=== PATIENT | male | born 1940 | race Caucasian/White ===

== ENCOUNTER → 2018-12-11 | Outpatient (CLI) | payer MEDICARE ==
[~2018-12-11] VITALS: Ht 165.1 cm; Wt 86.2 kg
[~2018-12-11] MED LIST: FURO40TA5 PO; LISI10TA7 PO; OMEG1CAP67 PO; REGADENOSON 0.4 MG/5 ML PF SYG IVP SCH; WARF-57 PO; WARF7.5T49 PO
[2018-12-18 14:16] VITALS: BP 148/57
== END | disposition home or self-care (01) ==
LOC: SHCH 07:40
PROVIDERS: ATTEND Internal Medicine Cardiovascular Disease
DX: I34.0 Nonrheumatic mitral (valve) insufficiency (principal); I48.2 Chronic atrial fibrillation
CPT/HCPCS: 78452; 93017; 96374; A9500 ×2; J2785

== ENCOUNTER 2018-12-19 07:55 | Day surgery (SDC) | payer MEDICARE ==
[2018-12-15 11:14] LABS: BASOPHILS % (AUTO) 0.9 % (0.0-5.0); EOSINOPHILS % (AUTO) 1.6 % (0.0-8.0); HEMATOCRIT 33.5 % (42-54); LYMPHOCYTES % (AUTO) 19.9 % (21.0-51.0); MEAN CORPUSCULAR HEMOGLOBIN 34.8 pg (27.0-33.0); MEAN CORPUSCULAR HGB CONC 33.7 g/dL (32.0-36.0); MEAN CORPUSCULAR VOLUME 103.1 fL (79-99); MONOCYTES % (AUTO) 12.6 % (3.0-13.0); PLATELET COUNT (AUTO) 122 K/uL (130-400); RED BLOOD CELL COUNT(AUTO) 3.25 MIL/uL (4.50-6.20); WHITE BLOOD COUNT (AUTO) 3.5 K/uL (4.8-10.8)
[2018-12-15 11:26] LABS: CREATININE 0.8 mg/dL (0.5-1.5); POTASSIUM 4.6 mmol/L (3.5-5.1)
[2018-12-15 11:49] LABS: INR 2.14 (0.85-1.15); PARTIAL THROMBOPLASTIN TIME 38.6 SEC (26.3-35.5); PROTHROMBIN TIME 22.1 SEC (9.6-11.6)
--- NOTE | 2018-12-18 11:38 | NUR ---
NURSING COMMUNICATION: INFORMED ON-CALL PHYSICIAN REGARDING PT ELEVATED PT/INR LAB RESULTS, NO NEW ORDERS RECEIVED, OK TO PROCEED WITH PLANNED PROCEDURE.
[2018-12-19] VITALS (18 sets, daily range): BP systolic 131–182; BP diastolic 56–111
[~2018-12-19 07:55] MED LIST changes: -REGADENOSON 0.4 MG/5 ML PF SYG IVP SCH
[2018-12-19] MEDS ORDERED: SODIUM CHLORIDE 0.9% 1000ML 1,000 ML IV ONE (08:57)
[2018-12-19] MEDS ORDERED: LIDOCAINE HCL 2% VISCOUS 15 ML UDCUP PO SCH (09:41)
[2018-12-19] MEDS ORDERED: MIDAZOLAM HCL 1 MG/ML 2ML VIAL ONE (12:14)
[2018-12-19] MEDS ORDERED: FENTANYL CITRATE PF 50 MCG/1 ML 2ML VIAL ONE (12:15)
[2019-01-22] MEDS ORDERED: WARF-57 PO (14:29)
== END 2018-12-19 14:30 | disposition home or self-care (01) ==
LOC: DAH 07:55
PROVIDERS: ATTEND Internal Medicine Cardiovascular Disease
DX: I08.0 Rheumatic disorders of both mitral and aortic valves (principal); Z79.01 Long term (current) use of anticoagulants; Z98.890 Other specified postprocedural states; I48.2 Chronic atrial fibrillation; Z82.49 Family history of ischemic heart disease and other diseases of the circulatory system; Z68.30 Body mass index [BMI] 30.0-30.9, adult; Z79.899 Other long term (current) drug therapy; Z79.84 Long term (current) use of oral hypoglycemic drugs
CPT/HCPCS: 36415; 80048; 85025; 85610; 85730; 93313; A4606; J2250; J3010; J7030; 99152; 99153

== ENCOUNTER 2019-01-23 09:48 | Day surgery (SDC) | payer MEDICARE ==
[2019-01-22 14:20] VITALS: BP 166/66
[2019-01-22 14:28] LABS: BASOPHILS % (AUTO) 0.9 % (0.0-5.0); EOSINOPHILS % (AUTO) 3.6 % (0.0-8.0); HEMATOCRIT 35.7 % (42-54); LYMPHOCYTES % (AUTO) 23.1 % (21.0-51.0); MEAN CORPUSCULAR HEMOGLOBIN 35.8 pg (27.0-33.0); MEAN CORPUSCULAR HGB CONC 35.1 g/dL (32.0-36.0); MEAN CORPUSCULAR VOLUME 102.2 fL (79-99); MONOCYTES % (AUTO) 10.6 % (3.0-13.0); NEUTROPHILS % (AUTO) 61.8 % (40.0-77.0); PLATELET COUNT (AUTO) 141 K/uL (130-400); RED CELL DISTRIBUTION WIDTH 15.2 % (11.0-15.5); WHITE BLOOD COUNT (AUTO) 4.1 K/uL (4.8-10.8)
[2019-01-22 14:36] LABS: APPEARANCE,URINE Clear (CLEAR); BILIRUBIN,URINE Negative (NEGATIVE); COLOR,URINE Yellow (YELLOW); GLUCOSE, URINE (UA) Negative (NEGATIVE); KETONES,URINE Negative (NEGATIVE); LEUKOCYTE ESTERASE ,URINE Negative (NEGATIVE); NITRATE,URINE Negative (NEGATIVE); OCCULT BLOOD,URINE Negative (NEGATIVE); PROTEIN,URINE Negative (NEGATIVE); UROBILINOGEN,URINE 0.2 mg/dL (0.2-1.0)
[2019-01-22 14:38] LABS: CREATININE 0.7 mg/dL (0.5-1.5); POTASSIUM 3.9 mmol/L (3.5-5.1)
[2019-01-22 14:40] LABS: INR 1.39 (0.85-1.15); PROTHROMBIN TIME 14.5 SEC (9.6-11.6)
--- NOTE | 2019-01-22 15:28 | NUR ---
ANDREW SZYMANSKI AWARE OF PT-14.5 AND INR-1.39--ORDERS FOR REDRAW PT,PTT IN AM
[2019-01-23] VITALS (9 sets, daily range): BP systolic 147–180; BP diastolic 60–81
[~2019-01-23] VITALS: Ht 165.1 cm; Wt 86.8 kg
[~2019-01-23 09:48] MED LIST changes: +SODIUM CHLORIDE 0.9% 500ML 500 ML IV SCH; -WARF7.5T49 PO
[2019-01-23] MEDS ORDERED: SODIUM CHLORIDE 0.9% 1000ML 1,000 ML IV ONE (10:17)
[2019-01-23 10:44] LABS: INR 1.58 (0.85-1.15); PARTIAL THROMBOPLASTIN TIME 34.8 SEC (26.3-35.5); PROTHROMBIN TIME 16.4 SEC (9.6-11.6)
[2019-01-23] MEDS ORDERED: COLC0.6C3 PO (11:04)
[2019-01-23] MEDS ORDERED: CARV3.12 PO (11:04)
[2019-01-23] MEDS ORDERED: LIDOCAINE HCL 2% 20ML ONE (13:53)
[2019-01-23] MEDS ORDERED: NITROGLYCERIN 5 MG/ML 10 ML VIAL IV ONE (13:53)
[2019-01-23] MEDS ORDERED: IOHEXOL-350 50ML VIAL IV ONE (13:53)
[2019-01-23] MEDS ORDERED: HEPARIN SODIUM 1000UNIT/ML 10ML VIAL ONE (13:53)
[2019-01-23] MEDS ORDERED: IOHEXOL 350 MG/ML 100ML INFUS..BTL IV ONE (13:53)
[2019-01-23] MEDS ORDERED: SODIUM BICARB 50MEQ 50ML VIAL ONE (13:53)
--- NOTE | 2019-01-23 14:35 | NUR ---
PROCEDURE PT TAKEN TO DISASTER OR DAMAGE CONTROL SPECIALIST FOR PROCEDURE VIA BED, NO DISTRESS NOTED.
[2019-01-23] MEDS ORDERED: MEPERIDINE-PF 25 MG/ML SYG ONE (14:56)
[2019-01-23] MEDS ORDERED: MIDAZOLAM HCL 1 MG/ML 2ML VIAL ONE (14:56)
--- NOTE | 2019-01-23 15:55 | NUR ---
POST OP RECEIVED PT FROM MANAGER OF REVENUE . S/P LHC, RIGHT GROIN PERCLOSE DRESSING DRY AND INTACT, SEE POST CATH ASSESSMENT. PT AWAKE AND ALERT IN BED,NO DISTRESS NOTED. VS STABLE. PT INSTRUCTED TO KEEP BEDREST 4 HOURS . PLAN OF CARE DISCUSS WITH PATIENT.
--- NOTE | 2019-01-23 19:15 | NUR ---
DC DC INSTRUCTIONS GIVEN TO PT / PTS FRIEND MAGDI. INSTRUCTED TO F/U WITH DR. Jarod ALEMAN TO CONTINUE HOME MEDS. BOTH VERBALIZED UNDERSTANDING , RIGHT GROIN DRESSING DRY AND INTACT. SEE POST CATH ASSESSMENT. NO BLEEDING OR HEMATOMA NOTED TO RIGHT GROIN AREA. BEDREST WILL BE UP AT 1926 AND PATIENT WILL BE DISCHARGE HOME IF STABLE.
--- NOTE | 2019-01-23 19:30 | NUR ---
DC PT DC HOME VIA WC, NO DISTRESS NOTED. DENIES ANY PAIN OR DISCOMFORTS. ACCOMPANIED BY FAMILY FRIEND, RIGHT GROIN SITE WITH NO BLEEDING OR HEMATOMA
== END 2019-01-23 19:30 | disposition home or self-care (01) ==
LOC: DAH 09:48
PROVIDERS: ATTEND Internal Medicine Cardiovascular Disease
DX: I42.0 Dilated cardiomyopathy (principal); I34.0 Nonrheumatic mitral (valve) insufficiency; I48.2 Chronic atrial fibrillation; Z79.01 Long term (current) use of anticoagulants; I11.0 Hypertensive heart disease with heart failure; I50.42 Chronic combined systolic (congestive) and diastolic (congestive) heart failure; Z79.899 Other long term (current) drug therapy; R00.1 Bradycardia, unspecified; Z98.890 Other specified postprocedural states; Z68.31 Body mass index [BMI] 31.0-31.9, adult; I44.7 Left bundle-branch block, unspecified
CPT/HCPCS: 36415 ×2; 71045; 80048; 81003; 85025; 85610 ×2; 85730 ×2; 93005; 93458; A4606; C1760; C1894; J1644; J2175; J2250; J3490 ×3; J7030; Q9965; Q9967 ×2; 99156; 99157

== ENCOUNTER 2019-03-28 08:19 | Observation (INO) | payer MEDICARE ==
[2019-03-26 12:51] VITALS: BP 140/61
[2019-03-26 12:56] LABS: BASOPHILS % (AUTO) 0.6 % (0.0-5.0); EOSINOPHILS % (AUTO) 2.3 % (0.0-8.0); HEMATOCRIT 36.7 % (42-54); LYMPHOCYTES % (AUTO) 20.1 % (21.0-51.0); MEAN CORPUSCULAR HEMOGLOBIN 33.9 pg (27.0-33.0); MEAN CORPUSCULAR HGB CONC 33.9 g/dL (32.0-36.0); MEAN CORPUSCULAR VOLUME 99.9 fL (79-99); MONOCYTES % (AUTO) 10.8 % (3.0-13.0); NEUTROPHILS % (AUTO) 66.2 % (40.0-77.0); PLATELET COUNT (AUTO) 183 K/uL (130-400); RED BLOOD CELL COUNT(AUTO) 3.67 MIL/uL (4.50-6.20); RED CELL DISTRIBUTION WIDTH 14.1 % (11.0-15.5); WHITE BLOOD COUNT (AUTO) 5.8 K/uL (4.8-10.8)
[2019-03-26 12:59] LABS: CREATININE 1.1 mg/dL (0.5-1.5)
[2019-03-26 13:06] LABS: INR 1.27 (0.85-1.15); PARTIAL THROMBOPLASTIN TIME 32.2 SEC (26.3-35.5); PROTHROMBIN TIME 13.3 SEC (9.6-11.6)
--- NOTE | 2019-03-27 11:14 | NUR ---
REPORTED ABNORMAL LABS TO ANDREW SZYMANSKI OF DR. ALEMAN. OK TO PROCEED NO NEW ORDERS
[2019-03-28] VITALS (10 sets, daily range): BP systolic 114–141; BP diastolic 58–71
[~2019-03-28] VITALS: Ht 166.4 cm; Wt 80.5 kg
[~2019-03-28 08:19] MED LIST changes: -LISI10TA7 PO; +LOSA50TA64 PO; +OMEG1CAP43 PO; -OMEG1CAP67 PO; +POTA-9 PO; -SODIUM CHLORIDE 0.9% 500ML 500 ML IV SCH; -WARF-57 PO; +WARF5TAB76 PO; +WARF7.5T23 PO
[2019-03-28] MEDS ORDERED: SODIUM CHLORIDE 0.9% 1000ML 1,000 ML IV ONE (08:33)
[2019-03-28] MEDS ORDERED: BUPIVACAINE/PF 0.25% 30ML VIAL IJ ONE (14:05)
[2019-03-28] MEDS ORDERED: CEFAZOLIN SODIUM 1 GM VIAL ONE ×2 (14:05→14:19)
[2019-03-28] MEDS ORDERED: LIDOCAINE HCL 1% MDV 50ML VIAL ONE (14:05)
--- NOTE | 2019-03-28 14:10 | NUR ---
procedure pt taken to cathodic protection technician via bed for scheduled procedure. pt awake and alert. denied any pain or discomforts
[2019-03-28] MEDS ORDERED: IODIXANOL 320 MG/ML 100 ML VIAL ONE (14:23)
[2019-03-28] MEDS ORDERED: MEPERIDINE-PF 25 MG/ML SYG ONE ×3 (14:23→15:01)
[2019-03-28] MEDS ORDERED: MIDAZOLAM HCL 1 MG/ML 2ML VIAL ONE ×3 (14:23→15:00)
[2019-03-28] MEDS ORDERED: OCTYL 2-CYANOACRYLATE 1 EACH TP ONE (15:58)
[2019-03-28] MEDS ORDERED: METOPROLOL TARTRATE 1 MG/ML 5ML VIAL IV ONE ×2 (15:59→16:06)
[2019-03-28] MEDS ORDERED: METOPROLOL TARTRATE 25 MG TAB PO SCH (16:30)
--- NOTE | 2019-03-28 17:05 | NUR ---
Post procedure Received patient from label sewer in Forman's position alert and oriented 3 left shoulder dressing dry and intact and secured with arm sling, pulses and retirement manager strength strong bilaterally, patient denies pain dizziness lightheadedness, patient on bed rest side rails up 3, bed alarm activated, call light within reach, family at bedside.
[2019-03-28] MEDS: SPIRONOLACTONE 25 MG TAB PO SCH (20:44)
[2019-03-28] MEDS: FUROSEMIDE 40 MG TABLET PO SCH (20:45)
[2019-03-28] MEDS: METOPROLOL TARTRATE 50 MG TAB PO SCH (20:45)
[2019-03-28] MEDS: ACETAMINOPHEN-CODEINE 300/30MG TAB PO PRN (21:35)
[2019-03-28] MEDS: CEFAZOLIN SODIUM 1 GM VIAL IVP SCH (21:35)
[2019-03-29] MEDS: ACETAMINOPHEN-CODEINE 300/30MG TAB PO PRN (02:39)
[2019-03-29 03:38] VITALS: BP 121/64
[2019-03-29] MEDS: CEFAZOLIN SODIUM 1 GM VIAL IVP SCH (05:33)
--- NOTE | 2019-03-29 07:45 | NUR ---
ASSESSMENT ENCOUNTERED PT A&OX3, CALM COOPERATIVE AND DOES NOT APPEAR TO BE IN ANY DISTRESS NOR ANY NEURO DEFICITS PRESENT. PT DENIES PAIN, SOB, NAUSEA. LEFT SHOULDER DRESSING DRY AND INTACT AND SECURED WITH ARM SLING. PT IS AMBULATORY, GAIT STEADY AND STRONG WITH STAND BY ASSIST. CALL LIGHT WITHIN REACH, FAMILY AT BEDSIDE.
[2019-03-29 08:00] VITALS: BP 120/62
[2019-03-29] MEDS: FUROSEMIDE 40 MG TABLET PO SCH (09:00)
[2019-03-29] MEDS: SPIRONOLACTONE 25 MG TAB PO SCH ×2 (09:00→10:16)
[2019-03-29] MEDS ORDERED: FISH OIL 1000 MG/CAP PO SCH (09:00)
[2019-03-29] MEDS ORDERED: LOSARTAN 50 MG TABLET PO SCH (09:00)
[2019-03-29] MEDS: METOPROLOL TARTRATE 50 MG TAB PO SCH (10:16)
[2019-03-29] MEDS ORDERED: SPIR25TA PO (10:39)
[2019-03-29] MEDS ORDERED: DOXY100C2 PO (10:39)
[2019-03-29] MEDS ORDERED: METO50TA9 PO (10:39)
--- NOTE | 2019-03-29 13:00 | NUR ---
DISCHARGE INSTRUCTIONS GIVEN, PIV REMOVED AND INTACT, DISCHARGED HOME TO FAMILY VEHICLE VIA WHEELCHAIR.
== END 2019-03-29 12:53 | disposition home or self-care (01) ==
LOC: DAH 08:19 → DAHIP 08:20 → DAH 08:20 → 2DH 17:15
PROVIDERS: ADMIT Internal Medicine; ATTEND Internal Medicine
DX: I11.0 Hypertensive heart disease with heart failure (principal); I50.9 Heart failure, unspecified; I48.2 Chronic atrial fibrillation; I42.0 Dilated cardiomyopathy; D68.59 Other primary thrombophilia; I07.1 Rheumatic tricuspid insufficiency; I34.0 Nonrheumatic mitral (valve) insufficiency; R00.1 Bradycardia, unspecified
CPT/HCPCS: 33225; 33249; 36415; 71046; 80048; 85025; 85610; 85730; 93005; 96374; 96376; A4606; C1769 ×2; C1882; C1894; C1895 ×2; C1900; G0378 ×21; J0690 ×4; J2175 ×3; J2250 ×3; J3490 ×4; J7030; Q9967; 99156; 99157

== ENCOUNTER → 2019-10-17 | Outpatient (CLI) | payer MEDICARE ==
[~2019-10-17] MED LIST changes: +DOXY100C2 PO; +METO50TA9 PO; -POTA-9 PO; +SPIR25TA PO
== END | disposition home or self-care (01) ==
LOC: SHCH 10:17
PROVIDERS: ATTEND Internal Medicine Cardiovascular Disease
DX: R01.1 Cardiac murmur, unspecified (principal)
CPT/HCPCS: 93306

== ENCOUNTER → 2019-12-26 | Outpatient (CLI) | payer MEDICARE | END | disposition home or self-care (01) | LOC: SHCH 07:58 | PROVIDERS: ATTEND Internal Medicine Cardiovascular Disease | DX: R01.1 Cardiac murmur, unspecified (principal) | CPT/HCPCS: 93306 ==

== ENCOUNTER → 2021-01-19 | Outpatient (CLI) | payer MEDICARE ==
[~2021-01-19] MED LIST changes: +WARF5TAB PO; -WARF5TAB76 PO
== END | disposition home or self-care (01) ==
LOC: SHCH 10:33
PROVIDERS: ATTEND Internal Medicine Cardiovascular Disease
DX: I87.2 Venous insufficiency (chronic) (peripheral) (principal); K21.9 Gastro-esophageal reflux disease without esophagitis
CPT/HCPCS: 93970

== ENCOUNTER → 2021-03-02 | Outpatient (CLI) | payer MEDICARE | END | disposition home or self-care (01) | LOC: SHCH 13:00 | PROVIDERS: ATTEND Internal Medicine Cardiovascular Disease | DX: I87.2 Venous insufficiency (chronic) (peripheral) (principal) | CPT/HCPCS: 93971 ==

== ENCOUNTER → 2021-03-11 | Outpatient (CLI) | payer MEDICARE | END | disposition home or self-care (01) | LOC: SHCH 15:25 | PROVIDERS: ATTEND Internal Medicine Cardiovascular Disease | DX: I87.2 Venous insufficiency (chronic) (peripheral) (principal) | CPT/HCPCS: 93971 ==

== ENCOUNTER → 2022-01-07 | Outpatient (CLI) | payer MEDICARE ==
[~2022-01-07] MED LIST changes: -DOXY100C2 PO; +DOXY100C5 PO
== END | disposition home or self-care (01) ==
LOC: RAH 08:19
PROVIDERS: ATTEND Internal Medicine Gastroenterology
DX: R94.5 Abnormal results of liver function studies (principal); N28.1 Cyst of kidney, acquired
CPT/HCPCS: 76700

== ENCOUNTER → 2022-10-25 | Outpatient (CLI) | payer MEDICARE ==
[~2022-10-25] MED LIST changes: +FISH1CAP17 PO; +IOHEXOL 350 MG/ML 100ML INFUS..BTL IV ONE; -OMEG1CAP43 PO
== END | disposition home or self-care (01) ==
LOC: RAH 08:04
PROVIDERS: ATTEND Internal Medicine Gastroenterology
DX: R18.8 Other ascites (principal); R93.5 Abnormal findings on diagnostic imaging of other abdominal regions, including retroperitoneum; R10.9 Unspecified abdominal pain; I51.7 Cardiomegaly; J90 Pleural effusion, not elsewhere classified; J98.11 Atelectasis
CPT/HCPCS: 74170; Q9967

== ENCOUNTER → 2022-11-09 | Outpatient (CLI) | payer MEDICARE ==
[~2022-11-09] MED LIST changes: -IOHEXOL 350 MG/ML 100ML INFUS..BTL IV ONE; +REGADENOSON 0.4 MG/5 ML PF SYG IVP SCH
== END | disposition home or self-care (01) ==
LOC: SHCH 07:34
PROVIDERS: ATTEND Internal Medicine Cardiovascular Disease
DX: I48.20 Chronic atrial fibrillation, unspecified (principal); Z95.0 Presence of cardiac pacemaker
CPT/HCPCS: 78452; 96374; 93017; J2785; A9500 ×2

== ENCOUNTER → 2022-11-30 | Outpatient (CLI) | payer MEDICARE ==
[~2022-11-30] MED LIST changes: -REGADENOSON 0.4 MG/5 ML PF SYG IVP SCH
[2022-11-30 16:23] LABS: CREATININE 1.1 mg/dL (0.5-1.5); MAGNESIUM 1.7 mg/dL (1.80-2.40); POTASSIUM 3.3 mmol/L (3.5-5.1)
== END | disposition home or self-care (01) ==
LOC: LAB 13:12
PROVIDERS: ATTEND Internal Medicine Cardiovascular Disease
DX: I34.0 Nonrheumatic mitral (valve) insufficiency (principal)
CPT/HCPCS: 36415; 80048; 83735; 83880

== ENCOUNTER → 2022-12-16 | Outpatient (CLI) | payer MEDICARE ==
[~2022-12-16] MED LIST changes: +ALLO300T2 PO; +FURO80TA3 PO; +TAMS-1 PO
== END | disposition home or self-care (01) ==
LOC: SHCH 13:53
PROVIDERS: ATTEND Internal Medicine Cardiovascular Disease
DX: I87.2 Venous insufficiency (chronic) (peripheral) (principal)
CPT/HCPCS: 93970

== ENCOUNTER 2022-12-20 06:19 | Day surgery (SDC) | payer MEDICARE ==
[2022-12-16 13:15] VITALS: BP 141/64
[2022-12-16 13:17] LABS: BASOPHILS % (AUTO) 1.1 % (0.0-5.0); HEMATOCRIT 34.9 % (42-54); LYMPHOCYTES % (AUTO) 11.7 % (21.0-51.0); MEAN CORPUSCULAR HEMOGLOBIN 35.9 pg (27.0-33.0); MEAN CORPUSCULAR HGB CONC 33.2 g/dL (32.0-36.0); MONOCYTES % (AUTO) 9.8 % (3.0-13.0); NEUTROPHILS % (AUTO) 74.2 % (40.0-77.0); PLATELET COUNT (AUTO) 121 K/uL (130-400); RED BLOOD CELL COUNT(AUTO) 3.23 MIL/uL (4.50-6.20); RED CELL DISTRIBUTION WIDTH 15.1 % (11.0-15.5); WHITE BLOOD COUNT (AUTO) 6.3 K/uL (4.8-10.8)
[2022-12-16 13:19] LABS: APPEARANCE,URINE CLEAR (CLEAR); BILIRUBIN,URINE NEGATIVE (NEGATIVE); COLOR,URINE LIGHT-YELLOW (YELLOW); GLUCOSE, URINE (UA) NEGATIVE (NEGATIVE); KETONES,URINE NEGATIVE (NEGATIVE); LEUKOCYTE ESTERASE ,URINE NEGATIVE Leu/uL (NEGATIVE); NITRATE,URINE NEGATIVE (NEGATIVE); OCCULT BLOOD,URINE SMALL (NEGATIVE); PH,URINE 5.5 (5.0-8.0); PROTEIN,URINE 20 mg/dL (NEGATIVE); UROBILINOGEN,URINE 0.2 mg/dL (0.2-1.0)
[2022-12-16 13:26] LABS: POTASSIUM 3.7 mmol/L (3.5-5.1)
[2022-12-16 13:28] LABS: INR 1.34 (0.85-1.15); PROTHROMBIN TIME 14.4 SEC (9.6-11.6)
[2022-12-16 13:30] LABS: PARTIAL THROMBOPLASTIN TIME 33.6 SEC (26.3-35.5)
[2022-12-16 13:42] LABS: WBC,URINE 0-1 /HPF (0-1)
[2022-12-16 13:46] LABS: B-TYPE NATRIURETIC PEPTIDE 1050 pg/mL (0-100)
[2022-12-20] VITALS (10 sets, daily range): BP systolic 115–132; BP diastolic 59–69
[~2022-12-20] VITALS: Ht 165.1 cm; Wt 77.5 kg
[~2022-12-20 06:19] MED LIST changes: -DOXY100C5 PO; -FISH1CAP17 PO; -FURO40TA5 PO; -LOSA50TA64 PO; -METO50TA9 PO; -SPIR25TA PO
[2022-12-20] MEDS ORDERED: 0.9%NACL 1000ML 1,000 ML IV ONE (07:27)
[2022-12-20] MEDS ORDERED: IOHEXOL 350 MG/ML 100ML INFUS..BTL IV ONE (08:42)
[2022-12-20] MEDS ORDERED: ISOVUE-370 50ML VIAL IV ONE (08:42)
[2022-12-20] MEDS ORDERED: SODIUM BICARB 50MEQ 50ML VIAL 50 ML ONE (08:42)
[2022-12-20] MEDS ORDERED: NITROGLYCERIN 50MG VIAL ONE (08:42)
[2022-12-20] MEDS ORDERED: HEPARIN 10,000 UNIT/10ML (1,000 UNIT/ML) VIAL ONE (08:42)
[2022-12-20] MEDS ORDERED: NICARDIPINE 25MG INJ IV ONE (08:42)
[2022-12-20] MEDS ORDERED: LIDOCAINE HCL 400MG/20ML VIAL ONE (08:43)
[2022-12-20] MEDS ORDERED: MEPERIDINE-PF 25 MG/ML SYG ONE ×2 (08:43→09:24)
[2022-12-20] MEDS ORDERED: MIDAZOLAM HCL 1 MG/ML 2ML VIAL ONE ×2 (08:43→09:24)
[2022-12-20] MEDS ORDERED: 0.9%NACL 10ML VIAL IVP SCH (10:00)
== END 2022-12-20 13:45 | disposition home or self-care (01) ==
LOC: DAH 06:19
PROVIDERS: ATTEND Internal Medicine Cardiovascular Disease
DX: I25.119 Atherosclerotic heart disease of native coronary artery with unspecified angina pectoris (principal); I34.0 Nonrheumatic mitral (valve) insufficiency; I42.8 Other cardiomyopathies; I87.2 Venous insufficiency (chronic) (peripheral); I11.0 Hypertensive heart disease with heart failure; I50.42 Chronic combined systolic (congestive) and diastolic (congestive) heart failure; I48.20 Chronic atrial fibrillation, unspecified; M10.9 Gout, unspecified; Z90.49 Acquired absence of other specified parts of digestive tract; Z79.01 Long term (current) use of anticoagulants; Z79.899 Other long term (current) drug therapy; Z98.890 Other specified postprocedural states
CPT/HCPCS: 80048; 83880; 85025; 85610; 85730; 81001; 36415; 71045; 93005; 93970; 93458; C1769; C1894 ×2; C1760; Q9967 ×2; J3490 ×4; J7030; J1644 ×2; J2250 ×2; J2175 ×2; A4215; A4222; A4221; A4663; A4216; A4606; Q9965; A4223 ×3; 99156; 99157

== ENCOUNTER → 2024-04-21 | Outpatient (CLI) | payer MEDICARE | END | disposition home or self-care (01) | LOC: SHCH 08:34 | PROVIDERS: ATTEND Internal Medicine Cardiovascular Disease | DX: I08.3 Combined rheumatic disorders of mitral, aortic and tricuspid valves (principal); I42.0 Dilated cardiomyopathy; E78.5 Hyperlipidemia, unspecified; I11.9 Hypertensive heart disease without heart failure | CPT/HCPCS: 93306 ==

== ENCOUNTER → 2024-11-01 | Outpatient (CLI) | payer MEDICARE ==
[~2024-11-01] MED LIST changes: +CARV3.12 PO; +FERR159T2 PO; +FISH1CAP20 PO; +LOSA25TA41 PO; +MECO10005 PO; +METO2.5T2 PO; +MIRA50TA PO; +OMEP20CA12 PO; +POTA-202 PO; -WARF5TAB PO
[2024-11-01 13:35] LABS: ALBUMIN 3.9 g/dL (3.5-5.0); BILIRUBIN,TOTAL 0.7 mg/dL (0.2-1.0); MAGNESIUM 1.9 mg/dL (1.80-2.40); POTASSIUM 5.5 mmol/L (3.5-5.1); TOTAL PROTEIN, SERUM 7.4 g/dL (6.0-8.3)
== END | disposition home or self-care (01) ==
LOC: LAB 09:13
PROVIDERS: ATTEND Internal Medicine Cardiovascular Disease
DX: I87.2 Venous insufficiency (chronic) (peripheral) (principal); I42.0 Dilated cardiomyopathy; I48.91 Unspecified atrial fibrillation; I27.20 Pulmonary hypertension, unspecified
CPT/HCPCS: 36415; 80053; 83735; 83880

== ENCOUNTER 2024-11-19 06:33 | Day surgery (SDC) | payer MEDICARE ==
[2024-11-15 11:08] LABS: BASOPHILS # (AUTO) 0.08 K/uL (0.00-0.20); BASOPHILS % (AUTO) 1.8 % (0.0-5.0); EOSINOPHILS # (AUTO) 0.16 K/uL (0.00-0.70); EOSINOPHILS % (AUTO) 3.5 % (0.0-8.0); HEMATOCRIT 36.8 % (42-54); IMMATURE GRANULOCYTE ABSOLUTE 0.02 K/uL (0-1); LYMPHOCYTES % (AUTO) 22.1 % (21.0-51.0); MEAN CORPUSCULAR HEMOGLOBIN 36.6 pg (27.0-33.0); MEAN CORPUSCULAR HGB CONC 33.2 g/dL (32.0-36.0); MEAN CORPUSCULAR VOLUME 110.5 fL (79-99); MONOCYTES # (AUTO) 0.7 K/uL (0.1-1.0); MONOCYTES % (AUTO) 14.3 % (3.0-13.0); NEUTROPHILS # (AUTO) 2.6 K/uL (1.8-7.7); NEUTROPHILS % (AUTO) 57.9 % (40.0-77.0); PLATELET COUNT (AUTO) 145 K/uL (130-400); RED BLOOD CELL COUNT(AUTO) 3.33 MIL/uL (4.50-6.20); WHITE BLOOD COUNT (AUTO) 4.6 K/uL (4.8-10.8)
[2024-11-15 11:09] VITALS: BP 123/58; PULSE 78; RESP 18; TEMP 97.3
[2024-11-15 11:10] LABS: CREATININE 1.2 mg/dL (0.5-1.3); POTASSIUM 4.9 mmol/L (3.5-5.1)
[2024-11-15 11:25] LABS: INR 1.43 (0.85-1.15); PROTHROMBIN TIME 15.5 SEC (9.6-11.6)
--- NOTE | 2024-11-16 15:14 | NUR ---
RE: LABS REPORTED PT 16.5/INR 1.43 TO GLORIA URENA NP. RECEIVED ORDERS TO HAVE PATIENT HOLD WARFARIN AND START LOVENOX ([facility]). GLORIA WILL CALL IN PRESCRIPTION TO PATIENT'S PHARMACY. AND REPEAT COAGS,BMP/BNP ON Tuesday. CALLED PATIENT AND INSTRUCTED HIM TO DATA SECURITY COORDINATOR LOVENOX FROM PHARMACY, HOLD WARFARIN AND TO HOLD LOVENOX ON Tuesday. PATIENT VERBALIZED UNDERSTANDING.
[~2024-11-19] VITALS: Ht 152.4 cm; Wt 76.7 kg
[2024-11-19] VITALS (14 sets, daily range): BP systolic 124–150; BP diastolic 53–82; PULSE 80–86; RESP 13–20; TEMP 97.2–97.4
[~2024-11-19 06:33] MED LIST changes: -LOSA25TA41 PO; -OMEP20CA12 PO; +SPIR25TA6 PO
[2024-11-19] MEDS ORDERED: fluMAZenil 0.1MG/1ML 5ML VIAL IV ONE (07:00)
[2024-11-19] MEDS ORDERED: NALoxone HCL 0.4 MG/1 ML ML IVP ONE (07:00)
[2024-11-19 07:16] LABS: CREATININE 1.3 mg/dL (0.5-1.3); POTASSIUM 4.7 mmol/L (3.5-5.1)
[2024-11-19 07:19] LABS: INR 1.23 (0.85-1.15); PROTHROMBIN TIME 13.5 SEC (9.6-11.6)
[2024-11-19 07:21] LABS: PARTIAL THROMBOPLASTIN TIME 38.9 SEC (26.3-35.5)
[2024-11-19] MEDS: 0.9%NACL 1000ML 1,000 ML IV SCH (07:36)
--- NOTE | 2024-11-19 09:35 | NUR ---
RICARDO: AT 09:35 LIDOCAINE VISCOUS 15 ML GIVEN FOR PATIENT TO GARGLE AND SWALLOW WITH NO DIFFICULTY. AT 9:38 AM TIME OUT WAS DONE WITH PATIENT, NURSE AND PHYSICIAN. VERSED 2MG IV AND FENTANYL 25 MG IV GIVEN PER ORDERS. AT 09:46 AM VERSED 1 MG IV AND 12.5 FENTANYL IV GIVEN ORDERED. TUBE INSERTED AT 09:48 WITHOUT DIFFICULTY. COMPLETED AT 09:55, PT TOLERATED WELL.
--- NOTE | 2024-11-19 09:55 | NUR ---
assessment: no oral drainage present.
[2024-11-19] MEDS: MIDAZOLAM HCL 1 MG/ML 2ML VIAL IVP ONE (10:09)
[2024-11-19] MEDS: FENTanyl CITRate PF 50 MCG/1 ML 2ML VIAL IVP ONE (10:12)
[2024-11-19] MEDS: LIDOCAINE HCL 2% VISCOUS 15 ML UDCUP PO ONE (10:13)
[2024-11-19] MEDS ORDERED: ENOXAPARIN SODIUM 80 MG/0.8 ML SQ ONE (10:30)
[2024-11-19] MEDS: WARFARIN SODIUM 10 MG TABLET PO ONE (10:41)
--- NOTE | 2024-11-20 07:59 | HMCSR ---
APPROVED REPORT EXAM: Transesophageal echocardiogram with color flow Doppler. INDICATION ICD: I42.0 Dilated cardiomyopathy, Dyspnea PROCEDURE After obtaining informed consent, patient underwent transesophageal echo in the Day Patient Room 16. 15 mL 2% Viscous Lidocaine was given as a topical anesthetic prior to the administration of the consc ious sedation. Type of Sedation: please refer to medication administration record. Sedation was administered by please refer to medication administration record.. Sedation was achieved with please refer to medication administration record. intravenously. Transesophageal probe was inserted and advanced into esophagus without difficulty by Jarod Colbert MD. RICARDO was performed and images were obtained, probe was removed without complications. Throughout the procedure, the blood pressure, pulse oximetry, cardiac rhythm, and rate were monitored . The patient tolerated the procedure without adverse effects. Recovery from conscious sedation was une ventful and vital signs were stable. Left Ventricle Left ventricular cavity size is normal. There is mild left ventricular wall thinning. LVEF is 20-25%. No left ventricle thrombus noted on this study. Right Ventricle The right ventricle is moderately dilated. Systolic function is mildly reduced. Device lead is presen t in the right ventricle. Atria The left atrium is severely dilated. No left atrial appendage thrombus noted. There is no mass or thr ombus suspected in the left atrium. No evidence of PFO/ASD by color doppler. The right atrium is uri rely dilated. There is no mass or thrombus suspected in the right atrium. Aortic Valve The aortic valve is mildly thickened. No aortic regurgitation is present. There is no aortic valvular stenosis. Mitral Valve The mitral valve is normal in structure. Mitral regurgitation is moderate. There is no mitral valve s tenosis. Tricuspid Valve There is moderate tricuspid valve regurgitation noted. Pulmonic Valve The pulmonary valve is normal in structure and function. There is no pulmonic valvular regurgitation. Great Vessels The aortic root is normal in size. Ascending aorta appears normal in caliber. Descending aorta appear s normal in caliber. Pericardium The pericardium appears normal. Conclusion Left ventricular cavity size is normal. There is mild left ventricular wall thinning. LVEF is 20-25%. No left ventricle thrombus noted on this study. The right ventricle is moderately dilated. Systolic function is mildly reduced. The left atrium is severely dilated. No left atrial appendage thrombus noted. There is no mass or thrombus suspected in the left atrium. The right atrium is severely dilated. There is no mass or thrombus suspected in the right atrium. The aortic valve is mildly thickened. No aortic regurgitation is present. There is no aortic valvular stenosis. The mitral valve is normal in structure. Mitral regurgitation is moderate. There is no mitral valve stenosis. There is moderate tricuspid valve regurgitation noted. The pulmonary valve is normal in structure and function. The aortic root is normal in size. The pericardium appears normal.
== END 2024-11-19 11:00 | disposition home or self-care (01) ==
LOC: DAH 06:33
PROVIDERS: ATTEND Internal Medicine Cardiovascular Disease
DX: I42.0 Dilated cardiomyopathy (principal); R06.00 Dyspnea, unspecified; I08.1 Rheumatic disorders of both mitral and tricuspid valves; M10.9 Gout, unspecified; I48.91 Unspecified atrial fibrillation; I11.0 Hypertensive heart disease with heart failure; I50.9 Heart failure, unspecified; D68.69 Other thrombophilia; Z79.01 Long term (current) use of anticoagulants; Z90.49 Acquired absence of other specified parts of digestive tract; Z79.899 Other long term (current) drug therapy
CPT/HCPCS: 80048 ×2; 85025; 85610 ×2; 85730 ×2; 36415 ×2; 83880; 93325; 93312; J3010; J7030; J2250; J1650; A4615; A4215; A4223 ×3; A4657; A7002; A4222; A4221; A4663; A4216; A4606; 99152; J2310; J3490; G0500

== ENCOUNTER 2025-08-20 10:40 | Inpatient (IN) | payer MEDICARE ==
[2025-08-20] VITALS (19 sets, daily range): BP systolic 117–173; BP diastolic 51–110; PULSE 78–85; RESP 12–33; TEMP 98.3–99.8; O2SAT 97–99
[~2025-08-20] VITALS: Ht 165.1 cm; Wt 80.7 kg
[~2025-08-20 10:40] MED LIST changes: -TAMS-1 PO; +TAMS-55 PO
--- NOTE | 2025-08-20 10:48 | ERN ---
ED Note History of Present Illness Stated Complaint: PT HAD A WITNESSED SYNCOPAL EPISODE Chief Complaint: Syncope Time Seen by MD: 10:45 Dictation: PATIENT IS AN 84-YEAR-OLD MALE COMING IN VIA EMS WITH COMPLAINTS OF A WITNESSED SYNCOPAL EPISODE WHILE STANDING ON A 3 FT STOOL. HE FELL BACKWARDS AND STRUCK HIS HEAD. THERE WAS POSITIVE LOC. ON AWAKENING HE WAS NOTED BY BYSTANDERS TO BE CONFUSED AND ASKING QUESTIONS LIKE HOW TO DO GET DRESSED THIS MORNING ETC.. HE IS CURRENTLY ANSWERING QUESTIONS, STATES HE IS HAVING RIGHT ARM PAIN, HAS A CERVICAL NECK PAIN MIDLINE AND OCCIPITAL HEADACHE. HE DENIES ANY CHEST PAIN BACK PAIN. THERE WAS NO HIP PAIN NO SHORTENING OR ROTATION OF LOWER EXTREMITIES. Allergies: Coded Allergies: No Known Drug Allergies (Unverified Allergy, Unknown, 12/08/18) Home Meds Reported Medications Spironolactone (Spironolactone) 25 Mg Tablet, 25 MG PO BID, TAB 11/15/24 Mirabegron (Myrbetriq) 50 Mg Tab.er.24h, 50 MG PO DAILY, TAB 10/12/24 Mecobalamin (B12 Active) 1,000 Mcg Tab.chew, 500 MCG PO PM, TAB.CHEW 10/12/24 [place]-3 Fatty Acids/Fish Oil (Fish Oil 1000 mg/Cap) 300 Mg-1,000 Mg Capsule, 1 CAP PO DAILY for 30 Days, #90 CAP 0 Refills WITH MEALS 10/12/24 Ferrous Sulfate, Dried (Iron) 159 Mg (45 Mg Iron) Tablet.er, 65 MG PO PM, TAB 10/12/24 Potassium Chloride (Potassium Chloride) 20 Meq Tab.er.prt, 20 MEQ PO BID 10/12/24 Metolazone (Metolazone) 2.5 Mg Tablet, 2.5 MG PO DAILY, TAB 10/12/24 Carvedilol (Carvedilol) 3.125 Mg Tablet, 3.125 MG PO BID, TAB 10/12/24 Tamsulosin HCl (Flomax) 0.4 Mg Cap.er.24h, 0.4 MG PO DAILY, CAPSULE.DR 12/16/22 Allopurinol (Allopurinol) 300 Mg Tablet, 300 MG PO DAILY, TAB 12/16/22 Furosemide (Furosemide) 80 Mg Tablet, 80 MG PO DAILY, TAB 12/16/22 Warfarin Sodium (Coumadin) 7.5 Mg Tablet, 7.5 MG PO DAILY, TAB 03/26/19 Past Medical History Past Medical History: A-Fib, Arthritis, CHF, Heart Disease, Prostatitis Surgical History: Appendectomy, Pacer/AICD RN Note Reviewed/Agreed w/PFSH: Yes Review of System Dictation CONSTITUTIONAL: NEGATIVE EXCEPT FOR HPI HEAD/FACE: NEGATIVE EXCEPT FOR HPI EENT: NEGATIVE EXCEPT FOR HPI RESPIRATORY: NEGATIVE EXCEPT FOR HPI GASTROINTESTINAL/ABDOMINAL: NEGATIVE EXCEPT FOR HPI GENITOURINARY: NEGATIVE EXCEPT FOR HPI MUSCULOSKELETAL: NEGATIVE EXCEPT FOR HP CERVICAL SPINE PAIN AND RIGHT UPPER ARM PAIN INTEGUMENTARY: NEGATIVE EXCEPT FOR HPI NEUROLOGICAL/PSYCH: NEGATIVE EXCEPT FOR HPI HEADACHE/ HEMATOLOGIC/LYMPHATIC: NEGATIVE EXCEPT FOR HPI ALL SYSTEMS NEGATIVE, EXCEPT NOTED ABOVE. 13 POINT REVIEW OF SYSTEMS ASSESSED AND ALL NEGATIVE EXCEPT FOR ABOVE. Initial Vital Sign VS Vital Signs Date Time Temp Pulse Resp B/P (MAP) Pulse Ox O2 Delivery O2 Flow Rate FiO2 08/20/25 10:49 99.7 80 21 141/62 100 Room Air 0 08/20/25 11:31 21 Physical Exam Dictation VITAL SIGNS REVIEWED GENERAL APPEARANCE: ALERT, ORIENTED X 3, ANSWERING QUESTIONS APPROPRIATELY APPEARS VERY DEBILITATED. HEAD AND FACE: OCCIPITAL TENDERNESS WITHOUT HEMATOMA. NO MCKINNEY OR RACCOON SIGN EYES: PERRL, PINK CONJUNCTIVAS, EYELID NO TRAUMA, ANTERIOR CHAMBER WITH ARCUS SENILIS. EARS: PINNAS INTACT AND NO SIGNS OF TRAUMA OR ERYTHEMA EAR CANALS CLEAR AND NO DISCHARGE TM NO ERYTHEMA NO HEMOTYMPANUM NOSE: NO DISCHARGE, NO BLEEDING. OROPHARYNX: MOUTH NORMAL, TONGUE PINK, PHARYNX CLEAR,NO ERYTHEMA, TONSILS NO EXUDATES, NO ABSCESSES NOTED, MUCOUS MEMBRANE MOIST NECK: MIDLINE SPINE PAIN TENDERNESS CERVICAL, NO STEP-OFF. PATIENT NEUROLOGICALLY INTACT TO ALL EXTREMITIES. BREAST:DEFERRED CHEST:NO TENDERNESS, NO CREPITUS, NO PARADOXICAL MOVEMENT, NO RETRACTIONS LUNGS:CLEAR, WELL-VENTILATED, SYMMETRIC, NO RALES, NO WHEEZING, NO RHONCHI, NO STRIDOR, GOOD BREATH SOUNDS BILATERALLY HEART: REGULAR RATE, REGULAR RHYTHM, NO MURMUR, NO GALLOPS VASCULAR: NO PERIPHERAL EDEMA, ABDOMEN: SOFT, POSITIVE BOWEL SOUNDS, NONDISTENDED, NO GUARDING, NONTENDER, NO REBOUND, NO MASSES NO HEPATOMEGALY, NO SPLENOMEGALY, NO GUAN'S SIGN, NO HERNIAS. RECTAL: DEFERRED GENITAL: DEFERRED NEUROLOGICAL: NORMAL SPEECH, MOTOR FUNCTION INTACT, SENSORY FUNCTION INTACT MUSCULOSKELETAL: NECK NONTENDER, FULL RANGE OF MOTION, BACK NONTENDER, FULL RANGE OF MOTION, EXTREMITIES: RIGHT FOREARM AND RIGHT UPPER EXTREMITY PAIN TENDERNESS. SKIN: COLOR PINK, DRY, NO TURGOR, NO RASH, NO LACERATIONS, NO ABRASIONS, NO CONT USIONS. LYMPHATIC: DEFERRED Results (Laboratory/Radiology) Laboratory/Radiology Laboratory Tests Test 08/20/25 10:50 White Blood Count 7.4 K/uL (4.8-10.8) Red Blood Count 2.69 MIL/uL (4.50-6.20) L Hemoglobin 10.0 g/dL (14.0-18.0) L Hematocrit 29.5 % (42-54) L Mean Corpuscular Volume 109.7 fL (79-99) H Mean Corpuscular Hemoglobin 37.2 pg (27.0-33.0) H Mean Corpuscular Hemoglobin Concent 33.9 g/dL (32.0-36.0) Red Cell Distribution Width 15.0 % (11.0-15.5) Platelet Count 131 K/uL (130-400) Mean Platelet Volume 10.1 fL (7.5-10.5) Immature Granulocyte % (Auto) 0.5 % (0-1) Neutrophils (%) (Auto) 70.5 % (40.0-77.0) Lymphocytes (%) (Auto) 19.2 % (21.0-51.0) L Monocytes (%) (Auto) 6.7 % (3.0-13.0) Eosinophils (%) (Auto) 2.3 % (0.0-8.0) Basophils (%) (Auto) 0.8 % (0.0-5.0) Neutrophils # (Auto) 5.2 K/uL (1.8-7.7) Lymphocytes # (Auto) 1.4 K/uL (1.0-4.8) Monocytes # (Auto) 0.5 K/uL (0.1-1.0) Eosinophils # (Auto) 0.17 K/uL (0.00-0.70) Basophils # (Auto) 0.06 K/uL (0.00-0.20) Absolute Immature Granulocyte (auto 0.04 K/uL (0-1) Nucleated Red Blood Cells 0.0 % (0.0-0.19) Red Blood Cell Morphology See comments Sodium Level 138 mmol/L (136-145) Potassium Level 3.4 mmol/L (3.5-5.1) L Chloride Level 99 mmol/L (101-111) L Carbon Dioxide Level 28 mmol/L (21-32) Blood Urea Nitrogen 46 mg/dL (7-18) H Creatinine 1.5 mg/dL (0.5-1.3) H Glomerular Filtration Rate Calc 45 mL/min (>90) Random Glucose 208 mg/dL (70-105) H Total Calcium 8.9 mg/dL (8.5-10.1) Magnesium Level 1.90 mg/dL (1.80-2.40) Troponin I High Sensitivity 49 ng/L (4-75) B-Type Natriuretic Peptide 203 pg/mL (0-100) H EXAM: CR right Forearm, 2 View. CLINICAL HISTORY: FOR A PAIN STATUS POST SYNCOPAL EPISODE AND FALL COMPARISON: None provided. FINDINGS: BONES: No acute fracture or aggressive appearing osseous lesion. JOINTS: No dislocation. The joint spaces are normal. SOFT TISSUES: The soft tissues are unremarkable. IMPRESSION: No acute osseous abnormality. /[facility], 1 View. CLINICAL HISTORY: FOR A PAIN STATUS POST SYNCOPAL EPISODE AND FALL COMPARISON: None provided. FINDINGS: LUNGS: The lungs show no infiltrate or other acute finding. PLEURAL SPACES: No evidence of pleural effusion or pneumothorax. MEDIASTINUM: Moderate cardiomegaly. Pacemaker leads are in appropriate positions. Pulmonary vessels and interstitial markings are within normal limits. BONES: No aggressive appearing osseous lesion seen. IMPRESSION: No acute cardiopulmonary pathology is evident. /[facility] PHYSICIAN: [employer]OR BOURNE [employer] PROCEDURE: HUM 2V RT - HUMERUS 2+VWS RT EXAM: CR right Humerus, 2 View. CLINICAL HISTORY: SYNCOPAL EPISODE FELL WITH RIGHT UPPER ARM PAIN COMPARISON: None provided. FINDINGS: BONES: No acute fracture or aggressive appearing osseous lesion. JOINTS: No dislocation. The joint spaces are normal. SOFT TISSUES: The soft tissues are unremarkable. IMPRESSION: No acute osseous abnormality. /[place] 1315/NO PELVIC FRACTURE Labs Reviewed?: Yes EKG Comment: 1055/EKG AV PACED RHYTHM/VENTRICULAR RATE 80 ED Course ED Course Orders Procedure Category Date Status Time Cervical Collar On CPOE 08/20/25 Transmitted Before Amb 10:42 Ct Head/Brain W/O CT 08/20/25 Resulted Contrast 10:42 Ct Cervical Spine W/O CT 08/20/25 Resulted Contrast 10:42 Humerus 2+Vws Rt RAD 08/20/25 Resulted 10:42 Forearm 2vws Rt RAD 08/20/25 Resulted 10:42 Cbc With Differential LAB 08/20/25 Complete 10:42 Chest 1vw RAD 08/20/25 Resulted 10:42 12 Lead Ekg Tracing- EKG 08/20/25 Logged Technical 10:42 Magnesium LAB 08/20/25 Complete 10:42 Troponin I High LAB 08/20/25 Complete Sensitivity 10:42 Basic Metabolic Panel LAB 08/20/25 Complete 10:42 Acetaminophen 500mg PHA 08/20/25 Complete Tab (Tylenol 500mg T 11:00 B-Type Natriuretic LAB 08/20/25 Complete Peptide 10:58 Acetaminophen 500mg PHA 08/20/25 Complete Tab (Tylenol 500mg T 11:00 Morphine 2mg Syg PHA 08/20/25 Complete (Morphine 2mg Syg) 12:30 Ondansetron 4mg Inj PHA 08/20/25 Complete (Zofran 4mg Inj) 12:30 *Nursing CPOE 08/20/25 Transmitted Communication: 12:07 Neurosurgery Consult CONPHYSVC 08/20/25 Transmitted 12:17 Pelvis 1-2vws RAD 08/20/25 Taken 12:17 Morphine 2mg Syg PHA 08/20/25 Complete (Morphine 2mg Syg) 13:30 Current Medications Medications (Trade) Dose Ordered Sig/Dann Route PRN Reason Start Time Stop Time Status Last Admin Dose Admin Acetaminophen (TYLenol 500MG TAB) 1,000 mg ONCE ONCE PO 08/20/25 11:00 08/20/25 11:01 DC 08/20/25 11:29 Acetaminophen (TYLenol 500MG TAB) 1,000 mg ONCE ONCE PO 08/20/25 11:00 08/20/25 11:01 DC Morphine Sulfate (morPHINE 2MG SYG) 2 mg ONCE ONCE IVP 08/20/25 12:30 08/20/25 12:31 DC 08/20/25 12:20 Morphine Sulfate (morPHINE 2MG SYG) 2 mg ONCE ONCE IVP 08/20/25 13:30 08/20/25 13:31 DC 08/20/25 13:23 Ondansetron HCl (zoFRAN 4MG INJ) 4 mg ONCE ONCE IVP 08/20/25 12:30 08/20/25 12:31 DC 08/20/25 12:20 Vital Signs Date Time Temp Pulse Resp B/P (MAP) Pulse Ox O2 Delivery O2 Flow Rate FiO2 08/20/25 11:31 97.7 81 17 161/57 100 Room Air* 0 21 08/20/25 10:49 99.7 80 21 141/62 100 Room Air 0 1052/C-COLLAR APPLIED AFTER PATIENT WAS INITIALLY REFUSING. HE CONTINUES TO HAVE MIDLINE CERVICAL SPINE PAIN. NEUROVASCULAR CMS INTACT TO ALL EXTREMITIES 1150/SPOKE WITH TAYLOR FROM CAT SCAN. HE STATES UNOFFICIALLY APPEARS TO HAVE A C6-7 DISPLACED CERVICAL FRACTURE. I IMMEDIATELY WENT TO THE BEDSIDE AND RE-EXAMINED PATIENT HE IS NEUROVASCULAR CMS INTACT TO ALL EXTREMITIES. MOVES ALL EXTREMITIES 5/5 BILATERALLY. PATIENT IS AWARE OF AN OFFICIAL FINDINGS AND WE WILL WAITING FOR THE OFFICIAL REPORT AND WE WILL FOLLOW UP WITH NEUROSURGERY. 1225/ 1225/SPOKE WITH PATIENT'S DAUGHTER BARBARA SWEENEY AT PHONE [phone]. SHE STATES PATIENT HAD A SIMILAR SYNCOPAL EPISODE SEVERAL MONTHS AGO AND WAS TREATED IN [place]. HE HAD LOW POTASSIUM AND LOW MAGNESIUM AT THAT TIME. THEY COULD NOT FIND THE REASON WHY HE HAD A SYNCOPAL EPISODE. SHE SAID HE HAS HAD PACEMAKER DEFIBRILLATOR CARDIAC CATHETERIZATIONS AND HAD A WATCHMAN PLACED IN THE PAST. SHE WOULD LIKE TO SPEAK TO THE NEUROSURGEON ONCE IN HIS DETERMINE WHAT SURGERIES WE WILL BE PERFORMED. 1235/T CALL PLACED TO /TRAUMA SURGEON FOR ADMISSION. 1238/SPOKE WITH DR. HENNING NURSE PRACTITIONER AND THEY WERE SCRUBBED IN HIS SURGERY. SHE WAS READ THE REPORT OF THE CERVICAL CT AND WOULD RELAY THE MESSAGE TO THE SURGEON. 1315/PATIENT ASSESSED AT BEDSIDE. NEUROVASCULAR CMS INTACT TO ALL EXTREMITIES. FALLS AGAIN, HE IS AWARE OF THE CERVICAL FRACTURE AND C-COLLAR IS IN PLACE. PATIENT AGAIN HAVING MILD PAIN AND WE WILL BE MEDICATED.1330/ 1330/SPOKE WITH REVIEWED X-RAYS AND IMAGE FROM CT. HE SAID BECAUSE OF THE SYNCOPAL EPISODE TO POLICE ADMIT TO BENCHMARK IN ICU FOR SYNCOPE AND CONSULT HIM. SPOKE WITH DAGOBERTO FERRERA, REVIEWED LABS EKG AND CERVICAL SPINE FILMS. SHE IS AWARE THAT C-COLLAR IS IN PLACE. ALSO SHE IS AWARE OF DR. ANAMARIA GOLDMAN REQUEST FOR PATIENT TO BE PUT INTO ICU AND WORKED UP FOR SYNCOPE. HEART Score Response (Comments) Value EKG: Repolarization changes 1 Age: > 65yrs (+2) 2 Risk Factors: 3+ risk factors (+2) 2 Initial Troponin: Normal limit (0) 0 Total 5 Medical Decision Making MDM MDM: DIFFERENTIAL DIAGNOSIS: CVA/SYNCOPE/CERVICAL FRACTURE/PELVIC FRACTURE/ARM FRACTURE/ACS/AMI/ELECTROLYTE IMBALANCE/DEHYDRATION RATIONALE: TESTS CONSIDERED AND ORDERED SECONDARY TO SHARED DECISION MAKING INCLUDE: LABS, ECG AND RADIOLOGY PREVIOUS OUTSIDE RECORDS REVIEWED: OLD ER VISITS. RISK OF COMPLICATION AND/OR MORBIDITY OR MORTALITY OF PATIENT MANAGEMENT: MODERATE TO SEVERE MEDICATIONS-PER MEDICATION RECONCILIATION NEED FOR HOSPITALIZATION: PATIENT DOES MEET CRITERIA FOR HOSPITALIZATION. PATIENT WILL NEED TO BE ADMITTED FOR NEUROSURGICAL CONSULTATION PROBABLE SURGERY AND MANAGEMENT BY TRAUMA SURGEON. NEED FOR EMERGENCY MAJOR/MINOR SURGERY: PROBABLE CERVICAL FRACTURE STABILIZATION THERE ARE NO SOCIAL CONCERNS WITH THIS PATIENT. PRESCRIPTION DRUG MANAGEMENT PRESCRIPTIONS WILL INCLUDE SYMPTOMATIC CARE PATIENT'S PRIOR EXTERNAL MEDICAL RECORDS FROM OTHER ER VISITS WERE REVIEWED BY ME INDICATED. PRIOR TESTING AND RESULTS FROM PREVIOUS VISITS WERE REVIEWED. PRIOR TESTS WERE TAKEN INTO ACCOUNT WITH MEDICAL DECISION MAKING AND RESOURCE UTILIZATION, INDEPENDENT HISTORIAN/HISTORIANS WERE USED TO OBTAIN COMPLETE MEDICAL HISTORY. I INDEPENDENTLY INTERPRETED THE TEST THAT WERE PERFORMED, RESULTS WERE REVIEWED BY ME AND CONSIDERED FINDINGS ON RADIOLOGY IF ORDERED. MEDICAL MANAGEMENT AND EXAMINATION INTERPRETATION DISCUSSIONS WERE HAD BY ME WITH OTHER QUALIFIED HEALTHCARE PROFESSIONALS INDICATED FOR THE PATIENT'S CARE. DX & DISP Disposition: Inpatient Decision to Admit Time: 12:39 Departure Impression: Primary Impression: C7 cervical fracture Additional Impressions: C6 cervical fracture, C5 cervical fracture, Contusion of scalp, initial encounter, Contusion of right upper arm, initial encounter, Acute kidney injury, Anemia of chronic renal failure, stage 3b, Uncontrolled diabetes mellitus, Syncope Condition: Stable Referrals: TRENT LEE (PCP) I have reviewed the case, and I agree with, Diagnosis and Plan IGOR BOURNE 11, 2025 10:48
[2025-08-20 10:55] LABS: IMMATURE GRANULOCYTE ABSOLUTE 0.04 K/uL (0-1); NUCLEATED RED BLOOD CELLS 0.0 % (0.0-0.19); PLATELET COUNT (AUTO) 131 K/uL (130-400); RED BLOOD CELL COUNT(AUTO) 2.69 MIL/uL (4.50-6.20); RED CELL DISTRIBUTION WIDTH 15.0 % (11.0-15.5); WHITE BLOOD COUNT (AUTO) 7.4 K/uL (4.8-10.8)
--- NOTE | 2025-08-20 10:56 | NUR ---
PERSONAL INFORMATION: PER PT, IT IS OK FOR US TO RELEASE INFORMATION TO HIS DAUGHTER MAYRA MOREIRA [phone]
--- NOTE | 2025-08-20 11:00 | NUR ---
IGOR FERRERA CONVINCED THE PT TO HAVE A CERVICAL SPINE COLLAR ON. PT DID C/O NECK DISCOMFORT UPON HIS ASSESSMENT.
[2025-08-20 11:15] LABS: CREATININE 1.5 mg/dL (0.5-1.3); GLOMERULAR FILTR. RATE CALC 45.0 mL/min (>90); GLUCOSE,RANDOM 208.0 mg/dL (70-105); SODIUM SERUM 138.0 mmol/L (136-145); UREA NITROGEN, BLOOD 46.0 mg/dL (7-18)
--- NOTE | 2025-08-20 11:54 | HMCIMG ---
EXAM: CT Head Without IV contrast. CLINICAL HISTORY: SYNCOPAL EPISODE FELL BACK AND HIT OCCIPUT. CONFUSED TECHNIQUE: Axial computed tomography images of the head/brain without intravenous contrast. COMPARISON: None provided. FINDINGS: BRAIN: No evidence of acute hemorrhage. No mass lesion. No CT evidence for acute territorial infarct. No midline shift or extra-axial collections. VENTRICLES: No hydrocephalus. ORBITS: The orbits are unremarkable. SINUSES AND MASTOIDS: The paranasal sinuses and mastoid air cells are clear. BONES: No fracture. SOFT TISSUES: Soft tissue edema overlying the left parietal skull. IMPRESSION: No acute intracranial abnormality. /[place]
--- NOTE | 2025-08-20 12:02 | HMCIMG ---
EXAM: CT Cervical Spine Without IV contrast. CLINICAL HISTORY: SYNCOPAL EPISODE, FELL BACK HIT HEAD. MIDLINE SPINE PAIN TECHNIQUE: Axial computed tomography images of the cervical spine without intravenous contrast. Sagittal and coronal reformatted images were generated. COMPARISON: None provided. FINDINGS: The cervical alignment is within normal limits. There is straightening of the cervical spine that may reflect paraspinal muscle spasm. There is cervical spondylosis evident by anterior osteophytes, uncovertebral joint hypertrophy, and facet joint osteoarthritis. Bones are markedly osteopenic, limiting evaluation for nondisplaced fractures. There is a mildly displaced fracture of the right transverse process of C7. Suspected nondisplaced fractures at the inferior endplate of C6 and superior endplate of C7. There is a fracture of the right superior articular facet of C7. The bilateral inferior articular facets of C6 are perched upon the bilateral superior articular facets of C7 resulting in 0.4 cm anterior listhesis of C6 with respect to C7. There is edema within the surrounding paraspinal musculature. Lung apices are clear. IMPRESSION: 1. Mildly displaced fracture of the right C7 transverse process. 2. Suspected nondisplaced fractures at C6 inferior endplate and C7 superior endplate. 3. Fracture of the right C7 superior articular facet. 4. Bilateral C6-C7 facet perching with 4 mm anterolisthesis of C6 on C7. 5. Paraspinal muscle edema. /[place]
--- NOTE | 2025-08-20 12:33 | HMCIMG ---
EXAM: CR Chest, 1 View. CLINICAL HISTORY: FOR A PAIN STATUS POST SYNCOPAL EPISODE AND FALL COMPARISON: None provided. FINDINGS: LUNGS: The lungs show no infiltrate or other acute finding. PLEURAL SPACES: No evidence of pleural effusion or pneumothorax. MEDIASTINUM: Moderate cardiomegaly. Pacemaker leads are in appropriate positions. Pulmonary vessels and interstitial markings are within normal limits. BONES: No aggressive appearing osseous lesion seen. IMPRESSION: No acute cardiopulmonary pathology is evident. /[place]
--- NOTE | 2025-08-20 12:33 | HMCIMG ---
EXAM: CR right Humerus, 2 View. CLINICAL HISTORY: SYNCOPAL EPISODE FELL WITH RIGHT UPPER ARM PAIN COMPARISON: None provided. FINDINGS: BONES: No acute fracture or aggressive appearing osseous lesion. JOINTS: No dislocation. The joint spaces are normal. SOFT TISSUES: The soft tissues are unremarkable. IMPRESSION: No acute osseous abnormality. /[place]
--- NOTE | 2025-08-20 12:33 | HMCIMG ---
EXAM: CR right Forearm, 2 View. CLINICAL HISTORY: FOR A PAIN STATUS POST SYNCOPAL EPISODE AND FALL COMPARISON: None provided. FINDINGS: BONES: No acute fracture or aggressive appearing osseous lesion. JOINTS: No dislocation. The joint spaces are normal. SOFT TISSUES: The soft tissues are unremarkable. IMPRESSION: No acute osseous abnormality. /[place]
--- NOTE | 2025-08-20 13:34 | HMCIMG ---
EXAM: CR Pelvis, 2 View. CLINICAL HISTORY: PELVIC PAIN STATUS POST FALL. COMPARISON: None provided. FINDINGS: Mild bilateral hip joint osteoarthritis. Spondylosis of the visualized lower lumbar spine. Prostatic radiation seeds noted. No displaced fracture appreciated. IMPRESSION: 1. No acute osseous injury. /[place]
--- NOTE | 2025-08-20 14:35 | EKG ---
[facility] Test Date: 2025-08-20 Test Time: 10:49:25 Pat Name: TAYLOR DUNCAN Department: [facility] Room: 215 Gender: M Header Dock: [id number] : 1940 Requested By: IGOR BOURNE Order Number: [id number] Reading MD: Christelle Aldrich Measurements Intervals [place] Rate: 80 P: 0 WA: 233 QRS: 254 QRSD: 151 T: 78 QT: 479 QTc: 554 Interpretive Statements Ventricular-paced rhythm Biventricular paced rhythm Compared to ECG 10/12/2024 09:23:13 No significant changes Electronically Signed On 08-20-2025 19:41:31 RANGE MANAGER by Christelle Aldrich Please click the below link to view image of tracing.
--- NOTE | 2025-08-20 15:29 | NUR ---
spoke to chichi oneal , stated to call back in 15 min patient resting in bed, call light in reach
[2025-08-20 15:30] LABS: ABG BASE EXCESS 3.3 mmol/L (-2.0-3.0); ABG HCO3 24.0 mmol/L (21.0-28.0); ABG OXYGEN SATURATION 98.5 % (94.0-98.0); ABG PCO2 27 mmHg (35-48); ABG PH 7.571 (7.350-7.450); DEVICE COMMENT RR; PO2, ARTERIAL BG 104.8 mmHg (83.0-108.0); TEMPERATURE, CELSIUS BG 37.0 CELSIUS (35.5-37.0); VENT MODE, BG RA (ROOM AIR)
--- NOTE | 2025-08-20 15:44 | HP ---
[facility] HISTORY & PHYSICAL Date Patient Seen: Aug 20, 2025 Time of Visit: 15:44 Supervising Physician: Bo Almanza MD Primary Care Physician: Sonya Gray Outpatient Specialists: [ ] Inpatient Consults: DR Bob, DR Crews, Dr Cami FELICIANO PROBLEM LIST: Syncope and fall POA Mildly displaced fracture of the right C7 transverse process. nondisplaced fractures at C6 inferior endplate and C7 superior endplate. Fracture of the right C7 superior articular facet. Bilateral C6-C7 facet perching with 4 mm anterolisthesis of C6 on C7. Paraspinal muscle edema. 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 Patient reports he was and a 3 ft stool and passed out. He reports a similar episode 3-4 months ago at [place]. Patient reports he fell backwards and struck his head. He denies any blood thinners at this time patient reports he has stopped anticoagulation medications once Watchman was placed for his AFib, week ago. He presented to the ED with complaints of right arm pain, cervical pain and headache. Patient denied chest pain or back pain. No other deformities noted. Further ED evaluation on CT cervical spine without contrast there was findings of mildly displaced fracture of the right C7 transverse process, suspected nondisplaced fracture at C6, inferior endplate NC seven to PRN plate. Fracture of the right C7, superior articular facet bilateral C6-C7 pauses per team with 4 mm anterolisthesis of C6 on C7. Paraspinal muscle edema. Chest x-ray showed no acute pulmonary edema pathology is evident. Right forearm x-ray shows no acute osseous abnormality. Head CT shows no acute intracranial abnormality. Right humerus x-ray shows no acute osseous abnormality. Pelvis x-ray shows no acute osseous injury. Laboratory findings show hemoglobin of 10 hematocrit of 29.5 MCV of 109.7, MCH of 37.2. Chemistries shows potassium of 3.4 chloride 99 BUN of 46 creatinine 1.5 GFR of 45 glucose of 208 mg/dL and BNP of 203. Per ED MD Neurosurgeon was consulted DR Bob which accepted the pt in this facility. Dr Crews was also consulted for trauma. PAST MEDICAL HX: see above PAST SURGICAL HX: noncontributory SOCIAL HISTORY: No tobacco, ETOH, or illicit drug use Coded Allergies: No Known Drug Allergies (Unverified Allergy, Unknown, 12/08/18) REVIEW OF SYSTEMS: Const: no fever, fatigue, or weight changes Eyes: no recent vision problems ENT: No congestion, ear pain, or sore throat C/V: no chest pain, palpitations or edema Resp: No cough, congestion, wheezing , or Shortness of breath GI: No abdominal pain, nausea, vomiting, constipation, or diarrhea : No incontinence of or dyuria M/S: + severe neck pain and arm pain Skin: Multiple small screen bruising and purple bruising to abdomen. Neuro: + syncope Psych: no depression or anxiety Heme: no abnormal bruising or bleeding Lymph: no swollen glands PHYSICAL EXAM: GENERAL: alert, weak, awake oriented x 3 HEENT: EOMI, Sclera non icteric, moist mucosa NECK: Supple, no JVD, trachea midline, rigid cervical collar complaints LUNGS: Diminished breath sounds bilaterally. No wheezes HEART: Regular rate and rhythm. Normal S1 and S2, without murmurs ABD: Abdomen soft, nontender. Bowel sounds present EXT: No clubbing cyanosis or edema NEURO: Alert and oriented to person, follows commands Vital Signs (last 8hr) Date Time Temp Pulse Resp B/P (MAP) Pulse Ox O2 Delivery O2 Flow Rate FiO2 08/20/25 11:31 97.7 81 17 161/57 100 Room Air* 0 21 08/20/25 10:49 99.7 80 21 141/62 100 Room Air 0 LABS: Hematology Labs: Test 08/20/25 10:50 Range/Units White Blood Count 7.4 4.8-10.8 K/uL Red Blood Count 2.69 L 4.50-6.20 MIL/uL Hemoglobin 10.0 L 14.0-18.0 g/dL Hematocrit 29.5 L 42-54 % Mean Corpuscular Volume 109.7 H 79-99 fL Mean Corpuscular Hemoglobin 37.2 H 27.0-33.0 pg Mean Corpuscular Hemoglobin Concent 33.9 32.0-36.0 g/dL Red Cell Distribution Width 15.0 11.0-15.5 % Platelet Count 131 130-400 K/uL Mean Platelet Volume 10.1 7.5-10.5 fL Immature Granulocyte % (Auto) 0.5 0-1 % Neutrophils (%) (Auto) 70.5 40.0-77.0 % Lymphocytes (%) (Auto) 19.2 L 21.0-51.0 % Monocytes (%) (Auto) 6.7 3.0-13.0 % Eosinophils (%) (Auto) 2.3 0.0-8.0 % Basophils (%) (Auto) 0.8 0.0-5.0 % Neutrophils # (Auto) 5.2 1.8-7.7 K/uL Lymphocytes # (Auto) 1.4 1.0-4.8 K/uL Monocytes # (Auto) 0.5 0.1-1.0 K/uL Eosinophils # (Auto) 0.17 0.00-0.70 K/uL Basophils # (Auto) 0.06 0.00-0.20 K/uL Absolute Immature Granulocyte (auto 0.04 0-1 K/uL Nucleated Red Blood Cells 0.0 0.0-0.19 % Red Blood Cell Morphology See comments Chemistry Labs: Test 08/20/25 10:50 Range/Units Sodium Level 138 136-145 mmol/L Potassium Level 3.4 L 3.5-5.1 mmol/L Chloride Level 99 L 101-111 mmol/L Carbon Dioxide Level 28 21-32 mmol/L Blood Urea Nitrogen 46 H 7-18 mg/dL Creatinine 1.5 H 0.5-1.3 mg/dL Glomerular Filtration Rate Calc 45 >90 mL/min Random Glucose 208 H 70-105 mg/dL Total Calcium 8.9 8.5-10.1 mg/dL Magnesium Level 1.90 1.80-2.40 mg/dL Troponin I High Sensitivity 49 4-75 ng/L B-Type Natriuretic Peptide 203 H 0-100 pg/mL DIAGNOSTICS / RADIOLOGY RESULTS: [ ] [place] [address] [place] [id number] IMAGING REPORT Addendum PATIENT: TAYLOR DUNCAN MR#: [id number] : 1940 SEX: M AGE: 84 LOCATION: [facility] ORDER 44 STATUS: [facility] REPORT#: [id number] SERVICE 1042 REASON: SYNCOPAL EPISODE, FELL BACK HIT HEAD. MIDLINE SPINE PAIN ORDERING PHYSICIAN: IGOR BOURNE CERT OCCUPATIONAL THERAPY ASST PROCEDURE: C SPIN WO - CT CERVICAL SPINE W/O CONTRAST ADDENDUM REPORT ADDENDUM: Results were shared by telephone at 01:24 pm EST on 08-20-25 and acknowledged by IGOR Smith. /[place] EXAM: CT Cervical Spine Without IV contrast. CLINICAL HISTORY: SYNCOPAL EPISODE, FELL BACK HIT HEAD. MIDLINE SPINE PAIN TECHNIQUE: Axial computed tomography images of the cervical spine without intravenous contrast. Sagittal and coronal reformatted images were generated. COMPARISON: None provided. FINDINGS: The cervical alignment is within normal limits. There is straightening of the cervical spine that may reflect paraspinal muscle spasm. There is cervical spondylosis evident by anterior osteophytes, uncovertebral joint hypertrophy, and facet joint osteoarthritis. Bones are markedly osteopenic, limiting evaluation for nondisplaced fractures. There is a mildly displaced fracture of the right transverse process of C7. Suspected nondisplaced fractures at the inferior endplate of C6 and superior endplate of C7. There is a fracture of the right superior articular facet of C7. The bilateral inferior articular facets of C6 are perched upon the bilateral superior articular facets of C7 resulting in 0.4 cm anterior listhesis of C6 with respect to C7. There is edema within the surrounding paraspinal musculature. Lung apices are clear. IMPRESSION: 1. Mildly displaced fracture of the right C7 transverse process. 2. Suspected nondisplaced fractures at C6 inferior endplate and C7 superior endplate. 3. Fracture of the right C7 superior articular facet. 4. Bilateral C6-C7 facet perching with 4 mm anterolisthesis of C6 on C7. 5. Paraspinal muscle edema. /[place] DICTATED BY: SYLVESTER STRANGE Jr., MD DATE: 08/20/25 1350 ELECTRONICALLY SIGNED BY: DATE: EXAM: CT Cervical Spine Without IV contrast. CLINICAL HISTORY: SYNCOPAL EPISODE, FELL BACK HIT HEAD. MIDLINE SPINE PAIN TECHNIQUE: Axial computed tomography images of the cervical spine without intravenous contrast. Sagittal and coronal reformatted images were generated. COMPARISON: None provided. FINDINGS: The cervical alignment is within normal limits. There is straightening of the cervical spine that may reflect paraspinal muscle spasm. There is cervical spondylosis evident by anterior osteophytes, uncovertebral joint hypertrophy, and facet joint osteoarthritis. Bones are markedly osteopenic, limiting evaluation for nondisplaced fractures. There is a mildly displaced fracture of the right transverse process of C7. Suspected nondisplaced fractures at the inferior endplate of C6 and superior endplate of C7. There is a fracture of the right superior articular facet of C7. The bilateral inferior articular facets of C6 are perched upon the bilateral superior articular facets of C7 resulting in 0.4 cm anterior listhesis of C6 with respect to C7. There is edema within the surrounding paraspinal musculature. Lung apices are clear. IMPRESSION: 1. Mildly displaced fracture of the right C7 transverse process. 2. Suspected nondisplaced fractures at C6 inferior endplate and C7 superior endplate. 3. Fracture of the right C7 superior articular facet. 4. Bilateral C6-C7 facet perching with 4 mm anterolisthesis of C6 on C7. 5. Paraspinal muscle edema. /[place] DICTATED BY: SYLVESTER STRANGE Jr., MD DATE: 08/20/25 1301 ELECTRONICALLY SIGNED BY: SYLVESTER SRTANGE Jr., MD DATE: 08/20/[address] [address] IMAGING REPORT Signed PATIENT: TAYLOR DUNCAN MR#: [id number] : 1940 SEX: M AGE: 84 LOCATION: [facility] ORDER 44 STATUS: [facility] REPORT#: [id number] SERVICE 41 REASON: FOR A PAIN STATUS POST SYNCOPAL EPISODE AND FALL ORDERING PHYSICIAN: IGOR BOURNE CERT OCCUPATIONAL THERAPY ASST PROCEDURE: CXR1VW - CHEST 1VW EXAM: CR Chest, 1 View. CLINICAL HISTORY: FOR A PAIN STATUS POST SYNCOPAL EPISODE AND FALL COMPARISON: None provided. FINDINGS: LUNGS: The lungs show no infiltrate or other acute finding. PLEURAL SPACES: No evidence of pleural effusion or pneumothorax. MEDIASTINUM: Moderate cardiomegaly. Pacemaker leads are in appropriate positions. Pulmonary vessels and interstitial markings are within normal limits. BONES: No aggressive appearing osseous lesion seen. IMPRESSION: No acute cardiopulmonary pathology is evident. /[place] DICTATED BY: SYLVESTER STRANGE Jr., MD DATE: 08/20/251331 ELECTRONICALLY SIGNED BY: SYLVESTER STRANGE Jr., MD DATE: 08/20/251331 [place] [address] IMAGING REPORT Signed PATIENT: TAYLOR DUNCAN MR#: [id number] : 1940 SEX: M AGE: 84 LOCATION: [facility] ORDER 44 STATUS: [facility] REPORT#: [id number] SERVICE 41 REASON: FOR A PAIN STATUS POST SYNCOPAL EPISODE AND FALL ORDERING PHYSICIAN: IGOR BOURNE CERT OCCUPATIONAL THERAPY ASST PROCEDURE: FORARMR - FOREARM 2VWS RT EXAM: CR right Forearm, 2 View. CLINICAL HISTORY: FOR A PAIN STATUS POST SYNCOPAL EPISODE AND FALL COMPARISON: None provided. FINDINGS: BONES: No acute fracture or aggressive appearing osseous lesion. JOINTS: No dislocation. The joint spaces are normal. SOFT TISSUES: The soft tissues are unremarkable. IMPRESSION: No acute osseous abnormality. /[place] DICTATED BY: SYLVESTER STRANGE Jr., MD DATE: 08/20/251330 ELECTRONICALLY SIGNED BY: SYLVESETR STRANGE Jr., MD DATE: 08/20/253 [place] [address] [address] IMAGING REPORT Signed PATIENT: TAYLOR DUNCAN MR#: [id number] : 1940 SEX: M AGE: 84 LOCATION: [facility] ORDER 44 STATUS: REG [facility] REPORT#: [id number] SERVICE 41 REASON: SYNCOPAL EPISODE FELL BACK AND HIT OCCIPUT. CONFUSED ORDERING PHYSICIAN: IGOR BOURNE CERT OCCUPATIONAL THERAPY ASST PROCEDURE: HEAD WO - CT HEAD/BRAIN W/O CONTRAST EXAM: CT Head Without IV contrast. CLINICAL HISTORY: SYNCOPAL EPISODE FELL BACK AND HIT OCCIPUT. CONFUSED TECHNIQUE: Axial computed tomography images of the head/brain without intravenous contrast. COMPARISON: None provided. FINDINGS: BRAIN: No evidence of acute hemorrhage. No mass lesion. No CT evidence for acute territorial infarct. No midline shift or extra-axial collections. VENTRICLES: No hydrocephalus. ORBITS: The orbits are unremarkable. SINUSES AND MASTOIDS: The paranasal sinuses and mastoid air cells are clear. BONES: No fracture. SOFT TISSUES: Soft tissue edema overlying the left parietal skull. IMPRESSION: No acute intracranial abnormality. /[place] DICTATED BY: SYLVESTER STRANGE Jr., MD DATE: 08/20/251251 ELECTRONICALLY SIGNED BY: SYLVESTER STRANGE Jr., MD DATE: 08/20/25 1251 [place] [address] [id number] IMAGING REPORT Signed PATIENT: TAYLOR DUNCAN MR#: [id number] : 1940 SEX: M AGE: 84 LOCATION: [facility] ORDER 44 STATUS: [facility] REPORT#: [id number] SERVICE 41 REASON: SYNCOPAL EPISODE FELL WITH RIGHT UPPER ARM PAIN ORDERING PHYSICIAN: IGOR BOURNE CERT OCCUPATIONAL THERAPY ASST PROCEDURE: HUM 2V RT - HUMERUS 2+VWS RT EXAM: CR right Humerus, 2 View. CLINICAL HISTORY: SYNCOPAL EPISODE FELL WITH RIGHT UPPER ARM PAIN COMPARISON: None provided. FINDINGS: BONES: No acute fracture or aggressive appearing osseous lesion. JOINTS: No dislocation. The joint spaces are normal. SOFT TISSUES: The soft tissues are unremarkable. IMPRESSION: No acute osseous abnormality. /[place] DICTATED BY: SYLVESTER STRANGE Jr., MD DATE: 08/20/251331 ELECTRONICALLY SIGNED BY: SYLVESTER STRANGE Jr., MD DATE: 08/20/2513[address] [id number] IMAGING REPORT Signed PATIENT: TAYLOR DUNCAN MR#: [id number] : 1940 SEX: M AGE: 84 LOCATION: [facility] ORDER 44 STATUS: [facility] REPORT#: [id number] SERVICE 104 REASON: SYNCOPAL EPISODE FELL WITH RIGHT UPPER ARM PAIN ORDERING PHYSICIAN: IGOR BOURNE CERT OCCUPATIONAL THERAPY ASST PROCEDURE: HUM 2V RT - HUMERUS 2+VWS RT EXAM: CR right Humerus, 2 View. CLINICAL HISTORY: SYNCOPAL EPISODE FELL WITH RIGHT UPPER ARM PAIN COMPARISON: None provided. FINDINGS: BONES: No acute fracture or aggressive appearing osseous lesion. JOINTS: No dislocation. The joint spaces are normal. SOFT TISSUES: The soft tissues are unremarkable. IMPRESSION: No acute osseous abnormality. /[place] DICTATED BY: SYLVESTER STRANGE Jr., MD DATE: 08/20/251331 ELECTRONICALLY SIGNED BY: SYLVESTER STRANGE Jr., MD DATE: 08/20/251331 [place] [id number] IMAGING REPORT Signed PATIENT: TAYLOR DUNCAN MR#: [id number] : 1940 SEX: M AGE: 84 LOCATION: [facility] ORDER 17 STATUS: REG ER REPORT#: [id number] SERVICE 121 REASON: PELVIC PAIN STATUS POST FALL. ORDERING PHYSICIAN: IGOR BOURNE CERT OCCUPATIONAL THERAPY ASST PROCEDURE: PELVIS - PELVIS 1-2VWS EXAM: CR Pelvis, 2 View. CLINICAL HISTORY: PELVIC PAIN STATUS POST FALL. COMPARISON: None provided. FINDINGS: Mild bilateral hip joint osteoarthritis. Spondylosis of the visualized lower lumbar spine. Prostatic radiation seeds noted. No displaced fracture appreciated. IMPRESSION: 1. No acute osseous injury. /[place] DICTATED BY: SYLVESTER STRANGE Jr., MD DATE: 08/20/251433 ELECTRONICALLY SIGNED BY: SYLVESTER STRANGE Jr., MD DATE: 08/20/251433 PLAN Admit to ICU Cardiology consult Neurosurgery consult Thrombus surgeon consult LR at 50 mL/hour Keep NPO MRI/MRA head and neck 2D echo Bilateral lower extremity ultrasound D-dimer NEURO: Minimize central acting medications as possible. Fall Precautions. Well lighted room through the day and minimize interruptions through the night to prevent acute delirium. Consult neurosurgery Follow Neurosurgery recommendations C-collar in place PULMONARY: Supplemental 02 as needed Titrate Fio2 to keep Spo2 > or = 90% DuoNebs and CPT as needed IS hourly while awake for pulmonary hygiene Out of bed to chair as tolerated ABG monitor for resp failure Monitor for diaphragm paralysis CARDIOVASCULAR: Follow hemodynamics. Titrate vasopressor to keep MAP >65 or systolic blood pressure >95mmHg Drips: Levophed PRN to maintain map above 65 [ ] LINES: PIV Two large-bore IVs GI & NUTRITION: Continue nutritional support Aspirations precautions Prokinetic agents and laxatives as needed NPO for now KIDNEYS & ELECTROLYTES: Strict monitoring of intake and output Daily weights Avoid nephrotoxic agents Monitor electrolytes and replace as needed Goal urine output of 30mL/hr or 0.5mL/kg/hr Urine output: [ ] Fluid Balance: [ ] Bladder scan ENDOCRINE: Maintain blood glucose between 100-180 at all times. Insulin sliding scale for blood glucose management INFECTIOUS DISEASE: Trend temperature. Raza-culture if febrile. Micro: [ ] Antibiotics: HEMATOLOGY & COAGULATION: Monitor H&H. Keep Hgb > 7 Transfuse 1 unit of PRBC for Hgb < 7 Transfuse 1 pack of platelets of platelets < 20, 000 Watch for any signs and symptoms of bleeding SKIN: Pressure ulcer prevention per facility protocol Rehab: PT/OT Prophylaxis: GI: famotidine DVT: lovenox Code Status: Full Resuscitation Disposition:ICU Other: Critical care time This patient required multiple bedside visits to manage the patient, review bloo d gases, coordinate with respiratory, nurses, review radiology exams, talk to the family members and discuss advanced directives. I personally spent [45] minutes of critical care time in treatment of this patient. This includes patient management, time at bedside, time reviewing tests, labs, appropriate images and studies, documentation, and patient care coordination. This time excludes separately billable procedures. ATTESTATION BY PHYSICIAN I reviewed the documentation, medical decision making, and treatment plan as noted by the mid-level provider above. I agree with the findings and plan of care. DAGOBERTO Bhandari MD [facility] Aug 20, 2025 15:44
--- NOTE | 2025-08-20 15:55 | NUR ---
report given to chichi oneal
[2025-08-20] MEDS ORDERED: MAGNESIUM 2GM PREMIX 50ML 50 ML IV PRN (16:30)
--- NOTE | 2025-08-20 17:00 | NUR ---
SPOKE TO GIANA HAIRSTON ON THE PHONE, HE SAID TO CHANGE PATIENT TO SOFT COLLAR WHILE ON BED AND AN ASP[EN COLLAR BRACE WHILE OUT OF BED.
[2025-08-20 17:35] LABS: INR 1.02 (0.85-1.15)
[2025-08-20 17:59] LABS: CREATINE KINASE, TOTAL 686.0 U/L (21-232)
[2025-08-20] MEDS ORDERED: ASPI-1005 PO (18:42)
[2025-08-20] MEDS ORDERED: LOSA25TA41 PO (18:42)
--- NOTE | 2025-08-20 19:16 | CONS ---
GENERAL SURGERY CONSULTATION NOTE DATE OF CONSULTATION: Aug 20, 2025 TIME OF CONSULTATION: 19:16 CONSULTING SERVICE: Mars Gilbert MD REQUESTING PHYSICAIN: [ ] REASON FOR CONSULTATION: [ ] C-spine fracture HISTORY OF PRESENT ILLNESS: [ ] 84-year-old male who reported a syncopal attack and fall from a stool He complained of severe pain in his neck Apparently patient had been fallen in the past from syncopal attacks He has extensive cardiac history This time around workup revealed multiple C-spine fracture The neurosurgeon will be seing him I was consulted for trauma related issues Past MEDICAL HISTORY: [AFib status post Watchman 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% on 11/19/24 status post ICD not on exacerbation at this time 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 in 2018 and 2022 again Ppm/ICD in situ Essential hypertension PAST SURGICAL HISTORY: [ ] Defibrillator FAMILY HISTORY: [ ] No family history of hypertension or diabetes SOCIAL HISTORY: [ ] No smoking No alcohol Current Medications Medications (Trade) Dose Ordered Sig/Dann Route Start Time Stop Time Status Last Admin Dose Admin Enoxaparin Sodium (Lovenox) 40 mg DAILY SQ 08/21/25 09:00 09/20/25 08:59 Famotidine (Pepcid 20mg Vial) 20 mg Q48H IV 08/20/25 21:00 09/19/25 20:59 Folic Acid (FolVITE 5 MG/ML VIAL) 1 mg DAILY IV 08/21/25 09:00 09/20/25 08:59 Lactated Ringer's 1,000 ml @ 50 mls/hr Q20H IV 08/20/25 16:30 09/19/25 16:29 Thiamine HCl (Vitamin B-1) 300 mg Q24H IVP 08/20/25 16:30 08/23/25 16:29 Allergies: Coded Allergies: No Known Drug Allergies (Unverified Allergy, Unknown, 12/08/18) REVIEW OF SYSTEMS: AD OPERATIONS INTERN: [Denies headaches or blurring of vision.] Severe neck pain RESP: [No cough, chest pain or SOB.] CVS: [No palpitaions.] GI: [abdominal pain with nausea and vomiting, no diarrhea or constipation.] RAMAKRISHNA: [No dysuria or hematuria.] Musculoskeletal: [No swelling or joint pain.] BACK: [No pain or swelling.] All other systems are reviewed and essentially negative pertinent positives in HPI. PHYSICAL EXAMINATION: GENERAL: [Patient is lying comfortably in bed, not in any obvious distress.] HEAD: [Normal with no signs of head trauma.] EYES: [Not pale not jaundiced afebrile to touch.] Neck in soft collar ENT: [ Normal.] NECK: [Supple,no tenderness,no lymphadenopathy,no masses,no thyromegaly ,no bruits, no JVD.] LUNGS: [Clear breath sounds bilaterally. No wheezes, rales, or rhonchi.] HEART: [Regular rate and rhythm. Normal S1 and S2, without murmurs, rub or gallop.] ABD: [Benign : [Normal, no suprapubic tenderness.] LYMPH: [No lymphadenopathy noted.] EXT: [ Warm soft, non tender.] SKIN: [ No rashes or lesions.] NEURO: [ Awake Alert and oriented x3.] Vital Signs (last 8hr) Date Time Temp Pulse Resp B/P (MAP) Pulse Ox O2 Delivery O2 Flow Rate FiO2 08/20/25 17:39 98.2 08/20/25 17:15 81 22 99 08/20/25 17:07 82 33 173/91 (118) 99 08/20/25 17:00 80 27 100 08/20/25 16:52 85 19 169/78 (108) 100 08/20/25 11:31 97.7 81 17 161/57 100 Room Air* 0 21 LABORATORY: [ ] Hematology Labs: Test 08/20/25 10:50 Range/Units White Blood Count 7.4 4.8-10.8 K/uL Red Blood Count 2.69 L 4.50-6.20 MIL/uL Hemoglobin 10.0 L 14.0-18.0 g/dL Hematocrit 29.5 L 42-54 % Mean Corpuscular Volume 109.7 H 79-99 fL Mean Corpuscular Hemoglobin 37.2 H 27.0-33.0 pg Mean Corpuscular Hemoglobin Concent 33.9 32.0-36.0 g/dL Red Cell Distribution Width 15.0 11.0-15.5 % Platelet Count 131 130-400 K/uL Mean Platelet Volume 10.1 7.5-10.5 fL Immature Granulocyte % (Auto) 0.5 0-1 % Neutrophils (%) (Auto) 70.5 40.0-77.0 % Lymphocytes (%) (Auto) 19.2 L 21.0-51.0 % Monocytes (%) (Auto) 6.7 3.0-13.0 % Eosinophils (%) (Auto) 2.3 0.0-8.0 % Basophils (%) (Auto) 0.8 0.0-5.0 % Neutrophils # (Auto) 5.2 1.8-7.7 K/uL Lymphocytes # (Auto) 1.4 1.0-4.8 K/uL Monocytes # (Auto) 0.5 0.1-1.0 K/uL Eosinophils # (Auto) 0.17 0.00-0.70 K/uL Basophils # (Auto) 0.06 0.00-0.20 K/uL Absolute Immature Granulocyte (auto 0.04 0-1 K/uL Nucleated Red Blood Cells 0.0 0.0-0.19 % Red Blood Cell Morphology See comments Chemistry Labs: Test 08/20/25 17:12 08/20/25 10:50 Range/Units Lactic Acid Level 3.1 H 0.8-2.5 mmol/L Total Creatine Kinase 686 #*H 21-232 U/L Troponin I High Sensitivity 195 *H 4-75 ng/L Procalcitonin < 0.05 L 0.05-0.5 ng/mL Thyroid Stimulating Hormone (TSH) 3.16 0.36-3.74 uIU/mL Sodium Level 138 136-145 mmol/L Potassium Level 3.4 L 3.5-5.1 mmol/L Chloride Level 99 L 101-111 mmol/L Carbon Dioxide Level 28 21-32 mmol/L Blood Urea Nitrogen 46 H 7-18 mg/dL Creatinine 1.5 H 0.5-1.3 mg/dL Glomerular Filtration Rate Calc 45 >90 mL/min Random Glucose 208 H 70-105 mg/dL Hemoglobin A1c 5.3 4.0-6.0 % Estimated Average Glucose (eAG) 105 70-126 mg/dL Total Calcium 8.9 8.5-10.1 mg/dL Magnesium Level 1.90 1.80-2.40 mg/dL B-Type Natriuretic Peptide 203 H 0-100 pg/mL Coagulation Labs: Test 08/20/25 17:12 Range/Units Prothrombin Time 10.8 9.6-11.6 SEC Prothromb Time International Ratio 1.02 0.85-1.15 Activated Partial Thromboplast Time 23.0 L 26.3-35.5 SEC D-Dimer Quantitative (PE/DVT) 9344 *H 0-500 ng/mL DIAGNOSTICS / RADIOLOGY: [Copy/Paste Echos/Imaging Report here] ASSESSMENT: [] Syncope Fall PROBLEM LIST: Syncope and fall POA Mildly displaced fracture of the right C7 transverse process. nondisplaced fractures at C6 inferior endplate and C7 superior endplate. Fracture of the right C7 superior articular facet. Bilateral C6-C7 facet perching with 4 mm anterolisthesis of C6 on C7. Paraspinal muscle edema. Hypokalemia AMEENA on CKD stage 3 POA PLAN: [] Pain control Neurosurgery on board Nothing from trauma standpoint MARS GILBERT MD Aug 20, 2025 19:16
[2025-08-20] MEDS: THIAMINE HCL 100 MG/ML 2ML VIAL IVP SCH (20:40)
[2025-08-20] MEDS: LACTATED RINGERS 1000ML 1,000 ML IV SCH (20:40)
[2025-08-20] MEDS: FAMOTIDINE 20MG VIAL IV SCH (20:40)
[2025-08-20] MEDS: PoTASSium chl 10% ELIXIR 20MEQ 20 MEQ/15 ML UDCUP PO PRN (20:41)
[2025-08-20 21:48] LABS: GLUCOSE, URINE (UA) NEGATIVE (NEGATIVE); LEUKOCYTE ESTERASE ,URINE 25 Leu/uL (NEGATIVE); NITRATE,URINE NEGATIVE (NEGATIVE); OCCULT BLOOD,URINE LARGE (NEGATIVE)
[2025-08-20 21:55] LABS: AMPHET/METH SCREEN,URINE NEGATIVE (NEGATIVE); APPEARANCE,URINE SLIGHTLY CLOUDY (CLEAR); BARBITURATE SCREEN, URINE NEGATIVE (NEGATIVE); CANNABINOID SCREEN,URINE NEGATIVE (NEGATIVE); COCAINE SCREEN,URINE NEGATIVE (NEGATIVE); SQUAMOUS EPITHELIAL CELL,UR RARE /HPF (0-2)
[2025-08-21] VITALS (29 sets, daily range): BP systolic 108–152; BP diastolic 49–85; PULSE 80–85; RESP 11–29; TEMP 98.3–98.8; O2SAT 95–99
[2025-08-21 00:02] LABS: CREATINE KINASE, TOTAL 693.0 U/L (21-232)
--- NOTE | 2025-08-21 00:58 | HMCIMG ---
EXAM: BILATERAL LOWER EXTREMITY VENOUS DOPPLER ULTRASOUND CLINICAL INFORMATION: Rule out deep venous thrombosis. TECHNIQUE: Grayscale, color Doppler, and spectral Doppler evaluation of the bilateral common femoral, femoral, profunda femoris, popliteal, posterior tibial, and peroneal veins with compression maneuvers and augmentation where feasible; great and small saphenous veins assessed as appropriate. COMPARISON: None provided. FINDINGS: DEEP VEINS (BILATERAL): Common femoral, femoral, profunda femoris, popliteal, posterior tibial, and peroneal veins are patent with complete compressibility where assessable and demonstrate normal color fill and phasic/spectral flow; no intraluminal thrombus is identified. SUPERFICIAL VEINS (BILATERAL): Great and small saphenous veins are patent and compressible without thrombus. SOFT TISSUES: No focal fluid collection is identified. IMPRESSION: 1. No deep or superficial venous thrombosis in bilateral lower extremities. /[place]
[2025-08-21 04:13] LABS: IMMATURE GRANULOCYTE ABSOLUTE 0.04 K/uL (0-1); NUCLEATED RED BLOOD CELLS 0.0 % (0.0-0.19); PLATELET COUNT (AUTO) 116 K/uL (130-400); RED BLOOD CELL COUNT(AUTO) 2.46 MIL/uL (4.50-6.20); RED CELL DISTRIBUTION WIDTH 14.8 % (11.0-15.5); WHITE BLOOD COUNT (AUTO) 8.5 K/uL (4.8-10.8)
[2025-08-21 04:28] LABS: ASPARTATE AMINOTRANSFERASE 40.0 U/L (10-37); CREATININE 1.3 mg/dL (0.5-1.3); GLOMERULAR FILTR. RATE CALC 54.0 mL/min (>90); GLUCOSE,RANDOM 141.0 mg/dL (70-105); SODIUM SERUM 141.0 mmol/L (136-145); TOTAL PROTEIN, SERUM 7.1 g/dL (6.0-8.3); UREA NITROGEN, BLOOD 41.0 mg/dL (7-18)
[2025-08-21] MEDS ORDERED: COMPOUND IV REFRIGERATED 1 EACH IVSOLN MISC PRN (08:00)
--- NOTE | 2025-08-21 08:27 | NUR ---
[employer] rep contacted regarding interrogation of device as well as safety regarding MRI. voicemail left.
[2025-08-21] MEDS: ENOXAPARIN SODIUM 40 MG/0.4 ML SYRINGE SQ SCH (09:00)
[2025-08-21 09:02] LABS: CREATINE KINASE, TOTAL 630.0 U/L (21-232)
--- NOTE | 2025-08-21 10:23 | PN ---
[facility] PROGRESS NOTE Date Patient Seen: Aug 21, 2025 Time of Visit: 10:23 Supervising Physician: Vj Fletcher MD Primary Care Physician: Sonya Gray Outpatient Specialists: [ ] Inpatient Consults: DR Bob, DR Crews, Dr Cami FELICIANO PROBLEM LIST: Syncope and fall POA Chronic systolic and diastolic stage II heart failure w/ ICM EF of 35-40% on 2 D echo 08/21/25 Moderate pulmonary HTN Mildly displaced fracture of the right C7 transverse process. nondisplaced fractures at C6 inferior endplate and C7 superior endplate. Fracture of the right C7 superior articular facet. Bilateral C6-C7 facet perching with 4 mm anterolisthesis of C6 on C7. Paraspinal muscle edema. 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 Patient assessed at bedside. He is awake alert and oriented x3. With soft collar in place in reverse Trendelenburg position. Patient reports improved pain control to neck. No major overnight events per RN. He is awaiting device interrogation.Denies chest pain, palpitation, or shortness for breath. Hemodynamically stable. Not requiring any pressor support at this time. H&H is stable 9.1/26.8 platelet count of 116 K. Neutrophils 79.9. Troponin trending down to 96.9, CK is 630 trending down. Kidneys improved creatinine 1.3 GFR of 54 BUN of 41 lactic acid of 1.8. Procalcitonin less than 0.05. 2D echo was done pertinent for left ventricular cavity size is upper limits normal-size. Left ventricular systolic function is moderately reduced with a LVEF of 35-40% apical inferior segment appears to be dyskinetic, mild to distal septal wall is hypokinetic. Grade 2 diastolic dysfunction. Right ventricle is moderately dilated and mild reduction systolic function. Device lead is present in the ri ght ventricle. Severe biatrial enlargement. Mild mitral regurgitation. [id number] tricuspid valve regurgitation RVSP is 48 mm Hg. REVIEW OF SYSTEMS: Const: no fever, fatigue, or weight changes Eyes: no recent vision problems ENT: No congestion, ear pain, or sore throat C/V: no chest pain, palpitations or edema Resp: No cough, congestion, wheezing , or Shortness of breath GI: No abdominal pain, nausea, vomiting, constipation, or diarrhea : No incontinence of or dyuria M/S: + severe neck pain and arm pain Skin: Multiple small screen bruising and purple bruising to abdomen. Neuro: + syncope Psych: no depression or anxiety Heme: no abnormal bruising or bleeding Lymph: no swollen glands PHYSICAL EXAM: GENERAL: alert, weak, awake oriented x 3 HEENT: EOMI, Sclera non icteric, moist mucosa NECK: Supple, no JVD, trachea midline, soft cervical collar complaints LUNGS: Diminished breath sounds bilaterally. No wheezes HEART: Regular rate and rhythm. Normal S1 and S2, without murmurs ABD: Abdomen soft, nontender. Bowel sounds present EXT: No clubbing cyanosis or edema NEURO: Alert and oriented to person, follows commands Vital Signs (last 8hr) Date Time Temp Pulse Resp B/P (MAP) Pulse Ox O2 Delivery O2 Flow Rate FiO2 08/21/25 06:37 81 11 135/60 100 08/21/25 05:37 83 16 124/62 98 08/21/25 04:37 83 18 124/58 97 08/21/25 04:00 98.8 08/21/25 04:00 95 Room Air* 0 21 08/21/25 03:37 82 13 126/51 95 08/21/25 02:37 80 19 108/63 92 LABS: Hematology Labs: Test 08/21/25 03:55 08/20/25 10:50 Range/Units White Blood Count 8.5 4.8-10.8 K/uL Red Blood Count 2.46 L 4.50-6.20 MIL/uL Hemoglobin 9.1 L 14.0-18.0 g/dL Hematocrit 26.8 L 42-54 % Mean Corpuscular Volume 108.9 H 79-99 fL Mean Corpuscular Hemoglobin 37.0 H 27.0-33.0 pg Mean Corpuscular Hemoglobin Concent 34.0 32.0-36.0 g/dL Red Cell Distribution Width 14.8 11.0-15.5 % Platelet Count 116 L 130-400 K/uL Mean Platelet Volume 9.9 7.5-10.5 fL Immature Granulocyte % (Auto) 0.5 0-1 % Neutrophils (%) (Auto) 79.9 H 40.0-77.0 % Lymphocytes (%) (Auto) 10.7 L 21.0-51.0 % Monocytes (%) (Auto) 8.1 3.0-13.0 % Eosinophils (%) (Auto) 0.4 0.0-8.0 % Basophils (%) (Auto) 0.4 0.0-5.0 % Neutrophils # (Auto) 6.8 1.8-7.7 K/uL Lymphocytes # (Auto) 0.9 L 1.0-4.8 K/uL Monocytes # (Auto) 0.7 0.1-1.0 K/uL Eosinophils # (Auto) 0.03 0.00-0.70 K/uL Basophils # (Auto) 0.03 0.00-0.20 K/uL Absolute Immature Granulocyte (auto 0.04 0-1 K/uL Nucleated Red Blood Cells 0.0 0.0-0.19 % Red Blood Cell Morphology See comments Chemistry Labs: Test 08/21/25 08:19 08/21/25 03:55 08/20/25 21:35 08/20/25 17:12 Range/Units Total Creatine Kinase 630 *H 21-232 U/L Troponin I High Sensitivity 96.9 *H 4-75 ng/L Sodium Level 141 136-145 mmol/L Potassium Level 3.7 3.5-5.1 mmol/L Chloride Level 104 101-111 mmol/L Carbon Dioxide Level 31 21-32 mmol/L Blood Urea Nitrogen 41 H 7-18 mg/dL Creatinine 1.3 0.5-1.3 mg/dL Glomerular Filtration Rate Calc 54 >90 mL/min Random Glucose 141 H 70-105 mg/dL Total Calcium 8.9 8.5-10.1 mg/dL Magnesium Level 2.00 1.80-2.40 mg/dL Total Bilirubin 0.6 0.2-1.0 mg/dL Aspartate Amino Transf (AST/SGOT) 40 H 10-37 U/L Alanine Aminotransferase (ALT/SGPT) 30 12-78 U/L Alkaline Phosphatase 108 50-136 U/L Total Protein 7.1 6.0-8.3 g/dL Albumin 3.7 3.5-5.0 g/dL Lactic Acid Level 1.8 0.8-2.5 mmol/L Procalcitonin < 0.05 L 0.05-0.5 ng/mL Thyroid Stimulating Hormone (TSH) 3.16 0.36-3.74 uIU/mL Test 08/20/25 10:50 Range/Units Hemoglobin A1c 5.3 4.0-6.0 % Estimated Average Glucose (eAG) 105 70-126 mg/dL B-Type Natriuretic Peptide 203 H 0-100 pg/mL Coagulation Labs: Test 08/20/25 17:12 Range/Units Prothrombin Time 10.8 9.6-11.6 SEC Prothromb Time International Ratio 1.02 0.85-1.15 Activated Partial Thromboplast Time 23.0 L 26.3-35.5 SEC D-Dimer Quantitative (PE/DVT) 9344 *H 0-500 ng/mL DIAGNOSTICS / RADIOLOGY RESULTS: [ ] [address] [address] IMAGING REPORT Signed PATIENT: TAYLOR DUNCAN MR#: [id number] : 1940 SEX: M AGE: 84 LOCATION: [facility] ORDER [id number] STATUS: ADM IN REPORT#: [id number] SERVICE 0000 REASON: SYNCOPE ORDERING PHYSICIAN: DAGOBERTO BRIGGS AGACNP PROCEDURE: ECHO CMP - ECHO 2-D COMPLETE APPROVED REPORT EXAM: Two-dimensional and M-mode echocardiogram with Doppler and color Doppler. INDICATION ICD: Syncope 2D Dimensions RVDd 4.8 cm LVEF(%) 49.4 (>50%) LVED Vol(simp.) 151.7 mL IVSd 0.8 (0.7-1.1cm) FS(%) 25 % LVES Vol(simp.) 100.4 mL LVDd 5.5 (3.8-5.6cm) LA (2D) 4.5 (1.6-4.0cm) LVEF(%, simp.) 34 % PWd 1.0 (0.7-1.1cm) Ao Root(2D) 3.1 (2.0-3.7cm) LA ESV INDEX (BP) 68.47 mL/m2 LVDs 4.1 (2.5-4.0cm) LVOT diam 2.2 (1.8-2.4cm) IVC diam 2.5 cm Deformation Strain Apical 4 -8.2 % Apical 2 -8.4 % Apical 3 -9.5 % Global Strain -8.7 % M-Mode Dimensions EPSS 1.7 cm LA (MM) 4.8 (1.6-4.0cm) Ao Root(MM) 2.6 (2.0-3.7cm) Aortic Valve AoV Vmax 2.3 m/s Ao Peak GR 21.2 mmHg LVOT Vmax 0.8 m/s AoV VTI 0.5 m Ao Mean GR 11.9 mmHg LVOT VTI 0.16 m MICHAEL (VMAX) 1.28 cm2 MICHAEL (VTI) 1.2 cm2 Mitral Valve MV E Vmax 96.5 cm/s DECEL Time 157 ms MV A Vmax 38.8 cm/s P 1/2 T 67 ms E/A ratio 2.5 MVA (PHT) 3.3 cm2 TDI E/E' Medial 9.5 E/E' Lateral 9.2 Medial E' Peak V 10.19 cm/s Lateral E' Peak V 10.47 cm/s Pulmonary Valve PV Vmax 1.1 m/s PV VTI 0.21 m PV Mean GR 2.7 mmHg PV Peak GR 5.2 mmHg Tricuspid Valve TR Vmax 3.0 m/s RAP (EST) 8 mmHg RVSP 47.6 mmHg TR Peak GR 39.6 mmHg Left Ventricle Left ventricular cavity size is upper limits normal in size. Apical inferior segment appears dyskinetic. Mid to distal septal wall is hypokinetic. There is normal left ventricular wall thickness. Left ventricular systolic function is moderately reduced. LVEF is 35-40%. Grade II diastolic dysfunction. Right Ventricle The right ventricle is moderately dilated. Right ventricular systolic function is mildly reduced. Device lead is present in the right ventricle. Atria The left atrium is severely dilated. The right atrium is severely dilated. Aortic Valve The aortic valve is trileaflet, calcified. No aortic regurgitation is present. There is mild valvular aortic stenosis. MG 11.9 mmHg. DVI 0.32. Mitral Valve The mitral valve is normal in structure and function. Mitral regurgitation is mild. There is no mitral valve stenosis. Tricuspid Valve The tricuspid valve is normal in structure. There is moderate to severe tricuspid valve regurgitation noted, RVSP 48mmHg. RVSP may be underestimated by doppler of TR jet. Pulmonic Valve The pulmonary valve is normal in structure and function. There is trace pulmonic valvular regurgitation. Great Vessels The aortic root is normal in size. IVC is dilated and collapses >50% with inspiration. Pericardium Trace pericardial effusion. No echo indications of pericardial tamponade. Other Information Quality : Good Rhythm : Pacemaker Conclusion Left ventricular cavity size is upper limits normal in size. Left ventricular systolic function is moderately reduced. LVEF is 35-40%. Apical inferior segment appears dyskinetic. Mid to distal septal wall is hypokinetic. Grade II diastolic dysfunction. The right ventricle is moderately dilated and mild reduction systolic function. Device lead is present in the right ventricle. Severe biatrial enlargement. Mild mitral regurgitation. Moderate to severe tricuspid valve regurgitation, with RVSP 48mmHg. DICTATED BY: LIVIA DURBIN DO DATE: 08/21/2523 ELECTRONICALLY SIGNED BY: LIVIA DURBIN DO DATE: 08/21/252006 PLAN continue ICU care Cardiology consult follow Neurosurgery consult trauma surgeon consult LR at 50 mL/hour Keep NPO MRI/MRA head and neck PPM/ICD interrogation 2D echo Bilateral lower extremity ultrasound -neg for DVT NEURO: Minimize central acting medications as possible. Fall Precautions. Well lighted room through the day and minimize interruptions through the night to prevent acute delirium. Consult neurosurgery Follow Neurosurgery recommendations C-collar in place PULMONARY: Supplemental 02 as needed Titrate Fio2 to keep Spo2 > or = 90% DuoNebs and CPT as needed IS hourly while awake for pulmonary hygiene Out of bed to chair as tolerated ABG monitor for resp failure Monitor for diaphragm paralysis CARDIOVASCULAR: Follow hemodynamics. Titrate vasopressor to keep MAP >65 or systolic blood pressure >95mmHg Drips: Levophed PRN to maintain map above 65 [ ] LINES: PIV Two large-bore IVs GI & NUTRITION: Continue nutritional support Aspirations precautions Prokinetic agents and laxatives as needed NPO for now KIDNEYS & ELECTROLYTES: Strict monitoring of intake and output Daily weights Avoid nephrotoxic agents Monitor electrolytes and replace as needed Goal urine output of 30mL/hr or 0.5mL/kg/hr Urine output: [ ] Fluid Balance: [ ] Bladder scan ENDOCRINE: Maintain blood glucose between 100-180 at all times. Insulin sliding scale for blood glucose management INFECTIOUS DISEASE: Trend temperature. Raza-culture if febrile. Micro: [ ] Antibiotics: HEMATOLOGY & COAGULATION: Monitor H&H. Keep Hgb > 7 Transfuse 1 unit of PRBC for Hgb < 7 Transfuse 1 pack of platelets of platelets < 20, 000 Watch for any signs and symptoms of bleeding SKIN: Pressure ulcer prevention per facility protocol Rehab: PT/OT Prophylaxis: GI: famotidine DVT: lovenox Code Status: Full Resuscitation Disposition:ICU Other: Critical care time This patient required multiple bedside visits to manage the patient, review blood gases, coordinate with respiratory, nurses, review radiology exams, talk to the family members and discuss advanced directives. I personally spent [45] minutes of critical care time in treatment of this patient. This includes patient management, time at bedside, time reviewing tests, labs, appropriate images and studies, documentation, and patient care coordination. This time excludes separately billable procedures. ATTESTATION BY PHYSICIAN I reviewed the documentation, medical decision making, and treatment plan as noted by the mid-level provider above. I agree with the findings and plan of care. Vj Fletcher MD, [facility] Aug 21, 2025 10:23
--- NOTE | 2025-08-21 10:33 | CONS ---
NEPHROLOGY CONSULTATION NOTE Date/Time Patient Seen: Aug 21, 2025 0950 Reason for Consultation: Renal failure, rhabdomyolysis HISTORY OF PRESENT ILLNESS: This is an 84-year-old male with a past medical history of atrial fibrillation status post Watchman, arthritis, CHF, CAD, prostatitis, and ppm/ICD He presented to the ED for evaluation of fall from 3 ft stool. He presented to the ED with complaints of right arm pain, cervical pain and headache. He continues to be followed by He was noted to have elevated rhabdomyolysis. Renal function is stable CK total was noted. He continues on gentle IV hydration General surgery was consulted for cervical fracture , pending recommendations. He was seen in the ICU, in no acute distress No family at the bedside Prognosis remains guarded REVIEW OF SYSTEMS: GENERAL: Negative for any nausea, vomiting, fevers, chills, or weight loss. NEUROLOGIC: Negative for any blurry vision, blind spots, double vision, facial asymmetry, dysphagia, dysarthria, hemiparesis, hemisensory deficits, vertigo, ataxia. HEENT: Negative for any head trauma, neck trauma, neck stiffness, photophobia, phonophobia, sinusitis, rhinitis. CARDIAC: Negative for any chest pain, dyspnea on exertion, paroxysmal nocturnal dyspnea, peripheral edema. PULMONARY: Negative for any shortness of breath, wheezing, COPD, or TB exposure. GASTROINTESTINAL: Negative for any abdominal pain, nausea, vomiting, bright red blood per rectum, melena. GENITOURINARY: Negative for any dysuria, hematuria, incontinence. INTEGUMENTARY: Negative for any rashes, cuts, insect bites. RHEUMATOLOGIC: Negative for any joint pains, photosensitive rashes, history of vasculitis or kidney problems. HEMATOLOGIC: Negative for any abnormal bruising, frequent infections or bleeding. PAST MEDICAL HISTORY: atrial fibrillation status post Watchman, arthritis, CHF, CAD, prostatitis, and ppm/ICD PAST SURGICAL HISTORY: Appendectomy, Pacer/AICD PAST SOCIAL HISTORY: Denies use of alcohol, tobacco or illicit drugs FAMILY HISTORY: Noncontributory PHYSICAL EXAM: GENERAL: Alert and oriented x 3. No acute distress. Well-nourished. EYES: EOMI. Anicteric. HENT: Moist mucous membranes. No scleral icterus. No cervical lymphadenopathy. LUNGS: Clear to auscultation bilaterally. No accessory muscle use. CARDIOVASCULAR: Regular rate and rhythm. No murmur. No JVD. ABDOMEN: Soft, non-tender and non-distended. No palpable masses. EXTREMITIES: No edema. Non-tender. SKIN: No rashes or lesions. Warm. NEUROLOGIC: No focal neurological deficits. CN II-XII grossly intact, but not individually tested. PSYCHIATRIC: Cooperative. Appropriate mood and affect. MEDICATIONS: [ ] Current Medications Medications (Trade) Dose Ordered Sig/Dann Route PRN Reason Start Time Stop Time Status Last Admin Dose Admin Enoxaparin Sodium (Lovenox) 40 mg DAILY SQ 08/21/25 09:00 09/20/25 08:59 08/21/25 09:00 40 MG Famotidine (Pepcid 20mg Vial) 20 mg Q48H IV 08/20/25 21:00 09/19/25 20:59 08/20/25 20:40 20 MG Folic Acid (FolVITE 5 MG/ML VIAL) 1 mg DAILY IV 08/21/25 09:00 09/20/25 08:59 08/21/25 09:00 1 MG Hydromorphone HCl (DiLAUDid 0.5MG INJ) 0.5 mg Q4H PRN IVP SEVERE PAIN (7-10) 08/20/25 15:00 08/25/25 14:59 08/21/25 07:41 0.5 MG Lactated Ringer's 1,000 ml @ 50 mls/hr Q20H IV 08/20/25 16:30 09/19/25 16:29 08/20/25 20:40 50 MLS/HR Magnesium Sulfate 50 ml @ 0 mls/hr PROTOCOL PRN IV low magnesium 08/20/25 16:30 09/19/25 16:29 Norepinephrine 250 ml @ 0 mls/hr PROTOCOL PRN IV OTHER [SEE ORDER COMMENTS] 08/20/25 15:00 09/19/25 14:59 Potassium Chloride 100 ml @ 50 mls/hr AD PRN IV POTASSIUM PROTOCOL 08/20/25 16:30 09/19/25 16:29 Potassium Chloride 100 ml @ 100 mls/hr AD PRN IV POTASSIUM PROTOCOL 08/20/25 16:30 09/19/25 16:29 Potassium Chloride (K-Dur/Klor-Con 20meq) 20 meq AD PRN PO POTASSIUM PROTOCOL 08/20/25 16:30 09/19/25 16:29 Potassium Chloride (KCl 10% Elixir 20meq/15ml) 20 meq AD PRN PO POTASSIUM PROTOCOL 08/20/25 16:30 09/19/25 16:29 08/21/25 03:09 20 MEQ Thiamine HCl (Vitamin B-1) 100 mg DAILY IVP 08/22/25 09:00 09/21/25 08:59 Thiamine HCl (Vitamin B-1) 300 mg Q24H IVP 08/20/25 16:30 08/21/25 09:55 DC 08/20/25 20:40 300 MG Vitamin B Complex/ Vit C/Folic Acid (Nephrovite Tablet) 1 cap DAILY PO 08/22/25 09:00 09/21/25 08:59 Vital Signs (last 8hr) Date Time Temp Pulse Resp B/P (MAP) Pulse Ox O2 Delivery O2 Flow Rate FiO2 08/21/25 06:37 81 11 135/60 100 08/21/25 05:37 83 16 124/62 98 08/21/25 04:37 83 18 124/58 97 08/21/25 04:00 98.8 08/21/25 04:00 95 Room Air* 0 21 08/21/25 03:37 82 13 126/51 95 08/21/25 02:37 80 19 108/63 92 DIAGNOSTICS / RADIOLOGY: [place] [address] IMAGING REPORT Signed PATIENT: TAYLOR DUNCAN MR#: [id number] : 1940 SEX: M AGE: 84 LOCATION: 2CH ORDER 1553 [facility] REPORT#: [id number] SERVICE 154 REASON: RULE OUT dvt ORDERING PHYSICIAN: DAGOBERTO BRIGGS PROCEDURE: VENOUS SHAMA - US VENOUS DOPPLER BILATERAL EXAM: BILATERAL LOWER EXTREMITY VENOUS DOPPLER ULTRASOUND CLINICAL INFORMATION: Rule out deep venous thrombosis. TECHNIQUE: Grayscale, color Doppler, and spectral Doppler evaluation of the bilateral common femoral, femoral, profunda femoris, popliteal, posterior tibial, and peroneal veins with compression maneuvers and augmentation where feasible; great and small saphenous veins assessed as appropriate. COMPARISON: None provided. FINDINGS: DEEP VEINS (BILATERAL): Common femoral, femoral, profunda femoris, popliteal, posterior tibial, and peroneal veins are patent with complete compressibility where assessable and demonstrate normal color fill and phasic/spectral flow; no intraluminal thrombus is identified. SUPERFICIAL VEINS (BILATERAL): Great and small saphenous veins are patent and compressible without thrombus. SOFT TISSUES: No focal fluid collection is identified. IMPRESSION: 1. No deep or superficial venous thrombosis in bilateral lower extremities. /[facility] DICTATED BY: PAM RIGGINS MD DATE: 08/21/25157 ELECTRONICALLY SIGNED BY: PAM RIGGINS MD DATE: 08/21/25157 PATIENT: TAYLOR DUNCAN MR#: [id number] : 1940 SEX: M AGE: 84 LOCATION: [facility] ORDER STATUS: REG ER REPORT#: [id number] SERVICE 16 REASON: PELVIC PAIN STATUS POST FALL. ORDERING PHYSICIAN: IGOR BOURNE AWNING FINISHER PROCEDURE: PELVIS - PELVIS 1-2VWS EXAM: CR Pelvis, 2 View. CLINICAL HISTORY: PELVIC PAIN STATUS POST FALL. COMPARISON: None provided. FINDINGS: Mild bilateral hip joint osteoarthritis. Spondylosis of the visualized lower lumbar spine. Prostatic radiation seeds noted. No displaced fracture appreciated. IMPRESSION: 1. No acute osseous injury. /[facility] DICTATED BY: SYLVESTER STRANGE Jr., MD DATE: 08/20/251433 ELECTRONICALLY SIGNED BY: SYLVESTER STRANGE Jr., MD DATE: 08/20/251433 PATIENT: TAYLOR DUNCAN MR#: [id number] : 1940 SEX: M AGE: 84 LOCATION: [facility] ORDER 1045 STATUS: [facility] REPORT#: [id number] SERVICE 104 REASON: SYNCOPAL EPISODE FELL WITH RIGHT UPPER ARM PAIN ORDERING PHYSICIAN: IGOR BOURNE PROCEDURE: HUM 2V RT - HUMERUS 2+VWS RT EXAM: CR right Humerus, 2 View. CLINICAL HISTORY: SYNCOPAL EPISODE FELL WITH RIGHT UPPER ARM PAIN COMPARISON: None provided. FINDINGS: BONES: No acute fracture or aggressive appearing osseous lesion. JOINTS: No dislocation. The joint spaces are normal. SOFT TISSUES: The soft tissues are unremarkable. IMPRESSION: No acute osseous abnormality. /[facility] DICTATED BY: SYLVESTER STRANGE Jr., MD DATE: 08/20/251331 ELECTRONICALLY SIGNED BY: SYLVESTER STRANGE Jr., MD DATE: 08/20/251331 PATIENT: TAYLOR DUNCAN MR#: [id number] : 1940 SEX: M AGE: 84 LOCATION: [facility] ORDER 44 STATUS: [facility] REPORT#: [id number] SERVICE 104 REASON: SYNCOPAL EPISODE FELL BACK AND HIT OCCIPUT. CONFUSED ORDERING PHYSICIAN: IGOR BOURNE PROCEDURE: HEAD WO - CT HEAD/BRAIN W/O CONTRAST EXAM: CT Head Without IV contrast. CLINICAL HISTORY: SYNCOPAL EPISODE FELL BACK AND HIT OCCIPUT. CONFUSED TECHNIQUE: Axial computed tomography images of the head/brain without intravenous contrast. COMPARISON: None provided. FINDINGS: BRAIN: No evidence of acute hemorrhage. No mass lesion. No CT evidence for acute territorial infarct. No midline shift or extra-axial collections. VENTRICLES: No hydrocephalus. ORBITS: The orbits are unremarkable. SINUSES AND MASTOIDS: The paranasal sinuses and mastoid air cells are clear. BONES: No fracture. SOFT TISSUES: Soft tissue edema overlying the left parietal skull. IMPRESSION: No acute intracranial abnormality. /[facility] DICTATED BY: SYLVESTER STRANGE Jr., MD DATE: 11/11/25 1252 ELECTRONICALLY SIGNED BY: SYLVESTER STRANGE Jr., MD DATE: 08/20/251251 PATIENT: TAYLOR DUNCAN MR#: [id number] : 1940 SEX: M AGE: 84 LOCATION: [facility] ORDER 44 STATUS: [facility] REPORT#: [id number] SERVICE 41 REASON: FOR A PAIN STATUS POST SYNCOPAL EPISODE AND FALL ORDERING PHYSICIAN: IGOR BOURNE AWNING FINISHER PROCEDURE: FORARMR - FOREARM 2VWS RT EXAM: CR right Forearm, 2 View. CLINICAL HISTORY: FOR A PAIN STATUS POST SYNCOPAL EPISODE AND FALL COMPARISON: None provided. FINDINGS: BONES: No acute fracture or aggressive appearing osseous lesion. JOINTS: No dislocation. The joint spaces are normal. SOFT TISSUES: The soft tissues are unremarkable. IMPRESSION: No acute osseous abnormality. /[facility] DICTATED BY: SYLVESTER STRANGE Jr., MD DATE: 08/20/251330 ELECTRONICALLY SIGNED BY: SYLVESTER STRANGE Jr., MD DATE: 08/20/251330 PATIENT: TAYLOR DUNCAN MR#: [id number] : 1940 SEX: M AGE: 84 LOCATION: ED ORDER 44 STATUS: [facility] REPORT#: [id number] SERVICE 104 REASON: FOR A PAIN STATUS POST SYNCOPAL EPISODE AND FALL ORDERING PHYSICIAN: IGOR BOURNE AWNING FINISHER PROCEDURE: CXR1VW - CHEST 1VW EXAM: CR Chest, 1 View. CLINICAL HISTORY: FOR A PAIN STATUS POST SYNCOPAL EPISODE AND FALL COMPARISON: None provided. FINDINGS: LUNGS: The lungs show no infiltrate or other acute finding. PLEURAL SPACES: No evidence of pleural effusion or pneumothorax. MEDIASTINUM: Moderate cardiomegaly. Pacemaker leads are in appropriate positions. Pulmonary vessels and interstitial markings are within normal limits. BONES: No aggressive appearing osseous lesion seen. IMPRESSION: No acute cardiopulmonary pathology is evident. /[facility] DICTATED BY: SYLVESTER STRANGE Jr., MD DATE: 08/20/251331 ELECTRONICALLY SIGNED BY: SYLVESTER STRANGE Jr., MD DATE: 08/20/251331 PATIENT: TAYLOR DUNCAN MR#: [id number] : 1940 SEX: M AGE: 84 LOCATION: [facility] ORDER 104 STATUS: [facility] REPORT#: [id number] SERVICE 41 REASON: SYNCOPAL EPISODE, FELL BACK HIT HEAD. MIDLINE SPINE PAIN ORDERING PHYSICIAN: IGOR BOURNE AWNING FINISHER PROCEDURE: C SPIN WO - CT CERVICAL SPINE W/O CONTRAST ADDENDUM REPORT ADDENDUM: Results were shared by telephone at 01:24 pm EST on 08-20-25 and acknowledged by IGOR Smith. /[facility] EXAM: CT Cervical Spine Without IV contrast. CLINICAL HISTORY: SYNCOPAL EPISODE, FELL BACK HIT HEAD. MIDLINE SPINE PAIN TECHNIQUE: Axial computed tomography images of the cervical spine without intravenous contrast. Sagittal and coronal reformatted images were generated. COMPARISON: None provided. FINDINGS: The cervical alignment is within normal limits. There is straightening of the cervical spine that may reflect paraspinal muscle spasm. There is cervical spondylosis evident by anterior osteophytes, uncovertebral joint hypertrophy, and facet joint osteoarthritis. Bones are markedly osteopenic, limiting evaluation for nondisplaced fractures. There is a mildly displaced fracture of the right transverse process of C7. Suspected nondisplaced fractures at the inferior endplate of C6 and superior endplate of C7. There is a fracture of the right superior articular facet of C7. The bilateral inferior articular facets of C6 are perched upon the bilateral superior articular facets of C7 resulting in 0.4 cm anterior listhesis of C6 with respect to C7. There is edema within the surrounding paraspinal musculature. Lung apices are clear. IMPRESSION: 1. Mildly displaced fracture of the right C7 transverse process. 2. Suspected nondisplaced fractures at C6 inferior endplate and C7 superior endplate. 3. Fracture of the right C7 superior articular facet. 4. Bilateral C6-C7 facet perching with 4 mm anterolisthesis of C6 on C7. 5. Paraspinal muscle edema. /[facility] DICTATED BY: SYLVESTER STRANGE Jr., MD DATE: 08/20/25 1350 ELECTRONICALLY SIGNED BY: DATE: EXAM: CT Cervical Spine Without IV contrast. CLINICAL HISTORY: SYNCOPAL EPISODE, FELL BACK HIT HEAD. MIDLINE SPINE PAIN TECHNIQUE: Axial computed tomography images of the cervical spine without intravenous contrast. Sagittal and coronal reformatted images were generated. COMPARISON: None provided. FINDINGS: The cervical alignment is within normal limits. There is straightening of the cervical spine that may reflect paraspinal muscle spasm. There is cervical spondylosis evident by anterior osteophytes, uncovertebral joint hypertrophy, and facet joint osteoarthritis. Bones are markedly osteopenic, limiting evaluation for nondisplaced fractures. There is a mildly displaced fracture of the right transverse process of C7. Suspected nondisplaced fractures at the inferior endplate of C6 and superior endplate of C7. There is a fracture of the right superior articular facet of C7. The bilateral inferior articular facets of C6 are perched upon the bilateral superior articular facets of C7 resulting in 0.4 cm anterior listhesis of C6 with respect to C7. There is edema within the surrounding paraspinal musculature. Lung apices are clear. IMPRESSION: 1. Mildly displaced fracture of the right C7 transverse process. 2. Suspected nondisplaced fractures at C6 inferior endplate and C7 superior endplate. 3. Fracture of the right C7 superior articular facet. 4. Bilateral C6-C7 facet perching with 4 mm anterolisthesis of C6 on C7. 5. Paraspinal muscle edema. /[facility] DICTATED BY: SYLVESTER STRANGE Jr., MD DATE: 08/20/25 1301 ELECTRONICALLY SIGNED BY: SYLVESTER STRANGE Jr., MD DATE: 08/20/25 1301 LABORATORY: [ ] Hematology Labs: Test 08/21/25 03:55 08/20/25 10:50 Range/Units White Blood Count 8.5 4.8-10.8 K/uL Red Blood Count 2.46 L 4.50-6.20 MIL/uL Hemoglobin 9.1 L 14.0-18.0 g/dL Hematocrit 26.8 L 42-54 % Mean Corpuscular Volume 108.9 H 79-99 fL Mean Corpuscular Hemoglobin 37.0 H 27.0-33.0 pg Mean Corpuscular Hemoglobin Concent 34.0 32.0-36.0 g/dL Red Cell Distribution Width 14.8 11.0-15.5 % Platelet Count 116 L 130-400 K/uL Mean Platelet Volume 9.9 7.5-10.5 fL Immature Granulocyte % (Auto) 0.5 0-1 % Neutrophils (%) (Auto) 79.9 H 40.0-77.0 % Lymphocytes (%) (Auto) 10.7 L 21.0-51.0 % Monocytes (%) (Auto) 8.1 3.0-13.0 % Eosinophils (%) (Auto) 0.4 0.0-8.0 % Basophils (%) (Auto) 0.4 0.0-5.0 % Neutrophils # (Auto) 6.8 1.8-7.7 K/uL Lymphocytes # (Auto) 0.9 L 1.0-4.8 K/uL Monocytes # (Auto) 0.7 0.1-1.0 K/uL Eosinophils # (Auto) 0.03 0.00-0.70 K/uL Basophils # (Auto) 0.03 0.00-0.20 K/uL Absolute Immature Granulocyte (auto 0.04 0-1 K/uL Nucleated Red Blood Cells 0.0 0.0-0.19 % Red Blood Cell Morphology See comments Chemistry Labs: Test 08/21/25 08:19 08/21/25 03:55 08/20/25 21:35 08/20/25 17:12 Range/Units Total Creatine Kinase 630 *H 21-232 U/L Troponin I High Sensitivity 96.9 *H 4-75 ng/L Sodium Level 141 136-145 mmol/L Potassium Level 3.7 3.5-5.1 mmol/L Chloride Level 104 101-111 mmol/L Carbon Dioxide Level 31 21-32 mmol/L Blood Urea Nitrogen 41 H 7-18 mg/dL Creatinine 1.3 0.5-1.3 mg/dL Glomerular Filtration Rate Calc 54 >90 mL/min Random Glucose 141 H 70-105 mg/dL Total Calcium 8.9 8.5-10.1 mg/dL Magnesium Level 2.00 1.80-2.40 mg/dL Total Bilirubin 0.6 0.2-1.0 mg/dL Aspartate Amino Transf (AST/SGOT) 40 H 10-37 U/L Alanine Aminotransferase (ALT/SGPT) 30 12-78 U/L Alkaline Phosphatase 108 50-136 U/L Total Protein 7.1 6.0-8.3 g/dL Albumin 3.7 3.5-5.0 g/dL Lactic Acid Level 1.8 0.8-2.5 mmol/L Procalcitonin < 0.05 L 0.05-0.5 ng/mL Thyroid Stimulating Hormone (TSH) 3.16 0.36-3.74 uIU/mL Test 08/20/25 10:50 Range/Units Hemoglobin A1c 5.3 4.0-6.0 % Estimated Average Glucose (eAG) 105 70-126 mg/dL B-Type Natriuretic Peptide 203 H 0-100 pg/mL Coagulation Labs: Test 08/20/25 17:12 Range/Units Prothrombin Time 10.8 9.6-11.6 SEC Prothromb Time International Ratio 1.02 0.85-1.15 Activated Partial Thromboplast Time 23.0 L 26.3-35.5 SEC D-Dimer Quantitative (PE/DVT) 9344 *H 0-500 ng/mL ASSESSMENT: Acute on chronic renal failure Syncope and fall POA Mildly displaced fracture of the right C7 transverse process. nondisplaced fractures at C6 inferior endplate and C7 superior endplate. Fracture of the right C7 superior articular facet. Bilateral C6-C7 facet perching with 4 mm anterolisthesis of C6 on C7. Paraspinal muscle edema. 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 We have reviewed external records in detail Obtain UA, urine electrolytes, urine creatinine, urine osmolality and complete renal ultrasound Start Nephro-Hellen and thiamine daily Require close monitoring of renal function and electrolytes Order CBC, CMP, uric acid, CK total and electrolytes in am Continue with antibiotics Renal diabetic diet BiPAP as necessary, for respiratory distress IV pressors as needed Monitor blood pressure adjust medication doses as needed Avoid hypotensive episodes May use Dilaudid 0.5 mg IV every 6 hours as needed for severe pain Monitor blood sugars Strict intake, output, and daily weight should be monitored Please renally adjust medications Avoid nephrotoxic and nonsteroidal drugs Avoid contrast if possible Will continue to monitor renal function, anemia, electrolytes Treatment plan discussed with patient Questions were answered We have discussed with the other team physicians in detail about the care plan We will continue to monitor the patient closely Thank you for allowing us to participate in the care of this patient Total critical care time spent with patient, nursing staff, critical care team over 35 minutes ATTESTATION BY PHYSICIAN I have seen and examined the patient. I reviewed the documentation, medical decision making, and treatment plan as noted by the mid-level provider above. I agree with the findings and plan of care. ZACHARY SRINIVASAN MD, [facility] Aug 21, 2025 10:32
--- NOTE | 2025-08-21 10:37 | NUR ---
NOTE CARDIOLOGY MADE AWARE YESTERDAY BY FARIBA LUO. ORDERS RECEIVED TO INTERROGATE PACEMAKER. PENDING BIOTRONIC REP TO CALL BACK. SEE NOTED.
--- NOTE | 2025-08-21 11:06 | NUR ---
DR FARIA CONTACTED REGARDING MRI ORDER DUE TO DELAY RELATED TO AICD. MESSAGE LEFT WITH DR FARIA STAFF.
--- NOTE | 2025-08-21 11:15 | NUR ---
CARDIOLOGY MIDLEVEL PROVIDER AT BEDSIDE. STATES PENDING ECHO RESULTS AND INTERROGATION OF DEVICE RESULTS BEFORE CLEARING PATIENT.
[2025-08-21] MEDS: HYDROcodone/APAP 5/325 1 TAB TABLET PO PRN (12:42)
--- NOTE | 2025-08-21 12:59 | NUR ---
BIOTRONIC TECH AT BEDSIDE
[2025-08-21] MEDS ORDERED: PHARMACY COMMUNICATION MISC PRN (13:00)
[2025-08-21] MEDS ORDERED: PROMETHAZINE HCL 25 MG TABLET PO PRN (13:00)
--- NOTE | 2025-08-21 13:11 | NUR ---
PER BIOTRONIC REP, AICD IS SAFE TO UNDERGO MRI UNTIL 09/04/25. PHOTO INTERN STAFF AWARE.
[2025-08-21] MEDS: BACLOFEN 10 MG TABLET PO SCH (13:51)
--- NOTE | 2025-08-21 14:43 | NUR ---
MRI STILL ON HOLD DUE TO LACK OF CAR TRACER CLEARANCE FORM.
--- NOTE | 2025-08-21 15:09 | NUR ---
[facility] ICU Skin Assessment: Patient assessed by wound healing team. Patient with no wounds or skin breakdown noted. Assessment and recommendations provided to primary nurse. Education provided.
--- NOTE | 2025-08-21 16:17 | NUR ---
DCP: HOME Pt states he lives with a lady who is blind and has hx of CVAs. 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 Pt reports that prior to admission he was very active, hunting, fishing, driving, able to do his self care. Pt uses no DME and does have [facility] for med box set up and vitals. Pt signed consent to continue with HH at co. Daughter Madalyn De La Rosa [phone] flying in to [place] o be with pt today. DCP is home
--- NOTE | 2025-08-21 17:37 | NUR ---
PT asya attempted this date. Pt refused PT even to sit EOB. Education provided on POC, DC planning, purpose of PT. Patient wants to wait for MRI and for "morphine or something". Pt appears to be resting comfortably and is wearing a soft collar at this time, an [place] is present in room. Pt does not want to sit EOB or up to chair despite Dr. Bob orders. PT to follow in am.
--- NOTE | 2025-08-21 18:22 | CONS ---
Cardiology Consult Note Attending Shopfitter: Dr. Raheem Grace Primary Shopfitter: Dr. 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 The patient states that the syncopal event was precipitated by a few seconds of lightheadedness then loss of consciousness, but there were no tonic clonic movement, loss of bowel or bladder function, or post ictal state. Upon regaining consciousness, he complained of neck, back, and shoulder pain, but denied any other active complaints including chest pain, chest pressure, palpitations, shortness of breath, PND, orthopnea, abdominal pain, nausea, vomiting, weight gain, lower extremity swelling, diaphoresis, or chills. The syncopal event prompted the patient's family to call EMS and seek a higher level of care for the patient. While on the inpatient service, the patient was found to have susta ined multiple C6/C7 spinal fractures. Cardiology was consulted for treatment recommendations regarding the patient's syncope. PMH: Listed above PSH: Listed above FH: Noncontributory SH: Denies alcohol, tobacco, or illicit drug use. Allergies: Coded Allergies: No Known Drug Allergies (Unverified Allergy, Unknown, 12/08/18) Review of systems: General: Denies fever or chills HEENT: Denies changes in vision, earache or sore throat Neck: Denies pain or stiffness Cardio: Denies chest pain, chest pressure, palpitations, or edema Pulm: Denies SOB, coughing or wheezing GI: Denies abdominal pain, nausea, vomiting, diarrhea, or constipation. MSK: Positive for neck, shoulder, and back pain. Heme: Denies anemia, easy bruising, or bleeding. Neuro: As per the HPI Psyche: Denies anxiety, depression, or suicidal ideation. Physical Exam: Vital Signs Date Time Temp Pulse Resp B/P (MAP) Pulse Ox O2 Delivery O2 Flow Rate FiO2 08/21/25 17:00 82 16 145/85 (105) 96 21 08/21/25 16:00 98.4 08/21/25 16:00 Room Air* 0 General: Alert and oriented. NAD. Chronically ill appearing. HEENT: NC/AT. Oral mucosa is moist. Neck: Cervical collar in place. Lungs: NRD. SCM. Bilateral air entry. Clear to auscultation bilaterally. No obvious wheezing, rales or rhonchi. Cardio: Regular rate. Normal S1 and S2. +S4. Systolic murmur best heard at the apex. Frequent ectopic beats noted. Abdomen: Soft. NT. ND. Normal active bowel sounds x 4 quadrants. Extremities: Diminished throughout. No edema, clubbing, or cyanosis. Neuro: CN II-XII were grossly intact. No obvious focal deficits. Labs: Laboratory Tests Test 08/20/25 21:35 08/20/25 21:36 08/20/25 23:31 08/21/25 03:55 Range/Units Lactic Acid Level 1.8 0.8-2.5 mmol/L Urine Color LIGHT-ORANGE YELLOW Urine Appearance SLIGHTLY CLOUDY CLEAR Urine pH 6.0 5.0-8.0 Urine Specific [place] 1.015 1.001-1.031 Urine Protein 20 H NEGATIVE mg/dL Urine Glucose (UA) NEGATIVE NEGATIVE mg/dL Urine Ketones 5 H NEGATIVE mg/dL Urine Occult Blood LARGE H NEGATIVE Urine Nitrate NEGATIVE NEGATIVE Urine Bilirubin NEGATIVE NEGATIVE mg/dL Urine Urobilinogen 0.2 0.2-1.0 mg/dL Urine Leukocyte Esterase 25 H NEGATIVE Sarita/uL Urine RBC TNTC H 0-1 /HPF Urine WBC 11-25 H 0-1 /HPF Urine Squamous Epithelial Cells RARE 0-2 /HPF Urine Bacteria None None Seen /HPF Urine Opiates Screen NEGATIVE NEGATIVE Urine Barbiturates Screen NEGATIVE NEGATIVE Urine Phencyclidine Screen NEGATIVE NEGATIVE Urine Amphetamines Screen NEGATIVE NEGATIVE Urine Benzodiazepines Screen NEGATIVE NEGATIVE Urine Cocaine Screen NEGATIVE NEGATIVE Urine Marijuana (THC) Screen NEGATIVE NEGATIVE Total Creatine Kinase 693 *H 21-232 U/L Troponin I High Sensitivity 159.0 *H 4-75 ng/L White Blood Count 8.5 4.8-10.8 K/uL Red Blood Count 2.46 L 4.50-6.20 MIL/uL Hemoglobin 9.1 L 14.0-18.0 g/dL Hematocrit 26.8 L 42-54 % Mean Corpuscular Volume 108.9 H 79-99 fL Mean Corpuscular Hemoglobin 37.0 H 27.0-33.0 pg Mean Corpuscular Hemoglobin Concent 34.0 32.0-36.0 g/dL Red Cell Distribution Width 14.8 11.0-15.5 % Platelet Count 116 L 130-400 K/uL Mean Platelet Volume 9.9 7.5-10.5 fL Immature Granulocyte % (Auto) 0.5 0-1 % Neutrophils (%) (Auto) 79.9 H 40.0-77.0 % Lymphocytes (%) (Auto) 10.7 L 21.0-51.0 % Monocytes (%) (Auto) 8.1 3.0-13.0 % Eosinophils (%) (Auto) 0.4 0.0-8.0 % Basophils (%) (Auto) 0.4 0.0-5.0 % Neutrophils # (Auto) 6.8 1.8-7.7 K/uL Lymphocytes # (Auto) 0.9 L 1.0-4.8 K/uL Monocytes # (Auto) 0.7 0.1-1.0 K/uL Eosinophils # (Auto) 0.03 0.00-0.70 K/uL Basophils # (Auto) 0.03 0.00-0.20 K/uL Absolute Immature Granulocyte (auto 0.04 0-1 K/uL Nucleated Red Blood Cells 0.0 0.0-0.19 % Sodium Level 141 136-145 mmol/L Potassium Level 3.7 3.5-5.1 mmol/L Chloride Level 104 101-111 mmol/L Carbon Dioxide Level 31 21-32 mmol/L Blood Urea Nitrogen 41 H 7-18 mg/dL Creatinine 1.3 0.5-1.3 mg/dL Glomerular Filtration Rate Calc 54 >90 mL/min Random Glucose 141 H 70-105 mg/dL Total Calcium 8.9 8.5-10.1 mg/dL Magnesium Level 2.00 1.80-2.40 mg/dL Total Bilirubin 0.6 0.2-1.0 mg/dL Aspartate Amino Transf (AST/SGOT) 40 H 10-37 U/L Alanine Aminotransferase (ALT/SGPT) 30 12-78 U/L Alkaline Phosphatase 108 50-136 U/L Total Protein 7.1 6.0-8.3 g/dL Albumin 3.7 3.5-5.0 g/dL Test 08/21/25 08:19 Range/Units Total Creatine Kinase 630 *H 21-232 U/L Troponin I High Sensitivity 96.9 *H 4-75 ng/L Assessment: -Syncope -Multiple C6/C7 spinal fractures with paraspinal muscle edema, currently on C spine precautions -Lactic acidosis -UTI -Rhabdomyolysis -Elevated D Dimer, negative for DVT -Frequent PVCs -Paroxysmal atrial fibrillation s/p Watchman device implantation in February 2025, no longer on anticoagulation -Normal coronary arteries by LHC/coronary angiogram done on 12/20/2022 -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 Syncope -Etiology: Unknown -We are pending a device interrogation in order to assess for an underlying arrhythmia behind the patient's syncopal event. -In addition, a 2D echocardiogram has been ordered to assess for a structural cardiac abnormalities. 2. Paroxysmal atrial fibrillation s/p Watchman device implantation in February 2025, no longer on anticoagulation -Bedside telemetry: V paced rhythm with frequent multifocal PVCs -In order to address the patient's frequent PVCs, we will start the patient on metoprolol succinate 25 mg daily. -CHADS2 VASc score: 4 points. s/p Watchman device. As a result, he will continue only on aspirin 81 mg daily. -Please keep the patient on continuous telemetry monitoring and maintain electrolytes within normal parameters. 3. 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 -We will reassess the patient's hemodynamics over the next 24-48 hours in order to determine whether we can safely initiate GDMT with ACEI/ARB/ARNI therapy and aldosterone antagonist therapy. Addendum: After my evaluation, the patient's device interrogation identified that the patient suffered an episode of VT which resulted in ICD discharge/defibrillation. As a result, we will load the patient with amiodarone in order to reduce his risk of recurrent VT and reduce his frequent PVCs. This case was discussed with my Supervising Physician, Dr. Raheem Grace, and the above-mentioned plan was formulated and agreed upon. -Consult Note written by Belem Fabian, MSN, SUPERVISOR PATCHING, AGACNP-BC BELEM FABIAN Aug 21, 2025 18:22
[2025-08-21] MEDS ORDERED: AMIOdarone 150MG/100ML BAG 100 ML IV SCH (19:30)
[2025-08-21] MEDS ORDERED: AMIODARONE 360MG/200ML BAG 200 ML IV SCH (19:30)
--- NOTE | 2025-08-21 20:07 | HMCSR ---
APPROVED REPORT EXAM: Two-dimensional and M-mode echocardiogram with Doppler and color Doppler. INDICATION ICD: Syncope 2D Dimensions RVDd 4.8 cm LVEF(%) 49.4 (>50%) LVED Vol(simp.) 151.7 mL IVSd 0.8 (0.7-1.1cm) FS(%) 25 % LVES Vol(simp.) 100.4 mL LVDd 5.5 (3.8-5.6cm) LA (2D) 4.5 (1.6-4.0cm) LVEF(%, simp.) 34 % PWd 1.0 (0.7-1.1cm) Ao Root(2D) 3.1 (2.0-3.7cm) LA ESV INDEX (BP) 68.47 mL/m2 LVDs 4.1 (2.5-4.0cm) LVOT diam 2.2 (1.8-2.4cm) IVC diam 2.5 cm Deformation Strain Apical 4 -8.2 % Apical 2 -8.4 % Apical 3 -9.5 % Global Strain -8.7 % M-Mode Dimensions EPSS 1.7 cm LA (MM) 4.8 (1.6-4.0cm) Ao Root(MM) 2.6 (2.0-3.7cm) Aortic Valve AoV Vmax 2.3 m/s Ao Peak GR 21.2 mmHg LVOT Vmax 0.8 m/s AoV VTI 0.5 m Ao Mean GR 11.9 mmHg LVOT VTI 0.16 m MICHAEL (VMAX) 1.28 cm2 MICHAEL (VTI) 1.2 cm2 Mitral Valve MV E Vmax 96.5 cm/s DECEL Time 157 ms MV A Vmax 38.8 cm/s P 1/2 T 67 ms E/A ratio 2.5 MVA (PHT) 3.3 cm2 TDI E/E' Medial 9.5 E/E' Lateral 9.2 Medial E' Peak V 10.19 cm/s Lateral E' Peak V 10.47 cm/s Pulmonary Valve PV Vmax 1.1 m/s PV VTI 0.21 m PV Mean GR 2.7 mmHg PV Peak GR 5.2 mmHg Tricuspid Valve TR Vmax 3.0 m/s RAP (EST) 8 mmHg RVSP 47.6 mmHg TR Peak GR 39.6 mmHg Left Ventricle Left ventricular cavity size is upper limits normal in size. Apical inferior segment appears dyskinetic. Mid to distal septal wall is hypokinetic. There is normal left ventricular wall thickness. Left ventricular systolic function is moderately reduced. LVEF is 35-40%. Grade II diastolic dysfunction. Right Ventricle The right ventricle is moderately dilated. Right ventricular systolic function is mildly reduced. Device lead is present in the right ventricle. Atria The left atrium is severely dilated. The right atrium is severely dilated. Aortic Valve The aortic valve is trileaflet, calcified. No aortic regurgitation is present. There is mild valvular aortic stenosis. MG 11.9 mmHg. DVI 0.32. Mitral Valve The mitral valve is normal in structure and function. Mitral regurgitation is mild. There is no mitral valve stenosis. Tricuspid Valve The tricuspid valve is normal in structure. There is moderate to severe tricuspid valve regurgitation noted, RVSP 48mmHg. RVSP may be underestimated by doppler of TR jet. Pulmonic Valve The pulmonary valve is normal in structure and function. There is trace pulmonic valvular regurgitation. Great Vessels The aortic root is normal in size. IVC is dilated and collapses >50% with inspiration. Pericardium Trace pericardial effusion. No echo indications of pericardial tamponade. Other Information Quality : Good Rhythm : Pacemaker Conclusion Left ventricular cavity size is upper limits normal in size. Left ventricular systolic function is moderately reduced. LVEF is 35-40%. Apical inferior segment appears dyskinetic. Mid to distal septal wall is hypokinetic. Grade II diastolic dysfunction. The right ventricle is moderately dilated and mild reduction systolic function. Device lead is present in the right ventricle. Severe biatrial enlargement. Mild mitral regurgitation. Moderate to severe tricuspid valve regurgitation, with RVSP 48mmHg.
[2025-08-21] MEDS: AMIOdarone 150MG/100ML BAG 100 ML IV SCH (20:52)
[2025-08-21] MEDS: AMIODARONE 360MG/200ML BAG 200 ML IV SCH (20:53)
--- NOTE | 2025-08-21 22:48 | NUR ---
patient is getting actively confused, states shortness of breath, vitals are stable, states, "you are trying to kill me. why are you trying to kill me". I am currently sitting in patients room trying to comfort him. He is agitated and hostile.
--- NOTE | 2025-08-21 22:58 | NUR ---
spoke with serafin molina about patient situation, as per serafin molina to add BNP to morning labs. thank you.
[2025-08-22] VITALS (26 sets, daily range): BP systolic 106–153; BP diastolic 51–73; PULSE 80–81; RESP 13–23; TEMP 98–98.4; O2SAT 95–100
[2025-08-22 04:56] LABS: IMMATURE GRANULOCYTE ABSOLUTE 0.03 K/uL (0-1); NUCLEATED RED BLOOD CELLS 0.0 % (0.0-0.19); PLATELET COUNT (AUTO) 96 K/uL (130-400); RED BLOOD CELL COUNT(AUTO) 2.30 MIL/uL (4.50-6.20); RED CELL DISTRIBUTION WIDTH 15.4 % (11.0-15.5); WHITE BLOOD COUNT (AUTO) 5.5 K/uL (4.8-10.8)
[2025-08-22 05:23] LABS: ASPARTATE AMINOTRANSFERASE 38.0 U/L (10-37); CREATININE 1.1 mg/dL (0.5-1.3); GLOMERULAR FILTR. RATE CALC 66.0 mL/min (>90); GLUCOSE,RANDOM 146.0 mg/dL (70-105); PHOSPHORUS 3.2 mg/dL (2.5-4.9); SODIUM SERUM 144.0 mmol/L (136-145); TOTAL PROTEIN, SERUM 7.2 g/dL (6.0-8.3); UREA NITROGEN, BLOOD 29.0 mg/dL (7-18)
[2025-08-22] MEDS: PoTASSium chloRIDE 20MEQ ER 20 MEQ ERTAB PO PRN (05:47)
--- NOTE | 2025-08-22 06:04 | HMCIMG ---
EXAMINATION: ULTRASOUND OF THE RETROPERITONEUM. CLINICAL HISTORY: AMEENA and hematuria. COMPARISON: None. TECHNIQUE: Real-time grayscale ultrasound images of the kidneys. FINDINGS: The kidneys are normal in caliber, the right kidney measures 9.0 x 5.2 x 4.1 cm and the left kidney measures 9.3 x 4.8 x 3.7 cm in its craniocaudal, AP, and transverse dimensions respectively. There is normal renal cortical thickness, and cortical echogenicity. There is no renal calculus or hydronephrosis. The urinary bladder is empty with Coronel???s bulb. IMPRESSION: No significant abnormality. Coronel???s bulb is in situ. /Wendy
--- NOTE | 2025-08-22 09:24 | NUR ---
SPOKE WITH MRI REGARDING MRI ORDERS
--- NOTE | 2025-08-22 09:31 | CONS ---
HPI: This is an 84-year-old male with a history of nonischemic cardiomyopathy status post biventricular ICD insertion 03/28/2019, normal coronary arteries by left heart catheterization 01/26/2019, persistent atrial fibrillation status post Watchman implant in February 2025, hypertension, hyperlipidemia and obstructive sleep apnea on CPAP. He was admitted 08/20/2025 secondary to syncope in the setting of ventricular fibrillation. His initial EKG 08/20/2025 shows underlying rhythm of atrial fibrillation with biventricular pacing at 80 beats per minute. His QT interval is 440 milliseconds with a corrected QT of 508 milliseconds. His potassium was 3.4 on admission. He underwent echocardiogram 08/21/2025 which shows an ejection fraction of 35- 40% with apical inferior segment dyskinesis, mild to distal septal wall hypokinesis, grade 2 diastolic dysfunction, right ventricle moderately dilated with mildly reduced right ventricular systolic function, severely dilated right and left atria, mild aortic valve stenosis with mean pressure gradient of 11.9 mmHg, mild mitral valve regurgitation, moderate to severe tricuspid valve regurgitation and trace pericardial effusion. On telemetry he is in atrial fibrillation with biventricular pacing in the 80s. Interrogation of his device shows an episode of ventricular fibrillation of 21 seconds duration successfully treated with ICD discharge x1. He also had an episode of nonsustained ventricular tachycardia x4 seconds with a ventricular rate of 213 beats per minute on 05/31/2025. His atrial arrhythmia device diagnostics going back to February 2025 show atrial fibrillation. He underwent CT scan of the cervical spine 08/20/2025 which showed mildly displaced fracture of the right C7 transverse process, suspected nondisplaced fractures at C6 inferior endplate and C7 superior endplate, fracture of the right C7 superior articular facet, bilateral C6 through C7 facet perching with 4 mm anterolisthesis of C6 on C7, and paraspinal muscle edema. White blood count 5.5, hemoglobin 8.5 down from 10.0 on admission, hematocrit 25.9, platelets 96 down from 116 yesterday, creatinine 1.1, potassium 3.6, magnesium 1.8, BNP 791. Troponin trend as follows: 49, 195, 159, 96.9. He is accompanied by his daughter today who states that he suffered a syncopal episode on 05/26/2025 while in [place]. She states that he was sitting down on a chair and became unresponsive. She states that his eyes were closed in he was unable to speak. This went on proximally 5 minutes. Upon waking he was confused. He was transferred to the [facility] and apparently spent four days in the emergency department. He was seen by both Cardiology and Neurology. He underwent an EEG which was deemed normal. Orthostatics were negative. His device was not formally interrogated during that admission. The syncopal episode on this admission occurred while he was standing up pouring Holy water into a cross. It occurred without warning. He is in a significant amount of pain at this time. His daughter states that he began hallucinating yesterday apparently after receiving hydrocodone. This was corroborated by his nurse. Patient History: PAST MEDICAL HISTORY: As noted above. SOCIAL HISTORY: Denies alcohol, tobacco or drug use. SURGICAL HISTORY: As noted above. Allergies: Coded Allergies: No Known Drug Allergies (Unverified Allergy, Unknown, 12/08/18) Additional RoS: Negative with the exception of HPI. Vital Signs Vital Signs 08/22/25 08/22/25 04:00 05:38 Temp 98.4 Pulse 80 Resp 18 B/P (MAP) 149/67 (94) Pulse Ox 100 O2 Delivery Room Air* O2 Flow Rate 0 FiO2 21 Appearance: Well dev, well nourished Eyes: EOM Normal, Normal Conjuctivae/eyelid Ear/Nose/Mouth/Throat: Landmarks WNL, Hearing WNL Neck: Abnormal (C-collar in place) Cardiovascular: Regular Rate Respiratory: Lungs clear Laboratory Tests Test 08/20/25 10:50 08/20/25 15:29 08/20/25 17:12 08/20/25 21:35 Range/Units White Blood Count 7.4 4.8-10.8 K/uL Red Blood Count 2.69 4.50-6.20 MIL/uL Hemoglobin 10.0 14.0-18.0 g/dL Hematocrit 29.5 42-54 % Mean Corpuscular Volume 109.7 79-99 fL Mean Corpuscular Hemoglobin 37.2 27.0-33.0 pg Mean Corpuscular Hemoglobin Concent 33.9 32.0-36.0 g/dL Red Cell Distribution Width 15.0 11.0-15.5 % Platelet Count 131 130-400 K/uL Mean Platelet Volume 10.1 7.5-10.5 fL Immature Granulocyte % (Auto) 0.5 0-1 % Neutrophils (%) (Auto) 70.5 40.0-77.0 % Lymphocytes (%) (Auto) 19.2 21.0-51.0 % Monocytes (%) (Auto) 6.7 3.0-13.0 % Eosinophils (%) (Auto) 2.3 0.0-8.0 % Basophils (%) (Auto) 0.8 0.0-5.0 % Neutrophils # (Auto) 5.2 1.8-7.7 K/uL Lymphocytes # (Auto) 1.4 1.0-4.8 K/uL Monocytes # (Auto) 0.5 0.1-1.0 K/uL Eosinophils # (Auto) 0.17 0.00-0.70 K/uL Basophils # (Auto) 0.06 0.00-0.20 K/uL Absolute Immature Granulocyte (auto 0.04 0-1 K/uL Nucleated Red Blood Cells 0.0 0.0-0.19 % Red Blood Cell Morphology See comments Sodium Level 138 136-145 mmol/L Potassium Level 3.4 3.5-5.1 mmol/L Chloride Level 99 101-111 mmol/L Carbon Dioxide Level 28 21-32 mmol/L Blood Urea Nitrogen 46 7-18 mg/dL Creatinine 1.5 0.5-1.3 mg/dL Glomerular Filtration Rate Calc 45 >90 mL/min Random Glucose 208 70-105 mg/dL Hemoglobin A1c 5.3 4.0-6.0 % Estimated Average Glucose (eAG) 105 70-126 mg/dL Total Calcium 8.9 8.5-10.1 mg/dL Magnesium Level 1.90 1.80-2.40 mg/dL Troponin I High Sensitivity 49 195 4-75 ng/L B-Type Natriuretic Peptide 203 0-100 pg/mL Blood Gas Specimen Type Arterial Arterial Blood pH 7.571 7.350-7.450 Arterial Blood Partial Pressure CO2 27 35-48 mmHg Arterial Blood Partial Pressure O2 104.8 83.0-108.0 mmHg Arterial Blood HCO3 24.0 21.0-28.0 mmol/L Arterial Blood Oxygen Saturation 98.5 94.0-98.0 % Arterial Blood Base Excess 3.3 -2.0-3.0 mmol/L Blood Gas Temperature 37.0 35.5-37.0 CELSIUS Blood Gas Vent Mode RA ROOM AIR FiO2 21.0 % Blood Gas Specimen Comment RR Prothrombin Time 10.8 9.6-11.6 SEC Prothromb Time International Ratio 1.02 0.85-1.15 Activated Partial Thromboplast Time 23.0 26.3-35.5 SEC D-Dimer Quantitative (PE/DVT) 9344 0-500 ng/mL Lactic Acid Level 3.1 1.8 0.8-2.5 mmol/L Total Creatine Kinase 686 21-232 U/L Procalcitonin < 0.05 0.05-0.5 ng/mL Thyroid Stimulating Hormone (TSH) 3.16 0.36-3.74 uIU/mL Test 08/20/25 21:36 08/20/25 23:31 08/21/25 03:55 08/21/25 08:19 Range/Units Urine Color LIGHT-ORANGE YELLOW Urine Appearance SLIGHTLY CLOUDY CLEAR Urine pH 6.0 5.0-8.0 Urine Specific [place] 1.015 1.001-1.031 Urine Protein 20 NEGATIVE mg/dL Urine Glucose (UA) NEGATIVE NEGATIVE mg/dL Urine Ketones 5 NEGATIVE mg/dL Urine Occult Blood LARGE NEGATIVE Urine Nitrate NEGATIVE NEGATIVE Urine Bilirubin NEGATIVE NEGATIVE mg/dL Urine Urobilinogen 0.2 0.2-1.0 mg/dL Urine Leukocyte Esterase 25 NEGATIVE Sarita/uL Urine RBC TNTC 0-1 /HPF Urine WBC 11-25 0-1 /HPF Urine Squamous Epithelial Cells RARE 0-2 /HPF Urine Bacteria None None Seen /HPF Urine Opiates Screen NEGATIVE NEGATIVE Urine Barbiturates Screen NEGATIVE NEGATIVE Urine Phencyclidine Screen NEGATIVE NEGATIVE Urine Amphetamines Screen NEGATIVE NEGATIVE Urine Benzodiazepines Screen NEGATIVE NEGATIVE Urine Cocaine Screen NEGATIVE NEGATIVE Urine Marijuana (THC) Screen NEGATIVE NEGATIVE Total Creatine Kinase 693 630 21-232 U/L Troponin I High Sensitivity 159.0 96.9 4-75 ng/L White Blood Count 8.5 4.8-10.8 K/uL Red Blood Count 2.46 4.50-6.20 MIL/uL Hemoglobin 9.1 14.0-18.0 g/dL Hematocrit 26.8 42-54 % Mean Corpuscular Volume 108.9 79-99 fL Mean Corpuscular Hemoglobin 37.0 27.0-33.0 pg Mean Corpuscular Hemoglobin Concent 34.0 32.0-36.0 g/dL Red Cell Distribution Width 14.8 11.0-15.5 % Platelet Count 116 130-400 K/uL Mean Platelet Volume 9.9 7.5-10.5 fL Immature Granulocyte % (Auto) 0.5 0-1 % Neutrophils (%) (Auto) 79.9 40.0-77.0 % Lymphocytes (%) (Auto) 10.7 21.0-51.0 % Monocytes (%) (Auto) 8.1 3.0-13.0 % Eosinophils (%) (Auto) 0.4 0.0-8.0 % Basophils (%) (Auto) 0.4 0.0-5.0 % Neutrophils # (Auto) 6.8 1.8-7.7 K/uL Lymphocytes # (Auto) 0.9 1.0-4.8 K/uL Monocytes # (Auto) 0.7 0.1-1.0 K/uL Eosinophils # (Auto) 0.03 0.00-0.70 K/uL Basophils # (Auto) 0.03 0.00-0.20 K/uL Absolute Immature Granulocyte (auto 0.04 0-1 K/uL Nucleated Red Blood Cells 0.0 0.0-0.19 % Sodium Level 141 136-145 mmol/L Potassium Level 3.7 3.5-5.1 mmol/L Chloride Level 104 101-111 mmol/L Carbon Dioxide Level 31 21-32 mmol/L Blood Urea Nitrogen 41 7-18 mg/dL Creatinine 1.3 0.5-1.3 mg/dL Glomerular Filtration Rate Calc 54 >90 mL/min Random Glucose 141 70-105 mg/dL Total Calcium 8.9 8.5-10.1 mg/dL Magnesium Level 2.00 1.80-2.40 mg/dL Total Bilirubin 0.6 0.2-1.0 mg/dL Aspartate Amino Transf (AST/SGOT) 40 10-37 U/L Alanine Aminotransferase (ALT/SGPT) 30 12-78 U/L Alkaline Phosphatase 108 50-136 U/L Total Protein 7.1 6.0-8.3 g/dL Albumin 3.7 3.5-5.0 g/dL Test 08/22/25 04:26 Range/Units White Blood Count 5.5 4.8-10.8 K/uL Red Blood Count 2.30 4.50-6.20 MIL/uL Hemoglobin 8.5 14.0-18.0 g/dL Hematocrit 25.9 42-54 % Mean Corpuscular Volume 112.6 79-99 fL Mean Corpuscular Hemoglobin 37.0 27.0-33.0 pg Mean Corpuscular Hemoglobin Concent 32.8 32.0-36.0 g/dL Red Cell Distribution Width 15.4 11.0-15.5 % Platelet Count 96 130-400 K/uL Mean Platelet Volume 10.2 7.5-10.5 fL Immature Granulocyte % (Auto) 0.5 0-1 % Neutrophils (%) (Auto) 78.2 40.0-77.0 % Lymphocytes (%) (Auto) 16.5 21.0-51.0 % Monocytes (%) (Auto) 4.2 3.0-13.0 % Eosinophils (%) (Auto) 0.2 0.0-8.0 % Basophils (%) (Auto) 0.4 0.0-5.0 % Neutrophils # (Auto) 4.3 1.8-7.7 K/uL Lymphocytes # (Auto) 0.9 1.0-4.8 K/uL Monocytes # (Auto) 0.2 0.1-1.0 K/uL Eosinophils # (Auto) 0.01 0.00-0.70 K/uL Basophils # (Auto) 0.02 0.00-0.20 K/uL Absolute Immature Granulocyte (auto 0.03 0-1 K/uL Nucleated Red Blood Cells 0.0 0.0-0.19 % Sodium Level 144 136-145 mmol/L Potassium Level 3.6 3.5-5.1 mmol/L Chloride Level 105 101-111 mmol/L Carbon Dioxide Level 30 21-32 mmol/L Blood Urea Nitrogen 29 7-18 mg/dL Creatinine 1.1 0.5-1.3 mg/dL Glomerular Filtration Rate Calc 66 >90 mL/min Random Glucose 146 70-105 mg/dL Uric Acid 5.5 2.6-7.2 mg/dL Total Calcium 8.9 8.5-10.1 mg/dL Phosphorus Level 3.2 2.5-4.9 mg/dL Magnesium Level 1.80 1.80-2.40 mg/dL Total Bilirubin 0.4 0.2-1.0 mg/dL Aspartate Amino Transf (AST/SGOT) 38 10-37 U/L Alanine Aminotransferase (ALT/SGPT) 31 12-78 U/L Alkaline Phosphatase 96 50-136 U/L B-Type Natriuretic Peptide 791 0-100 pg/mL Total Protein 7.2 6.0-8.3 g/dL Albumin 3.6 3.5-5.0 g/dL ASSESSMENT: 1. Ventricular fibrillation successfully treated with ICD discharge x1. 2. QT prolongation. 3. Hypokalemia. 4. Multiple fractures involving the cervical spine. 5. Nonischemic cardiomyopathy. 6. Status post biventricular ICD insertion 03/28/2019. 7. Persistent atrial fibrillation status post Watchman implant in February 2025, no longer on oral anticoagulation. PLAN: 1. He was admitted for syncope in the setting of ventricular fibrillation w hich was successfully treated with ICD discharge x1. He sustained multiple fractures to his cervical spine. His initial EKG showed a corrected QT of 508 milliseconds. His potassium was 3.4 on admission. 2. We will continue amiodarone infusion then transition to amiodarone 400 mg daily. 3. Repeat EKG this morning to assess QT interval. 4. Maintain potassium greater than 4.0, and magnesium greater than 2.0. 5. Continue with pain control. 6. Okay to proceed with MRI of the cervical spine. Signed MRI clearance form in the chart. XAVIER THOMPSON Aug 22, 2025 09:31
[2025-08-22] MEDS: ASPIRIN 81MG CHEW TAB PO SCH (09:43)
[2025-08-22] MEDS: MULTIVITAMIN TABLET PO SCH (09:44)
[2025-08-22] MEDS: Vitamin B Complex/Vit C/Folic Acid PO SCH (09:44)
[2025-08-22] MEDS: THIAMINE HCL 100 MG/ML 2ML VIAL IVP SCH (09:44)
--- NOTE | 2025-08-22 09:59 | NUR ---
MRI MADE AWARE OF MRI STAT ORDER
--- NOTE | 2025-08-22 11:00 | NUR ---
MRI has yet to be done.
--- NOTE | 2025-08-22 11:05 | EKG ---
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
--- NOTE | 2025-08-22 13:07 | NUR ---
FOLLOWED UP WITH MRI. PT TO HAVE MRI AROUND 1330 TODAY
--- NOTE | 2025-08-22 13:28 | CONS ---
HISTORY OF PRESENT ILLNESS: An 84-year-old male patient who was brought to the emergency room after he fell with resultant neck pain. He has history of a defibrillator, not taking any blood thinners. No known allergies reported. PHYSICAL EXAMINATION: GENERAL: He is with a collar. He is awake, alert, and oriented x 3. NEUROLOGIC: Refers tenderness in the shoulder areas and lumbar area. There is no craniocephalic trauma noted. No cranial pulses noted. No ____. CHEST: Symmetrical. ABDOMEN: Soft. EXTREMITIES: He is able to move all four extremities without problem and there are no sensory disturbances. DIAGNOSTIC DATA: The CT scan was evaluated. There are possible multiple linear fractures if not multilevel spondylotic disk disease, but there is no gross overt instability noted. ASSESSMENT AND PLAN: At this time, the patient will be admitted for pain control but more so to make arrangement with tree faller for possible MRI if feasible due to the pacemaker. We will continue pain medications with some muscle relaxants. PT, OT to evaluate him with the collar in place. TID: [id number] RECEIPT: [id number]
--- NOTE | 2025-08-22 13:40 | NUR ---
TO MRI THIS TIME
--- NOTE | 2025-08-22 14:32 | NUR ---
PT TOLERATING MRI WELL. VITAL SIGNS WNL .NO SIGNS OF ACUTE DISTRESS. WILL CONTINUE TO MONITOR.
--- NOTE | 2025-08-22 14:59 | PN ---
NEPHROLOGY PROGRESS NOTE Date/Time Patient Seen: Aug 22, 2025 SUBJECTIVE: This is an 84-year-old male with a past medical history of atrial fibrillation status post Watchman, arthritis, CHF, CAD, prostatitis, and ppm/ICD He presented to the ED for evaluation of fall from 3 ft stool. He presented to the ED with complaints of right arm pain, cervical pain and headache. He continues to be followed by He was noted to have elevated rhabdomyolysis. Renal function electrolytes are stable. He continues to be followed by Neurosurgery, Pending MRI Continues to be followed by Cardiology/EP He was seen in the ICU, in no acute distress No family at the bedside Prognosis remains guarded REVIEW OF SYSTEMS: GENERAL: Negative for any nausea, vomiting, fevers, chills, or weight loss. NEUROLOGIC: Negative for any blurry vision, blind spots, double vision, facial asymmetry, dysphagia, dysarthria, hemiparesis, hemisensory deficits, vertigo, ataxia. HEENT: Negative for any head trauma, neck trauma, neck stiffness, photophobia, phonophobia, sinusitis, rhinitis. CARDIAC: Negative for any chest pain, dyspnea on exertion, paroxysmal nocturnal dyspnea, peripheral edema. PULMONARY: Negative for any shortness of breath, wheezing, COPD, or TB exposure. GASTROINTESTINAL: Negative for any abdominal pain, nausea, vomiting, bright red blood per rectum, melena. GENITOURINARY: Negative for any dysuria, hematuria, incontinence. INTEGUMENTARY: Negative for any rashes, cuts, insect bites. RHEUMATOLOGIC: Negative for any joint pains, photosensitive rashes, history of vasculitis or kidney problems. HEMATOLOGIC: Negative for any abnormal bruising, frequent infections or bleeding. PHYSICAL EXAM: GENERAL: Alert and oriented x 3. No acute distress. Well-nourished. EYES: EOMI. Anicteric. HENT: Moist mucous membranes. No scleral icterus. No cervical lymphadenopathy. LUNGS: Clear to auscultation bilaterally. No accessory muscle use. CARDIOVASCULAR: Regular rate and rhythm. No murmur. No JVD. ABDOMEN: Soft, non-tender and non-distended. No palpable masses. EXTREMITIES: No edema. Non-tender. SKIN: No rashes or lesions. Warm. NEUROLOGIC: No focal neurological deficits. CN II-XII grossly intact, but not individually tested. PSYCHIATRIC: Cooperative. Appropriate mood and affect. LABORATORY: [ ] Hematology Labs: Test 08/22/25 04:26 Range/Units White Blood Count 5.5 4.8-10.8 K/uL Red Blood Count 2.30 L 4.50-6.20 MIL/uL Hemoglobin 8.5 L 14.0-18.0 g/dL Hematocrit 25.9 L 42-54 % Mean Corpuscular Volume 112.6 H 79-99 fL Mean Corpuscular Hemoglobin 37.0 H 27.0-33.0 pg Mean Corpuscular Hemoglobin Concent 32.8 32.0-36.0 g/dL Red Cell Distribution Width 15.4 11.0-15.5 % Platelet Count 96 L 130-400 K/uL Mean Platelet Volume 10.2 7.5-10.5 fL Immature Granulocyte % (Auto) 0.5 0-1 % Neutrophils (%) (Auto) 78.2 H 40.0-77.0 % Lymphocytes (%) (Auto) 16.5 L 21.0-51.0 % Monocytes (%) (Auto) 4.2 3.0-13.0 % Eosinophils (%) (Auto) 0.2 0.0-8.0 % Basophils (%) (Auto) 0.4 0.0-5.0 % Neutrophils # (Auto) 4.3 1.8-7.7 K/uL Lymphocytes # (Auto) 0.9 L 1.0-4.8 K/uL Monocytes # (Auto) 0.2 0.1-1.0 K/uL Eosinophils # (Auto) 0.01 0.00-0.70 K/uL Basophils # (Auto) 0.02 0.00-0.20 K/uL Absolute Immature Granulocyte (auto 0.03 0-1 K/uL Nucleated Red Blood Cells 0.0 0.0-0.19 % Chemistry Labs: Test 08/22/25 04:26 08/21/25 08:19 08/20/25 21:35 08/20/25 17:12 Range/Units Sodium Level 144 136-145 mmol/L Potassium Level 3.6 3.5-5.1 mmol/L Chloride Level 105 101-111 mmol/L Carbon Dioxide Level 30 21-32 mmol/L Blood Urea Nitrogen 29 H 7-18 mg/dL Creatinine 1.1 0.5-1.3 mg/dL Glomerular Filtration Rate Calc 66 >90 mL/min Random Glucose 146 H 70-105 mg/dL Uric Acid 5.5 2.6-7.2 mg/dL Total Calcium 8.9 8.5-10.1 mg/dL Phosphorus Level 3.2 2.5-4.9 mg/dL Magnesium Level 1.80 1.80-2.40 mg/dL Total Bilirubin 0.4 0.2-1.0 mg/dL Aspartate Amino Transf (AST/SGOT) 38 H 10-37 U/L Alanine Aminotransferase (ALT/SGPT) 31 12-78 U/L Alkaline Phosphatase 96 50-136 U/L B-Type Natriuretic Peptide 791 H 0-100 pg/mL Total Protein 7.2 6.0-8.3 g/dL Albumin 3.6 3.5-5.0 g/dL Total Creatine Kinase 630 *H 21-232 U/L Troponin I High Sensitivity 96.9 *H 4-75 ng/L Lactic Acid Level 1.8 0.8-2.5 mmol/L Procalcitonin < 0.05 L 0.05-0.5 ng/mL Thyroid Stimulating Hormone (TSH) 3.16 0.36-3.74 uIU/mL Coagulation Labs: Test 08/20/25 17:12 Range/Units Prothrombin Time 10.8 9.6-11.6 SEC Prothromb Time International Ratio 1.02 0.85-1.15 Activated Partial Thromboplast Time 23.0 L 26.3-35.5 SEC D-Dimer Quantitative (PE/DVT) 9344 *H 0-500 ng/mL DIAGNOSTICS / RADIOLOGY: [place] [address] IMAGING REPORT Signed PATIENT: TAYLOR DUNCAN MR#: [id number] : 1940 SEX: M AGE: 84 LOCATION: [facility] ORDER 2 STATUS: ADM IN REPORT#: [id number] SERVICE REASON: AMEENA, HEMATURIA ORDERING PHYSICIAN: ZACHARY SRINIVASAN MD PROCEDURE: RENAL - US RENAL SONOGRAM EXAMINATION: ULTRASOUND OF THE RETROPERITONEUM. CLINICAL HISTORY: AMEENA and hematuria. COMPARISON: None. TECHNIQUE: Real-time grayscale ultrasound images of the kidneys. FINDINGS: The kidneys are normal in caliber, the right kidney measures 9.0 x 5.2 x 4.1 cm and the left kidney measures 9.3 x 4.8 x 3.7 cm in its craniocaudal, AP, and transverse dimensions respectively. There is normal renal cortical thickness, and cortical echogenicity. There is no renal calculus or hydronephrosis. The urinary bladder is empty with Coronel???s bulb. IMPRESSION: No significant abnormality. Coronel???s bulb is in situ. /[place] DICTATED BY: SYLVESTER STRANGE Jr., MD DATE: 08/22/25701 ELECTRONICALLY SIGNED BY: SYLVESTER STRANGE Jr., MD DATE: 08/22/25701 PATIENT: TAYLOR DUNCAN MR#: [id number] : 1940 SEX: M AGE: 84 LOCATION: [facility] ORDER [id number] STATUS: ADM IN REPORT#: [id number] SERVICE 0000 REASON: SYNCOPE ORDERING PHYSICIAN: DAGOBERTO BRIGGS PROCEDURE: ECHO CMP - ECHO 2-D COMPLETE APPROVED REPORT EXAM: Two-dimensional and M-mode echocardiogram with Doppler and color Doppler. INDICATION ICD: Syncope 2D Dimensions RVDd 4.8 cm LVEF(%) 49.4 (>50%) LVED Vol(simp.) 151.7 mL IVSd 0.8 (0.7-1.1cm) FS(%) 25 % LVES Vol(simp.) 100.4 mL LVDd 5.5 (3.8-5.6cm) LA (2D) 4.5 (1.6-4.0cm) LVEF(%, simp.) 34 % PWd 1.0 (0.7-1.1cm) Ao Root(2D) 3.1 (2.0-3.7cm) LA ESV INDEX (BP) 68.47 mL/m2 LVDs 4.1 (2.5-4.0cm) LVOT diam 2.2 (1.8-2.4cm) IVC diam 2.5 cm Deformation Strain Apical 4 -8.2 % Apical 2 -8.4 % Apical 3 -9.5 % Global Strain -8.7 % M-Mode Dimensions EPSS 1.7 cm LA (MM) 4.8 (1.6-4.0cm) Ao Root(MM) 2.6 (2.0-3.7cm) Aortic Valve AoV Vmax 2.3 m/s Ao Peak GR 21.2 mmHg LVOT Vmax 0.8 m/s AoV VTI 0.5 m Ao Mean GR 11.9 mmHg LVOT VTI 0.16 m MICHAEL (VMAX) 1.28 cm2 MICHAEL (VTI) 1.2 cm2 Mitral Valve MV E Vmax 96.5 cm/s DECEL Time 157 ms MV A Vmax 38.8 cm/s P 1/2 T 67 ms E/A ratio 2.5 MVA (PHT) 3.3 cm2 TDI E/E' Medial 9.5 E/E' Lateral 9.2 Medial E' Peak V 10.19 cm/s Lateral E' Peak V 10.47 cm/s Pulmonary Valve PV Vmax 1.1 m/s PV VTI 0.21 m PV Mean GR 2.7 mmHg PV Peak GR 5.2 mmHg Tricuspid Valve TR Vmax 3.0 m/s RAP (EST) 8 mmHg RVSP 47.6 mmHg TR Peak GR 39.6 mmHg Left Ventricle Left ventricular cavity size is upper limits normal in size. Apical inferior segment appears dyskinetic. Mid to distal septal wall is hypokinetic. There is normal left ventricular wall thickness. Left ventricular systolic function is moderately reduced. LVEF is 35-40%. Grade II diastolic dysfunction. Right Ventricle The right ventricle is moderately dilated. Right ventricular systolic function is mildly reduced. Device lead is present in the right ventricle. Atria The left atrium is severely dilated. The right atrium is severely dilated. Aortic Valve The aortic valve is trileaflet, calcified. No aortic regurgitation is present. There is mild valvular aortic stenosis. MG 11.9 mmHg. DVI 0.32. Mitral Valve The mitral valve is normal in structure and function. Mitral regurgitation is mild. There is no mitral valve stenosis. Tricuspid Valve The tricuspid valve is normal in structure. There is moderate to severe tricuspid valve regurgitation noted, RVSP 48mmHg. RVSP may be underestimated by doppler of TR jet. Pulmonic Valve The pulmonary valve is normal in structure and function. There is trace pulmonic valvular regurgitation. Great Vessels The aortic root is normal in size. IVC is dilated and collapses >50% with inspiration. Pericardium Trace pericardial effusion. No echo indications of pericardial tamponade. Other Information Quality : Good Rhythm : Pacemaker Conclusion Left ventricular cavity size is upper limits normal in size. Left ventricular systolic function is moderately reduced. LVEF is 35-40%. Apical inferior segment appears dyskinetic. Mid to distal septal wall is hypokinetic. Grade II diastolic dysfunction. The right ventricle is moderately dilated and mild reduction systolic function. Device lead is present in the right ventricle. Severe biatrial enlargement. Mild mitral regurgitation. Moderate to severe tricuspid valve regurgitation, with RVSP 48mmHg. DICTATED BY: LIVIA DURBIN DO DATE: 08/21/25922 ELECTRONICALLY SIGNED BY: LIVIA DURBIN DO DATE: 08/21/252006 PATIENT: TAYLOR DUNCAN MR#: [id number] : 1940 SEX: M AGE: 84 LOCATION: [facility] ORDER [id number] STATUS: ADM IN [facility] REPORT#: [id number] SERVICE 1544 REASON: RULE OUT dvt ORDERING PHYSICIAN: DAGOBERTO BRIGGS [facility] PROCEDURE: VENOUS SHAMA - US VENOUS DOPPLER BILATERAL EXAM: BILATERAL LOWER EXTREMITY VENOUS DOPPLER ULTRASOUND CLINICAL INFORMATION: Rule out deep venous thrombosis. TECHNIQUE: Grayscale, color Doppler, and spectral Doppler evaluation of the bilateral common femoral, femoral, profunda femoris, popliteal, posterior tibial, and peroneal veins with compression maneuvers and augmentation where feasible; great and small saphenous veins assessed as appropriate. COMPARISON: None provided. FINDINGS: DEEP VEINS (BILATERAL): Common femoral, femoral, profunda femoris, popliteal, posterior tibial, and peroneal veins are patent with complete compressibility where assessable and demonstrate normal color fill and phasic/spectral flow; no intraluminal thrombus is identified. SUPERFICIAL VEINS (BILATERAL): Great and small saphenous veins are patent and compressible without thrombus. SOFT TISSUES: No focal fluid collection is identified. IMPRESSION: 1. No deep or superficial venous thrombosis in bilateral lower extremities. /[place] DICTATED BY: PAM RIGGINS MD DATE: 08/21/25157 ELECTRONICALLY SIGNED BY: PAM RIGGINS MD DATE: 08/21/25157 PATIENT: TAYLOR DUNCAN MR#: [id number] : 1940 SEX: M AGE: 84 LOCATION: ED ORDER 17 STATUS: REG ER REPORT#: [id number] SERVICE 16 REASON: PELVIC PAIN STATUS POST FALL. ORDERING PHYSICIAN: IGOR BOURNE OUTPATIENT PROGRAM COORDINATOR PROCEDURE: PELVIS - PELVIS 1-2VWS EXAM: CR Pelvis, 2 View. CLINICAL HISTORY: PELVIC PAIN STATUS POST FALL. COMPARISON: None provided. FINDINGS: Mild bilateral hip joint osteoarthritis. Spondylosis of the visualized lower lumbar spine. Prostatic radiation seeds noted. No displaced fracture appreciated. IMPRESSION: 1. No acute osseous injury. /[place] DICTATED BY: SYLVESTER STRANGE Jr., MD DATE: 08/20/251433 ELECTRONICALLY SIGNED BY: SYLVESTER STRANGE Jr., MD DATE: 08/20/251433 PATIENT: TAYLOR DUNCAN MR#: [id number] : 1940 SEX: M AGE: 84 LOCATION: ED ORDER 44 STATUS: [facility] REPORT#: [id number] SERVICE 104 REASON: SYNCOPAL EPISODE FELL WITH RIGHT UPPER ARM PAIN ORDERING PHYSICIAN: IGOR BOURNE OUTPATIENT PROGRAM COORDINATOR PROCEDURE: HUM 2V RT - HUMERUS 2+VWS RT EXAM: CR right Humerus, 2 View. CLINICAL HISTORY: SYNCOPAL EPISODE FELL WITH RIGHT UPPER ARM PAIN COMPARISON: None provided. FINDINGS: BONES: No acute fracture or aggressive appearing osseous lesion. JOINTS: No dislocation. The joint spaces are normal. SOFT TISSUES: The soft tissues are unremarkable. IMPRESSION: No acute osseous abnormality. /[place] DICTATED BY: SYLVESTER STRANGE Jr., MD DATE: 08/20/251331 ELECTRONICALLY SIGNED BY: SYLVESTER STRANGE Jr., MD DATE: 08/20/251331 PATIENT: TAYLOR DUNCAN MR#: [id number] : 1940 SEX: M AGE: 84 LOCATION: [facility] ORDER 44 STATUS: [facility] REPORT#: [id number] SERVICE 41 REASON: SYNCOPAL EPISODE FELL BACK AND HIT OCCIPUT. CONFUSED ORDERING PHYSICIAN: IGOR BOURNE OUTPATIENT PROGRAM COORDINATOR PROCEDURE: HEAD WO - CT HEAD/BRAIN W/O CONTRAST EXAM: CT Head Without IV contrast. CLINICAL HISTORY: SYNCOPAL EPISODE FELL BACK AND HIT OCCIPUT. CONFUSED TECHNIQUE: Axial computed tomography images of the head/brain without intravenous contrast. COMPARISON: None provided. FINDINGS: BRAIN: No evidence of acute hemorrhage. No mass lesion. No CT evidence for acute territorial infarct. No midline shift or extra-axial collections. VENTRICLES: No hydrocephalus. ORBITS: The orbits are unremarkable. SINUSES AND MASTOIDS: The paranasal sinuses and mastoid air cells are clear. BONES: No fracture. SOFT TISSUES: Soft tissue edema overlying the left parietal skull. IMPRESSION: No acute intracranial abnormality. /[place] DICTATED BY: SYLVESTER STRANGE Jr., MD DATE: 08/20/251251 ELECTRONICALLY SIGNED BY: SYLVESTER STRANGE Jr., MD DATE: 08/20/251251 PATIENT: TAYLOR DUNCAN MR#: [id number] : 1940 SEX: M AGE: 84 LOCATION: ED ORDER 44 STATUS: REG [facility] REPORT#: [id number] SERVICE 41 REASON: FOR A PAIN STATUS POST SYNCOPAL EPISODE AND FALL ORDERING PHYSICIAN: IGOR BOURNE OUTPATIENT PROGRAM COORDINATOR PROCEDURE: FORARMR - FOREARM 2VWS RT EXAM: CR right Forearm, 2 View. CLINICAL HISTORY: FOR A PAIN STATUS POST SYNCOPAL EPISODE AND FALL COMPARISON: None provided. FINDINGS: BONES: No acute fracture or aggressive appearing osseous lesion. JOINTS: No dislocation. The joint spaces are normal. SOFT TISSUES: The soft tissues are unremarkable. IMPRESSION: No acute osseous abnormality. /[place] DICTATED BY: SYLVESTER STRANGE Jr., MD DATE: 08/20/251330 ELECTRONICALLY SIGNED BY: SYLVESTER STRANGE Jr., MD DATE: 08/20/251330 PATIENT: TAYLOR DUNCAN MR#: [id number] : 1940 SEX: M AGE: 84 LOCATION: ED ORDER 44 STATUS: [facility] REPORT#: [id number] SERVICE 104 REASON: FOR A PAIN STATUS POST SYNCOPAL EPISODE AND FALL ORDERING PHYSICIAN: IGOR BOURNE OUTPATIENT PROGRAM COORDINATOR PROCEDURE: CXR1VW - CHEST 1VW EXAM: CR Chest, 1 View. CLINICAL HISTORY: FOR A PAIN STATUS POST SYNCOPAL EPISODE AND FALL COMPARISON: None provided. FINDINGS: LUNGS: The lungs show no infiltrate or other acute finding. PLEURAL SPACES: No evidence of pleural effusion or pneumothorax. MEDIASTINUM: Moderate cardiomegaly. Pacemaker leads are in appropriate positions. Pulmonary vessels and interstitial markings are within normal limits. BONES: No aggressive appearing osseous lesion seen. IMPRESSION: No acute cardiopulmonary pathology is evident. /[place] DICTATED BY: SYLVESTER STRANGE Jr., MD DATE: 08/20/251331 ELECTRONICALLY SIGNED BY: SYLVESTER STRANGE Jr., MD DATE: 08/20/251331 PATIENT: TAYLOR DUNCAN MR#: [id number] : 1940 SEX: M AGE: 84 LOCATION: [facility] ORDER 44 STATUS: REG ER [facility] REPORT#: [id number] SERVICE 1042 REASON: SYNCOPAL EPISODE, FELL BACK HIT HEAD. MIDLINE SPINE PAIN ORDERING PHYSICIAN: IGOR BOURNE OUTPATIENT PROGRAM COORDINATOR PROCEDURE: C SPIN WO - CT CERVICAL SPINE W/O CONTRAST ADDENDUM REPORT ADDENDUM: Results were shared by telephone at 01:24 pm EST on 08-20-25 and acknowledged by IGOR Smith. /[place] EXAM: CT Cervical Spine Without IV contrast. CLINICAL HISTORY: SYNCOPAL EPISODE, FELL BACK HIT HEAD. MIDLINE SPINE PAIN TECHNIQUE: Axial computed tomography images of the cervical spine without intravenous contrast. Sagittal and coronal reformatted images were generated. COMPARISON: None provided. FINDINGS: The cervical alignment is within normal limits. There is straightening of the cervical spine that may reflect paraspinal muscle spasm. There is cervical spondylosis evident by anterior osteophytes, uncovertebral joint hypertrophy, and facet joint osteoarthritis. Bones are markedly osteopenic, limiting evaluation for nondisplaced fractures. There is a mildly displaced fracture of the right transverse process of C7. Suspected nondisplaced fractures at the inferior endplate of C6 and superior endplate of C7. There is a fracture of the right superior articular facet of C7. The bilateral inferior articular facets of C6 are perched upon the bilateral superior articular facets of C7 resulting in 0.4 cm anterior listhesis of C6 with respect to C7. There is edema within the surrounding paraspinal musculature. Lung apices are clear. IMPRESSION: 1. Mildly displaced fracture of the right C7 transverse process. 2. Suspected nondisplaced fractures at C6 inferior endplate and C7 superior endplate. 3. Fracture of the right C7 superior articular facet. 4. Bilateral C6-C7 facet perching with 4 mm anterolisthesis of C6 on C7. 5. Paraspinal muscle edema. /[place] DICTATED BY: SYLVESTER STRANGE Jr., MD DATE: 08/20/25 1350 ELECTRONICALLY SIGNED BY: DATE: EXAM: CT Cervical Spine Without IV contrast. CLINICAL HISTORY: SYNCOPAL EPISODE, FELL BACK HIT HEAD. MIDLINE SPINE PAIN TECHNIQUE: Axial computed tomography images of the cervical spine without intravenous contrast. Sagittal and coronal reformatted images were generated. COMPARISON: None provided. FINDINGS: The cervical alignment is within normal limits. There is straightening of the cervical spine that may reflect paraspinal muscle spasm. There is cervical spondylosis evident by anterior osteophytes, uncovertebral joint hypertrophy, and facet joint osteoarthritis. Bones are markedly osteopenic, limiting evaluation for nondisplaced fractures. There is a mildly displaced fracture of the right transverse process of C7. Suspected nondisplaced fractures at the inferior endplate of C6 and superior endplate of C7. There is a fracture of the right superior articular facet of C7. The bilateral inferior articular facets of C6 are perched upon the bilateral superior articular facets of C7 resulting in 0.4 cm anterior listhesis of C6 with respect to C7. There is edema within the surrounding paraspinal musculature. Lung apices are clear. IMPRESSION: 1. Mildly displaced fracture of the right C7 transverse process. 2. Suspected nondisplaced fractures at C6 inferior endplate and C7 superior endplate. 3. Fracture of the right C7 superior articular facet. 4. Bilateral C6-C7 facet perching with 4 mm anterolisthesis of C6 on C7. 5. Paraspinal muscle edema. /[place] DICTATED BY: SYLVESTER STRANGE Jr., MD DATE: 08/20/25 1301 ELECTRONICALLY SIGNED BY: SYLVESTER STRANGE Jr., MD DATE: 08/20/25 1301 ASSESSMENT: Acute on chronic renal failure Syncope and fall POA Mildly displaced fracture of the right C7 transverse process. nondisplaced fractures at C6 inferior endplate and C7 superior endplate. Fracture of the right C7 superior articular facet. Bilateral C6-C7 facet perching with 4 mm anterolisthesis of C6 on C7. Paraspinal muscle edema. 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 We have reviewed external records in detail Pending further Neurology/Cardiology recommendations Pending MRI results Require close monitoring of renal function and electrolytes Order CBC, CMP, electrolytes in am BiPAP as necessary, for respiratory distress IV pressors as needed Monitor blood pressure adjust medication doses as needed Avoid hypotensive episodes May use Dilaudid 0.5 mg IV every 6 hours as needed for severe pain Monitor blood sugars Strict intake, output, and daily weight should be monitored Please renally adjust medications Avoid nephrotoxic and nonsteroidal drugs Avoid contrast if possible Will continue to monitor renal function, anemia, electrolytes Treatment plan discussed with patient Questions were answered We have discussed with the other team physicians in detail about the care plan We will continue to monitor the patient closely Total critical care time spent with patient, nursing staff, critical care team over 35 minutes ATTESTATION BY PHYSICIAN I have seen and examined the patient. I reviewed the documentation, medical decision making, and treatment plan as noted by the mid-level provider above. I agree with the findings and plan of care. ZACHARY SRINIVASAN MD, [facility] Aug 22, 2025 14:59
--- NOTE | 2025-08-22 15:59 | HMCIMG ---
EXAM: CR Chest, 1 View. CLINICAL HISTORY: Hypoxic resp failure. COMPARISON: 08/20/25. TECHNIQUE: A frontal radiograph of the chest was obtained. FINDINGS: Patient is in slight rotation. Lungs are clear and well expanded with no pulmonary infiltrate or pleural effusion. There is no pneumothorax. Moderate cardiomegaly. Aortic knob calcification noted. A cardiac pacemaker is noted on the left side with intact leads. No acute osseous abnormality is seen. IMPRESSION: No acute cardiopulmonary disease is seen. Moderate cardiomegaly. /[place]
--- NOTE | 2025-08-22 16:47 | HMCIMG ---
Here is the updated final report with a proper comparison summary integrated into the IMPRESSION, exactly following your SuperFormat rules (comparison mentioned ONLY in the Impression, not as a separate section): EXAM: MR Brain Without IV Contrast CLINICAL HISTORY: Syncope; rule out stroke TECHNIQUE: Multisequence, multiplanar magnetic resonance images of the brain were obtained without intravenous contrast. Series acquired: SAG T1 SE; AX T2 FSE; AX T2 FLAIR; AX DWI; AX T2* GRE; AX T1 FSE; COR T2 FSE; ADC; eADC. CONTRAST: None. COMPARISON: CT ??? CT Head/Brain Without Contrast ??? 08/20/25 11:34 EST FINDINGS: Brain Age-appropriate diffuse cerebral volume loss. Borderline periventricular T2/FLAIR hyperintensity consistent with early chronic small-vessel ischemic change. Subacute lacunar infarct in the right graff radiata without significant mass effect. 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 No restricted diffusion, no acute infarction, no intracranial hemorrhage, mass effect, or extra-axial collection. Cerebellar tonsils normally positioned. Vascular flow voids preserved. Ventricles Normal size and configuration. Orbits Normal. Sinuses and mastoids Clear. Bones No focal osseous lesion. Soft tissues Scalp contusion in the left temporo-occipital region. IMPRESSION: * Subacute lacunar infarct in the right graff radiata, new compared with prior CT (08/20/25), which did not show an acute parenchymal infarct. 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 * Age-appropriate diffuse cerebral volume loss with borderline chronic small-vessel ischemic changes. * Left temporo-occipital scalp contusion. * Radiologic???clinical correlation: Interval appearance of a subacute lacunar infarct accounts for the principal interval change relative to prior CT and should be interpreted with the patient???s neurologic status. /[place]
--- NOTE | 2025-08-22 16:53 | HMCIMG ---
EXAM: MR Angiography Head without Intravenous Contrast. CLINICAL HISTORY: Syncope. To rule out stroke. TECHNIQUE: Magnetic resonance angiography images of the head without intravenous contrast. Three-dimensional MIP reformations performed. CONTRAST: Without. COMPARISON: A MRI of the brain performed at the same time of the current examination is available for comparison. FINDINGS: INTERNAL CAROTID ARTERIES: The bilateral intracranial ICA are unremarkable in caliber. No significant stenosis. No aneurysm or AVM. ANTERIOR CEREBRAL ARTERIES: The A1 segment of the right anterior cerebral artery is hypoplastic. The rest of the bilateral anterior cerebral arteries are unremarkable. No aneurysm or AVM. MIDDLE CEREBRAL ARTERIES: The bilateral middle cerebral arteries are unremarkable without large vessel occlusion. No significant stenosis. No aneurysm or AVM. POSTERIOR CEREBRAL ARTERIES: The bilateral posterior communicating arteries are visualized. The bilateral posterior cerebral arteries show unremarkable appearance with normal caliber. No significant stenosis. No aneurysm or AVM. BASILAR ARTERY: The vertebrobasilar arteries show unremarkable caliber. No significant stenosis. No aneurysm or AVM. VERTEBRAL ARTERIES: The vertebrobasilar arteries show unremarkable caliber. No significant stenosis. No aneurysm or AVM. No areas of diffusion restriction to suggest acute infarcts or hemorrhage are present in the brain parenchyma. IMPRESSION: 1. 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 2. Otherwise, unremarkable MR angiogram of the head. /[place]
--- NOTE | 2025-08-22 17:18 | PN ---
PROBLEM LIST: * Ventricular tachycardia with syncope. * Multiple fractures of the C6-C7 spine with paraspinal muscle edema, currently on C-spine precautions. * Lactic acidosis, likely due to the ventricular tachycardia and arrest. * UTI. * Rhabdomyolysis. * Elevated D-dimer. Negative evaluation for deep vein thrombosis. * Frequent PVCs. * History of paroxysmal atrial fibrillation, status post Watchman device implantation in 02/2025, currently not on anticoagulation. * Dilated, nonischemic cardiomyopathy with advanced LV dysfunction by cardiac catheterization with normal coronary arteries in 12/2022. * Status post biventricular AICD implant with a Biotronik device. * RICARDO done in 11/2024 identifying advanced LV dysfunction, EF of 20% to 25%. * History of hypertension. * Hyperlipoproteinemia. * Benign prostatic hypertrophy. * GERD. * . This patient had syncope, which is highly likely due to the event that was noted with ventricular tachycardia. This was identified on the patient's interrogation. The patient has had an evaluation by multiple disciplines that is currently being managed and being considered for possible neck surgery for his spine. Over the last 24 hours, the patient has been intermittently confused; however, he has been on narcotics. His vital signs have been stable, his heart rate is in the 80 per minute range, his respiratory rate is 18-20. He is saturating at 100% on room air and the blood pressure is anywhere from 145-150 systolic. The patient's laboratory studies this morning revealed a white count of 5.5, H and H has dropped to 8.5 and 25.9 from 10.0 and 29.5 on the . The platelet count is low at 96,000. The patient's chemistries have revealed a sodium of 144, potassium of 3.6, which was being matched per protocol. The chloride is 105, CO2 is 30, BUN is 29, down from 41 yesterday, creatinine is 1.1, down from 1.3 yesterday, and the GFR is 66, up from 54 yesterday. Random glucose is 146. Liver enzymes are essentially normal. The patient's high sensitivity troponin was at 159 and down to 96.9 yesterday, likely due to the device discharge. The patient's protein and albumin are normal. BNP is 791. The magnesium this morning was measured at 1.8 and will also be supplemented. The patient is currently maintained on a baby aspirin, thiamine, Nephro-Hellen, amiodarone per protocol, metoprolol 25 mg p.o. daily, baclofen, low-dose Lovenox, and p.r.n. medications. At this point, I have recommended that we increase the patient's metoprolol to 50 b.i.d. given his current heart rate. I will continue amiodarone and I think that it would be prudent to have Dr. Saenz evaluate the patient in consultation. TID: [id number] RECEIPT: [id number]
--- NOTE | 2025-08-22 17:23 | NUR ---
[employer]LLING COLLECTIONS SPECIALIST NOTED MRA NECK NON READABLE IMAGE. RECOMMENDS CTA IF IMAGE NEEDED. PROVIDER DAGOBERTO BRIGGS NP INFORMED. TO HOLD OFF AT THIS TIME.
--- NOTE | 2025-08-22 17:52 | HMCIMG ---
EXAM: MR Cervical Spine Without Intravenous Contrast. CLINICAL HISTORY: Cervical fracture. S/p Fall. TECHNIQUE: Magnetic resonance images of the cervical spine in multiple planes. CONTRAST: None. COMPARISON: CT dated 08/20/25. FINDINGS: The imaged posterior fossa is unremarkable. The craniocervical junction is intact. Acute compression fracture at the inferior endplate of C6. Acute fracture of the right superior articular facet of C7. The bilateral inferior articular facets of C6 are perched upon the bilateral superior articular facets of C7 resulting in 0.4 cm anterior listhesis of C6 with respect to C7. There is widening of the interspinous space at the C6-C7 level with moderate edema suggestive of interspinous and supraspinous ligament tear. Moderate edema noted in the posterior paraspinal muscles of the neck. A collection measuring approximately 1.4 x 1.5 cm posterior to the left C7 lamina. A collection measuring approximately 2.6 x 5.3 cm posterior to the right C7 and T1 lamina. Multilevel spondylosis is evident by marginal osteophytes and facet joint arthropathy. Multilevel disc desiccation and degenerative disc height reduction noted, more pronounced at the C6-C7 level. Normal vertebral body heights. Normal marrow signal of the remaining vertebrae. The cervical cord is in an anatomic location. No abnormal signal involves the cord. No extra-axial masses. Level by level disease is present as follows: C1-C2: Mild osteoarthritis. C2-C3: 1 mm disc osteophyte complex bulge and facet joint arthropathy causing mild indentation on the anterior thecal sac and severe right foraminal narrowing. No lateral recess stenosis. C3-C4: 3 mm left predominant disc osteophyte complex bulge and facet joint arthropathy causing mild indentation on the anterior thecal sac and severe bilateral foraminal narrowing. No lateral recess stenosis. C4-C5: 3 mm left predominant disc osteophyte complex bulge and facet joint arthropathy causing mild indentation on the anterior thecal sac and severe bilateral foraminal narrowing. No lateral recess stenosis. C5-C6: 3 mm disc osteophyte complex bulge and facet joint arthropathy causing mild indentation on the anterior thecal sac and severe bilateral foraminal narrowing. No lateral recess stenosis. C6-C7: 3 mm disc osteophyte compress bulge causing mild indentation on the anterior thecal sac and mild bilateral foraminal narrowing. No lateral recess stenosis. C7-T1: No disc bulge or herniation. No neural foraminal, lateral recess or spinal canal stenosis. IMPRESSION: Acute compression fracture at the inferior endplate of C6. Acute fracture of the right superior articular facet of C7. The bilateral inferior articular facets of C6 are perched upon the bilateral superior articular facets of C7 resulting in 0.4 cm anterior listhesis of C6 with respect to C7. There is widening of the interspinous space at the C6-C7 level with moderate edema suggestive of interspinous and supraspinous ligament tear. Moderate edema in the posterior paraspinal muscles of the neck. A collection measuring approximately 1.4 x 1.5 cm posterior to the left C7 lamina. A collection measuring approximately 2.6 x 5.3 cm posterior to the right C7 and T1 lamina. Moderate multilevel spondylosis and degenerative disc changes. Mild indentation on the anterior thecal sac and severe right foraminal narrowing at the C2-C3 level. Mild indentation on the anterior thecal sac and severe bilateral foraminal narrowing at the C3-C4, C4-C5, and C5-C6 levels. Mild indentation on the anterior thecal sac and mild bilateral foraminal narrowing at the C6-C7 level. /[place]
--- NOTE | 2025-08-22 21:48 | PN ---
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 nondisplaced fractures at C6 inferior endplate and C7 superior endplate. Fracture of the right C7 superior articular facet. Bilateral C6-C7 facet perching with 4 mm anterolisthesis of C6 on C7. Paraspinal muscle edema. 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 Hemodynamically stable. On amiodarone drip per protocol per Cardiology recommendations. Given recent ICD inter rogation of V-tach finding with ICD firing at same time of syncope episode prior to arrival. In no apparent respiratory distress. Currently on O2 at 2 L via nasal cannula. Complaints of pain eight and a 10 to neck. Pending MRI for today. Awaiting Neurosurgery for further recommendations. For now multimodal pain management with Dilaudid 0.5 mg IV q.4 hours PRN, gabapentin added 100 mg 3 times a day and Tylenol IV For breakthrough pain. CBC similar to yesterday. Chemistry kidneys are improving creatinine 1.1 GFR of 66 BNP is slightly elevated to 791.. Home Lasix resumed. Inform patient and daughter who is at the bedside and is current clinical findings and plan of care per day. Answered all their questions. REVIEW OF SYSTEMS: Const: no fever, fatigue, or weight changes Eyes: no recent vision problems ENT: No congestion, ear pain, or sore throat C/V: no chest pain, palpitations or edema Resp: No cough, congestion, wheezing , or Shortness of breath GI: No abdominal pain, nausea, vomiting, constipation, or diarrhea : No incontinence of or dyuria M/S: + severe neck pain and arm pain Skin: Multiple small screen bruising and purple bruising to abdomen. Neuro: + syncope Psych: no depression or anxiety Heme: no abnormal bruising or bleeding Lymph: no swollen glands PHYSICAL EXAM: GENERAL: alert, weak, awake oriented x 3 HEENT: EOMI, Sclera non icteric, moist mucosa NECK: Supple, no JVD, trachea midline, soft cervical collar complaints LUNGS: Diminished breath sounds bilaterally. No wheezes HEART: Regular rate and rhythm. Normal S1 and S2, without murmurs ABD: Abdomen soft, nontender. Bowel sounds present EXT: No clubbing cyanosis or edema NEURO: Alert and oriented to person, follows commands Vital Signs (last 8hr) Date Time Temp Pulse Resp B/P (MAP) Pulse Ox O2 Delivery O2 Flow Rate FiO2 08/22/25 20:00 98.4 80 18 139/64 99 08/22/25 20:00 100 Nasal Cannula* 2 28 08/22/25 18:00 80 20 106/53 (70) 95 08/22/25 17:00 80 17 131/64 (86) 99 08/22/25 16:00 100 Nasal Cannula* 2 28 08/22/25 16:00 80 13 120/51 99 Nasal Cannula 2.0 08/22/25 16:00 80 13 120/51 (74) 99 08/22/25 15:00 80 20 127/59 (81) 98 08/22/25 15:00 80 20 N/Cannula Low lpm 2.0 28 LABS: Hematology Labs: Test 08/22/25 04:26 Range/Units White Blood Count 5.5 4.8-10.8 K/uL Red Blood Count 2.30 L 4.50-6.20 MIL/uL Hemoglobin 8.5 L 14.0-18.0 g/dL Hematocrit 25.9 L 42-54 % Mean Corpuscular Volume 112.6 H 79-99 fL Mean Corpuscular Hemoglobin 37.0 H 27.0-33.0 pg Mean Corpuscular Hemoglobin Concent 32.8 32.0-36.0 g/dL Red Cell Distribution Width 15.4 11.0-15.5 % Platelet Count 96 L 130-400 K/uL Mean Platelet Volume 10.2 7.5-10.5 fL Immature Granulocyte % (Auto) 0.5 0-1 % Neutrophils (%) (Auto) 78.2 H 40.0-77.0 % Lymphocytes (%) (Auto) 16.5 L 21.0-51.0 % Monocytes (%) (Auto) 4.2 3.0-13.0 % Eosinophils (%) (Auto) 0.2 0.0-8.0 % Basophils (%) (Auto) 0.4 0.0-5.0 % Neutrophils # (Auto) 4.3 1.8-7.7 K/uL Lymphocytes # (Auto) 0.9 L 1.0-4.8 K/uL Monocytes # (Auto) 0.2 0.1-1.0 K/uL Eosinophils # (Auto) 0.01 0.00-0.70 K/uL Basophils # (Auto) 0.02 0.00-0.20 K/uL Absolute Immature Granulocyte (auto 0.03 0-1 K/uL Nucleated Red Blood Cells 0.0 0.0-0.19 % Chemistry Labs: Test 08/22/25 04:26 08/21/25 08:19 Range/Units Sodium Level 144 136-145 mmol/L Potassium Level 3.6 3.5-5.1 mmol/L Chloride Level 105 101-111 mmol/L Carbon Dioxide Level 30 21-32 mmol/L Blood Urea Nitrogen 29 H 7-18 mg/dL Creatinine 1.1 0.5-1.3 mg/dL Glomerular Filtration Rate Calc 66 >90 mL/min Random Glucose 146 H 70-105 mg/dL Uric Acid 5.5 2.6-7.2 mg/dL Total Calcium 8.9 8.5-10.1 mg/dL Phosphorus Level 3.2 2.5-4.9 mg/dL Magnesium Level 1.80 1.80-2.40 mg/dL Total Bilirubin 0.4 0.2-1.0 mg/dL Aspartate Amino Transf (AST/SGOT) 38 H 10-37 U/L Alanine Aminotransferase (ALT/SGPT) 31 12-78 U/L Alkaline Phosphatase 96 50-136 U/L B-Type Natriuretic Peptide 791 H 0-100 pg/mL Total Protein 7.2 6.0-8.3 g/dL Albumin 3.6 3.5-5.0 g/dL Total Creatine Kinase 630 *H 21-232 U/L Troponin I High Sensitivity 96.9 *H 4-75 ng/L DIAGNOSTICS / RADIOLOGY RESULTS: [ ] PLAN continue ICU care Cardiology consult follow Neurosurgery consult trauma surgeon consult Stop IV fluids Resumed home medications Heart healthy diet MRI/MRA head and neck and cervical spine Follow cardiology recommendations currently on amiodarone drip Bilateral lower extremity ultrasound -neg for DVT NEURO: Minimize central acting medications as possible. Fall Precautions. Well lighted room through the day and minimize interruptions through the night to prevent acute delirium. Consult neurosurgery Follow Neurosurgery recommendations C-collar in place PULMONARY: Supplemental 02 as needed Titrate Fio2 to keep Spo2 > or = 90% DuoNebs and CPT as needed IS hourly while awake for pulmonary hygiene Out of bed to chair as tolerated ABG monitor for resp failure Monitor for diaphragm paralysis CARDIOVASCULAR: Follow hemodynamics. Titrate vasopressor to keep MAP >65 or systolic blood pressure >95mmHg Drips: Levophed PRN to maintain map above 65 [ ] LINES: PIV Two large-bore IVs GI & NUTRITION: Continue nutritional support Aspirations precautions Prokinetic agents and laxatives as needed NPO for now KIDNEYS & ELECTROLYTES: Strict monitoring of intake and output Daily weights Avoid nephrotoxic agents Monitor electrolytes and replace as needed Goal urine output of 30mL/hr or 0.5mL/kg/hr Urine output: [ ] Fluid Balance: [ ] Bladder scan ENDOCRINE: Maintain blood glucose between 100-180 at all times. Insulin sliding scale for blood glucose management INFECTIOUS DISEASE: Trend temperature. Raza-culture if febrile. Micro: [ ] Antibiotics: HEMATOLOGY & COAGULATION: Monitor H&H. Keep Hgb > 7 Transfuse 1 unit of PRBC for Hgb < 7 Transfuse 1 pack of platelets of platelets < 20, 000 Watch for any signs and symptoms of bleeding SKIN: Pressure ulcer prevention per facility protocol Rehab: PT/OT Prophylaxis: GI: famotidine DVT: lovenox Code Status: Full Resuscitation Disposition:ICU Other: Critical care time This patient required multiple bedside visits to manage the patient, review blood gases, coordinate with respiratory, nurses, review radiology exams, talk to the family members and discuss advanced directives. I personally spent [45] minutes of critical care time in treatment of this patient. This includes patient management, time at bedside, time reviewing tests, labs, appropriate images and studies, documentation, and patient care coordination. This time excludes separately billable procedures. ATTESTATION BY PHYSICIAN I reviewed the documentation, medical decision making, and treatment plan as noted by the mid-level provider above. I agree with the findings and plan of care. Calvin Bess MD, [facility] Aug 22, 2025 21:48
[2025-08-23] VITALS (53 sets, daily range): BP systolic 80–170; BP diastolic 36–95; PULSE 80–92; RESP 14–27; TEMP 98.4–98.8; O2SAT 96–100
[2025-08-23 05:11] LABS: IMMATURE GRANULOCYTE ABSOLUTE 0.04 K/uL (0-1); NUCLEATED RED BLOOD CELLS 0.0 % (0.0-0.19); PLATELET COUNT (AUTO) 117 K/uL (130-400); RED BLOOD CELL COUNT(AUTO) 2.17 MIL/uL (4.50-6.20); RED CELL DISTRIBUTION WIDTH 15.4 % (11.0-15.5); WHITE BLOOD COUNT (AUTO) 9.2 K/uL (4.8-10.8)
[2025-08-23 05:40] LABS: ASPARTATE AMINOTRANSFERASE 35.0 U/L (10-37); CREATININE 1.0 mg/dL (0.5-1.3); GLOMERULAR FILTR. RATE CALC 74.0 mL/min (>90); GLUCOSE,RANDOM 109.0 mg/dL (70-105); SODIUM SERUM 142.0 mmol/L (136-145); TOTAL PROTEIN, SERUM 6.9 g/dL (6.0-8.3); UREA NITROGEN, BLOOD 28.0 mg/dL (7-18)
--- NOTE | 2025-08-23 07:02 | EKG ---
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
--- NOTE | 2025-08-23 07:45 | CCATH ---
PROBLEM LIST: * Ventricular tachycardia/fibrillation with syncope. * Multiple fractures of the cervical spine with paraspinal edema on C-spine precautions, being evaluated by Neurosurgery. * Lactic acidosis on presentation, likely due to ventricular tachycardia and arrest. * UTI. * [place]. * Elevated D-dimer with negative evaluation for deep vein thrombosis. * Frequent PVCs. * History of paroxysmal atrial fibrillation, currently in persistent atrial fibrillation, status post Watchman device and off anticoagulation, device implant 02/2025. * Dilated nonischemic cardiomyopathy with advanced LV dysfunction by cardiac catheterization with normal coronary arteries in 12/2022. * Status post dual chamber biventricular AICD implant with a Biotronic device for primary protection and advanced LV dysfunction as well as underlying left bundle branch block. * RICARDO in 11/2024 identifying advanced LV dysfunction with EF of 20%-25% with no significant valvular pathology. * History of hypertension. * Hyperlipoproteinemia. * Benign prostatic hypertrophy. * GERD. * Active octogenarian. This patient has been hospitalized predominantly because of his fall, which was felt to be due to his episode of ventricular fibrillation and tachycardia. The patient was noted to be slightly hypokalemic and the corrected QT interval was slightly prolonged. The patient has been evaluated by primary care, Cardiology, Pulmonary Critical Care, and Neurology. Yesterday, the patient was evaluated by Dr. Saenz's team for electrophysiologic management. Device interrogation had been performed and reviewed by them. The recommendations from the electrophysiology team was to continue amiodarone. It was also to keep the potassium and magnesium in adequate range. The patient was pending an MRI, which was done yesterday and pending additional assessment as per the Neurosurgery team. The initial report on the C-spine MRI is consistent with acute compression fracture at the inferior endplate of C6 and acute fracture of the superior articular facet of C7. There was complex disease with moderate level spondylosis. There was minimal indentation of the anterior thecal sac and severe bilateral foraminal narrowing at multiple levels. The patient has remained on C-spine precautions. The patient is afebrile this morning. His heart rate is 80 per minute. His blood pressure is 120-140 systolic range. He is saturating at 99% on nasal cannula and is utilizing BiPAP therapy at night. The patient is currently maintained on tamsulosin, fish oil, Zaroxolyn, losartan, furosemide, allopurinol, gabapentin, acetaminophen, amiodarone, metoprolol, baby aspirin, thiamine, NephroVite, baclofen, low-dose Lovenox and additional p.r.n. medications. The patient's laboratory studies this morning revealed a white count of 9.2 with an H and H of 8.0 and 24.5, respectively. The platelet count is currently 117,000. The chemistries have revealed sodium of 142, potassium 3.8, chloride 105, CO2 is 28, BUN 28, creatinine is 1.0 with a GFR of 74. The patient's liver enzymes are normal. His albumin is borderline low at 3.4. The patient's BNP is 791. His magnesium is 2.0. Today, I have recommended that we obtain an EKG to check with a corrected QT interval. I have also recommended that we initiate therapy with Aldactone given the patient's initial presentation with hypokalemia and his advanced LV dysfunction. I will consider switching him from losartan to low-dose Entresto. This will be started as a trial at the hospital to assess his blood pressure response. We will continue all other medications for now and await additional recommendations from the neurosurgical team. TID: [id number] RECEIPT: [id number]
--- NOTE | 2025-08-23 08:47 | PN ---
This is an 84-year-old male with a history of nonischemic cardiomyopathy status post biventricular ICD insertion 03/28/2019, normal coronary arteries by left heart catheterization 01/26/2019, persistent atrial fibrillation status post Watchman implant in February 2025, hypertension, hyperlipidemia and obstructive sleep apnea on CPAP. He was admitted 08/20/2025 secondary to syncope in the setting of ventricular fibrillation. His initial EKG 08/20/2025 shows underlying rhythm of atrial fibrillation with biventricular pacing at 80 beats per minute. His QT interval is 440 milliseconds with a corrected QT of 508 milliseconds. His potassium was 3.4 on admission. Echocardiogram 08/21/2025 demonstrates an ejection fraction of 35-40% with apical inferior segment dyskinesis, mild to distal septal wall hypokinesis, grade 2 diastolic dysfunction, right ventricle moderately dilated with mildly reduced right ventricular systolic function, severely dilated right and left atria, mild aortic valve stenosis with mean pressure gradient of 11.9 mmHg, mild mitral valve regurgitation, moderate to severe tricuspid valve regurgitation and trace pericardial effusion. On telemetry he is in atrial fibrillation with biventricular pacing in the 80s. He underwent repeat EKG yesterday which showed atrial fibrillation with biventricular pacing at 80 beats per minute. He had a QT interval 420 milliseconds with a corrected QT of 485 milliseconds. EKG this morning shows atrial fibrillation with biventricular paced can not 81 beats per minute, QT interval 420 milliseconds with a corrected QT of 488 milliseconds. He underwent MRI of the C-spine which shows acute compression fracture of the inferior endplate of C6, acute fracture of the right superior articular facet of C7 with additional findings as documented on the report. 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 White blood count 9.2, hemoglobin 8.0, hematocrit 24.5, platelets 117, creatinine 1.0, potassium 3.8, magnesium 2.0. He reports persistent pain to his neck as well as progressive weakness and shakiness to bilateral upper extremities. He states that he is unable to maintain a acid blower with both hands. He offers up no new cardiac complaints. On exam, he is in no acute distress, regular rhythm, lungs are clear to auscultation bilaterally. ASSESSMENT: 1. Ventricular fibrillation successfully treated with ICD discharge x1. 2. QT prolongation. 3. Hypokalemia. 4. Multiple fractures involving the cervical spine. 5. Nonischemic cardiomyopathy. 6. Status post biventricular ICD insertion 03/28/2019. 7. Persistent atrial fibrillation status post Watchman implant in February 2025, no longer on oral anticoagulation. 8. Recurrent syncope. PLAN: Discussed with Dr. Saenz. 1. He was admitted for syncope in the setting of ventricular fibrillation which was successfully treated with ICD discharge x1 resulting in multiple fractures to his cervical spine. His initial EKG showed a corrected QT of 508 milliseconds. His potassium was 3.4 on admission. His potassium has been repleted. Subsequent EKGs show corrected QT of 485 and 488 respectively. 2. Continue amiodarone 400 mg once daily. 3. Maintain potassium greater than 4.0, and magnesium greater than 2.0. 4. Continue medical therapy for heart failure. 5. Electrophysiology will sign off at this time. Vitals/Labs Vital Signs Date Time Temp Pulse Resp B/P (MAP) Pulse Ox O2 Delivery O2 Flow Rate FiO2 08/23/25 07:11 82 20 N/Cannula Low lpm 21 08/23/25 06:37 144/63 97 08/23/25 04:38 98.4 Laboratory Tests 08/23/25 04:39 XAVIER THOMPSON PAC Aug 23, 2025 08:47
[2025-08-23] MEDS: SACUBITRIL/VALSARTAN 1 EACH TABLET PO SCH (09:23)
[2025-08-23] MEDS: SPIRONOLACTONE 25 MG TAB PO SCH (09:23)
[2025-08-23] MEDS: FISH OIL 1000 MG/CAP PO SCH (09:23)
--- NOTE | 2025-08-23 10:54 | HMCIMG ---
EXAM: CR Chest, 1 View. CLINICAL HISTORY: hypoxic resp failure COMPARISON: None provided. FINDINGS: LUNGS: The lungs show no infiltrate or other acute finding. PLEURAL SPACES: No evidence of pleural effusion or pneumothorax. MEDIASTINUM: Cardiac size appears enlarged with cephalization of superior pulmonary vein -s/o pulmonary hypertension. pacemaker in situ with adequately placed cardiac leads. BONES: No acute osseous abnormality. IMPRESSION: Features of cardiomegaly and pulmonary hypertension /[place]
--- NOTE | 2025-08-23 11:30 | NUR ---
Spoke to patient and daughter. Both are awaiting Dr Bob to return and discuss the MRI results. Patient reports decreased strength to UE's with loss of B hand dexterity/unable to fully open hands. Patient noted more difficult to raise arms at the shoulder against gravity. Educated patient to exercise in bed as he can tolerate, including LE's.Patient requested PT eval deferred until they see Dr Bob. PT will continue to follow patient.
--- NOTE | 2025-08-23 14:18 | HMCIMG ---
EXAM: CR Chest, 1 views. CLINICAL HISTORY: Cough. COMPARISON: 08/21/2025 FINDINGS: The lungs show no infiltrate or other acute findings. No pleural effusion or pneumothorax. Stable cardiomegaly is noted. Radio-opaque pacemaker is noted. No acute osseous abnormality. IMPRESSION: 1. No acute cardiopulmonary pathology is evident. /[place]
--- NOTE | 2025-08-23 14:55 | PN ---
NEPHROLOGY PROGRESS NOTE Date/Time Patient Seen: Aug 23, 2025 SUBJECTIVE: This is an 84-year-old male with a past medical history of atrial fibrillation status post Watchman, arthritis, CHF, CAD, prostatitis, and ppm/ICD He presented to the ED for evaluation of fall from 3 ft stool. He presented to the ED with complaints of right arm pain, cervical pain and headache. He continues to be followed by He was noted to have elevated rhabdomyolysis. Renal function and electrolytes are stable. Pending further neurosurgery recommendations Continues to be followed by Cardiology/EP He was seen in the ICU, in no acute distress No family at the bedside Prognosis remains guarded REVIEW OF SYSTEMS: GENERAL: Negative for any nausea, vomiting, fevers, chills, or weight loss. NEUROLOGIC: Negative for any blurry vision, blind spots, double vision, facial asymmetry, dysphagia, dysarthria, hemiparesis, hemisensory deficits, vertigo, ataxia. HEENT: Negative for any head trauma, neck trauma, neck stiffness, photophobia, phonophobia, sinusitis, rhinitis. CARDIAC: Negative for any chest pain, dyspnea on exertion, paroxysmal nocturnal dyspnea, peripheral edema. PULMONARY: Negative for any shortness of breath, wheezing, COPD, or TB exposure. GASTROINTESTINAL: Negative for any abdominal pain, nausea, vomiting, bright red blood per rectum, melena. GENITOURINARY: Negative for any dysuria, hematuria, incontinence. INTEGUMENTARY: Negative for any rashes, cuts, insect bites. RHEUMATOLOGIC: Negative for any joint pains, photosensitive rashes, history of vasculitis or kidney problems. HEMATOLOGIC: Negative for any abnormal bruising, frequent infections or bleeding. Intake and Output 08/23/25 07:00 Intake Total 600.4 ml Output Total 1300 ml Balance -699.6 ml IV Total 600.4 ml Output Urine Total 1300 ml Vital Signs (last 8hr) Date Time Temp Pulse Resp B/P (MAP) Pulse Ox O2 Delivery O2 Flow Rate FiO2 08/23/25 12:00 96 Room Air* 0 21 08/23/25 12:00 98.6 81 17 96/47 99 Room Air 08/23/25 11:00 80 21 99/46 97 Room Air 08/23/25 10:00 80 19 128/53 99 Room Air 08/23/25 09:00 82 24 121/58 98 Room Air 08/23/25 08:00 98.4 81 26 128/49 99 Room Air 08/23/25 08:00 97 Room Air* 0 21 08/23/25 07:11 82 20 N/Cannula Low lpm 21 PHYSICAL EXAM: GENERAL: Alert and oriented x 3. No acute distress. Well-nourished. EYES: EOMI. Anicteric. HENT: Moist mucous membranes. No scleral icterus. No cervical lymphadenopathy. LUNGS: Clear to auscultation bilaterally. No accessory muscle use. CARDIOVASCULAR: Regular rate and rhythm. No murmur. No JVD. ABDOMEN: Soft, non-tender and non-distended. No palpable masses. EXTREMITIES: No edema. Non-tender. SKIN: No rashes or lesions. Warm. NEUROLOGIC: No focal neurological deficits. CN II-XII grossly intact, but not individually tested. PSYCHIATRIC: Cooperative. Appropriate mood and affect. Current Medications Medications (Trade) Dose Ordered Sig/Dann Route Start Time Stop Time Status Last Admin Dose Admin Acetaminophen (acetaMINOPHEN 1,000MG/100ML) 1,000 mg Q6H6 IVPB 08/22/25 12:00 09/21/25 11:59 08/23/25 11:57 1,000 MG Allopurinol (ZYLOprim 300MG) 300 mg DAILY PO 08/23/25 09:00 09/22/25 08:59 08/23/25 09:25 300 MG Amiodarone HCl (pacERONE 200MG) 400 mg DAILY PO 08/22/25 09:00 09/21/25 08:59 08/23/25 09:25 400 MG Amiodarone HCl 150 mg/Dextrose 103 ml @ 618 mls/hr ONCE IV 08/21/25 20:30 08/21/25 20:16 DC Amiodarone HCl 360 mg/Dextrose 207.2 ml @ 33.3 mls/hr AD IV 08/21/25 20:30 08/21/25 20:17 DC Amiodarone HCl 540 mg/Dextrose 310.8 ml @ 16.7 mls/hr [id number] IV 08/22/25 03:00 09/21/25 02:59 08/22/25 02:45 16.7 MLS/HR Amiodarone HCL/ Dextrose 100 ml @ 600 mls/hr PROTOCOL IV 08/21/25 20:50 08/21/25 20:59 DC 08/21/25 20:52 600 MLS/HR Amiodarone HCL/ Dextrose 100 ml @ 0 mls/hr PROTOCOL IV 08/21/25 19:30 08/21/25 19:31 DC Amiodarone HCL/ Dextrose 200 ml @ 33.333 mls/ hr PROTOCOL IV 08/21/25 21:00 08/22/25 02:59 DC 08/21/25 20:53 33.333 MLS/HR Amiodarone HCL/ Dextrose 200 ml @ 0 mls/hr PROTOCOL IV 08/21/25 19:30 08/21/25 19:31 DC Aspirin (Aspirin 81mg Chew Tab) 81 mg DAILY PO 08/22/25 09:00 09/21/25 08:59 08/23/25 09:23 81 MG Baclofen (Baclofen) 5 mg TID PO 08/21/25 14:00 09/20/25 13:59 08/23/25 13:57 5 MG Enoxaparin Sodium (Lovenox) 40 mg DAILY SQ 08/21/25 09:00 09/20/25 08:59 08/23/25 09:26 40 MG Famotidine (Pepcid 20mg Vial) 20 mg Q48H IV 08/20/25 21:00 09/19/25 20:59 08/22/25 20:58 20 MG Fish Oil (Fish Oil 1000 Mg/Cap) 1,000 mg DAILY PO 08/23/25 09:00 09/22/25 08:59 08/23/25 09:23 1,000 MG Folic Acid (FolVITE 5 MG/ML VIAL) 1 mg DAILY IV 08/21/25 09:00 09/20/25 08:59 08/23/25 09:31 1 MG Furosemide (LASix 80MG TAB) 80 mg DAILY PO 08/23/25 09:00 09/22/25 08:59 08/23/25 09:24 80 MG Gabapentin (NEURontin 100 mg CAP) 100 mg TID PO 08/22/25 14:00 09/21/25 13:59 08/23/25 13:57 100 MG Lactated Ringer's 1,000 ml @ 50 mls/hr Q20H IV 08/20/25 16:30 08/22/25 09:23 DC 08/21/25 20:09 50 MLS/HR Losartan Potassium (CozAAR 25MG TAB) 25 mg DAILY PO 08/23/25 09:00 08/23/25 07:15 DC Metolazone (zarOXOlyn) 2.5 mg DAILY PO 08/23/25 09:00 09/22/25 08:59 08/23/25 09:25 2.5 MG Metoprolol Succinate (TopROL XL) 25 mg DAILY PO 08/21/25 18:00 08/22/25 07:09 DC 08/21/25 18:32 25 MG Metoprolol Tartrate (loprESSOR) 50 mg DAILY PO 08/22/25 09:00 09/21/25 08:59 08/23/25 09:24 50 MG Multivitamins Therapeutic (Multivitamin Tablet) 1 tab DAILY PO 08/22/25 09:00 09/21/25 08:59 08/23/25 09:24 1 TAB Sacubitril/ Valsartan (Entresto 24 Mg-26 Mg Tablet) 1 each BID PO 08/23/25 09:00 09/22/25 08:59 08/23/25 09:23 1 EACH Spironolactone (Aldactone 25mg) 25 mg DAILY PO 08/23/25 09:00 09/22/25 08:59 08/23/25 09:23 25 MG Tamsulosin HCl (FloMAX) 0.4 mg DAILY PO 08/23/25 09:00 09/22/25 08:59 08/23/25 09:24 0.4 MG Thiamine HCl (Vitamin B-1) 100 mg DAILY IVP 08/22/25 09:00 09/21/25 08:59 08/23/25 09:23 100 MG Thiamine HCl (Vitamin B-1) 300 mg Q24H IVP 08/20/25 16:30 08/21/25 09:55 DC 08/20/25 20:40 300 MG Vitamin B Complex/ Vit C/Folic Acid (Nephrovite Tablet) 1 cap DAILY PO 08/22/25 09:00 09/21/25 08:59 08/23/25 09:25 1 CAP LABORATORY: [ ] Hematology Labs: Test 08/23/25 04:39 Range/Units White Blood Count 9.2 4.8-10.8 K/uL Red Blood Count 2.17 L 4.50-6.20 MIL/uL Hemoglobin 8.0 L 14.0-18.0 g/dL Hematocrit 24.5 L 42-54 % Mean Corpuscular Volume 112.9 H 79-99 fL Mean Corpuscular Hemoglobin 36.9 H 27.0-33.0 pg Mean Corpuscular Hemoglobin Concent 32.7 32.0-36.0 g/dL Red Cell Distribution Width 15.4 11.0-15.5 % Platelet Count 117 L 130-400 K/uL Mean Platelet Volume 10.5 7.5-10.5 fL Immature Granulocyte % (Auto) 0.4 0-1 % Neutrophils (%) (Auto) 74.4 40.0-77.0 % Lymphocytes (%) (Auto) 14.5 L 21.0-51.0 % Monocytes (%) (Auto) 8.7 3.0-13.0 % Eosinophils (%) (Auto) 1.5 0.0-8.0 % Basophils (%) (Auto) 0.5 0.0-5.0 % Neutrophils # (Auto) 6.9 1.8-7.7 K/uL Lymphocytes # (Auto) 1.3 1.0-4.8 K/uL Monocytes # (Auto) 0.8 0.1-1.0 K/uL Eosinophils # (Auto) 0.14 0.00-0.70 K/uL Basophils # (Auto) 0.05 0.00-0.20 K/uL Absolute Immature Granulocyte (auto 0.04 0-1 K/uL Nucleated Red Blood Cells 0.0 0.0-0.19 % Chemistry Labs: Test 08/23/25 04:39 08/22/25 04:26 Range/Units Sodium Level 142 136-145 mmol/L Potassium Level 3.8 3.5-5.1 mmol/L Chloride Level 105 101-111 mmol/L Carbon Dioxide Level 28 21-32 mmol/L Blood Urea Nitrogen 28 H 7-18 mg/dL Creatinine 1.0 0.5-1.3 mg/dL Glomerular Filtration Rate Calc 74 >90 mL/min Random Glucose 109 H 70-105 mg/dL Total Calcium 8.8 8.5-10.1 mg/dL Magnesium Level 2.00 1.80-2.40 mg/dL Total Bilirubin 0.7 0.2-1.0 mg/dL Aspartate Amino Transf (AST/SGOT) 35 10-37 U/L Alanine Aminotransferase (ALT/SGPT) 28 12-78 U/L Alkaline Phosphatase 98 50-136 U/L Total Protein 6.9 6.0-8.3 g/dL Albumin 3.4 L 3.5-5.0 g/dL Uric Acid 5.5 2.6-7.2 mg/dL Phosphorus Level 3.2 2.5-4.9 mg/dL B-Type Natriuretic Peptide 791 H 0-100 pg/mL DIAGNOSTICS / RADIOLOGY: [facility] [facility] [address] [place] [id number] IMAGING REPORT Signed PATIENT: TAYLOR DUNCAN MR#: [id number] : 1940 SEX: M AGE: 84 LOCATION: 2CH ORDER 2300 STATUS: ADM IN REPORT#: [id number] SERVICE 0600 REASON: hypoxic resp failure ORDERING PHYSICIAN: DAGOBERTO BRIGGS PROCEDURE: CXR1VW - CHEST 1VW EXAM: CR Chest, 1 View. CLINICAL HISTORY: hypoxic resp failure COMPARISON: None provided. FINDINGS: LUNGS: The lungs show no infiltrate or other acute finding. PLEURAL SPACES: No evidence of pleural effusion or pneumothorax. MEDIASTINUM: Cardiac size appears enlarged with cephalization of superior pulmonary vein -s/o pulmonary hypertension. pacemaker in situ with adequately placed cardiac leads. BONES: No acute osseous abnormality. IMPRESSION: Features of cardiomegaly and pulmonary hypertension /Ross DICTATED BY: SYLVESTER STRANGE Jr., MD DATE: 08/23/251153 ELECTRONICALLY SIGNED BY: SYLVESTER STRANGE Jr., MD DATE: 08/23/251153 PATIENT: TAYLOR DUNCAN MR#: [id number] : 1940 SEX: M AGE: 84 LOCATION: 2CH ORDER 1422 STATUS: ADM IN REPORT#: [id number] SERVICE 19 REASON: CERVICAL FRACTURE S/P FALL ORDERING PHYSICIAN: DREA FARIA MD PROCEDURE: C SPN WO - MR SPINAL CANAL, CERV WO CON EXAM: MR Cervical Spine Without Intravenous Contrast. CLINICAL HISTORY: Cervical fracture. S/p Fall. TECHNIQUE: Magnetic resonance images of the cervical spine in multiple planes. CONTRAST: None. COMPARISON: CT dated 08/20/25. FINDINGS: The imaged posterior fossa is unremarkable. The craniocervical junction is intact. Acute compression fracture at the inferior endplate of C6. Acute fracture of the right superior articular facet of C7. The bilateral inferior articular facets of C6 are perched upon the bilateral superior articular facets of C7 resulting in 0.4 cm anterior listhesis of C6 with respect to C7. There is widening of the interspinous space at the C6-C7 level with moderate edema suggestive of interspinous and supraspinous ligament tear. Moderate edema noted in the posterior paraspinal muscles of the neck. A collection measuring approximately 1.4 x 1.5 cm posterior to the left C7 lamina. A collection measuring approximately 2.6 x 5.3 cm posterior to the right C7 and T1 lamina. Multilevel spondylosis is evident by marginal osteophytes and facet joint arthropathy. Multilevel disc desiccation and degenerative disc height reduction noted, more pronounced at the C6-C7 level. Normal vertebral body heights. Normal marrow signal of the remaining vertebrae. The cervical cord is in an anatomic location. No abnormal signal involves the cord. No extra-axial masses. Level by level disease is present as follows: C1-C2: Mild osteoarthritis. C2-C3: 1 mm disc osteophyte complex bulge and facet joint arthropathy causing mild indentation on the anterior thecal sac and severe right foraminal narrowing. No lateral recess stenosis. C3-C4: 3 mm left predominant disc osteophyte complex bulge and facet joint arthropathy causing mild indentation on the anterior thecal sac and severe bilateral foraminal narrowing. No lateral recess stenosis. C4-C5: 3 mm left predominant disc osteophyte complex bulge and facet joint arthropathy causing mild indentation on the anterior thecal sac and severe bilateral foraminal narrowing. No lateral recess stenosis. C5-C6: 3 mm disc osteophyte complex bulge and facet joint arthropathy causing mild indentation on the anterior thecal sac and severe bilateral foraminal narrowing. No lateral recess stenosis. C6-C7: 3 mm disc osteophyte compress bulge causing mild indentation on the anterior thecal sac and mild bilateral foraminal narrowing. No lateral recess stenosis. C7-T1: No disc bulge or herniation. No neural foraminal, lateral recess or spinal canal stenosis. IMPRESSION: Acute compression fracture at the inferior endplate of C6. Acute fracture of the right superior articular facet of C7. The bilateral inferior articular facets of C6 are perched upon the bilateral superior articular facets of C7 resulting in 0.4 cm anterior listhesis of C6 with respect to C7. There is widening of the interspinous space at the C6-C7 level with moderate edema suggestive of interspinous and supraspinous ligament tear. Moderate edema in the posterior paraspinal muscles of the neck. A collection measuring approximately 1.4 x 1.5 cm posterior to the left C7 lamina. A collection measuring approximately 2.6 x 5.3 cm posterior to the right C7 and T1 lamina. Moderate multilevel spondylosis and degenerative disc changes. Mild indentation on the anterior thecal sac and severe right foraminal narrowing at the C2-C3 level. Mild indentation on the anterior thecal sac and severe bilateral foraminal narrowing at the C3-C4, C4-C5, and C5-C6 levels. Mild indentation on the anterior thecal sac and mild bilateral foraminal narrowing at the C6-C7 level. /Ross DICTATED BY: SYLVESTER STRANGE Jr., MD DATE: 08/22/251850 ELECTRONICALLY SIGNED BY: SYLVESTER STRANGE Jr., MD DATE: 08/22/251850 PATIENT: TAYLOR DUNCAN MR#: [id number] : 1940 SEX: M AGE: 84 LOCATION: 2CH ORDER 3 STATUS: ADM IN REPORT#: [id number] SERVICE 4 REASON: SYNCOPE RULE OUT STROKE ORDERING PHYSICIAN: DAGOBERTO BRIGGS PROCEDURE: MRA HEAD - MR ANGIO HEAD, WO CON EXAM: MR Angiography Head without Intravenous Contrast. CLINICAL HISTORY: Syncope. To rule out stroke. TECHNIQUE: Magnetic resonance angiography images of the head without intravenous contrast. Three-dimensional MIP reformations performed. CONTRAST: Without. COMPARISON: A MRI of the brain performed at the same time of the current examination is available for comparison. FINDINGS: INTERNAL CAROTID ARTERIES: The bilateral intracranial ICA are unremarkable in caliber. No significant stenosis. No aneurysm or AVM. ANTERIOR CEREBRAL ARTERIES: The A1 segment of the right anterior cerebral artery is hypoplastic. The rest of the bilateral anterior cerebral arteries are unremarkable. No aneurysm or AVM. MIDDLE CEREBRAL ARTERIES: The bilateral middle cerebral arteries are unremarkable without large vessel occlusion. No significant stenosis. No aneurysm or AVM. POSTERIOR CEREBRAL ARTERIES: The bilateral posterior communicating arteries are visualized. The bilateral posterior cerebral arteries show unremarkable appearance with normal caliber. No significant stenosis. No aneurysm or AVM. BASILAR ARTERY: The vertebrobasilar arteries show unremarkable caliber. No significant stenosis. No aneurysm or AVM. VERTEBRAL ARTERIES: The vertebrobasilar arteries show unremarkable caliber. No significant stenosis. No aneurysm or AVM. No areas of diffusion restriction to suggest acute infarcts or hemorrhage are present in the brain parenchyma. IMPRESSION: 1. 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 2. Otherwise, unremarkable MR angiogram of the head. /Ross DICTATED BY: PAM RIGGINS MD DATE: 08/22/251750 ELECTRONICALLY SIGNED BY: PAM RIGGINS MD DATE: 08/22/251750 PATIENT: TAYLOR DUNCAN MR#: [id number] : 1940 SEX: M AGE: 84 LOCATION: [facility] ORDER 3 STATUS: ADM IN [facility] REPORT#: [id number] SERVICE 4 REASON: SYNCOPE RULE OUT STROKE ORDERING PHYSICIAN: DAGOBERTO BRIGGS PROCEDURE: BRAIN WO - MR BRAIN WO CON Here is the updated final report with a proper comparison summary integrated into the IMPRESSION, exactly following your SuperFormat rules (comparison mentioned ONLY in the Impression, not as a separate section): EXAM: MR Brain Without IV Contrast CLINICAL HISTORY: Syncope; rule out stroke TECHNIQUE: Multisequence, multiplanar magnetic resonance images of the brain were obtained without intravenous contrast. Series acquired: SAG T1 SE; AX T2 FSE; AX T2 FLAIR; AX DWI; AX T2* GRE; AX T1 FSE; COR T2 FSE; ADC; eADC. CONTRAST: None. COMPARISON: CT ??? CT Head/Brain Without Contrast ??? 08/20/25 11:34 EST FINDINGS: Brain Age-appropriate diffuse cerebral volume loss. Borderline periventricular T2/FLAIR hyperintensity consistent with early chronic small-vessel ischemic change. Subacute lacunar infarct in the right graff radiata without significant mass effect. 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 No restricted diffusion, no acute infarction, no intracranial hemorrhage, mass effect, or extra-axial collection. Cerebellar tonsils normally positioned. Vascular flow voids preserved. Ventricles Normal size and configuration. Orbits Normal. Sinuses and mastoids Clear. Bones No focal osseous lesion. Soft tissues Scalp contusion in the left temporo-occipital region. IMPRESSION: * Subacute lacunar infarct in the right graff radiata, new compared with prior CT (08/20/25), which did not show an acute parenchymal infarct. 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 * Age-appropriate diffuse cerebral volume loss with borderline chronic small-vessel ischemic changes. * Left temporo-occipital scalp contusion. * Radiologic???clinical correlation: Interval appearance of a subacute lacunar infarct accounts for the principal interval change relative to prior CT and should be interpreted with the patient???s neurologic status. /Ross DICTATED BY: PAM RIGGINS MD DATE: 08/22/251745 ELECTRONICALLY SIGNED BY: PAM RIGGINS MD DATE: 08/22/251745 PATIENT: TAYLOR DUNCAN MR#: [id number] : 1940 SEX: M AGE: 84 LOCATION: 2CH ORDER 2300 STATUS: ADM IN REPORT#: [id number] SERVICE 0600 REASON: hypoxic resp failure ORDERING PHYSICIAN: DAGOBERTO BRIGGS PROCEDURE: CXR1VW - CHEST 1VW EXAM: CR Chest, 1 views. CLINICAL HISTORY: Cough. COMPARISON: 08/21/2025 FINDINGS: The lungs show no infiltrate or other acute findings. No pleural effusion or pneumothorax. Stable cardiomegaly is noted. Radio-opaque pacemaker is noted. No acute osseous abnormality. IMPRESSION: 1. No acute cardiopulmonary pathology is evident. /Ross DICTATED BY: DIANE STALEY MD DATE: 08/23/251516 ELECTRONICALLY SIGNED BY: DIANE STALEY MD DATE: 08/23/251516 PATIENT: TAYLOR DUNCAN MR#: [id number] : 1940 SEX: M AGE: 84 LOCATION: 2CH ORDER 0953 STATUS: ADM IN REPORT#: [id number] SERVICE 0950 REASON: AMEENA, HEMATURIA ORDERING PHYSICIAN: ZACHARY SRINIVASAN MD PROCEDURE: RENAL - US RENAL SONOGRAM EXAMINATION: ULTRASOUND OF THE RETROPERITONEUM. CLINICAL HISTORY: AMEENA and hematuria. COMPARISON: None. TECHNIQUE: Real-time grayscale ultrasound images of the kidneys. FINDINGS: The kidneys are normal in caliber, the right kidney measures 9.0 x 5.2 x 4.1 cm and the left kidney measures 9.3 x 4.8 x 3.7 cm in its craniocaudal, AP, and transverse dimensions respectively. There is normal renal cortical thickness, and cortical echogenicity. There is no renal calculus or hydronephrosis. The urinary bladder is empty with Coronel???s bulb. IMPRESSION: No significant abnormality. Coronel???s bulb is in situ. /Ross DICTATED BY: SYLVESTER STRANGE Jr., MD DATE: 08/22/25701 ELECTRONICALLY SIGNED BY: SYLVESTER STRANGE Jr., MD DATE: 08/22/25701 PATIENT: TAYLOR DUNCAN MR#: [id number] : 1940 SEX: M AGE: 84 LOCATION: [facility] ORDER 1553 STATUS: ADM IN REPORT#: [id number] SERVICE 0000 REASON: SYNCOPE ORDERING PHYSICIAN: DAOGBERTO BRIGGS PROCEDURE: ECHO CMP - ECHO 2-D COMPLETE APPROVED REPORT EXAM: Two-dimensional and M-mode echocardiogram with Doppler and color Doppler. INDICATION ICD: Syncope 2D Dimensions RVDd 4.8 cm LVEF(%) 49.4 (>50%) LVED Vol(simp.) 151.7 mL IVSd 0.8 (0.7-1.1cm) FS(%) 25 % LVES Vol(simp.) 100.4 mL LVDd 5.5 (3.8-5.6cm) LA (2D) 4.5 (1.6-4.0cm) LVEF(%, simp.) 34 % PWd 1.0 (0.7-1.1cm) Ao Root(2D) 3.1 (2.0-3.7cm) LA ESV INDEX (BP) 68.47 mL/m2 LVDs 4.1 (2.5-4.0cm) LVOT diam 2.2 (1.8-2.4cm) IVC diam 2.5 cm Deformation Strain Apical 4 -8.2 % Apical 2 -8.4 % Apical 3 -9.5 % Global Strain -8.7 % M-Mode Dimensions EPSS 1.7 cm LA (MM) 4.8 (1.6-4.0cm) Ao Root(MM) 2.6 (2.0-3.7cm) Aortic Valve AoV Vmax 2.3 m/s Ao Peak GR 21.2 mmHg LVOT Vmax 0.8 m/s AoV VTI 0.5 m Ao Mean GR 11.9 mmHg LVOT VTI 0.16 m MICHAEL (VMAX) 1.28 cm2 MICHAEL (VTI) 1.2 cm2 Mitral Valve MV E Vmax 96.5 cm/s DECEL Time 157 ms MV A Vmax 38.8 cm/s P 1/2 T 67 ms E/A ratio 2.5 MVA (PHT) 3.3 cm2 TDI E/E' Medial 9.5 E/E' Lateral 9.2 Medial E' Peak V 10.19 cm/s Lateral E' Peak V 10.47 cm/s Pulmonary Valve PV Vmax 1.1 m/s PV VTI 0.21 m PV Mean GR 2.7 mmHg PV Peak GR 5.2 mmHg Tricuspid Valve TR Vmax 3.0 m/s RAP (EST) 8 mmHg RVSP 47.6 mmHg TR Peak GR 39.6 mmHg Left Ventricle Left ventricular cavity size is upper limits normal in size. Apical inferior segment appears dyskinetic. Mid to distal septal wall is hypokinetic. There is normal left ventricular wall thickness. Left ventricular systolic function is moderately reduced. LVEF is 35-40%. Grade II diastolic dysfunction. Right Ventricle The right ventricle is moderately dilated. Right ventricular systolic function is mildly reduced. Device lead is present in the right ventricle. Atria The left atrium is severely dilated. The right atrium is severely dilated. Aortic Valve The aortic valve is trileaflet, calcified. No aortic regurgitation is present. There is mild valvular aortic stenosis. MG 11.9 mmHg. DVI 0.32. Mitral Valve The mitral valve is normal in structure and function. Mitral regurgitation is mild. There is no mitral valve stenosis. Tricuspid Valve The tricuspid valve is normal in structure. There is moderate to severe tricuspid valve regurgitation noted, RVSP 48mmHg. RVSP may be underestimated by doppler of TR jet. Pulmonic Valve The pulmonary valve is normal in structure and function. There is trace pulmonic valvular regurgitation. Great Vessels The aortic root is normal in size. IVC is dilated and collapses >50% with inspiration. Pericardium Trace pericardial effusion. No echo indications of pericardial tamponade. Other Information Quality : Good Rhythm : Pacemaker Conclusion Left ventricular cavity size is upper limits normal in size. Left ventricular systolic function is moderately reduced. LVEF is 35-40%. Apical inferior segment appears dyskinetic. Mid to distal septal wall is hypokinetic. Grade II diastolic dysfunction. The right ventricle is moderately dilated and mild reduction systolic function. Device lead is present in the right ventricle. Severe biatrial enlargement. Mild mitral regurgitation. Moderate to severe tricuspid valve regurgitation, with RVSP 48mmHg. DICTATED BY: LIVIA DURBIN DO DATE: 08/21/25922 ELECTRONICALLY SIGNED BY: LIVIA DURBIN DO DATE: 08/21/252006 PATIENT: TAYLOR DUNCAN MR#: [id number] : 1940 SEX: M AGE: 84 LOCATION: [facility] ORDER 155 STATUS: ADM IN [facility] REPORT#: [id number] SERVICE 1544 REASON: RULE OUT dvt ORDERING PHYSICIAN: DAGOBERTO BRIGGS PROCEDURE: VENOUS SHAMA - US VENOUS DOPPLER BILATERAL EXAM: BILATERAL LOWER EXTREMITY VENOUS DOPPLER ULTRASOUND CLINICAL INFORMATION: Rule out deep venous thrombosis. TECHNIQUE: Grayscale, color Doppler, and spectral Doppler evaluation of the bilateral common femoral, femoral, profunda femoris, popliteal, posterior tibial, and peroneal veins with compression maneuvers and augmentation where feasible; great and small saphenous veins assessed as appropriate. COMPARISON: None provided. FINDINGS: DEEP VEINS (BILATERAL): Common femoral, femoral, profunda femoris, popliteal, posterior tibial, and peroneal veins are patent with complete compressibility where assessable and demonstrate normal color fill and phasic/spectral flow; no intraluminal thrombus is identified. SUPERFICIAL VEINS (BILATERAL): Great and small saphenous veins are patent and compressible without thrombus. SOFT TISSUES: No focal fluid collection is identified. IMPRESSION: 1. No deep or superficial venous thrombosis in bilateral lower extremities. /Ross DICTATED BY: PAM RIGGINS MD DATE: 08/21/25157 ELECTRONICALLY SIGNED BY: PAM RIGGINS MD DATE: 08/21/25157 PATIENT: TAYLOR DUNCAN MR#: [id number] : 1940 SEX: M AGE: 84 LOCATION: [facility] ORDER 1218 STATUS: REG ER REPORT#: [id number] SERVICE REASON: PELVIC PAIN STATUS POST FALL. ORDERING PHYSICIAN: IGOR BOURNE VAULT MANAGER PROCEDURE: PELVIS - PELVIS 1-2VWS EXAM: CR Pelvis, 2 View. CLINICAL HISTORY: PELVIC PAIN STATUS POST FALL. COMPARISON: None provided. FINDINGS: Mild bilateral hip joint osteoarthritis. Spondylosis of the visualized lower lumbar spine. Prostatic radiation seeds noted. No displaced fracture appreciated. IMPRESSION: 1. No acute osseous injury. /[place] DICTATED BY: SYLVESTER STRANGE Jr., MD DATE: 08/20/251433 ELECTRONICALLY SIGNED BY: SYLVESTER STRANGE Jr., MD DATE: 08/20/251433 PATIENT: TAYLOR DUNCAN MR#: [id number] : 1940 SEX: M AGE: 84 LOCATION: [facility] ORDER 104 STATUS: REG ER [facility] REPORT#: [id number] SERVICE [id number] REASON: SYNCOPAL EPISODE FELL WITH RIGHT UPPER ARM PAIN ORDERING PHYSICIAN: IGOR BOURNE VAULT MANAGER PROCEDURE: HUM 2V RT - HUMERUS 2+VWS RT EXAM: CR right Humerus, 2 View. CLINICAL HISTORY: SYNCOPAL EPISODE FELL WITH RIGHT UPPER ARM PAIN COMPARISON: None provided. FINDINGS: BONES: No acute fracture or aggressive appearing osseous lesion. JOINTS: No dislocation. The joint spaces are normal. SOFT TISSUES: The soft tissues are unremarkable. IMPRESSION: No acute osseous abnormality. /[place] DICTATED BY: SYLVESTER STRANGE Jr., MD DATE: 08/20/251331 ELECTRONICALLY SIGNED BY: SYLVESTER STRANGE Jr., MD DATE: 08/20/251331 PATIENT: TAYLOR DUNCAN MR#: [id number] : 1940 SEX: M AGE: 84 LOCATION: ED ORDER 44 STATUS: [facility] ER REPORT#: [id number] SERVICE 41 REASON: SYNCOPAL EPISODE FELL BACK AND HIT OCCIPUT. CONFUSED ORDERING PHYSICIAN: IGOR BOURNE VAULT MANAGER PROCEDURE: HEAD WO - CT HEAD/BRAIN W/O CONTRAST EXAM: CT Head Without IV contrast. CLINICAL HISTORY: SYNCOPAL EPISODE FELL BACK AND HIT OCCIPUT. CONFUSED TECHNIQUE: Axial computed tomography images of the head/brain without intravenous contrast. COMPARISON: None provided. FINDINGS: BRAIN: No evidence of acute hemorrhage. No mass lesion. No CT evidence for acute territorial infarct. No midline shift or extra-axial collections. VENTRICLES: No hydrocephalus. ORBITS: The orbits are unremarkable. SINUSES AND MASTOIDS: The paranasal sinuses and mastoid air cells are clear. BONES: No fracture. SOFT TISSUES: Soft tissue edema overlying the left parietal skull. IMPRESSION: No acute intracranial abnormality. /[place] DICTATED BY: SYLVESTER STRANGE Jr., MD DATE: 08/20/251251 ELECTRONICALLY SIGNED BY: SYLVESTER STRANGE Jr., MD DATE: 08/20/251251 PATIENT: TAYLOR DUNCAN MR#: [id number] : 1940 SEX: M AGE: 84 LOCATION: ED ORDER 44 STATUS: [facility] REPORT#: [id number] SERVICE 41 REASON: FOR A PAIN STATUS POST SYNCOPAL EPISODE AND FALL ORDERING PHYSICIAN: IGOR BOURNE PROCEDURE: FORARMR - FOREARM 2VWS RT EXAM: CR right Forearm, 2 View. CLINICAL HISTORY: FOR A PAIN STATUS POST SYNCOPAL EPISODE AND FALL COMPARISON: None provided. FINDINGS: BONES: No acute fracture or aggressive appearing osseous lesion. JOINTS: No dislocation. The joint spaces are normal. SOFT TISSUES: The soft tissues are unremarkable. IMPRESSION: No acute osseous abnormality. /[place] DICTATED BY: SYLVESTER STRANGE Jr., MD DATE: 08/20/251330 ELECTRONICALLY SIGNED BY: SYLVESTER STRANGE Jr., MD DATE: 08/20/251330 PATIENT: TAYLOR DUNCAN MR#: [id number] : 1940 SEX: M AGE: 84 LOCATION: [facility] ORDER 44 STATUS: REG ER [facility] REPORT#: [id number] SERVICE 41 REASON: FOR A PAIN STATUS POST SYNCOPAL EPISODE AND FALL ORDERING PHYSICIAN: IGOR BOURNE VAULT MANAGER PROCEDURE: CXR1VW - CHEST 1VW EXAM: CR Chest, 1 View. CLINICAL HISTORY: FOR A PAIN STATUS POST SYNCOPAL EPISODE AND FALL COMPARISON: None provided. FINDINGS: LUNGS: The lungs show no infiltrate or other acute finding. PLEURAL SPACES: No evidence of pleural effusion or pneumothorax. MEDIASTINUM: Moderate cardiomegaly. Pacemaker leads are in appropriate positions. Pulmonary vessels and interstitial markings are within normal limits. BONES: No aggressive appearing osseous lesion seen. IMPRESSION: No acute cardiopulmonary pathology is evident. /[place] DICTATED BY: SYLVESTER STRANGE Jr., MD DATE: 08/20/251331 ELECTRONICALLY SIGNED BY: SYLVESTER STRANGE Jr., MD DATE: 08/20/251331 PATIENT: TAYLOR DUNCAN MR#: [id number] : 1940 SEX: M AGE: 84 LOCATION: ED ORDER 44 STATUS: REG ER [facility] REPORT#: [id number] SERVICE 41 REASON: SYNCOPAL EPISODE, FELL BACK HIT HEAD. MIDLINE SPINE PAIN ORDERING PHYSICIAN: IGOR BOURNE VAULT MANAGER PROCEDURE: C SPIN WO - CT CERVICAL SPINE W/O CONTRAST ADDENDUM REPORT ADDENDUM: Results were shared by telephone at 01:24 pm EST on 08-20-25 and acknowledged by IGOR Smith. /[place] EXAM: CT Cervical Spine Without IV contrast. CLINICAL HISTORY: SYNCOPAL EPISODE, FELL BACK HIT HEAD. MIDLINE SPINE PAIN TECHNIQUE: Axial computed tomography images of the cervical spine without intravenous contrast. Sagittal and coronal reformatted images were generated. COMPARISON: None provided. FINDINGS: The cervical alignment is within normal limits. There is straightening of the cervical spine that may reflect paraspinal muscle spasm. There is cervical spondylosis evident by anterior osteophytes, uncovertebral joint hypertrophy, and facet joint osteoarthritis. Bones are markedly osteopenic, limiting evaluation for nondisplaced fractures. There is a mildly displaced fracture of the right transverse process of C7. Suspected nondisplaced fractures at the inferior endplate of C6 and superior endplate of C7. There is a fracture of the right superior articular facet of C7. The bilateral inferior articular facets of C6 are perched upon the bilateral superior articular facets of C7 resulting in 0.4 cm anterior listhesis of C6 with respect to C7. There is edema within the surrounding paraspinal musculature. Lung apices are clear. IMPRESSION: 1. Mildly displaced fracture of the right C7 transverse process. 2. Suspected nondisplaced fractures at C6 inferior endplate and C7 superior endplate. 3. Fracture of the right C7 superior articular facet. 4. Bilateral C6-C7 facet perching with 4 mm anterolisthesis of C6 on C7. 5. Paraspinal muscle edema. /[place] DICTATED BY: SYLVESTER STRANGE Jr., MD DATE: 08/20/25 1350 ELECTRONICALLY SIGNED BY: DATE: EXAM: CT Cervical Spine Without IV contrast. CLINICAL HISTORY: SYNCOPAL EPISODE, FELL BACK HIT HEAD. MIDLINE SPINE PAIN TECHNIQUE: Axial computed tomography images of the cervical spine without intravenous contrast. Sagittal and coronal reformatted images were generated. COMPARISON: None provided. FINDINGS: The cervical alignment is within normal limits. There is straightening of the cervical spine that may reflect paraspinal muscle spasm. There is cervical spondylosis evident by anterior osteophytes, uncovertebral joint hypertrophy, and facet joint osteoarthritis. Bones are markedly osteopenic, limiting evaluation for nondisplaced fractures. There is a mildly displaced fracture of the right transverse process of C7. Suspected nondisplaced fractures at the inferior endplate of C6 and superior endplate of C7. There is a fracture of the right superior articular facet of C7. The bilateral inferior articular facets of C6 are perched upon the bilateral superior articular facets of C7 resulting in 0.4 cm anterior listhesis of C6 with respect to C7. There is edema within the surrounding paraspinal musculature. Lung apices are clear. IMPRESSION: 1. Mildly displaced fracture of the right C7 transverse process. 2. Suspected nondisplaced fractures at C6 inferior endplate and C7 superior endplate. 3. Fracture of the right C7 superior articular facet. 4. Bilateral C6-C7 facet perching with 4 mm anterolisthesis of C6 on C7. 5. Paraspinal muscle edema. /[place] DICTATED BY: SYLVESTER STRANGE Jr., MD DATE: 08/20/251300 ELECTRONICALLY SIGNED BY: SYLVESTER STRANGE Jr., MD DATE: 08/20/251300 ASSESSMENT: Acute on chronic renal failure Syncope and fall POA Mildly displaced fracture of the right C7 transverse process. nondisplaced fractures at C6 inferior endplate and C7 superior endplate. Fracture of the right C7 superior articular facet. Bilateral C6-C7 facet perching with 4 mm anterolisthesis of C6 on C7. Paraspinal muscle edema. 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 We have reviewed external records in detail Pending further neurosurgery recommendations Require close monitoring of renal function and electrolytes Order CBC, CMP, electrolytes in am BiPAP as necessary, for respiratory distress IV pressors as needed Monitor blood pressure adjust medication doses as needed Avoid hypotensive episodes May use Dilaudid 0.5 mg IV every 6 hours as needed for severe pain Monitor blood sugars Strict intake, output, and daily weight should be monitored Please renally adjust medications Avoid nephrotoxic and nonsteroidal drugs Avoid contrast if possible Will continue to monitor renal function, anemia, electrolytes Treatment plan discussed with patient Questions were answered We have discussed with the other team physicians in detail about the care plan We will continue to monitor the patient closely Total critical care time spent with patient, nursing staff, critical care team over 35 minutes ATTESTATION BY PHYSICIAN I have seen and examined the patient. I reviewed the documentation, medical decision making, and treatment plan as noted by the mid-level provider above. I agree with the findings and plan of care. ZACHARY SRINIVASAN MD, [facility] Aug 23, 2025 14:55
[2025-08-23] MEDS: NOREPINEPHRIN 4MG/NS 250ML 250 ML IV PRN (15:29)
--- NOTE | 2025-08-23 15:30 | NUR ---
Dr. Bess rounded on patient. Updated MD on patient status. MD ordered midodrine to be started, ns boluses to be given and a PICC line insertion order.
[2025-08-23] MEDS: 0.9% NACL 500ML IV.SOLN 500 ML IV SCH ×2 (16:06→16:30)
--- NOTE | 2025-08-23 16:15 | PN ---
[facility] PROGRESS NOTE Date Patient Seen: Aug 23, 2025 Time of Visit: 16:10 Supervising Physician: DYLON LEBLANC MD Primary Care Physician: Sonya Gray Outpatient Specialists: [ ] Inpatient Consults: DR Bob, DR Crews, Dr Cami FELICIANO PROBLEM LIST: Syncope and fall / to Vtach and firing of ICD POA Chronic systolic and diastolic stage II heart failure w/ ICM EF of 35-40% on 2 D echo 08/21/25 Moderate pulmonary HTN Mildly displaced fracture of the right C7 transverse process. nondisplaced fractures at C6 inferior endplate and C7 superior endplate. Fracture of the right C7 superior articular facet. Bilateral C6-C7 facet perching with 4 mm anterolisthesis of C6 on C7. Paraspinal muscle edema. 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 He is 84 years old. At present time he is on BiPAP continuously with an FiO2 of 35%. Bed ridden, weak and severely deconditioned. Patient is obtunded, opens eyes on commands but falls back asleep immediately. Family at bedside. Negative for nausea, vomiting or diarrhea. Patient remains on Levophed due to hypotension Urine output is low Patient appears clinically on the dry side REVIEW OF SYSTEMS: No seizures reported, we continue to record that the patient has continuous firing of his AICD implant Patient occasionally reports some chest discomfort Negative for cough or congestion Positive for persistent hypoxia and shortness of breath No constipation Urine output is low, urine appears to be concentrated PHYSICAL EXAM: GENERAL: alert, weak, awake oriented x 3 HEENT: EOMI, Sclera non icteric, moist mucosa NECK: Supple, no JVD, trachea midline, soft cervical collar complaints LUNGS: Fine crackles bilaterally, no wheezing HEART: Regular rate and rhythm. Normal S1 and S2, without murmurs ABD: Abdomen soft, nontender. Bowel sounds present EXT: No clubbing cyanosis or edema NEURO: Alert and oriented to person, follows commands Vital Signs (last 8hr) Date Time Temp Pulse Resp B/P (MAP) Pulse Ox O2 Delivery O2 Flow Rate FiO2 08/23/25 15:29 73/35 08/23/25 12:00 96 Room Air* 0 21 08/23/25 12:00 98.6 81 17 96/47 99 Room Air 08/23/25 11:00 80 21 99/46 97 Room Air 08/23/25 10:00 80 19 128/53 99 Room Air 08/23/25 09:00 82 24 121/58 98 Room Air LABS: Hematology Labs: Test 08/23/25 04:39 Range/Units White Blood Count 9.2 4.8-10.8 K/uL Red Blood Count 2.17 L 4.50-6.20 MIL/uL Hemoglobin 8.0 L 14.0-18.0 g/dL Hematocrit 24.5 L 42-54 % Mean Corpuscular Volume 112.9 H 79-99 fL Mean Corpuscular Hemoglobin 36.9 H 27.0-33.0 pg Mean Corpuscular Hemoglobin Concent 32.7 32.0-36.0 g/dL Red Cell Distribution Width 15.4 11.0-15.5 % Platelet Count 117 L 130-400 K/uL Mean Platelet Volume 10.5 7.5-10.5 fL Immature Granulocyte % (Auto) 0.4 0-1 % Neutrophils (%) (Auto) 74.4 40.0-77.0 % Lymphocytes (%) (Auto) 14.5 L 21.0-51.0 % Monocytes (%) (Auto) 8.7 3.0-13.0 % Eosinophils (%) (Auto) 1.5 0.0-8.0 % Basophils (%) (Auto) 0.5 0.0-5.0 % Neutrophils # (Auto) 6.9 1.8-7.7 K/uL Lymphocytes # (Auto) 1.3 1.0-4.8 K/uL Monocytes # (Auto) 0.8 0.1-1.0 K/uL Eosinophils # (Auto) 0.14 0.00-0.70 K/uL Basophils # (Auto) 0.05 0.00-0.20 K/uL Absolute Immature Granulocyte (auto 0.04 0-1 K/uL Nucleated Red Blood Cells 0.0 0.0-0.19 % Chemistry Labs: Test 08/23/25 04:39 08/22/25 04:26 Range/Units Sodium Level 142 136-145 mmol/L Potassium Level 3.8 3.5-5.1 mmol/L Chloride Level 105 101-111 mmol/L Carbon Dioxide Level 28 21-32 mmol/L Blood Urea Nitrogen 28 H 7-18 mg/dL Creatinine 1.0 0.5-1.3 mg/dL Glomerular Filtration Rate Calc 74 >90 mL/min Random Glucose 109 H 70-105 mg/dL Total Calcium 8.8 8.5-10.1 mg/dL Magnesium Level 2.00 1.80-2.40 mg/dL Total Bilirubin 0.7 0.2-1.0 mg/dL Aspartate Amino Transf (AST/SGOT) 35 10-37 U/L Alanine Aminotransferase (ALT/SGPT) 28 12-78 U/L Alkaline Phosphatase 98 50-136 U/L Total Protein 6.9 6.0-8.3 g/dL Albumin 3.4 L 3.5-5.0 g/dL Uric Acid 5.5 2.6-7.2 mg/dL Phosphorus Level 3.2 2.5-4.9 mg/dL B-Type Natriuretic Peptide 791 H 0-100 pg/mL DIAGNOSTICS / RADIOLOGY RESULTS: Chest x-ray consistent with bilateral pulmonary edema, pulmonary congestion with trace infiltrates. No effusions. AICD noted PLAN Patient to continue medical management in the ICU, not hemodynamically stable for safe downgrade to the floor We will continue with CPAP intermittently as needed We will try to wean him off Levophed Patient on the dry side and will receive bolus of NS 500 cc every 4 hours for a total of three doses CBC, CMP, cortisol level, TSH level Discontinue [place] Continue telemetry monitoring Keep mean arterial blood pressure above 60 in order to keep organs well perfused Continue cervical collar Follow cardiology recommendations Follow Neurosurgery recommendations At this time, no neurosurgical intervention recommended or pending NEURO: Minimize central acting medications as possible. Fall Precautions. Well lighted room through the day and minimize interruptions through the night to prevent acute delirium. PULMONARY: Supplemental 02 as needed Titrate Fio2 to keep Spo2 > or = 90% DuoNebs and CPT as needed IS hourly while awake for pulmonary hygiene Out of bed to chair as tolerated ABG monitor for resp failure Monitor for diaphragm paralysis CARDIOVASCULAR: Follow hemodynamics. Titrate vasopressor to keep MAP >65 or systolic blood pressure >95mmHg Drips: Levophed PRN to maintain map above 65 LINES: PIV Two large-bore IVs GI & NUTRITION: Continue nutritional support Aspirations precautions Prokinetic agents and laxatives as needed NPO for now KIDNEYS & ELECTROLYTES: Strict monitoring of intake and output Daily weights Avoid nephrotoxic agents Monitor electrolytes and replace as needed Goal urine output of 30mL/hr or 0.5mL/kg/hr ENDOCRINE: Maintain blood glucose between 100-180 at all times. Insulin sliding scale for blood glucose management INFECTIOUS DISEASE: Trend temperature. Raza-culture if febrile. Continue IV antibiotics HEMATOLOGY & COAGULATION: Monitor H&H. Keep Hgb > 7 Transfuse 1 unit of PRBC for Hgb < 7 Transfuse 1 pack of platelets of platelets < 20, 000 Watch for any signs and symptoms of bleeding SKIN: Pressure ulcer prevention per facility protocol Rehab: PT/OT Prophylaxis: GI: famotidine DVT: lovenox Code Status: Full Resuscitation Disposition:ICU Other: Critical care time: 35 minutes I personally scribed for DYLON LEBLANC MD ([email or web address]) on 08/23/25 at 16:15. Electronically submitted by Phillip Diggs ([email or web address]). DYLON LEBLANC MD Aug 23, 2025 16:15
[2025-08-23 16:17] LABS: INR 1.0 (0.85-1.15)
[2025-08-23] MEDS: PHARMACY COMMUNICATION MISC SCH (16:30)
--- NOTE | 2025-08-23 16:30 | NUR ---
Dr. Bob rounded on patient. Updated MD on patient status. MD stated he would be taking patient to surgery in the morning. MD ordered dexamethasone to be started, a repeat CT cervical spine to be done and cardiac clearance for the procedure.
--- NOTE | 2025-08-23 16:46 | NUR ---
Called Dr. Colbert to ask about cardiac clearance for patient procedure. MD stated patient was clear to proceed from a cardiac standpoint.
--- NOTE | 2025-08-23 21:32 | HMCIMG ---
EXAM: CT Cervical Spine Without IV contrast. CLINICAL HISTORY: cervical surgery in the OR. Thin cuts of C6-C7. TECHNIQUE: Axial computed tomography images of the cervical spine without intravenous contrast. Sagittal and coronal reformatted images were generated. COMPARISON: None provided. FINDINGS: ALIGNMENT: There is anterior listhesis C6 and C7. DEGENERATIVE CHANGES: Advanced multilevel disc disease combined with facet and uncinate hypertrophic changes. SOFT TISSUES: The prevertebral soft tissues are within normal limits. BONES: No acute fracture or aggressive appearing osseous lesion. IMPRESSION: No acute cervical spine abnormality. /[place]
[2025-08-24] VITALS (79 sets, daily range): BP systolic 71–168; BP diastolic 26–103; PULSE 80–88; RESP 10–25; TEMP 97.4–98.9; O2SAT 97–100
[2025-08-24 04:15] LABS: IMMATURE GRANULOCYTE ABSOLUTE 0.05 K/uL (0-1); NUCLEATED RED BLOOD CELLS 0.0 % (0.0-0.19); PLATELET COUNT (AUTO) 119 K/uL (130-400); RED BLOOD CELL COUNT(AUTO) 2.04 MIL/uL (4.50-6.20); RED CELL DISTRIBUTION WIDTH 14.7 % (11.0-15.5); WHITE BLOOD COUNT (AUTO) 5.9 K/uL (4.8-10.8)
[2025-08-24 04:43] LABS: WBC MORPHOLOGY CONSISTENT W/DIFF
[2025-08-24 04:49] LABS: ASPARTATE AMINOTRANSFERASE 34.0 U/L (10-37); CREATININE 1.2 mg/dL (0.5-1.3); GLOMERULAR FILTR. RATE CALC 59.0 mL/min (>90); GLUCOSE,RANDOM 159.0 mg/dL (70-105); PHOSPHORUS 4.7 mg/dL (2.5-4.9); SODIUM SERUM 140.0 mmol/L (136-145); TOTAL PROTEIN, SERUM 6.9 g/dL (6.0-8.3); UREA NITROGEN, BLOOD 38.0 mg/dL (7-18)
--- NOTE | 2025-08-24 07:25 | NUR ---
PATIENT TAKEN TO OR FOR PROCEDURE.
[2025-08-24] MEDS ORDERED: ETOMIDATE 20MG VIAL ONE (08:00)
[2025-08-24] MEDS ORDERED: SUCCINYLCHOLINE CHLORIDE 20 MG/ML 10 ML VIAL ONE (08:00)
[2025-08-24] MEDS ORDERED: NOREPINEPHRINE BITARTRATE 1 MG/1 ML ML IV ONE (08:02)
[2025-08-24] MEDS ORDERED: MIDAZOLAM HCL 1 MG/ML 2ML VIAL ONE (08:23)
[2025-08-24] MEDS: THROMBIN-JMI 20000 UNIT KIT TP ONE (08:41)
[2025-08-24] MEDS: TRANEXAMIC ACID 1000MG/10ML IV ONE (08:42)
[2025-08-24] MEDS ORDERED: GLYCOPYRROLATE 0.2 MG/ML 5 ML VIAL ONE (08:46)
--- NOTE | 2025-08-24 08:52 | PN ---
[facility] Cardiology Progress Note CARDIOLOGY PROGRESS NOTE AUGUST 24, 2025 Problems: 1. Ventricular fibrillation successfully treated with ICD discharge x1. 2. QT prolongation. 3. Hypokalemia. 4. Multiple fractures involving the cervical spine. 5. Nonischemic cardiomyopathy. 6. Status post biventricular ICD insertion 03/28/2019. 7. Persistent atrial fibrillation status post Watchman implant in February 2025, no longer on oral anticoagulation. 8. Recurrent syncope. 9. Macrocytic anemia per 10 thrombocytopenia Blood pressure is running 100-120 systolic. Heart rate is in the 80s. White count 5.9 hemoglobin 7.6 with macrocytic indices platelet count 106247. Potassium 3.8 BUN 38 creatinine 1.2. Magnesium is 1.9. The patient continues on allopurinol amiodarone 400 mg p.o. daily aspirin dexamethasone Lovenox for DVT prophylaxis famotidine folic acid furosemide metoprolol tartrate midodrine potassium protocol Entresto spironolactone. The patient is currently in the OR ventricular cervical fusion. I will start the patient on magnesium supplementation maintain magnesium greater than 2.0. STEPHANIE FERNANDEZ MD Aug 24, 2025 08:52
[2025-08-24] MEDS: MAGNESIUM OXIDE 400 MG TABLET PO SCH (09:00)
[2025-08-24] MEDS ORDERED: THROMBIN-JMI 20000 UNIT KIT TP ONE (09:02)
[2025-08-24] MEDS ORDERED: TRANEXAMIC ACID 1000MG/10ML ONE (09:02)
[2025-08-24] MEDS ORDERED: VANCOMYCIN 1G/250ML KIT 250 ML IV ONE (11:31)
[2025-08-24] MEDS ORDERED: BACITRACIN 28.4 GM OINT TP ONE (12:09)
--- NOTE | 2025-08-24 13:00 | NUR ---
PATIENT RETURNED FROM OR PROCEDURE. PATIENT INTUBATED AND SEDATED. LEVO BEING INFUSED. PATIENT CAME WITH A-LINE, MELANIE DRAIN AND NEW IV TO RIGHT HAND.
--- NOTE | 2025-08-24 13:30 | NUR ---
Called Dr. Bob pertaining to patient C-Collar and positioning. No answer.
--- NOTE | 2025-08-24 13:42 | NUR ---
Dr. Bob returned call. stated patient could be seated and a C-Collar was not needed if patient was sedated. Once awake patient may use soft c-collar in bed and hard c-collar if PT attempting to sit up or get out of bed. MD also ordered an ABG, CXR, CBC, and CMP.
[2025-08-24 14:14] LABS: IMMATURE GRANULOCYTE ABSOLUTE 0.06 K/uL (0-1); NUCLEATED RED BLOOD CELLS 0.0 % (0.0-0.19); PLATELET COUNT (AUTO) 118 K/uL (130-400); RED BLOOD CELL COUNT(AUTO) 2.29 MIL/uL (4.50-6.20); RED CELL DISTRIBUTION WIDTH 20.5 % (11.0-15.5); WHITE BLOOD COUNT (AUTO) 8.6 K/uL (4.8-10.8)
[2025-08-24 14:27] LABS: ABG BASE EXCESS -0.6 mmol/L (-2.0-3.0); ABG HCO3 23.9 mmol/L (21.0-28.0); ABG OXYGEN SATURATION 99.0 % (94.0-98.0); ABG PCO2 39 mmHg (35-48); ABG PH 7.409 (7.350-7.450); CARBON MONOXIDE 0.3 % (0.5-1.5); DEVICE COMMENT RN LEO; PO2, ARTERIAL BG 263.7 mmHg (83.0-108.0); TEMPERATURE, CELSIUS BG 37.0 CELSIUS (35.5-37.0); VENT MODE, BG AC (ROOM AIR)
[2025-08-24 14:28] LABS: ASPARTATE AMINOTRANSFERASE 46.0 U/L (10-37); CREATININE 1.1 mg/dL (0.5-1.3); GLOMERULAR FILTR. RATE CALC 66.0 mL/min (>90); GLUCOSE,RANDOM 160.0 mg/dL (70-105); SODIUM SERUM 140.0 mmol/L (136-145); TOTAL PROTEIN, SERUM 6.5 g/dL (6.0-8.3); UREA NITROGEN, BLOOD 40.0 mg/dL (7-18)
--- NOTE | 2025-08-24 17:44 | HMCIMG ---
EXAM: CR Chest, 2 View. CLINICAL HISTORY: PICC placement COMPARISON: Radiograph from earlier today Findings: AP view of the chest is submitted. Right PICC terminates overlying the distal SVC. No pneumothorax. Remainder of the examination is unchanged. IMPRESSION: 1. Right PICC line terminates appropriately in distal SVC; no pneumothorax. /[place]
--- NOTE | 2025-08-24 18:01 | PN ---
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 nondisplaced fractures at C6 inferior endplate and C7 superior endplate. Fracture of the right C7 superior articular facet. Bilateral C6-C7 facet perching with 4 mm anterolisthesis of C6 on C7. Paraspinal muscle edema. 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 Afebrile, well hydrated, no acute distress Patient remains intubated at this time but has good air leak Negative for seizures No nausea or vomiting reported Voiding, no hematuria REVIEW OF SYSTEMS: Unable to obtain as the patient is still in the postoperative phase and remains sedated and intubated PHYSICAL EXAM: GENERAL: Sedated, nonverbal. Intubated HEENT: EOMI, Sclera non icteric, moist mucosa NECK: Supple, no JVD, trachea midline, soft cervical collar complaints LUNGS: Fine crackles bilaterally, no wheezing HEART: Regular rate and rhythm. Normal S1 and S2, without murmurs ABD: Abdomen soft, nontender. Bowel sounds present EXT: No clubbing cyanosis or edema NEURO: Alert and oriented to person, follows commands Vital Signs (last 8hr) Date Time Temp Pulse Resp B/P (MAP) Pulse Ox O2 Delivery O2 Flow Rate FiO2 08/24/25 17:15 83 40 08/24/25 15:05 80 40 08/24/25 14:55 98/40 08/24/25 13:30 100 Ventilator+ 0 60 08/24/25 12:43 82 60 LABS: Hematology Labs: Test 08/24/25 14:08 08/24/25 04:05 Range/Units White Blood Count 8.6 # 4.8-10.8 K/uL Red Blood Count 2.29 L 4.50-6.20 MIL/uL Hemoglobin 8.2 L 14.0-18.0 g/dL Hematocrit 23.7 L 42-54 % Mean Corpuscular Volume 103.5 H 79-99 fL Mean Corpuscular Hemoglobin 35.8 H 27.0-33.0 pg Mean Corpuscular Hemoglobin Concent 34.6 32.0-36.0 g/dL Red Cell Distribution Width 20.5 H 11.0-15.5 % Platelet Count 118 L 130-400 K/uL Mean Platelet Volume 9.9 7.5-10.5 fL Immature Granulocyte % (Auto) 0.7 0-1 % Neutrophils (%) (Auto) 89.1 H 40.0-77.0 % Lymphocytes (%) (Auto) 5.5 L 21.0-51.0 % Monocytes (%) (Auto) 4.6 3.0-13.0 % Eosinophils (%) (Auto) 0.0 0.0-8.0 % Basophils (%) (Auto) 0.1 0.0-5.0 % Neutrophils # (Auto) 7.6 1.8-7.7 K/uL Lymphocytes # (Auto) 0.5 L 1.0-4.8 K/uL Monocytes # (Auto) 0.4 0.1-1.0 K/uL Eosinophils # (Auto) 0.00 0.00-0.70 K/uL Basophils # (Auto) 0.01 0.00-0.20 K/uL Absolute Immature Granulocyte (auto 0.06 0-1 K/uL Nucleated Red Blood Cells 0.0 0.0-0.19 % White Cell Morphology Comment CONSISTENT W/DIFF Chemistry Labs: Test 08/24/25 14:08 08/24/25 04:05 Range/Units Sodium Level 140 136-145 mmol/L Potassium Level 3.7 3.5-5.1 mmol/L Chloride Level 105 101-111 mmol/L Carbon Dioxide Level 26 21-32 mmol/L Blood Urea Nitrogen 40 H 7-18 mg/dL Creatinine 1.1 0.5-1.3 mg/dL Glomerular Filtration Rate Calc 66 >90 mL/min Random Glucose 160 H 70-105 mg/dL Total Calcium 7.8 L 8.5-10.1 mg/dL Total Bilirubin 0.6 0.2-1.0 mg/dL Aspartate Amino Transf (AST/SGOT) 46 H 10-37 U/L Alanine Aminotransferase (ALT/SGPT) 32 12-78 U/L Alkaline Phosphatase 93 50-136 U/L Total Protein 6.5 6.0-8.3 g/dL Albumin 3.0 L 3.5-5.0 g/dL Phosphorus Level 4.7 2.5-4.9 mg/dL Magnesium Level 1.90 1.80-2.40 mg/dL B-Type Natriuretic Peptide 498 H 0-100 pg/mL Thyroid Stimulating Hormone (TSH) 0.93 # 0.36-3.74 uIU/mL Coagulation Labs: Test 08/23/25 16:00 Range/Units Prothrombin Time 10.6 9.6-11.6 SEC Prothromb Time International Ratio 1.00 0.85-1.15 Activated Partial Thromboplast Time 30.8 26.3-35.5 SEC DIAGNOSTICS / RADIOLOGY RESULTS: None today PLAN Patient has good air leak We will extubate today We will place on BiPAP after extubation Continue medical management in the ICU as patient remains hemodynamically unstable and requires higher level of medical care Slowly weaned off Levophed NEURO: Minimize central acting medications as possible. Maintain fall precautions, adequate lighting during the day PULMONARY: Supplemental 02 as needed. Maintain aspiration precautions at all times CARDIOVASCULAR: Follow hemodynamics. Vital signs per facility protocol GI & NUTRITION: Continue with nutritional support. Continue stool softeners and laxatives as needed. KIDNEYS & ELECTROLYTES: Strict monitoring of intake, output and overall fluid balance. Avoid nephrotoxic medications to the extent possible. Medications to be dosed according to renal function. Monitor electrolytes and replace as needed ENDOCRINE: Maintain blood glucose between 100-180 at all times. Hypoglycemia protocol in place INFECTIOUS DISEASE: Trend temperature, WBC and procalcitonin level Follow cultures, deescalate antibiotics as soon as possible. Panculture if new onset fever ONCOLOGY/HEMATOLOGY/COAGULATION: Monitor for s/s of bleeding Monitor hemoglobin, coagulation studies as needed SKIN: Pressure ulcer prevention per facility protocol Specialty mattress ORTHO/REHAB: Continue PT/OT Prophylaxis: Continue GI and DVT prophylaxis Code Status: Full Resuscitation Disposition: TBD Other: Total patient care time exceeds 35 minutes excluding all procedures. I personally scribed for CRISTAL FOX MD ([email or web address]) on 08/24/25 at 18:01. Electronically submitted by Phillip Diggs ([facility]). CRISTAL FOX MD Aug 24, 2025 18:01
[2025-08-24 18:56] LABS: ABG BASE EXCESS -0.4 mmol/L (-2.0-3.0); ABG HCO3 22.9 mmol/L (21.0-28.0); ABG OXYGEN SATURATION 98.8 % (94.0-98.0); ABG PCO2 32 mmHg (35-48); ABG PH 7.469 (7.350-7.450); CARBON MONOXIDE 0.3 % (0.5-1.5); PO2, ARTERIAL BG 186.1 mmHg (83.0-108.0); TEMPERATURE, CELSIUS BG 37.0 CELSIUS (35.5-37.0)
--- NOTE | 2025-08-24 23:39 | HMCIMG ---
STUDY: X-RAY OF THE CHEST, 1 VIEW HISTORY: Intubation. TECHNIQUE: A single AP portable view of the chest is submitted for interpretation. COMPARISON: Chest radiograph from 08/23/2025 at 07:07 EST. FINDINGS: Pulmonary morris: The lungs show no infiltrate, consolidation, or pulmonary edema. No acute airspace abnormality is identified. Cardiac silhouette: Stable cardiomegaly. Mediastinum and christine: Mediastinal contours are within normal limits. Aortic arch calcification is present. Hilar structures are unremarkable. Osseous structures: No acute osseous abnormality is identified in the visualized ribs, clavicles, or thoracic spine. Miscellaneous: No pleural effusion or pneumothorax is identified. Costophrenic angles are clear. No free subdiaphragmatic air is seen. An endotracheal tube is in situ with its tip approximately 6 cm above the [place]. A radio-opaque cardiac pacemaker is in situ with leads in expected positions. IMPRESSION: * Stable cardiomegaly with aortic arch calcification and cardiac pacemaker in situ. * Endotracheal tube in situ with tip approximately 6 cm above the guanaco. * No radiographic evidence of acute pulmonary infiltrate, pleural effusion, or pneumothorax, unchanged compared with the chest radiograph from 08/23/2025 at 07:07 EST. /[place]
--- NOTE | 2025-08-24 23:51 | HMCIMG ---
STUDY: X-RAY OF THE CHEST, 1 VIEW HISTORY: Endotracheal tube reposition. TECHNIQUE: A single AP portable view of the chest is submitted for interpretation. COMPARISON: Chest radiograph from 08/24/2025 at 14:26 EST. FINDINGS: Pulmonary morris: Pulmonary vasculature and lung morris are stable and clear without focal infiltrate, consolidation, or pneumothorax. Symmetrical aeration is noted. Cardiac silhouette: Stable cardiomegaly. Mediastinum and christine: Mediastinal contours are normal. Aortic arch calcification is again noted. Hilar structures are unremarkable. Osseous structures: Visualized ribs, clavicles, and thoracic spine show no acute osseous abnormality. Miscellaneous: Endotracheal tube is in situ with its tip approximately 5.6 cm above the guan[place], unchanged. A dual-lead cardiac pacemaker is in situ with leads projecting in expected positions and appearing intact. Costophrenic angles are clear. No free subdiaphragmatic air is seen. IMPRESSION: * Stable endotracheal tube with tip approximately 5.6 cm above the guanaco. * Stable cardiomegaly with aortic arch calcification and dual-lead cardiac pacemaker in situ with intact leads. * No acute pulmonary infiltrate, pleural effusion, pneumothorax, or acute osseous abnormality, unchanged compared with the chest radiograph from 08/24/2025 at 14:26 EST. /[place]
[2025-08-25] VITALS (104 sets, daily range): BP systolic 97–162; BP diastolic 31–101; PULSE 69–97; RESP 10–53; TEMP 98.5–99.5; O2SAT 96–100
[2025-08-25 03:52] LABS: NUCLEATED RED BLOOD CELLS 0.3 % (0.0-0.19); PLATELET COUNT (AUTO) 159.0 K/uL (130-400); RED BLOOD CELL COUNT(AUTO) 2.44 MIL/uL (4.50-6.20); RED CELL DISTRIBUTION WIDTH 21.0 % (11.0-15.5); WHITE BLOOD COUNT (AUTO) 11.2 K/uL (4.8-10.8)
[2025-08-25 04:07] LABS: CREATININE 1.0 mg/dL (0.5-1.3); GLOMERULAR FILTR. RATE CALC 74.0 mL/min (>90); GLUCOSE,RANDOM 172.0 mg/dL (70-105); SODIUM SERUM 140.0 mmol/L (136-145); UREA NITROGEN, BLOOD 43.0 mg/dL (7-18)
[2025-08-25 04:09] LABS: % IRON SATURATION 10.4 % (30-44); IRON, SERUM 24.0 mcg/dL (65-175)
--- NOTE | 2025-08-25 07:49 | PN ---
[facility] Cardiology Progress Note Calves on cardiology progress note August 25, 2025 Problems: 1. Ventricular fibrillation successfully treated with ICD discharge 2. QT prolongation. 3. Hypokalemia. 4. Multiple fractures involving the cervical spine status post stabilization and fusion of C6-C7 5. Nonischemic cardiomyopathy with ejection fraction of 35-40% by echo this admission 6. Status post biventricular ICD insertion 03/28/2019. 7. Persistent atrial fibrillation status post Watchman implant in February 2025, no longer on oral anticoagulation. 8. Recurrent syncope. 9. Macrocytic anemia per 10. Thrombocytopenia resolved The patient went for fusion of C6-C7 yesterday. This morning blood pressure is running 130/60 heart rate is in the 80s. White count 55620 hemoglobin 8.9 platelet count [id number] up from [id number]. Potassium 3.6 BUN 43 creatinine 1.0 essentially unchanged. The patient continues on amiodarone 400 mg daily aspirin Lovenox famotidine metolazone metoprolol tartrate midodrine potassium protocol Entresto tamsulosin and thiamine. Magnesium has been running low below 2.0 and magnesium oxide has been started daily. Today 1.9. We will maintain potassium above 4.0 and potassium have remained below this. We will add spironolactone 25 mg daily to his regimen. Telemetry shows sinus rhythm. He is currently intubated awake alert. He has good breath sounds bilaterally. Hopefully he can be weaned later today. Continue to monitor potassium and magnesium. Telemetry shows a paced rhythm. STEPHANIE FERNANDEZ MD Aug 25, 2025 07:49
[2025-08-25 08:14] LABS: ABG BASE EXCESS 0.1 mmol/L (-2.0-3.0); ABG HCO3 23.6 mmol/L (21.0-28.0); ABG OXYGEN SATURATION 99.0 % (94.0-98.0); ABG PCO2 35 mmHg (35-48); ABG PH 7.446 (7.350-7.450); CPAP, BG 5 cm H2O; PO2, ARTERIAL BG 146.6 mmHg (83.0-108.0); TEMPERATURE, CELSIUS BG 37.0 CELSIUS (35.5-37.0)
--- NOTE | 2025-08-25 08:33 | NUR ---
NURSING NOTE 0801 BENCHMARK PAGED FOR EXTUBATION ORDERS 0809: DR. FARIA PAGED FOR EXTUBATION ORDERS 0813: DR. FARIA ANSWERED OK FOR EXTUBATION CPAP OK. 0825: PATIENT EXTUBATED WITHOUT COMPLICATION WITH RT. POS CUFF LEAK, NIP >20 ALERT AND FOLLOWS COMMANDS. ABG RESULT WNL. 0830: SONU WITH BENCHMARK RESPONDED TO PAGE, OK TO BEGIN ATROVENT NEBS.
--- NOTE | 2025-08-25 08:46 | NUR ---
positive leak test Addendum: 08/25/25 at 0847 by JESÚS GARCIA RT RT Amended: Links added.
[2025-08-25] MEDS: SPIRONOLACTONE 25 MG TAB PO SCH (11:34)
[2025-08-25] MEDS ORDERED: COMPOUND IV MISC 1 EACH IVSOLN MISC PRN (12:00)
--- NOTE | 2025-08-25 14:37 | PN ---
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 nondisplaced fractures at C6 inferior endplate and C7 superior endplate. Fracture of the right C7 superior articular facet. Bilateral C6-C7 facet perching with 4 mm anterolisthesis of C6 on C7. Paraspinal muscle edema. 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 He has a cervical collar, he is awake, alert and on room air. No acute distress, started on clear liquid diet without oral dysphagia, no choking. No cough or congestion Patient has better movement of his arms still having some tingling and numbness, he was able to move the toes on his left foot but his lower extremities bilaterally are still very weak REVIEW OF SYSTEMS: 12 points review of systems done, all pertinent information has been addressed. Patient is voiding, with regular bowel movements. PHYSICAL EXAM: GENERAL: Sedated, nonverbal. Intubated HEENT: EOMI, Sclera non icteric, moist mucosa NECK: Supple, no JVD, trachea midline, soft cervical collar complaints LUNGS: Fine crackles bilaterally, no wheezing HEART: Regular rate and rhythm. Normal S1 and S2, without murmurs ABD: Abdomen soft, nontender. Bowel sounds present EXT: No clubbing cyanosis or edema NEURO: Alert and oriented to person, follows commands Vital Signs (last 8hr) Date Time Temp Pulse Resp B/P (MAP) Pulse Ox O2 Delivery O2 Flow Rate FiO2 08/25/25 12:43 83 19 08/25/25 12:00 99.0 08/25/25 12:00 96 Room Air* 0 21 08/25/25 11:45 84 16 126/69 (88) 97 130/41 (70) 08/25/25 11:35 85 18 N/A Room Air 21 08/25/25 11:30 83 21 123/46 (71) 97 115/36 (62) 08/25/25 11:15 85 14 123/52 (75) 97 113/36 (61) 08/25/25 11:00 84 14 127/43 (71) 100 123/38 (66) 08/25/25 10:45 86 18 131/49 (76) 100 119/35 (63) 08/25/25 10:30 85 14 132/52 (78) 100 122/35 (64) 08/25/25 10:15 84 14 126/63 (84) 99 124/36 (65) 08/25/25 10:00 83 10 128/66 (86) 100 97/34 (55) 08/25/25 09:57 89 20 Aerosol, Face Mask 10.0 40 08/25/25 09:45 89 14 128/44 (72) 100 112/34 (60) 08/25/25 09:30 86 14 130/60 (83) 100 130/36 (67) 08/25/25 09:15 97 19 122/53 (76) 100 123/35 (64) 08/25/25 09:00 88 15 134/48 (76) 99 122/35 (64) 08/25/25 08:45 90 19 08/25/25 08:45 88 15 129/49 (75) 98 115/33 (60) 08/25/25 08:30 85 28 122/48 (72) 99 114/33 (60) 08/25/25 08:25 99 N/C Oxymizer Hi LPM* 0 40 Hi-Flow N/C+ Aerosol Mask+ 08/25/25 08:25 90 21 10.0 40 08/25/25 08:15 93 30 141/60 (87) 97 111/31 (57) 08/25/25 08:00 85 29 122/94 (103) 100 138/37 (70) 08/25/25 08:00 99.1 08/25/25 08:00 100 Ventilator+ 0 40 08/25/25 07:45 80 30 134/83 (100) 100 134/41 (72) 08/25/25 07:38 80 40 08/25/25 07:30 86 26 130/56 (80) 100 135/43 (73) 08/25/25 07:15 92 17 121/64 (83) 100 122/42 (68) 08/25/25 07:00 81 25 130/42 (71) 100 08/25/25 06:47 80 40 08/25/25 06:45 83 11 133/62 (85) 99 124/44 (70) LABS: Hematology Labs: Test 08/25/25 03:32 08/24/25 14:08 08/24/25 04:05 Range/Units White Blood Count 11.2 #H 4.8-10.8 K/uL Red Blood Count 2.44 L 4.50-6.20 MIL/uL Hemoglobin 8.9 L 14.0-18.0 g/dL Hematocrit 25.8 L 42-54 % Mean Corpuscular Volume 105.7 H 79-99 fL Mean Corpuscular Hemoglobin 36.5 H 27.0-33.0 pg Mean Corpuscular Hemoglobin Concent 34.5 32.0-36.0 g/dL Red Cell Distribution Width 21.0 H 11.0-15.5 % Platelet Count 159 # 130-400 K/uL Mean Platelet Volume 10.3 7.5-10.5 fL Nucleated Red Blood Cells 0.3 H 0.0-0.19 % Immature Granulocyte % (Auto) 0.7 0-1 % Neutrophils (%) (Auto) 89.1 H 40.0-77.0 % Lymphocytes (%) (Auto) 5.5 L 21.0-51.0 % Monocytes (%) (Auto) 4.6 3.0-13.0 % Eosinophils (%) (Auto) 0.0 0.0-8.0 % Basophils (%) (Auto) 0.1 0.0-5.0 % Neutrophils # (Auto) 7.6 1.8-7.7 K/uL Lymphocytes # (Auto) 0.5 L 1.0-4.8 K/uL Monocytes # (Auto) 0.4 0.1-1.0 K/uL Eosinophils # (Auto) 0.00 0.00-0.70 K/uL Basophils # (Auto) 0.01 0.00-0.20 K/uL Absolute Immature Granulocyte (auto 0.06 0-1 K/uL White Cell Morphology Comment CONSISTENT W/DIFF Chemistry Labs: Test 08/25/25 03:32 08/24/25 14:08 08/24/25 04:05 Range/Units Sodium Level 140 136-145 mmol/L Potassium Level 3.6 3.5-5.1 mmol/L Chloride Level 104 101-111 mmol/L Carbon Dioxide Level 24 21-32 mmol/L Blood Urea Nitrogen 43 H 7-18 mg/dL Creatinine 1.0 0.5-1.3 mg/dL Glomerular Filtration Rate Calc 74 >90 mL/min Random Glucose 172 H 70-105 mg/dL Total Calcium 7.9 L 8.5-10.1 mg/dL Magnesium Level 1.90 1.80-2.40 mg/dL Iron Level 24 L 65-175 mcg/dL Total Iron Binding Capacity 229 L 250-450 mcg/dL Percent Iron Saturation 10.4 L 30-44 % Total Bilirubin 0.6 0.2-1.0 mg/dL Aspartate Amino Transf (AST/SGOT) 46 H 10-37 U/L Alanine Aminotransferase (ALT/SGPT) 32 12-78 U/L Alkaline Phosphatase 93 50-136 U/L Total Protein 6.5 6.0-8.3 g/dL Albumin 3.0 L 3.5-5.0 g/dL Phosphorus Level 4.7 2.5-4.9 mg/dL B-Type Natriuretic Peptide 498 H 0-100 pg/mL Thyroid Stimulating Hormone (TSH) 0.93 # 0.36-3.74 uIU/mL Coagulation Labs: Test 08/23/25 16:00 Range/Units Prothrombin Time 10.6 9.6-11.6 SEC Prothromb Time International Ratio 1.00 0.85-1.15 Activated Partial Thromboplast Time 30.8 26.3-35.5 SEC DIAGNOSTICS / RADIOLOGY RESULTS: Nothing today PLAN Continue soft cervical collar Daily Physical therapy exercises Weaned off pressors Incentive spirometry exercises NEURO: Minimize central acting medications as possible. Maintain fall precautions, adequate lighting during the day PULMONARY: Supplemental 02 as needed. Maintain aspiration precautions at all times CARDIOVASCULAR: Follow hemodynamics. Vital signs per facility protocol GI & NUTRITION: Continue with nutritional support. Continue stool softeners and laxatives as needed. KIDNEYS & ELECTROLYTES: Strict monitoring of intake, output and overall fluid balance. Avoid nephrotoxic medications to the extent possible. Medications to be dosed according to renal function. Monitor electrolytes and replace as needed ENDOCRINE: Maintain blood glucose between 100-180 at all times. Hypoglycemia protocol in place INFECTIOUS DISEASE: Trend temperature, WBC and procalcitonin level Follow cultures, deescalate antibiotics as soon as possible. Panculture if new onset fever ONCOLOGY/HEMATOLOGY/COAGULATION: Monitor for s/s of bleeding Monitor hemoglobin, coagulation studies as needed SKIN: Pressure ulcer prevention per facility protocol Specialty mattress ORTHO/REHAB: Continue PT/OT Prophylaxis: Continue GI and DVT prophylaxis Code Status: Full Resuscitation Disposition: As per PT and primary I personally scribed for CRISTAL FOX MD ([email or web address]) on 08/25/25 at 14:37. Electronically submitted by Phillip Diggs ([email or web address]). CRISTAL FOX MD Aug 25, 2025 14:37
--- NOTE | 2025-08-25 20:36 | PN ---
FOLLOWUP PROGRESS NOTE SUBJECTIVE: An 84-year-old male with a history of known coronary artery disease, patient with a history of atrial fibrillation. The patient is status post pacemaker in the past. He initially presented status post fall. The patient was found to have a cervical fracture and is being seen by Neurosurgery for possible decompression. He has had acute on chronic renal dysfunction in the hospital. Creatinine has been elevated and the patient is being seen as a followup visit for all of the above. REVIEW OF SYSTEMS: CONSTITUTIONAL: Complains of pain. HEENT: No change in vision. No change in hearing. CARDIOVASCULAR: No current chest pain or palpitations. PULMONARY: No shortness of breath. GASTROINTESTINAL: He is tolerating a diet. MUSCULOSKELETAL: He complains of weakness. PHYSICAL EXAMINATION: VITAL SIGNS: Blood pressure is 111/50, pulse in 80s. GENERAL: He is a chronically ill, elderly male, lying in bed on the medical floor. HEENT: Atraumatic. Pupils are equal, round, and reactive to light. Oropharynx is without exudate. Nares clear. NECK: There is no JVP. There is no thyromegaly, no mass. CARDIOVASCULAR: Regular. There is no S3 or S4 gallop. LUNGS: Coarse with equal thoracic movement. ABDOMEN: Soft, nondistended, nontender. EXTREMITIES: No clubbing, no cyanosis. NEUROLOGICAL: He is awake. He is alert. LABORATORY DATA: BUN 38, creatinine 1.2, sodium is 140. Hemoglobin 7.6, hematocrit 22, MCV is 109. IMPRESSION: * Acute on chronic renal failure. * Status post fall. * Anemia. * History of coronary artery disease. PLAN: The patient with acute renal failure. Creatinine is noted. The patient with persistent hypotension and remains on midodrine. The patient is being seen by Neurosurgical Service. We will continue to follow closely. The patient does have significant anemia. We will check iron levels for completeness. The patient can be started on thiamine and folic acid. We will follow the patient closely. The patient had multiple questions, all of which were answered. TID: [id number] RECEIPT: [id number]
[2025-08-26] VITALS (101 sets, daily range): BP systolic 89–150; BP diastolic 33–91; PULSE 75–112; RESP 4–30; TEMP 97.6–99.2; O2SAT 96–100
[2025-08-26 04:24] LABS: NUCLEATED RED BLOOD CELLS 0.0 % (0.0-0.19); PLATELET COUNT (AUTO) 146.0 K/uL (130-400); RED BLOOD CELL COUNT(AUTO) 2.31 MIL/uL (4.50-6.20); RED CELL DISTRIBUTION WIDTH 20.3 % (11.0-15.5); WHITE BLOOD COUNT (AUTO) 8.5 K/uL (4.8-10.8)
[2025-08-26 04:40] LABS: CREATININE 1.1 mg/dL (0.5-1.3); GLOMERULAR FILTR. RATE CALC 66.0 mL/min (>90); GLUCOSE,RANDOM 143.0 mg/dL (70-105); SODIUM SERUM 141.0 mmol/L (136-145); UREA NITROGEN, BLOOD 54.0 mg/dL (7-18)
--- NOTE | 2025-08-26 08:35 | PN ---
PROGRESS NOTE PROBLEM LIST: []1. Ventricular fibrillation successfully treated with ICD discharge 2. QT prolongation. 3. Hypokalemia. 4. Multiple fractures involving the cervical spine status post stabilization and fusion of C6-C7 5. Nonischemic cardiomyopathy with ejection fraction of 35-40% by echo this admission 6. Status post biventricular ICD insertion 03/28/2019. 7. Persistent atrial fibrillation status post Watchman implant in February 2025, no longer on oral anticoagulation. 8. Recurrent syncope. 9. Macrocytic anemia per 10. Thrombocytopenia resolved INTERIM HISTORY OF PRESENT ILLNESS: [] Patient has successfully had surgery two days prior. He is able to move all four extremities. He was extubated yesterday. Overall doing well. MRI pending today. REVIEW OF SYSTEMS: No fever, headache, chest pain, abdominal pain, nausea, vomiting, or diarrhea. VITAL SIGNS Vital Signs Date Time Temp Pulse Resp B/P (MAP) Pulse Ox O2 Delivery O2 Flow Rate FiO2 08/26/25 07:14 99.1 08/26/25 06:22 82 20 08/26/25 06:22 N/A Room Air 21 08/26/25 05:30 118/37 (64) 96 08/26/25 04:00 0 Laboratory Tests 08/26/25 03:55 LABS/MEDS Laboratory Tests Test 08/26/25 03:55 White Blood Count 8.5 K/uL (4.8-10.8) Red Blood Count 2.31 MIL/uL (4.50-6.20) L Hemoglobin 8.1 g/dL (14.0-18.0) L Hematocrit 24.3 % (42-54) L Mean Corpuscular Volume 105.2 fL (79-99) H Mean Corpuscular Hemoglobin 35.1 pg (27.0-33.0) H Mean Corpuscular Hemoglobin Concent 33.3 g/dL (32.0-36.0) Red Cell Distribution Width 20.3 % (11.0-15.5) H Platelet Count 146 K/uL (130-400) Mean Platelet Volume 10.4 fL (7.5-10.5) Nucleated Red Blood Cells 0.0 % (0.0-0.19) Sodium Level 141 mmol/L (136-145) Potassium Level 3.7 mmol/L (3.5-5.1) Chloride Level 105 mmol/L (101-111) Carbon Dioxide Level 28 mmol/L (21-32) Blood Urea Nitrogen 54 mg/dL (7-18) H Creatinine 1.1 mg/dL (0.5-1.3) Glomerular Filtration Rate Calc 66 mL/min (>90) Random Glucose 143 mg/dL (70-105) H Total Calcium 8.1 mg/dL (8.5-10.1) L Magnesium Level 2.20 mg/dL (1.80-2.40) Current Medications Acetaminophen 1,000 mg ONCE ONCE PO Last administered on 08/20/25at 11:29; Start 08/20/25 at 11:00; Stop 08/20/25 at 11:01; Status DC Acetaminophen 1,000 mg ONCE ONCE PO; Start 08/20/25 at 11:00; Stop 08/20/25 at 11:01; Status DC Morphine Sulfate 2 mg ONCE ONCE IVP Last administered on 08/20/25at 12:20; Start 08/20/25 at 12:30; Stop 08/20/25 at 12:31; Status DC Ondansetron HCl 4 mg ONCE ONCE IVP Last administered on 08/20/25at 12:20; Start 08/20/25 at 12:30; Stop 08/20/25 at 12:31; Status DC Morphine Sulfate 2 mg ONCE ONCE IVP Last administered on 08/20/25at 13:23; Start 08/20/25 at 13:30; Stop 08/20/25 at 13:31; Status DC Hydromorphone HCl 0.5 mg Q4H PRN IVP Last administered on 08/23/25at 14:51; Start 08/20/25 at 15:00; Stop 08/24/25 at 14:53; Status DC Norepinephrine 250 ml @ 0 mls/hr PROTOCOL PRN IV Last administered on 08/25/25at 06:41; Start 08/20/25 at 15:00; Stop 09/19/25 at 14:59 Enoxaparin Sodium 40 mg DAILY SQ Last administered on 08/23/25at 09:26; Start 08/21/25 at 09:00; Stop 09/20/25 at 08:59; Status Hold Famotidine 20 mg Q48H IV Last administered on 08/24/25at 20:47; Start 08/20/25 at 21:00; Stop 09/19/25 at 20:59 Thiamine HCl 300 mg Q24H IVP Last administered on 08/20/25at 20:40; Start 08/20/25 at 16:30; Stop 08/21/25 at 09:55; Status DC Folic Acid 1 mg DAILY IV Last administered on 08/25/25at 11:35; Start 08/21/25 at 09:00; Stop 09/20/25 at 08:59 Potassium Chloride 100 ml @ 50 mls/hr AD PRN IV Last administered on 08/26/25at 06:16; Start 08/20/25 at 16:30; Stop 09/19/25 at 16:29 Potassium Chloride 100 ml @ 100 mls/hr AD PRN IV; Start 08/20/25 at 16:30; Stop 08/21/25 at 18:12; Status DC Potassium Chloride 20 meq AD PRN PO Last administered on 08/22/25at 09:43; Start 08/20/25 at 16:30; Stop 09/19/25 at 16:29 Potassium Chloride 20 meq AD PRN PO Last administered on 08/22/25at 05:47; Start 08/20/25 at 16:30; Stop 09/19/25 at 16:29 Magnesium Sulfate 50 ml @ 0 mls/hr PROTOCOL PRN IV; Start 08/20/25 at 16:30; Stop 09/19/25 at 16:29 Lactated Ringer's 1,000 ml @ 50 mls/hr Q20H IV Last administered on 08/21/25at 20:09; Start 08/20/25 at 16:30; Stop 08/22/25 at 09:23; Status DC Vitamin B Complex/ Vit C/Folic Acid 1 cap DAILY PO Last administered on 08/25/25at 11:34; Start 08/22/25 at 09:00; Stop 09/21/25 at 08:59 Thiamine HCl 100 mg DAILY IVP Last administered on 08/25/25at 11:34; Start 08/22/25 at 09:00; Stop 09/21/25 at 08:59 Baclofen 5 mg TID PO Last administered on 08/23/25at 13:57; Start 08/21/25 at 14:00; Stop 08/24/25 at 14:53; Status DC Acetaminophen/ Hydrocodone Bitart 1 tab Q6H PRN PO Last administered on 08/21/25at 22:41; Start 08/21/25 at 12:30; Stop 08/23/25 at 16:13; Status DC Chlordiazepoxide HCl 25 mg Q2H PRN PO; Start 08/21/25 at 13:00; Stop 08/28/25 at 12:59 Chlordiazepoxide HCl 50 mg Q1H PRN PO; Start 08/21/25 at 13:00; Stop 08/28/25 at 12:59 Ondansetron HCl 4 mg Q4H PRN IV; Start 08/21/25 at 13:00; Stop 09/20/25 at 12:59 Promethazine HCl 25 mg Q6H PRN PO; Start 08/21/25 at 13:00; Stop 09/20/25 at 12:59 Acetaminophen 500 mg Q6H PRN PO; Start 08/21/25 at 13:00; Stop 09/20/25 at 12:59 Multivitamins Therapeutic 1 tab DAILY PO Last administered on 08/25/25at 11:32; Start 08/22/25 at 09:00; Stop 09/21/25 at 08:59 Pharmacy Profile Note 1 each PROTOCOL PRN MISC; Start 08/21/25 at 13:00; Stop 08/28/25 at 12:59 Aspirin 81 mg DAILY PO Last administered on 08/25/25at 11:33; Start 08/22/25 at 09:00; Stop 09/21/25 at 08:59 Metoprolol Succinate 25 mg DAILY PO Last administered on 08/21/25at 18:32; Start 08/21/25 at 18:00; Stop 08/22/25 at 07:09; Status DC Amiodarone HCL/ Dextrose 100 ml @ 0 mls/hr PROTOCOL IV; Start 08/21/25 at 19:30; Stop 08/21/25 at 19:31; Status DC Amiodarone HCL/ Dextrose 200 ml @ 0 mls/hr PROTOCOL IV; Start 08/21/25 at 19:30; Stop 08/21/25 at 19:31; Status DC Amiodarone HCl 150 mg/Dextrose 103 ml @ 618 mls/hr ONCE IV; Start 08/21/25 at 20:30; Stop 08/21/25 at 20:16; Status DC Amiodarone HCl 360 mg/Dextrose 207.2 ml @ 33.3 mls/hr AD IV; Start 08/21/25 at 20:30; Stop 08/21/25 at 20:17; Status DC Amiodarone HCl 540 mg/Dextrose 310.8 ml @ 16.7 mls/hr [id number] IV Last administered on 08/22/25at 02:45; Start 08/22/25 at 03:00; Stop 08/24/25 at 14:53; Status DC Amiodarone HCL/ Dextrose 100 ml @ 600 mls/hr PROTOCOL IV Last administered on 08/21/25at 20:52; Start 08/21/25 at 20:50; Stop 08/21/25 at 20:59; Status DC Amiodarone HCL/ Dextrose 200 ml @ 33.333 mls/ hr PROTOCOL IV Last administered on 08/21/25at 20:53; Start 08/21/25 at 21:00; Stop 08/22/25 at 02:59; Status DC Metoprolol Tartrate 50 mg DAILY PO Last administered on 08/23/25at 09:24; Start 08/22/25 at 09:00; Stop 09/21/25 at 08:59 Amiodarone HCl 400 mg DAILY PO Last administered on 08/25/25at 11:33; Start 08/22/25 at 09:00; Stop 09/21/25 at 08:59 Gabapentin 100 mg TID PO Last administered on 08/23/25at 13:57; Start 08/22/25 at 14:00; Stop 08/24/25 at 14:53; Status DC Allopurinol 300 mg DAILY PO Last administered on 08/23/25at 09:25; Start 08/23/25 at 09:00; Stop 09/22/25 at 08:59 Furosemide 80 mg DAILY PO Last administered on 08/25/25at 11:33; Start 08/23/25 at 09:00; Stop 09/22/25 at 08:59 Losartan Potassium 25 mg DAILY PO; Start 08/23/25 at 09:00; Stop 08/23/25 at 07:15; Status DC Metolazone 2.5 mg DAILY PO Last administered on 08/25/25at 11:32; Start 08/23/25 at 09:00; Stop 09/22/25 at 08:59 Fish Oil 1,000 mg DAILY PO Last administered on 08/25/25at 11:33; Start 08/23/25 at 09:00; Stop 09/22/25 at 08:59 Tamsulosin HCl 0.4 mg DAILY PO Last administered on 08/25/25at 11:32; Start 08/23/25 at 09:00; Stop 09/22/25 at 08:59 Acetaminophen 1,000 mg Q6H6 IVPB Last administered on 08/26/25at 06:15; Start 08/22/25 at 12:00; Stop 09/21/25 at 11:59 Spironolactone 25 mg DAILY PO Last administered on 08/23/25at 09:23; Start 08/23/25 at 09:00; Stop 09/22/25 at 08:59 Sacubitril/ Valsartan 1 each BID PO Last administered on 08/23/25at 09:23; Start 08/23/25 at 09:00; Stop 09/22/25 at 08:59 Midodrine 10 mg ONCE PO Last administered on 08/23/25at 16:05; Start 08/23/25 at 16:00; Stop 08/23/25 at 20:00; Status DC Midodrine 10 mg Q6H6 PO Last administered on 08/26/25at 06:15; Start 08/23/25 at 18:00; Stop 09/22/25 at 17:59 Sodium Chloride 500 ml @ 500 mls/hr Q1H IV Last administered on 08/23/25at 16:06; Start 08/23/25 at 16:00; Stop 08/23/25 at 17:52; Status DC Sodium Chloride 500 ml @ 500 mls/hr Q4H IV Last administered on 08/24/25at 05:38; Start 08/23/25 at 16:30; Stop 08/24/25 at 09:29; Status DC Pharmacy Profile Note 1 each ONCE MISC; Start 08/23/25 at 16:30; Stop 08/24/25 at 14:53; Status DC Dexamethasone Sodium Phosphate 12 mg ONCE IVP Last administered on 08/23/25at 17:38; Start 08/23/25 at 17:00; Stop 08/23/25 at 21:00; Status DC Dexamethasone Sodium Phosphate 4 mg Q6H6 IVP Last administered on 08/26/25at 06:15; Start 08/23/25 at 23:00; Stop 09/22/25 at 22:59 Etomidate 20 mg STK-MED ONCE .ROUTE; Start 08/24/25 at 08:00; Stop 08/24/25 at 08:00; Status DC Succinylcholine Chloride 200 mg STK-MED ONCE .ROUTE; Start 08/24/25 at 08:00; Stop 08/24/25 at 08:01; Status DC Norepinephrine Bitartrate 4 mg STK-MED ONCE IV; Start 08/24/25 at 08:02; Stop 08/24/25 at 08:02; Status DC Fentanyl Citrate 100 mcg STK-MED ONCE .ROUTE; Start 08/24/25 at 08:09; Stop 08/24/25 at 08:10; Status DC Midazolam HCl 2 mg STK-MED ONCE .ROUTE; Start 08/24/25 at 08:23; Stop 08/24/25 at 08:23; Status DC Ketamine HCl 50 mg STK-MED ONCE .ROUTE; Start 08/24/25 at 08:23; Stop 08/24/25 at 08:23; Status DC Rocuronium [place] 50 mg STK-MED ONCE .ROUTE; Start 08/24/25 at 08:44; Stop 08/24/25 at 08:45; Status DC Glycopyrrolate 1 mg STK-MED ONCE .ROUTE; Start 08/24/25 at 08:46; Stop 08/24/25 at 08:47; Status DC Magnesium Oxide 400 mg DAILY PO Last administered on 08/25/25at 11:34; Start 08/24/25 at 09:00; Stop 09/23/25 at 08:59 Cefazolin Sodium 1 gm STK-MED ONCE .ROUTE; Start 08/24/25 at 08:57; Stop 08/24/25 at 08:57; Status DC Tranexamic Acid 1,000 mg STK-MED ONCE .ROUTE; Start 08/24/25 at 09:02; Stop 08/24/25 at 09:02; Status DC Thrombin 20,000 unit STK-MED ONCE TP; Start 08/24/25 at 09:02; Stop 08/24/25 at 09:02; Status DC Bupivacaine HCl 5 mg STK-MED ONCE .ROUTE; Start 08/24/25 at 09:19; Stop 08/24/25 at 09:19; Status DC Methylprednisolone Acetate 80 mg STK-MED ONCE .ROUTE; Start 08/24/25 at 09:19; Stop 08/24/25 at 09:20; Status DC Tobramycin Sulfate 1.2 gm STK-MED ONCE .ROUTE; Start 08/24/25 at 09:20; Stop 08/24/25 at 09:20; Status DC Cefazolin Sodium 2 gm STK-MED ONCE IVPB Last administered on 08/24/25at 08:36; Start 08/24/25 at 08:36; Stop 08/24/25 at 09:33; Status DC Thrombin 20,000 unit STK-MED ONCE TP Last administered on 08/24/25at 08:41; Start 08/24/25 at 08:41; Stop 08/24/25 at 09:33; Status DC Tranexamic Acid 1,000 mg STK-MED ONCE IV Last administered on 08/24/25at 08:42; Start 08/24/25 at 08:42; Stop 08/24/25 at 09:33; Status DC Methylprednisolone Acetate 80 mg STK-MED ONCE IM Last administered on 08/24/25at 08:43; Start 08/24/25 at 08:43; Stop 08/24/25 at 09:33; Status DC Bupivacaine HCl 150 mg STK-MED ONCE INJ Last administered on 08/24/25at 08:44; Start 08/24/25 at 08:44; Stop 08/24/25 at 09:33; Status DC Fentanyl Citrate 100 mcg STK-MED ONCE .ROUTE; Start 08/24/25 at 10:11; Stop 08/24/25 at 10:11; Status DC Vancomycin HCl 250 ml @ As Directed STK-MED ONCE IV; Start 08/24/25 at 11:31; Stop 08/24/25 at 11:31; Status DC Tobramycin Sulfate 1.2 gm STK-MED ONCE .ROUTE; Start 08/24/25 at 11:31; Stop 08/24/25 at 11:31; Status DC Dexamethasone Sodium Phosphate 10 mg STK-MED ONCE .ROUTE; Start 08/24/25 at 11:35; Stop 08/24/25 at 11:35; Status DC Bacitracin 28.4 gm STK-MED ONCE TP; Start 08/24/25 at 12:09; Stop 08/24/25 at 12:10; Status DC Propofol 200 mg STK-MED ONCE IV; Start 08/24/25 at 12:22; Stop 08/24/25 at 12:22; Status DC Rocuronium [place] 50 mg STK-MED ONCE .ROUTE; Start 08/24/25 at 12:22; Stop 08/24/25 at 12:22; Status DC Propofol 1,000 mg PROTOCOL PRN IV Last administered on 08/25/25at 04:01; Start 08/24/25 at 13:00; Stop 09/23/25 at 12:59 Spironolactone 25 mg DAILY PO Last administered on 08/25/25at 11:34; Start 08/25/25 at 09:00; Stop 09/24/25 at 08:59 Ipratropium [place] 0.5 MG [id number] IH Last administered on 08/26/25at 06:20; Start 08/25/25 at 12:00; Stop 09/24/25 at 11:59 Ipratropium [place] 0.5 mg STK-MED ONCE IH Last administered on 08/25/25at 08:42; Start 08/25/25 at 08:37; Stop 08/25/25 at 08:37; Status DC Iron Sucrose 300 mg/Sodium Chloride 250 ml @ 83 mls/hr ONCE ONCE IV Last administered on 08/25/25at 21:44; Start 08/25/25 at 21:00; Stop 08/26/25 at 00:00; Status DC PHYSICAL EXAMINATION: GENERAL: No acute distress. Patient is in a neck brace answering questions appropriately HEENT: Normocephalic, atraumatic. CARDIAC: Positive S1 and S2. No murmurs. Heart sounds distant LUNGS: Clear to auscultation anteriorly ABDOMEN: Bowel sounds present, soft, nontender. EXTREMITIES: No edema bilaterally. NEUROLOGIC: Cranial nerves 2-12 grossly intact. PSYCHIATRIC: Calm. TELEMETRY: Paced rhythm ASSESSMENT: 1. Ventricular fibrillation successfully treated with ICD discharge 2. QT prolongation. 3. Hypokalemia. 4. Multiple fractures involving the cervical spine status post stabilization and fusion of C6-C7 5. Nonischemic cardiomyopathy with ejection fraction of 35-40% by echo this admission 6. Status post biventricular ICD insertion 03/28/2019. 7. Persistent atrial fibrillation status post Watchman implant in February 2025, no longer on oral anticoagulation. 8. Recurrent syncope. 9. Macrocytic anemia per 10. Thrombocytopenia resolved PLAN: [] We will continue to follow patient reinstituting home medications as blood pressure tolerates. Majority of management after fusion of C6-C7 we will be per primary team and Neurosurgery. We will continue to monitor and follow. TAYLOR JETER MD Aug 26, 2025 08:35
--- NOTE | 2025-08-26 10:03 | PN ---
[facility] PROGRESS NOTE Date Patient Seen: Aug 26, 2025 Time of Visit: 10:00 Supervising Physician: Dr Noel Chaparro Primary Care Physician: Sonya Gray Outpatient Specialists: [ ] Inpatient Consults: DR Bob, DR Crews, Dr Cami FELICIANO PROBLEM LIST: Status post cervical laminectomy, diskectomy decompression and fusion with instrumentation Syncope and fall 2/2 to Vtach and firing of ICD POA Chronic systolic and diastolic stage II heart failure w/ ICM EF of 35-40% on 2 D echo 08/21/25 Moderate pulmonary HTN Mildly displaced fracture of the right C7 transverse process. nondisplaced fractures at C6 inferior endplate and C7 superior endplate. Fracture of the right C7 superior articular facet. Bilateral C6-C7 facet perching with 4 mm anterolisthesis of C6 on C7. Paraspinal muscle edema. 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 Nursing reports no acute events overnight He is afebrile Plan: Following nephrology recs, I&Os Weaning pressors Telemetry Pending an MRI for his continued weakness lower extremity per Neurosurgery Follow neurosurgery recommendations Neurovascular checks Total critical care time spent 48 minutes, patient remains on pressors. Neurovascular checks and high-risk of decompensation REVIEW OF SYSTEMS: 12 points review of systems done, all pertinent information has been addressed. Patient is voiding, with regular bowel movements. PHYSICAL EXAM: GENERAL: Awake alert and oriented HEENT: EOMI, Sclera non icteric, moist mucosa NECK: Supple, no JVD, trachea midline, soft cervical collar complaints LUNGS: Fine crackles bilaterally, no wheezing HEART: Regular rate and rhythm. Normal S1 and S2, without murmurs ABD: Abdomen soft, nontender. Bowel sounds present EXT: No clubbing cyanosis or edema NEURO: Alert and oriented to person, follows commands Vital Signs (last 8hr) Date Time Temp Pulse Resp B/P (MAP) Pulse Ox O2 Delivery O2 Flow Rate FiO2 08/26/25 07:14 99.1 08/26/25 06:22 82 20 08/26/25 06:22 20 N/A Room Air 21 08/26/25 05:30 83 17 118/37 (64) 96 08/26/25 05:15 82 18 119/39 (65) 96 08/26/25 05:00 82 18 120/38 (65) 95 08/26/25 04:45 86 20 124/51 (75) 95 118/39 (65) 08/26/25 04:30 83 16 120/39 (66) 95 08/26/25 04:15 86 18 129/44 (72) 95 08/26/25 04:00 96 Room Air* 0 21 08/26/25 04:00 99.0 08/26/25 04:00 81 20 126/46 (72) 96 08/26/25 03:45 75 21 126/58 (80) 96 116/41 (66) 08/26/25 03:30 84 18 131/42 (71) 97 08/26/25 03:15 81 18 132/44 (73) 96 08/26/25 03:00 85 20 136/44 (74) 96 08/26/25 02:45 84 16 140/77 (98) 96 135/51 (79) 08/26/25 02:30 80 18 135/46 (75) 97 08/26/25 02:15 83 18 127/46 (73) 97 LABS: Hematology Labs: Test 08/26/25 03:55 08/24/25 14:08 Range/Units White Blood Count 8.5 4.8-10.8 K/uL Red Blood Count 2.31 L 4.50-6.20 MIL/uL Hemoglobin 8.1 L 14.0-18.0 g/dL Hematocrit 24.3 L 42-54 % Mean Corpuscular Volume 105.2 H 79-99 fL Mean Corpuscular Hemoglobin 35.1 H 27.0-33.0 pg Mean Corpuscular Hemoglobin Concent 33.3 32.0-36.0 g/dL Red Cell Distribution Width 20.3 H 11.0-15.5 % Platelet Count 146 130-400 K/uL Mean Platelet Volume 10.4 7.5-10.5 fL Nucleated Red Blood Cells 0.0 0.0-0.19 % Immature Granulocyte % (Auto) 0.7 0-1 % Neutrophils (%) (Auto) 89.1 H 40.0-77.0 % Lymphocytes (%) (Auto) 5.5 L 21.0-51.0 % Monocytes (%) (Auto) 4.6 3.0-13.0 % Eosinophils (%) (Auto) 0.0 0.0-8.0 % Basophils (%) (Auto) 0.1 0.0-5.0 % Neutrophils # (Auto) 7.6 1.8-7.7 K/uL Lymphocytes # (Auto) 0.5 L 1.0-4.8 K/uL Monocytes # (Auto) 0.4 0.1-1.0 K/uL Eosinophils # (Auto) 0.00 0.00-0.70 K/uL Basophils # (Auto) 0.01 0.00-0.20 K/uL Absolute Immature Granulocyte (auto 0.06 0-1 K/uL Chemistry Labs: Test 08/26/25 03:55 08/25/25 03:32 08/24/25 14:08 Range/Units Sodium Level 141 136-145 mmol/L Potassium Level 3.7 3.5-5.1 mmol/L Chloride Level 105 101-111 mmol/L Carbon Dioxide Level 28 21-32 mmol/L Blood Urea Nitrogen 54 H 7-18 mg/dL Creatinine 1.1 0.5-1.3 mg/dL Glomerular Filtration Rate Calc 66 >90 mL/min Random Glucose 143 H 70-105 mg/dL Total Calcium 8.1 L 8.5-10.1 mg/dL Magnesium Level 2.20 1.80-2.40 mg/dL Iron Level 24 L 65-175 mcg/dL Total Iron Binding Capacity 229 L 250-450 mcg/dL Percent Iron Saturation 10.4 L 30-44 % Total Bilirubin 0.6 0.2-1.0 mg/dL Aspartate Amino Transf (AST/SGOT) 46 H 10-37 U/L Alanine Aminotransferase (ALT/SGPT) 32 12-78 U/L Alkaline Phosphatase 93 50-136 U/L Total Protein 6.5 6.0-8.3 g/dL Albumin 3.0 L 3.5-5.0 g/dL DIAGNOSTICS / RADIOLOGY RESULTS: [ ] PLAN NEURO: Minimize central acting medications as possible. Fall Precautions. Well lighted room through the day and minimize interruptions through the night to prevent acute delirium. PULMONARY: Supplemental 02 as needed Titrate Fio2 to keep Spo2 > or = 90% DuoNebs and CPT as needed IS hourly while awake for pulmonary hygiene Out of bed to chair as tolerated ABG monitor for resp failure Monitor for diaphragm paralysis CARDIOVASCULAR: Follow hemodynamics. Titrate vasopressor to keep MAP >65 or systolic blood pressure >95mmHg Drips: Levophed PRN to maintain map above 65 LINES: PIV Two large-bore IVs GI & NUTRITION: Continue nutritional support Aspirations precautions Prokinetic agents and laxatives as needed NPO for now KIDNEYS & ELECTROLYTES: Strict monitoring of intake and output Daily weights Avoid nephrotoxic agents Monitor electrolytes and replace as needed Goal urine output of 30mL/hr or 0.5mL/kg/hr ENDOCRINE: Maintain blood glucose between 100-180 at all times. Insulin sliding scale for blood glucose management INFECTIOUS DISEASE: Trend temperature. Raza-culture if febrile. Continue IV antibiotics HEMATOLOGY & COAGULATION: Monitor H&H. Keep Hgb > 7 Transfuse 1 unit of PRBC for Hgb < 7 Transfuse 1 pack of platelets of platelets < 20, 000 Watch for any signs and symptoms of bleeding SKIN: Pressure ulcer prevention per facility protocol Rehab: PT/OT Prophylaxis: GI: famotidine DVT: lovenox Code Status: Full Resuscitation Disposition:ICU Other: Critical care time: 35 minutes STEPHANIE LLOYD PAC Aug 26, 2025 10:03
--- NOTE | 2025-08-26 11:41 | HMCIMG ---
Fluoroscopy is utilized for the procedure. The total fluoroscopy time is 00:22.6 (mm:ss.d). The total dose area product is 0.8723 (Gycm2). The interpreting radiologist was not present during the procedure. /Irwin
--- NOTE | 2025-08-26 13:53 | PN ---
NEPHROLOGY PROGRESS NOTE Date/Time Patient Seen: Aug 26, 2025 SUBJECTIVE: This is an 84-year-old male with a past medical history of atrial fibrillation status post Watchman, arthritis, CHF, CAD, prostatitis, and ppm/ICD He presented to the ED for evaluation of fall from 3 ft stool. He presented to the ED with complaints of right arm pain, cervical pain and headache. He was noted to have elevated rhabdomyolysis. Renal function and electrolytes are stable. Continues to require vasopressors to maintain blood pressure Continues to be followed by Cardiology Pending MRI, pending further neurosurgery recommendations He was seen in the ICU, in no acute distress No family at the bedside Prognosis remains guarded REVIEW OF SYSTEMS: GENERAL: Negative for any nausea, vomiting, fevers, chills, or weight loss. NEUROLOGIC: Negative for any blurry vision, blind spots, double vision, facial asymmetry, dysphagia, dysarthria, hemiparesis, hemisensory deficits, vertigo, ataxia. HEENT: Negative for any head trauma, neck trauma, neck stiffness, photophobia, phonophobia, sinusitis, rhinitis. CARDIAC: Negative for any chest pain, dyspnea on exertion, paroxysmal nocturnal dyspnea, peripheral edema. PULMONARY: Negative for any shortness of breath, wheezing, COPD, or TB exposure. GASTROINTESTINAL: Negative for any abdominal pain, nausea, vomiting, bright red blood per rectum, melena. GENITOURINARY: Negative for any dysuria, hematuria, incontinence. INTEGUMENTARY: Negative for any rashes, cuts, insect bites. RHEUMATOLOGIC: Negative for any joint pains, photosensitive rashes, history of vasculitis or kidney problems. HEMATOLOGIC: Negative for any abnormal bruising, frequent infections or bleeding. Vital Signs (last 8hr) Date Time Temp Pulse Resp B/P (MAP) Pulse Ox O2 Delivery O2 Flow Rate FiO2 08/26/25 12:26 118/37 08/26/25 11:19 99.1 08/26/25 11:03 84 18 08/26/25 11:02 18 N/A Room Air 21 08/26/25 07:14 99.1 08/26/25 06:22 82 20 08/26/25 06:22 20 N/A Room Air 21 PHYSICAL EXAM: GENERAL: Alert and oriented x 3. No acute distress. Well-nourished. EYES: EOMI. Anicteric. HENT: Moist mucous membranes. No scleral icterus. No cervical lymphadenopathy. LUNGS: Clear to auscultation bilaterally. No accessory muscle use. CARDIOVASCULAR: Regular rate and rhythm. No murmur. No JVD. ABDOMEN: Soft, non-tender and non-distended. No palpable masses. EXTREMITIES: No edema. Non-tender. SKIN: No rashes or lesions. Warm. NEUROLOGIC: No focal neurological deficits. CN II-XII grossly intact, but not individually tested. PSYCHIATRIC: Cooperative. Appropriate mood and affect. Current Medications Medications (Trade) Dose Ordered Sig/Dann Route Start Time Stop Time Status Last Admin Dose Admin Acetaminophen (acetaMINOPHEN 1,000MG/100ML) 1,000 mg Q6H6 IVPB 08/22/25 12:00 09/21/25 11:59 08/23/25 11:57 1,000 MG Allopurinol (ZYLOprim 300MG) 300 mg DAILY PO 08/23/25 09:00 09/22/25 08:59 08/23/25 09:25 300 MG Amiodarone HCl (pacERONE 200MG) 400 mg DAILY PO 08/22/25 09:00 09/21/25 08:59 08/23/25 09:25 400 MG Amiodarone HCl 150 mg/Dextrose 103 ml @ 618 mls/hr ONCE IV 08/21/25 20:30 08/21/25 20:16 DC Amiodarone HCl 360 mg/Dextrose 207.2 ml @ 33.3 mls/hr AD IV 08/21/25 20:30 08/21/25 20:17 DC Amiodarone HCl 540 mg/Dextrose 310.8 ml @ 16.7 mls/hr [id number] IV 08/22/25 03:00 09/21/25 02:59 08/22/25 02:45 16.7 MLS/HR Amiodarone HCL/ Dextrose 100 ml @ 600 mls/hr PROTOCOL IV 08/21/25 20:50 08/21/25 20:59 DC 08/21/25 20:52 600 MLS/HR Amiodarone HCL/ Dextrose 100 ml @ 0 mls/hr PROTOCOL IV 08/21/25 19:30 08/21/25 19:31 DC Amiodarone HCL/ Dextrose 200 ml @ 33.333 mls/ hr PROTOCOL IV 08/21/25 21:00 08/22/25 02:59 DC 08/21/25 20:53 33.333 MLS/HR Amiodarone HCL/ Dextrose 200 ml @ 0 mls/hr PROTOCOL IV 08/21/25 19:30 08/21/25 19:31 DC Aspirin (Aspirin 81mg Chew Tab) 81 mg DAILY PO 08/22/25 09:00 09/21/25 08:59 08/23/25 09:23 81 MG Baclofen (Baclofen) 5 mg TID PO 08/21/25 14:00 09/20/25 13:59 08/23/25 13:57 5 MG Enoxaparin Sodium (Lovenox) 40 mg DAILY SQ 08/21/25 09:00 09/20/25 08:59 08/23/25 09:26 40 MG Famotidine (Pepcid 20mg Vial) 20 mg Q48H IV 08/20/25 21:00 09/19/25 20:59 08/22/25 20:58 20 MG Fish Oil (Fish Oil 1000 Mg/Cap) 1,000 mg DAILY PO 08/23/25 09:00 09/22/25 08:59 08/23/25 09:23 1,000 MG Folic Acid (FolVITE 5 MG/ML VIAL) 1 mg DAILY IV 08/21/25 09:00 09/20/25 08:59 08/23/25 09:31 1 MG Furosemide (LASix 80MG TAB) 80 mg DAILY PO 08/23/25 09:00 09/22/25 08:59 08/23/25 09:24 80 MG Gabapentin (NEURontin 100 mg CAP) 100 mg TID PO 08/22/25 14:00 09/21/25 13:59 08/23/25 13:57 100 MG Lactated Ringer's 1,000 ml @ 50 mls/hr Q20H IV 08/20/25 16:30 08/22/25 09:23 DC 08/21/25 20:09 50 MLS/HR Losartan Potassium (CozAAR 25MG TAB) 25 mg DAILY PO 08/23/25 09:00 08/23/25 07:15 DC Metolazone (zarOXOlyn) 2.5 mg DAILY PO 08/23/25 09:00 09/22/25 08:59 08/23/25 09:25 2.5 MG Metoprolol Succinate (TopROL XL) 25 mg DAILY PO 08/21/25 18:00 08/22/25 07:09 DC 08/21/25 18:32 25 MG Metoprolol Tartrate (loprESSOR) 50 mg DAILY PO 08/22/25 09:00 09/21/25 08:59 08/23/25 09:24 50 MG Multivitamins Therapeutic (Multivitamin Tablet) 1 tab DAILY PO 08/22/25 09:00 09/21/25 08:59 08/23/25 09:24 1 TAB Sacubitril/ Valsartan (Entresto 24 Mg-26 Mg Tablet) 1 each BID PO 08/23/25 09:00 09/22/25 08:59 08/23/25 09:23 1 EACH Spironolactone (Aldactone 25mg) 25 mg DAILY PO 08/23/25 09:00 09/22/25 08:59 08/23/25 09:23 25 MG Tamsulosin HCl (FloMAX) 0.4 mg DAILY PO 08/23/25 09:00 09/22/25 08:59 08/23/25 09:24 0.4 MG Thiamine HCl (Vitamin B-1) 100 mg DAILY IVP 08/22/25 09:00 09/21/25 08:59 08/23/25 09:23 100 MG Thiamine HCl (Vitamin B-1) 300 mg Q24H IVP 08/20/25 16:30 08/21/25 09:55 DC 08/20/25 20:40 300 MG Vitamin B Complex/ Vit C/Folic Acid (Nephrovite Tablet) 1 cap DAILY PO 08/22/25 09:00 09/21/25 08:59 08/23/25 09:25 1 CAP LABORATORY: [ ] Hematology Labs: Test 08/26/25 03:55 08/24/25 14:08 Range/Units White Blood Count 8.5 4.8-10.8 K/uL Red Blood Count 2.31 L 4.50-6.20 MIL/uL Hemoglobin 8.1 L 14.0-18.0 g/dL Hematocrit 24.3 L 42-54 % Mean Corpuscular Volume 105.2 H 79-99 fL Mean Corpuscular Hemoglobin 35.1 H 27.0-33.0 pg Mean Corpuscular Hemoglobin Concent 33.3 32.0-36.0 g/dL Red Cell Distribution Width 20.3 H 11.0-15.5 % Platelet Count 146 130-400 K/uL Mean Platelet Volume 10.4 7.5-10.5 fL Nucleated Red Blood Cells 0.0 0.0-0.19 % Immature Granulocyte % (Auto) 0.7 0-1 % Neutrophils (%) (Auto) 89.1 H 40.0-77.0 % Lymphocytes (%) (Auto) 5.5 L 21.0-51.0 % Monocytes (%) (Auto) 4.6 3.0-13.0 % Eosinophils (%) (Auto) 0.0 0.0-8.0 % Basophils (%) (Auto) 0.1 0.0-5.0 % Neutrophils # (Auto) 7.6 1.8-7.7 K/uL Lymphocytes # (Auto) 0.5 L 1.0-4.8 K/uL Monocytes # (Auto) 0.4 0.1-1.0 K/uL Eosinophils # (Auto) 0.00 0.00-0.70 K/uL Basophils # (Auto) 0.01 0.00-0.20 K/uL Absolute Immature Granulocyte (auto 0.06 0-1 K/uL Chemistry Labs: Test 08/26/25 03:55 08/25/25 03:32 08/24/25 14:08 Range/Units Sodium Level 141 136-145 mmol/L Potassium Level 3.7 3.5-5.1 mmol/L Chloride Level 105 101-111 mmol/L Carbon Dioxide Level 28 21-32 mmol/L Blood Urea Nitrogen 54 H 7-18 mg/dL Creatinine 1.1 0.5-1.3 mg/dL Glomerular Filtration Rate Calc 66 >90 mL/min Random Glucose 143 H 70-105 mg/dL Total Calcium 8.1 L 8.5-10.1 mg/dL Magnesium Level 2.20 1.80-2.40 mg/dL Iron Level 24 L 65-175 mcg/dL Total Iron Binding Capacity 229 L 250-450 mcg/dL Percent Iron Saturation 10.4 L 30-44 % Total Bilirubin 0.6 0.2-1.0 mg/dL Aspartate Amino Transf (AST/SGOT) 46 H 10-37 U/L Alanine Aminotransferase (ALT/SGPT) 32 12-78 U/L Alkaline Phosphatase 93 50-136 U/L Total Protein 6.5 6.0-8.3 g/dL Albumin 3.0 L 3.5-5.0 g/dL DIAGNOSTICS / RADIOLOGY: [address] [place] [address] IMAGING REPORT Signed PATIENT: TAYLOR DUNCAN MR#: [id number] : 1940 SEX: M AGE: 84 LOCATION: 2CH ORDER 1614 STATUS: ADM IN REPORT#: [id number] SERVICE 161 REASON: PICC placement ORDERING PHYSICIAN: CRISTAL FOX MD PROCEDURE: CXR1VW - CHEST 1VW EXAM: CR Chest, 2 View. CLINICAL HISTORY: PICC placement COMPARISON: Radiograph from earlier today Findings: AP view of the chest is submitted. Right PICC terminates overlying the distal SVC. No pneumothorax. Remainder of the examination is unchanged. IMPRESSION: 1. Right PICC line terminates appropriately in distal SVC; no pneumothorax. /[place] DICTATED BY: SYLVESTER STRANGE Jr., MD DATE: 08/24/251842 ELECTRONICALLY SIGNED BY: SYLVESTER STRANGE Jr., MD DATE: 08/24/251842 PATIENT: TAYLOR DUNCAN MR#: [id number] : 1940 SEX: M AGE: 84 LOCATION: 2CH ORDER 2300 STATUS: ADM IN REPORT#: [id number] SERVICE 0600 REASON: hypoxic resp failure ORDERING PHYSICIAN: DAGOBERTO BRIGGS AGACNJua nA PROCEDURE: CXR1VW - CHEST 1VW EXAM: CR Chest, 1 View. CLINICAL HISTORY: hypoxic resp failure COMPARISON: None provided. FINDINGS: LUNGS: The lungs show no infiltrate or other acute finding. PLEURAL SPACES: No evidence of pleural effusion or pneumothorax. MEDIASTINUM: Cardiac size appears enlarged with cephalization of superior pulmonary vein -s/o pulmonary hypertension. pacemaker in situ with adequately placed cardiac leads. BONES: No acute osseous abnormality. IMPRESSION: Features of cardiomegaly and pulmonary hypertension /[place] DICTATED BY: SYLVESTER STRANGE Jr., MD DATE: 08/23/251153 ELECTRONICALLY SIGNED BY: SYLVESTER STRANGE Jr., MD DATE: 08/23/251153 PATIENT: TAYLOR DUNCAN MR#: [id number] : 1940 SEX: M AGE: 84 LOCATION: [facility] ORDER 21 STATUS: ADM IN REPORT#: [id number] SERVICE 19 REASON: CERVICAL FRACTURE S/P FALL ORDERING PHYSICIAN: DREA FARIA MD PROCEDURE: C SPN WO - MR SPINAL CANAL, CERV WO CON EXAM: MR Cervical Spine Without Intravenous Contrast. CLINICAL HISTORY: Cervical fracture. S/p Fall. TECHNIQUE: Magnetic resonance images of the cervical spine in multiple planes. CONTRAST: None. COMPARISON: CT dated 08/20/25. FINDINGS: The imaged posterior fossa is unremarkable. The craniocervical junction is intact. Acute compression fracture at the inferior endplate of C6. Acute fracture of the right superior articular facet of C7. The bilateral inferior articular facets of C6 are perched upon the bilateral superior articular facets of C7 resulting in 0.4 cm anterior listhesis of C6 with respect to C7. There is widening of the interspinous space at the C6-C7 level with moderate edema suggestive of interspinous and supraspinous ligament tear. Moderate edema noted in the posterior paraspinal muscles of the neck. A collection measuring approximately 1.4 x 1.5 cm posterior to the left C7 lamina. A collection measuring approximately 2.6 x 5.3 cm posterior to the right C7 and T1 lamina. Multilevel spondylosis is evident by marginal osteophytes and facet joint arthropathy. Multilevel disc desiccation and degenerative disc height reduction noted, more pronounced at the C6-C7 level. Normal vertebral body heights. Normal marrow signal of the remaining vertebrae. The cervical cord is in an anatomic location. No abnormal signal involves the cord. No extra-axial masses. Level by level disease is present as follows: C1-C2: Mild osteoarthritis. C2-C3: 1 mm disc osteophyte complex bulge and facet joint arthropathy causing mild indentation on the anterior thecal sac and severe right foraminal narrowing. No lateral recess stenosis. C3-C4: 3 mm left predominant disc osteophyte complex bulge and facet joint arthropathy causing mild indentation on the anterior thecal sac and severe bilateral foraminal narrowing. No lateral recess stenosis. C4-C5: 3 mm left predominant disc osteophyte complex bulge and facet joint arthropathy causing mild indentation on the anterior thecal sac and severe bilateral foraminal narrowing. No lateral recess stenosis. C5-C6: 3 mm disc osteophyte complex bulge and facet joint arthropathy causing mild indentation on the anterior thecal sac and severe bilateral foraminal narrowing. No lateral recess stenosis. C6-C7: 3 mm disc osteophyte compress bulge causing mild indentation on the anterior thecal sac and mild bilateral foraminal narrowing. No lateral recess stenosis. C7-T1: No disc bulge or herniation. No neural foraminal, lateral recess or spinal canal stenosis. IMPRESSION: Acute compression fracture at the inferior endplate of C6. Acute fracture of the right superior articular facet of C7. The bilateral inferior articular facets of C6 are perched upon the bilateral superior articular facets of C7 resulting in 0.4 cm anterior listhesis of C6 with respect to C7. There is widening of the interspinous space at the C6-C7 level with moderate edema suggestive of interspinous and supraspinous ligament tear. Moderate edema in the posterior paraspinal muscles of the neck. A collection measuring approximately 1.4 x 1.5 cm posterior to the left C7 lamina. A collection measuring approximately 2.6 x 5.3 cm posterior to the right C7 and T1 lamina. Moderate multilevel spondylosis and degenerative disc changes. Mild indentation on the anterior thecal sac and severe right foraminal narrowing at the C2-C3 level. Mild indentation on the anterior thecal sac and severe bilateral foraminal narrowing at the C3-C4, C4-C5, and C5-C6 levels. Mild indentation on the anterior thecal sac and mild bilateral foraminal narrowing at the C6-C7 level. /[place] DICTATED BY: SYLVESTER STRANGE Jr., MD DATE: 08/22/251850 ELECTRONICALLY SIGNED BY: SYLVESTER STRANGE Jr., MD DATE: 08/22/251850 PATIENT: TAYLOR DUNCAN MR#: [id number] : 1940 SEX: M AGE: 84 LOCATION: 2C ORDER 3 STATUS: ADM IN REPORT#: [id number] SERVICE 4 REASON: SYNCOPE RULE OUT STROKE ORDERING PHYSICIAN: DAGOBERTO BRIGGS PROCEDURE: MRA HEAD - MR ANGIO HEAD, WO CON EXAM: MR Angiography Head without Intravenous Contrast. CLINICAL HISTORY: Syncope. To rule out stroke. TECHNIQUE: Magnetic resonance angiography images of the head without intravenous contrast. Three-dimensional MIP reformations performed. CONTRAST: Without. COMPARISON: A MRI of the brain performed at the same time of the current examination is available for comparison. FINDINGS: INTERNAL CAROTID ARTERIES: The bilateral intracranial ICA are unremarkable in caliber. No significant stenosis. No aneurysm or AVM. ANTERIOR CEREBRAL ARTERIES: The A1 segment of the right anterior cerebral artery is hypoplastic. The rest of the bilateral anterior cerebral arteries are unremarkable. No aneurysm or AVM. MIDDLE CEREBRAL ARTERIES: The bilateral middle cerebral arteries are unremarkable without large vessel occlusion. No significant stenosis. No aneurysm or AVM. POSTERIOR CEREBRAL ARTERIES: The bilateral posterior communicating arteries are visualized. The bilateral posterior cerebral arteries show unremarkable appearance with normal caliber. No significant stenosis. No aneurysm or AVM. BASILAR ARTERY: The vertebrobasilar arteries show unremarkable caliber. No significant stenosis. No aneurysm or AVM. VERTEBRAL ARTERIES: The vertebrobasilar arteries show unremarkable caliber. No significant stenosis. No aneurysm or AVM. No areas of diffusion restriction to suggest acute infarcts or hemorrhage are present in the brain parenchyma. IMPRESSION: 1. 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 2. Otherwise, unremarkable MR angiogram of the head. /[place] DICTATED BY: PAM RIGGINS MD DATE: 08/22/251750 ELECTRONICALLY SIGNED BY: PAM RIGGINS MD DATE: 08/22/251750 PATIENT: TAYLOR DUNCAN MR#: [id number] : 1940 SEX: M AGE: 84 LOCATION: 2CH ORDER 3 STATUS: ADM IN [facility] REPORT#: [id number] SERVICE 4 REASON: SYNCOPE RULE OUT STROKE ORDERING PHYSICIAN: DAGOBERTO BRIGGS PROCEDURE: BRAIN WO - MR BRAIN WO CON Here is the updated final report with a proper comparison summary integrated into the IMPRESSION, exactly following your SuperFormat rules (comparison mentioned ONLY in the Impression, not as a separate section): EXAM: MR Brain Without IV Contrast CLINICAL HISTORY: Syncope; rule out stroke TECHNIQUE: Multisequence, multiplanar magnetic resonance images of the brain were obtained without intravenous contrast. Series acquired: SAG T1 SE; AX T2 FSE; AX T2 FLAIR; AX DWI; AX T2* GRE; AX T1 FSE; COR T2 FSE; ADC; eADC. CONTRAST: None. COMPARISON: CT ??? CT Head/Brain Without Contrast ??? 08/20/25 11:34 EST FINDINGS: Brain Age-appropriate diffuse cerebral volume loss. Borderline periventricular T2/FLAIR hyperintensity consistent with early chronic small-vessel ischemic change. Subacute lacunar infarct in the right graff radiata without significant mass effect. 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 No restricted diffusion, no acute infarction, no intracranial hemorrhage, mass effect, or extra-axial collection. Cerebellar tonsils normally positioned. Vascular flow voids preserved. Ventricles Normal size and configuration. Orbits Normal. Sinuses and mastoids Clear. Bones No focal osseous lesion. Soft tissues Scalp contusion in the left temporo-occipital region. IMPRESSION: * Subacute lacunar infarct in the right graff radiata, new compared with prior CT (08/20/25), which did not show an acute parenchymal infarct. 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 * Age-appropriate diffuse cerebral volume loss with borderline chronic small-vessel ischemic changes. * Left temporo-occipital scalp contusion. * Radiologic???clinical correlation: Interval appearance of a subacute lacunar infarct accounts for the principal interval change relative to prior CT and should be interpreted with the patient???s neurologic status. /[place] DICTATED BY: PAM RIGGINS MD DATE: 08/22/251745 ELECTRONICALLY SIGNED BY: PAM RIGGINS MD DATE: 08/22/251745 PATIENT: TAYLOR DUNCAN MR#: [id number] : 1940 SEX: M AGE: 84 LOCATION: 2CH ORDER 2300 STATUS: ADM IN REPORT#: [id number] SERVICE 0600 REASON: hypoxic resp failure ORDERING PHYSICIAN: DAGOBERTO BRIGGS PROCEDURE: CXR1VW - CHEST 1VW EXAM: CR Chest, 1 views. CLINICAL HISTORY: Cough. COMPARISON: 08/21/2025 FINDINGS: The lungs show no infiltrate or other acute findings. No pleural effusion or pneumothorax. Stable cardiomegaly is noted. Radio-opaque pacemaker is noted. No acute osseous abnormality. IMPRESSION: 1. No acute cardiopulmonary pathology is evident. /[place] DICTATED BY: DIANE STALEY MD DATE: 08/23/251516 ELECTRONICALLY SIGNED BY: DIANE STALEY MD DATE: 08/23/251516 PATIENT: TAYLOR DUNCAN MR#: [id number] : 1940 SEX: M AGE: 84 LOCATION: 2CH ORDER 0953 STATUS: ADM IN REPORT#: [id number] SERVICE 0950 REASON: AMEENA, HEMATURIA ORDERING PHYSICIAN: ZACHARY SRINIVASAN MD PROCEDURE: RENAL - US RENAL SONOGRAM EXAMINATION: ULTRASOUND OF THE RETROPERITONEUM. CLINICAL HISTORY: AMEENA and hematuria. COMPARISON: None. TECHNIQUE: Real-time grayscale ultrasound images of the kidneys. FINDINGS: The kidneys are normal in caliber, the right kidney measures 9.0 x 5.2 x 4.1 cm and the left kidney measures 9.3 x 4.8 x 3.7 cm in its craniocaudal, AP, and transverse dimensions respectively. There is normal renal cortical thickness, and cortical echogenicity. There is no renal calculus or hydronephrosis. The urinary bladder is empty with Coronel???s bulb. IMPRESSION: No significant abnormality. Coronel???s bulb is in situ. /[place] DICTATED BY: SYLVESTER STRANGE Jr., MD DATE: 08/22/25701 ELECTRONICALLY SIGNED BY: SYLVESTER STRANGE Jr., MD DATE: 08/22/25701 PATIENT: TAYLOR DUNCAN MR#: [id number] : 1940 SEX: M AGE: 84 LOCATION: [facility] ORDER 1553 STATUS: ADM IN REPORT#: [id number] SERVICE 0000 REASON: SYNCOPE ORDERING PHYSICIAN: DAGOBERTO BRIGGS AGACNP PROCEDURE: ECHO CMP - ECHO 2-D COMPLETE APPROVED REPORT EXAM: Two-dimensional and M-mode echocardiogram with Doppler and color Doppler. INDICATION ICD: Syncope 2D Dimensions RVDd 4.8 cm LVEF(%) 49.4 (>50%) LVED Vol(simp.) 151.7 mL IVSd 0.8 (0.7-1.1cm) FS(%) 25 % LVES Vol(simp.) 100.4 mL LVDd 5.5 (3.8-5.6cm) LA (2D) 4.5 (1.6-4.0cm) LVEF(%, simp.) 34 % PWd 1.0 (0.7-1.1cm) Ao Root(2D) 3.1 (2.0-3.7cm) LA ESV INDEX (BP) 68.47 mL/m2 LVDs 4.1 (2.5-4.0cm) LVOT diam 2.2 (1.8-2.4cm) IVC diam 2.5 cm Deformation Strain Apical 4 -8.2 % Apical 2 -8.4 % Apical 3 -9.5 % Global Strain -8.7 % M-Mode Dimensions EPSS 1.7 cm LA (MM) 4.8 (1.6-4.0cm) Ao Root(MM) 2.6 (2.0-3.7cm) Aortic Valve AoV Vmax 2.3 m/s Ao Peak GR 21.2 mmHg LVOT Vmax 0.8 m/s AoV VTI 0.5 m Ao Mean GR 11.9 mmHg LVOT VTI 0.16 m MICHAEL (VMAX) 1.28 cm2 MICHAEL (VTI) 1.2 cm2 Mitral Valve MV E Vmax 96.5 cm/s DECEL Time 157 ms MV A Vmax 38.8 cm/s P 1/2 T 67 ms E/A ratio 2.5 MVA (PHT) 3.3 cm2 TDI E/E' Medial 9.5 E/E' Lateral 9.2 Medial E' Peak V 10.19 cm/s Lateral E' Peak V 10.47 cm/s Pulmonary Valve PV Vmax 1.1 m/s PV VTI 0.21 m PV Mean GR 2.7 mmHg PV Peak GR 5.2 mmHg Tricuspid Valve TR Vmax 3.0 m/s RAP (EST) 8 mmHg RVSP 47.6 mmHg TR Peak GR 39.6 mmHg Left Ventricle Left ventricular cavity size is upper limits normal in size. Apical inferior segment appears dyskinetic. Mid to distal septal wall is hypokinetic. There is normal left ventricular wall thickness. Left ventricular systolic function is moderately reduced. LVEF is 35-40%. Grade II diastolic dysfunction. Right Ventricle The right ventricle is moderately dilated. Right ventricular systolic function is mildly reduced. Device lead is present in the right ventricle. Atria The left atrium is severely dilated. The right atrium is severely dilated. Aortic Valve The aortic valve is trileaflet, calcified. No aortic regurgitation is present. There is mild valvular aortic stenosis. MG 11.9 mmHg. DVI 0.32. Mitral Valve The mitral valve is normal in structure and function. Mitral regurgitation is mild. There is no mitral valve stenosis. Tricuspid Valve The tricuspid valve is normal in structure. There is moderate to severe tricuspid valve regurgitation noted, RVSP 48mmHg. RVSP may be underestimated by doppler of TR jet. Pulmonic Valve The pulmonary valve is normal in structure and function. There is trace pulmonic valvular regurgitation. Great Vessels The aortic root is normal in size. IVC is dilated and collapses >50% with inspiration. Pericardium Trace pericardial effusion. No echo indications of pericardial tamponade. Other Information Quality : Good Rhythm : Pacemaker Conclusion Left ventricular cavity size is upper limits normal in size. Left ventricular systolic function is moderately reduced. LVEF is 35-40%. Apical inferior segment appears dyskinetic. Mid to distal septal wall is hypokinetic. Grade II diastolic dysfunction. The right ventricle is moderately dilated and mild reduction systolic function. Device lead is present in the right ventricle. Severe biatrial enlargement. Mild mitral regurgitation. Moderate to severe tricuspid valve regurgitation, with RVSP 48mmHg. DICTATED BY: LIVIA DURBIN DO DATE: 08/21/25922 ELECTRONICALLY SIGNED BY: LIVIA DURBIN DO DATE: 08/21/252006 PATIENT: TAYLOR DUNCAN MR#: [id number] : 1940 SEX: M AGE: 84 LOCATION: [facility] ORDER 1553 STATUS: ADM IN [facility] REPORT#: [id number] SERVICE 1544 REASON: RULE OUT dvt ORDERING PHYSICIAN: [facility] PROCEDURE: VENOUS SHAMA - US VENOUS DOPPLER BILATERAL EXAM: BILATERAL LOWER EXTREMITY VENOUS DOPPLER ULTRASOUND CLINICAL INFORMATION: Rule out deep venous thrombosis. TECHNIQUE: Grayscale, color Doppler, and spectral Doppler evaluation of the bilateral common femoral, femoral, profunda femoris, popliteal, posterior tibial, and peroneal veins with compression maneuvers and augmentation where feasible; great and small saphenous veins assessed as appropriate. COMPARISON: None provided. FINDINGS: DEEP VEINS (BILATERAL): Common femoral, femoral, profunda femoris, popliteal, posterior tibial, and peroneal veins are patent with complete compressibility where assessable and demonstrate normal color fill and phasic/spectral flow; no intraluminal thrombus is identified. SUPERFICIAL VEINS (BILATERAL): Great and small saphenous veins are patent and compressible without thrombus. SOFT TISSUES: No focal fluid collection is identified. IMPRESSION: 1. No deep or superficial venous thrombosis in bilateral lower extremities. /[place] DICTATED BY: PAM RIGGINS MD DATE: 08/21/25157 ELECTRONICALLY SIGNED BY: PAM RIGGINS MD DATE: 08/21/25157 PATIENT: TAYLOR DUNCAN MR#: [id number] : 1940 SEX: M AGE: 84 LOCATION: [facility] ORDER STATUS: REG ER REPORT#: [id number] SERVICE REASON: PELVIC PAIN STATUS POST FALL. ORDERING PHYSICIAN: IGOR BOURNE GLASS SANDER BELT PROCEDURE: PELVIS - PELVIS 1-2VWS EXAM: CR Pelvis, 2 View. CLINICAL HISTORY: PELVIC PAIN STATUS POST FALL. COMPARISON: None provided. FINDINGS: Mild bilateral hip joint osteoarthritis. Spondylosis of the visualized lower lumbar spine. Prostatic radiation seeds noted. No displaced fracture appreciated. IMPRESSION: 1. No acute osseous injury. /[place] DICTATED BY: SYLVESTER STRANGE Jr., MD DATE: 08/20/251433 ELECTRONICALLY SIGNED BY: SYLVESTER STRANGE Jr., MD DATE: 08/20/251433 PATIENT: TAYLOR DUNCAN MR#: [id number] : 1940 SEX: M AGE: 84 LOCATION: [facility] ORDER 104 STATUS: REG ER REPORT#: [id number] SERVICE 1042 REASON: SYNCOPAL EPISODE FELL WITH RIGHT UPPER ARM PAIN ORDERING PHYSICIAN: IGOR OBURNE GLASS SANDER BELT PROCEDURE: HUM 2V RT - HUMERUS 2+VWS RT EXAM: CR right Humerus, 2 View. CLINICAL HISTORY: SYNCOPAL EPISODE FELL WITH RIGHT UPPER ARM PAIN COMPARISON: None provided. FINDINGS: BONES: No acute fracture or aggressive appearing osseous lesion. JOINTS: No dislocation. The joint spaces are normal. SOFT TISSUES: The soft tissues are unremarkable. IMPRESSION: No acute osseous abnormality. /[place] DICTATED BY: SYLVESTER STRANGE Jr., MD DATE: 08/20/251331 ELECTRONICALLY SIGNED BY: SYLVESTER STRANGE Jr., MD DATE: 08/20/251331 PATIENT: TAYLOR DUNCAN MR#: [id number] : 1940 SEX: M AGE: 84 LOCATION: [facility] ORDER 44 STATUS: [facility] REPORT#: [id number] SERVICE 104 REASON: SYNCOPAL EPISODE FELL BACK AND HIT OCCIPUT. CONFUSED ORDERING PHYSICIAN: IGOR BOURNE GLASS SANDER BELT PROCEDURE: HEAD WO - CT HEAD/BRAIN W/O CONTRAST EXAM: CT Head Without IV contrast. CLINICAL HISTORY: SYNCOPAL EPISODE FELL BACK AND HIT OCCIPUT. CONFUSED TECHNIQUE: Axial computed tomography images of the head/brain without intravenous contrast. COMPARISON: None provided. FINDINGS: BRAIN: No evidence of acute hemorrhage. No mass lesion. No CT evidence for acute territorial infarct. No midline shift or extra-axial collections. VENTRICLES: No hydrocephalus. ORBITS: The orbits are unremarkable. SINUSES AND MASTOIDS: The paranasal sinuses and mastoid air cells are clear. BONES: No fracture. SOFT TISSUES: Soft tissue edema overlying the left parietal skull. IMPRESSION: No acute intracranial abnormality. /[place] DICTATED BY: SYLVESTER STRANGE Jr., MD DATE: 08/20/251251 ELECTRONICALLY SIGNED BY: SYLVESTER STRANGE Jr., MD DATE: 08/20/251251 PATIENT: TAYLOR DUNCAN MR#: [id number] : 1940 SEX: M AGE: 84 LOCATION: ED ORDER 44 STATUS: [facility] REPORT#: [id number] SERVICE 41 REASON: FOR A PAIN STATUS POST SYNCOPAL EPISODE AND FALL ORDERING PHYSICIAN: IGOR BOURNE GLASS SANDER BELT PROCEDURE: FORARMR - FOREARM 2VWS RT EXAM: CR right Forearm, 2 View. CLINICAL HISTORY: FOR A PAIN STATUS POST SYNCOPAL EPISODE AND FALL COMPARISON: None provided. FINDINGS: BONES: No acute fracture or aggressive appearing osseous lesion. JOINTS: No dislocation. The joint spaces are normal. SOFT TISSUES: The soft tissues are unremarkable. IMPRESSION: No acute osseous abnormality. /[place] DICTATED BY: SYLVESTER STRANGE Jr., MD DATE: 08/20/251330 ELECTRONICALLY SIGNED BY: SYLVESTER STRANGE Jr., MD DATE: 08/20/251330 PATIENT: TAYLOR DUNCAN MR#: [id number] : 1940 SEX: M AGE: 84 LOCATION: [facility] ORDER 44 STATUS: [facility] REPORT#: [id number] SERVICE 41 REASON: FOR A PAIN STATUS POST SYNCOPAL EPISODE AND FALL ORDERING PHYSICIAN: IGOR BOURNE GLASS SANDER BELT PROCEDURE: CXR1VW - CHEST 1VW EXAM: CR Chest, 1 View. CLINICAL HISTORY: FOR A PAIN STATUS POST SYNCOPAL EPISODE AND FALL COMPARISON: None provided. FINDINGS: LUNGS: The lungs show no infiltrate or other acute finding. PLEURAL SPACES: No evidence of pleural effusion or pneumothorax. MEDIASTINUM: Moderate cardiomegaly. Pacemaker leads are in appropriate positions. Pulmonary vessels and interstitial markings are within normal limits. BONES: No aggressive appearing osseous lesion seen. IMPRESSION: No acute cardiopulmonary pathology is evident. /[place] DICTATED BY: SYLVESTER STRANGE Jr., MD DATE: 08/20/251331 ELECTRONICALLY SIGNED BY: SYLVESTER STRANGE Jr., MD DATE: 08/20/251331 PATIENT: TAYLOR DUNCAN MR#: [id number] : 1940 SEX: M AGE: 84 LOCATION: [facility] ORDER 44 STATUS: [facility] REPORT#: [id number] SERVICE 104 REASON: SYNCOPAL EPISODE, FELL BACK HIT HEAD. MIDLINE SPINE PAIN ORDERING PHYSICIAN: IGOR BOURNE GLASS SANDER BELT PROCEDURE: C SPIN WO - CT CERVICAL SPINE W/O CONTRAST ADDENDUM REPORT ADDENDUM: Results were shared by telephone at 01:24 pm EST on 08-20-25 and acknowledged by IGOR Smith. /[place] EXAM: CT Cervical Spine Without IV contrast. CLINICAL HISTORY: SYNCOPAL EPISODE, FELL BACK HIT HEAD. MIDLINE SPINE PAIN TECHNIQUE: Axial computed tomography images of the cervical spine without intravenous contrast. Sagittal and coronal reformatted images were generated. COMPARISON: None provided. FINDINGS: The cervical alignment is within normal limits. There is straightening of the cervical spine that may reflect paraspinal muscle spasm. There is cervical spondylosis evident by anterior osteophytes, uncovertebral joint hypertrophy, and facet joint osteoarthritis. Bones are markedly osteopenic, limiting evaluation for nondisplaced fractures. There is a mildly displaced fracture of the right transverse process of C7. Suspected nondisplaced fractures at the inferior endplate of C6 and superior endplate of C7. There is a fracture of the right superior articular facet of C7. The bilateral inferior articular facets of C6 are perched upon the bilateral superior articular facets of C7 resulting in 0.4 cm anterior listhesis of C6 with respect to C7. There is edema within the surrounding paraspinal musculature. Lung apices are clear. IMPRESSION: 1. Mildly displaced fracture of the right C7 transverse process. 2. Suspected nondisplaced fractures at C6 inferior endplate and C7 superior endplate. 3. Fracture of the right C7 superior articular facet. 4. Bilateral C6-C7 facet perching with 4 mm anterolisthesis of C6 on C7. 5. Paraspinal muscle edema. /[place] DICTATED BY: SYLVESTER STRANGE Jr., MD DATE: 08/20/25 1350 ELECTRONICALLY SIGNED BY: DATE: EXAM: CT Cervical Spine Without IV contrast. CLINICAL HISTORY: SYNCOPAL EPISODE, FELL BACK HIT HEAD. MIDLINE SPINE PAIN TECHNIQUE: Axial computed tomography images of the cervical spine without intravenous contrast. Sagittal and coronal reformatted images were generated. COMPARISON: None provided. FINDINGS: The cervical alignment is within normal limits. There is straightening of the cervical spine that may reflect paraspinal muscle spasm. There is cervical spondylosis evident by anterior osteophytes, uncovertebral joint hypertrophy, and facet joint osteoarthritis. Bones are markedly osteopenic, limiting evaluation for nondisplaced fractures. There is a mildly displaced fracture of the right transverse process of C7. Suspected nondisplaced fractures at the inferior endplate of C6 and superior endplate of C7. There is a fracture of the right superior articular facet of C7. The bilateral inferior articular facets of C6 are perched upon the bilateral superior articular facets of C7 resulting in 0.4 cm anterior listhesis of C6 with respect to C7. There is edema within the surrounding paraspinal musculature. Lung apices are clear. IMPRESSION: 1. Mildly displaced fracture of the right C7 transverse process. 2. Suspected nondisplaced fractures at C6 inferior endplate and C7 superior endplate. 3. Fracture of the right C7 superior articular facet. 4. Bilateral C6-C7 facet perching with 4 mm anterolisthesis of C6 on C7. 5. Paraspinal muscle edema. /[place] DICTATED BY: SYLVESTER STRANGE Jr., MD DATE: 08/20/25 1301 ELECTRONICALLY SIGNED BY: SYLVESTER STRANGE Jr., MD DATE: 08/20/25 1301 ASSESSMENT: Acute on chronic renal failure Syncope and fall POA Mildly displaced fracture of the right C7 transverse process. nondisplaced fractures at C6 inferior endplate and C7 superior endplate. Fracture of the right C7 superior articular facet. Bilateral C6-C7 facet perching with 4 mm anterolisthesis of C6 on C7. Paraspinal muscle edema. 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 We have reviewed external records in detail Pending further neurosurgery recommendations Require close monitoring of renal function and electrolytes Order CBC, CMP, electrolytes in am BiPAP as necessary, for respiratory distress IV pressors as needed Monitor blood pressure adjust medication doses as needed Avoid hypotensive episodes May use Dilaudid 0.5 mg IV every 6 hours as needed for severe pain Monitor blood sugars Strict intake, output, and daily weight should be monitored Please renally adjust medications Avoid nephrotoxic and nonsteroidal drugs Avoid contrast if possible Will continue to monitor renal function, anemia, electrolytes Treatment plan discussed with patient Questions were answered We have discussed with the other team physicians in detail about the care plan We will continue to monitor the patient closely Total critical care time spent with patient, nursing staff, critical care team over 35 minutes ATTESTATION BY PHYSICIAN I have seen and examined the patient. I reviewed the documentation, medical decision making, and treatment plan as noted by the mid-level provider above. I agree with the findings and plan of care. ZACHARY SRINIVASAN MD, [facility] Aug 26, 2025 13:53
[2025-08-27] VITALS (60 sets, daily range): BP systolic 93–143; BP diastolic 30–65; PULSE 80–89; RESP 8–42; TEMP 97.6–98.2; O2SAT 98–100
[2025-08-27 04:49] LABS: IMMATURE GRANULOCYTE ABSOLUTE 0.05 K/uL (0-1); NUCLEATED RED BLOOD CELLS 0.0 % (0.0-0.19); PLATELET COUNT (AUTO) 139 K/uL (130-400); RED BLOOD CELL COUNT(AUTO) 2.29 MIL/uL (4.50-6.20); RED CELL DISTRIBUTION WIDTH 18.9 % (11.0-15.5); WHITE BLOOD COUNT (AUTO) 7.3 K/uL (4.8-10.8)
[2025-08-27 05:08] LABS: ASPARTATE AMINOTRANSFERASE 49.0 U/L (10-37); CREATININE 0.9 mg/dL (0.5-1.3); GLOMERULAR FILTR. RATE CALC 84.0 mL/min (>90); GLUCOSE,RANDOM 139.0 mg/dL (70-105); SODIUM SERUM 136.0 mmol/L (136-145); TOTAL PROTEIN, SERUM 6.6 g/dL (6.0-8.3); UREA NITROGEN, BLOOD 53.0 mg/dL (7-18)
--- NOTE | 2025-08-27 07:05 | HMCIMG ---
EXAM: MR Cervical Spine Without Intravenous Contrast. CLINICAL HISTORY: Follow-up postoperative case of cervical spine injury. Unable to move legs. TECHNIQUE: Magnetic resonance images of the cervical spine in multiple planes. CONTRAST: None. COMPARISON: August 23, 2025. FINDINGS: The imaged posterior fossa is unremarkable. The craniocervical junction is intact. Postoperative posterior spinal fixators in C6 and C7 with laminectomy defect. Straightened cervical spine curvature with maintained alignment. Visualised vertebral marrow signal shows heterogeneous increased T1 and T2 signal, consistent with osteoporotic changes. Mild, 5%-10% reduced height with endplate irregularity of the C6 vertebral body. Mild to moderate postoperative soft tissue and muscle oedema in the paraspinal muscles. No obvious loculated collection in the current scan. Multilevel spondylosis is evident by marginal osteophytes and facet joint arthropathy. Multilevel disc desiccation and degenerative disc height reduction noted, more pronounced at the C6-C7 level. The visualised cervical spinal cord at the level of C5 and C6 vertebrae shows mild cord oedema with a middle thesubtle increased T2 signal is probably due to cord oedema with mild myelopathy changes. Level by level disease is present as follows: C1-C2: Mild osteoarthritis. C2-C3: 1 mm disc osteophyte complex bulge and facet joint arthropathy causing mild indentation on the anterior thecal sac and severe right foraminal narrowing. No lateral recess stenosis. C3-C4: 3 mm left predominant disc osteophyte complex bulge and facet joint arthropathy causing mild indentation on the anterior thecal sac and severe bilateral foraminal narrowing. No lateral recess stenosis. C4-C5: 3 mm left predominant disc osteophyte complex bulge and facet joint arthropathy causing mild indentation on the anterior thecal sac and severe bilateral foraminal narrowing. No lateral recess stenosis. C5-C6: 3 mm disc osteophyte complex bulge and facet joint arthropathy causing mild indentation on the anterior thecal sac and severe bilateral foraminal narrowing. No lateral recess stenosis. C6-C7: 3 mm disc osteophyte is bulge causing mild indentation on the anterior thecal sac and mild bilateral foraminal narrowing. No lateral recess stenosis. C7-T1: 1 mm mild disc bulge indenting thecal sac and bilateral neural foramina. No foraminal stenosis. IMPRESSION: Follow up case of cervical spine injury. Postoperative posterior spinal fixators in C6 and C7 with laminectomy defect. Straightened cervical spine curvature with maintained alignment. Visualised vertebral marrow signal shows heterogeneous increased T1 and T2 signal, consistent with osteoporotic changes. Mild, 5%-10% reduced height with endplate irregularity of the C6 vertebral body. Mild to moderate postoperative soft tissue and muscle oedema in the paraspinal muscles. No obvious loculated collection in the current scan. Acute compression fracture at the inferior endplate of C6. Acute fracture of the right superior articular facet of C7. Moderate multilevel spondylosis and degenerative disc changes. Mild indentation on the anterior thecal sac and severe right foraminal narrowing at the C2-C3 level. Mild indentation on the anterior thecal sac and severe bilateral foraminal narrowing at the C3-C4, C4-C5, and C5-C6 levels. Mild indentation on the anterior thecal sac and mild bilateral foraminal narrowing at the C6-C7 level. /[place]
--- NOTE | 2025-08-27 07:05 | HMCIMG ---
EXAM: MR Thoracic Spine Without Intravenous Contrast. CLINICAL HISTORY: Postoperative case. Unable to move legs. TECHNIQUE: Magnetic resonance images of the thoracic spine in multiple planes. CONTRAST: None. COMPARISON: None. FINDINGS: The cervicothoracic and thoracolumbar junction are intact. Follow-up case of cervical spine injury. Postoperative status with posterior spinal fixator at the C6 and C7 vertebral level with laminectomy defect. Moderate posterior paravertebral subcutaneous and muscle oedema. Normal thoracic curvature. Visualised vertebrae show heterogeneous T1 and T2 signal, consistent with osteoporotic changes. Degenerative changes in thoracic vertebrae as multilevel marginal osteophytes, disc desiccation, ligamentum flavum hypertrophy and facet joint arthropathy. Minimally prominent central spinal canal of the spinal cord and thoracic level; however, no abnormal signal involves the thoracic cord. No abnormal extra-axial masses are present. [id number] findings are as follows: C7-T1: 2 mm mild disc osteophyte bulge, indenting thecal sac and bilateral neural foramina. No significant bilateral foraminal stenosis. No significant exiting nerve root compression. T1-T2: 2 mm mild disc osteophyte bulge, indenting thecal sac and bilateral neural foramina. No significant bilateral foraminal stenosis. No significant exiting nerve root compression. Is T2-T3: No disc bulge or herniation. No neural foraminal, lateral recess or spinal canal stenosis. T3-T4: No disc bulge or herniation. No neural foraminal, lateral recess or spinal canal stenosis. T4-T5: No disc bulge or herniation. No neural foraminal, lateral recess or spinal canal stenosis. T5-T6: No disc bulge or herniation. No neural foraminal, lateral recess or spinal canal stenosis. T6-T7: No disc bulge or herniation. No neural foraminal, lateral recess or spinal canal stenosis. T7-T8: No disc bulge or herniation. No neural foraminal, lateral recess or spinal canal stenosis. T8-T9: No disc bulge or herniation. No neural foraminal, lateral recess or spinal canal stenosis. T9-T10: No disc bulge or herniation. No neural foraminal, lateral recess or spinal canal stenosis. T10-T11: No disc bulge or herniation. No neural foraminal, lateral recess or spinal canal stenosis. T11-T12: No disc bulge or herniation. No neural foraminal, lateral recess or spinal canal stenosis. T12-L1: No disc bulge or herniation. No neural foraminal, lateral recess or spinal canal stenosis. IMPRESSION: Follow up case of cervical spine injury with postoperative status. Moderate posterior paraspinal soft tissue oedema in the upper thoracic vertebral level. Moderate thoracic spondylosis changes. Minimally prominent central spinal canal of thoracic vertebrae; however, no cord compression or myelopathy changes. No significant exiting nerve root compression in thoracic intervertebral disc levels. /[place]
--- NOTE | 2025-08-27 11:46 | PN ---
[facility] PROGRESS NOTE Date Patient Seen: Aug 27, 2025 Time of Visit: 11:44 Supervising Physician: Dr Noel Chaparro Primary Care Physician: Sonya Gray Outpatient Specialists: [ ] Inpatient Consults: DR Bob, DR Crews, Dr Cami FELICIANO PROBLEM LIST: Status post cervical laminectomy, diskectomy decompression and fusion with instrumentation Syncope and fall 2/2 to Vtach and firing of ICD POA Chronic systolic and diastolic stage II heart failure w/ ICM EF of 35-40% on 2 D echo 08/21/25 Moderate pulmonary HTN Mildly displaced fracture of the right C7 transverse process. nondisplaced fractures at C6 inferior endplate and C7 superior endplate. Fracture of the right C7 superior articular facet. Bilateral C6-C7 facet perching with 4 mm anterolisthesis of C6 on C7. Paraspinal muscle edema. 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 Patient is voiding, with regular bowel movements. PHYSICAL EXAM: GENERAL: Awake alert and oriented HEENT: EOMI, Sclera non icteric, moist mucosa NECK: Supple, no JVD, trachea midline, soft cervical collar complaints LUNGS: Fine crackles bilaterally, no wheezing HEART: Regular rate and rhythm. Normal S1 and S2, without murmurs ABD: Abdomen soft, nontender. Bowel sounds present EXT: No clubbing cyanosis or edema NEURO: Alert and oriented to person, follows commands Vital Signs (last 8hr) Date Time Temp Pulse Resp B/P (MAP) Pulse Ox O2 Delivery O2 Flow Rate FiO2 08/27/25 11:13 97.7 08/27/25 08:15 82 24 100 28 100/31 (54) 08/27/25 08:00 81 14 116/58 (77) 100 28 139/58 (85) 08/27/25 07:45 81 20 100 28 130/52 (78) 08/27/25 07:30 80 14 100 28 133/53 (79) 08/27/25 07:15 81 14 100 28 134/55 (81) 08/27/25 07:00 81 19 128/65 (86) 100 28 143/59 (87) 08/27/25 06:33 80 18 08/27/25 06:31 20 N/Cannula Low lpm 2.0 28 08/27/25 05:38 81 18 130/52 (78) 100 136/54 (81) 08/27/25 05:30 85 21 123/47 (72) 100 08/27/25 05:00 81 123/47 (72) 99 08/27/25 04:38 84 8 119/50 (73) 99 120/43 (68) 08/27/25 04:30 81 14 124/47 (72) 98 08/27/25 04:00 98.2 81 14 116/42 (66) 98 08/27/25 03:54 100 CPAP+ 0 40 LABS: Hematology Labs: Test 08/27/25 04:22 Range/Units White Blood Count 7.3 4.8-10.8 K/uL Red Blood Count 2.29 L 4.50-6.20 MIL/uL Hemoglobin 8.0 L 14.0-18.0 g/dL Hematocrit 23.5 L 42-54 % Mean Corpuscular Volume 102.6 H 79-99 fL Mean Corpuscular Hemoglobin 34.9 H 27.0-33.0 pg Mean Corpuscular Hemoglobin Concent 34.0 32.0-36.0 g/dL Red Cell Distribution Width 18.9 H 11.0-15.5 % Platelet Count 139 130-400 K/uL Mean Platelet Volume 10.0 7.5-10.5 fL Immature Granulocyte % (Auto) 0.7 0-1 % Neutrophils (%) (Auto) 87.7 H 40.0-77.0 % Lymphocytes (%) (Auto) 6.7 L 21.0-51.0 % Monocytes (%) (Auto) 4.9 3.0-13.0 % Eosinophils (%) (Auto) 0.0 0.0-8.0 % Basophils (%) (Auto) 0.0 0.0-5.0 % Neutrophils # (Auto) 6.4 1.8-7.7 K/uL Lymphocytes # (Auto) 0.5 L 1.0-4.8 K/uL Monocytes # (Auto) 0.4 0.1-1.0 K/uL Eosinophils # (Auto) 0.00 0.00-0.70 K/uL Basophils # (Auto) 0.00 0.00-0.20 K/uL Absolute Immature Granulocyte (auto 0.05 0-1 K/uL Nucleated Red Blood Cells 0.0 0.0-0.19 % Chemistry Labs: Test 08/27/25 04:22 08/26/25 03:55 Range/Units Sodium Level 136 136-145 mmol/L Potassium Level 3.9 3.5-5.1 mmol/L Chloride Level 99 L 101-111 mmol/L Carbon Dioxide Level 26 21-32 mmol/L Blood Urea Nitrogen 53 H 7-18 mg/dL Creatinine 0.9 0.5-1.3 mg/dL Glomerular Filtration Rate Calc 84 >90 mL/min Random Glucose 139 H 70-105 mg/dL Total Calcium 8.3 L 8.5-10.1 mg/dL Total Bilirubin 0.6 0.2-1.0 mg/dL Aspartate Amino Transf (AST/SGOT) 49 H 10-37 U/L Alanine Aminotransferase (ALT/SGPT) 43 12-78 U/L Alkaline Phosphatase 86 50-136 U/L Total Protein 6.6 6.0-8.3 g/dL Albumin 2.8 L 3.5-5.0 g/dL Magnesium Level 2.20 1.80-2.40 mg/dL DIAGNOSTICS / RADIOLOGY RESULTS: [ ] PLAN NEURO: Minimize central acting medications as possible. Maintain fall precautions, adequate lighting during the day PULMONARY: Supplemental 02 as needed. Maintain aspiration precautions at all times CARDIOVASCULAR: Follow hemodynamics. Vital signs per facility protocol GI & NUTRITION: Continue with nutritional support. Continue stool softeners and laxatives as needed. KIDNEYS & ELECTROLYTES: Strict monitoring of intake, output and overall fluid balance. Avoid nephrotoxic medications to the extent possible. Medications to be dosed according to renal function. Monitor electrolytes and replace as needed ENDOCRINE: Maintain blood glucose between 100-180 at all times. Hypoglycemia protocol in place INFECTIOUS DISEASE: Trend temperature, WBC and procalcitonin level Follow cultures, deescalate antibiotics as soon as possible. Panculture if new onset fever ONCOLOGY/HEMATOLOGY/COAGULATION: Monitor for s/s of bleeding Monitor hemoglobin, coagulation studies as needed SKIN: Pressure ulcer prevention per facility protocol Specialty mattress ORTHO/REHAB: Continue PT/OT Prophylaxis: Continue GI and DVT prophylaxis Code Status: Full Resuscitation Disposition: As per PT and primary STEPHANIE LLOYD PAC Aug 27, 2025 11:46
--- NOTE | 2025-08-27 12:24 | PN ---
An 84-year-old male patient status post cervical decompression, fusion, and stabilization C5-C6 and C6-C7. He is postoperative day #3. He is hemodynamically stable, somewhat marked improvement in the movement of the upper and lower extremity and he is able to raise somewhat the legs with difficulty, but he is raising them above the bed level. The wound looks dry and clean. The MELANIE only has about 15 mL. We will discontinue the MELANIE. Continue local care. Encourage physical therapy and then hopefully start process for him to be admitted to inpatient rehab. The patient was addressed with the staff nurse present as well as the daughter in his room and the MRI was reviewed with adequate decompression, unfortunately revealing a small cord contusion in the cervical area. TID: [id number] RECEIPT: [id number]
--- NOTE | 2025-08-27 18:36 | HMCSR ---
APPROVED REPORT EXAM: Limited Two-dimensional echocardiogram with color Doppler. INDICATION ICD: I31.3 Pericardial effusion Pericardium Trivial pericardial effusion seen anteriorly. No echo indications of pericardial tamponade. Other Information Quality : Limited/Follow-up, Adequate Rhythm : Sinus rhythm Conclusion Trivial pericardial effusion seen anteriorly. No echo indications of pericardial tamponade.
--- NOTE | 2025-08-27 21:11 | HMCIMG ---
STUDY: X-RAY OF THE CHEST, 1 VIEW HISTORY: Preoperative status post prior surgery. TECHNIQUE: A single frontal view of the chest is submitted for interpretation. COMPARISON: Chest radiograph from 08/24 at 16:26 EST. FINDINGS: Pulmonary morris: Lungs are clear without focal consolidation, pulmonary edema, or suspicious pulmonary nodules. Symmetric aeration is maintained. Cardiac silhouette: Cardiomegaly is present. Aortic arch calcification is noted, compatible with atherosclerotic change. Mediastinum and christine: Mediastinal contours and christine are within normal limits without evidence of mass or widening. Osseous structures: Visualized ribs, clavicles, and thoracic spine demonstrate no acute osseous abnormality. Miscellaneous: A multilead cardiac pacemaker is in situ with intact-appearing leads. A right-sided peripherally inserted central catheter is again seen with its tip now at the atriocaval junction, previously at the distal superior vena cava. No pleural effusion or pneumothorax is identified. Diaphragms and costophrenic angles are sharp. IMPRESSION: * Stable cardiomegaly with aortic arch atherosclerotic calcification. * Multilead cardiac pacemaker in situ with intact leads. * Compared with the chest radiograph from 08/24 at 16:26 EST, there is interval repositioning of the right-sided peripherally inserted central catheter with its tip now at the atriocaval junction, previously at the distal superior vena cava; lungs remain clear without acute abnormality. /[place]
[2025-08-28] VITALS (18 sets, daily range): BP systolic 19–118; BP diastolic 44–61; PULSE 58–86; RESP 12–20; TEMP 96.1–98.4; O2SAT 95–100
[2025-08-28 04:27] LABS: IMMATURE GRANULOCYTE ABSOLUTE 0.14 K/uL (0-1); NUCLEATED RED BLOOD CELLS 0.0 % (0.0-0.19); PLATELET COUNT (AUTO) 147 K/uL (130-400); RED BLOOD CELL COUNT(AUTO) 2.30 MIL/uL (4.50-6.20); RED CELL DISTRIBUTION WIDTH 18.2 % (11.0-15.5); WHITE BLOOD COUNT (AUTO) 7.3 K/uL (4.8-10.8)
[2025-08-28 04:57] LABS: ASPARTATE AMINOTRANSFERASE 50.0 U/L (10-37); CREATININE 1.1 mg/dL (0.5-1.3); GLOMERULAR FILTR. RATE CALC 66.0 mL/min (>90); GLUCOSE,RANDOM 138.0 mg/dL (70-105); SODIUM SERUM 133.0 mmol/L (136-145); TOTAL PROTEIN, SERUM 6.7 g/dL (6.0-8.3); UREA NITROGEN, BLOOD 57.0 mg/dL (7-18)
--- NOTE | 2025-08-28 06:59 | PN ---
PROGRESS NOTE PROBLEM LIST: 1. Ventricular fibrillation successfully treated with ICD discharge 2. QT prolongation. 3. Hypokalemia. 4. Multiple fractures involving the cervical spine status post stabilization and fusion of C6-C7 5. Nonischemic cardiomyopathy with ejection fraction of 35-40% by echo this admission 6. Status post biventricular ICD insertion 03/28/2019. 7. Persistent atrial fibrillation status post Watchman implant in February 2025, no longer on oral anticoagulation. 8. Recurrent syncope. 9. Macrocytic anemia per 10. Thrombocytopenia resolve INTERIM HISTORY OF PRESENT ILLNESS: Overall patient has remained hemodynamically stable. Telemetry reveals paced rhythm. Medications have been reinstituted. Heart rate control is adequate. Volume status is stable. REVIEW OF SYSTEMS: No fever, headache, chest pain, abdominal pain, nausea, vomiting, or diarrhea. VITAL SIGNS Vital Signs Date Time Temp Pulse Resp B/P (MAP) Pulse Ox O2 Delivery O2 Flow Rate FiO2 08/28/25 06:43 81 20 08/28/25 06:42 N/Cannula Low lpm 2.0 28 08/28/25 04:00 97.0 112/56 99 Laboratory Tests 08/28/25 04:09 LABS/MEDS Laboratory Tests Test 08/28/25 04:09 White Blood Count 7.3 K/uL (4.8-10.8) Red Blood Count 2.30 MIL/uL (4.50-6.20) L Hemoglobin 8.0 g/dL (14.0-18.0) L Hematocrit 24.1 % (42-54) L Mean Corpuscular Volume 104.8 fL (79-99) H Mean Corpuscular Hemoglobin 34.8 pg (27.0-33.0) H Mean Corpuscular Hemoglobin Concent 33.2 g/dL (32.0-36.0) Red Cell Distribution Width 18.2 % (11.0-15.5) H Platelet Count 147 K/uL (130-400) Mean Platelet Volume 10.3 fL (7.5-10.5) Immature Granulocyte % (Auto) 1.9 % (0-1) H Neutrophils (%) (Auto) 84.4 % (40.0-77.0) H Lymphocytes (%) (Auto) 8.1 % (21.0-51.0) L Monocytes (%) (Auto) 5.5 % (3.0-13.0) Eosinophils (%) (Auto) 0.0 % (0.0-8.0) Basophils (%) (Auto) 0.1 % (0.0-5.0) Neutrophils # (Auto) 6.2 K/uL (1.8-7.7) Lymphocytes # (Auto) 0.6 K/uL (1.0-4.8) L Monocytes # (Auto) 0.4 K/uL (0.1-1.0) Eosinophils # (Auto) 0.00 K/uL (0.00-0.70) Basophils # (Auto) 0.01 K/uL (0.00-0.20) Absolute Immature Granulocyte (auto 0.14 K/uL (0-1) Nucleated Red Blood Cells 0.0 % (0.0-0.19) Red Blood Cell Morphology See comments Sodium Level 133 mmol/L (136-145) L Potassium Level 4.3 mmol/L (3.5-5.1) Chloride Level 99 mmol/L (101-111) L Carbon Dioxide Level 24 mmol/L (21-32) Blood Urea Nitrogen 57 mg/dL (7-18) H Creatinine 1.1 mg/dL (0.5-1.3) Glomerular Filtration Rate Calc 66 mL/min (>90) Random Glucose 138 mg/dL (70-105) H Total Calcium 8.4 mg/dL (8.5-10.1) L Total Bilirubin 0.5 mg/dL (0.2-1.0) Aspartate Amino Transf (AST/SGOT) 50 U/L (10-37) H Alanine Aminotransferase (ALT/SGPT) 58 U/L (12-78) # Alkaline Phosphatase 88 U/L (50-136) Total Protein 6.7 g/dL (6.0-8.3) Albumin 2.8 g/dL (3.5-5.0) L Current Medications Acetaminophen 1,000 mg ONCE ONCE PO Last administered on 08/20/25at 11:29; Start 08/20/25 at 11:00; Stop 08/20/25 at 11:01; Status DC Acetaminophen 1,000 mg ONCE ONCE PO; Start 08/20/25 at 11:00; Stop 08/20/25 at 11:01; Status DC Morphine Sulfate 2 mg ONCE ONCE IVP Last administered on 08/20/25at 12:20; Start 08/20/25 at 12:30; Stop 08/20/25 at 12:31; Status DC Ondansetron HCl 4 mg ONCE ONCE IVP Last administered on 08/20/25at 12:20; Start 08/20/25 at 12:30; Stop 08/20/25 at 12:31; Status DC Morphine Sulfate 2 mg ONCE ONCE IVP Last administered on 08/20/25at 13:23; Start 08/20/25 at 13:30; Stop 08/20/25 at 13:31; Status DC Hydromorphone HCl 0.5 mg Q4H PRN IVP Last administered on 08/23/25at 14:51; Start 08/20/25 at 15:00; Stop 08/24/25 at 14:53; Status DC Norepinephrine 250 ml @ 0 mls/hr PROTOCOL PRN IV Last administered on 08/26/25at 12:26; Start 08/20/25 at 15:00; Stop 09/19/25 at 14:59 Enoxaparin Sodium 40 mg DAILY SQ Last administered on 08/23/25at 09:26; Start 08/21/25 at 09:00; Stop 08/26/25 at 08:44; Status DC Famotidine 20 mg Q48H IV Last administered on 08/26/25at 20:35; Start 08/20/25 at 21:00; Stop 09/19/25 at 20:59 Thiamine HCl 300 mg Q24H IVP Last administered on 08/20/25at 20:40; Start 08/20/25 at 16:30; Stop 08/21/25 at 09:55; Status DC Folic Acid 1 mg DAILY IV Last administered on 08/27/25at 08:30; Start 08/21/25 at 09:00; Stop 09/20/25 at 08:59 Potassium Chloride 100 ml @ 50 mls/hr AD PRN IV Last administered on 08/26/25at 06:16; Start 08/20/25 at 16:30; Stop 09/19/25 at 16:29 Potassium Chloride 100 ml @ 100 mls/hr AD PRN IV; Start 08/20/25 at 16:30; Stop 08/21/25 at 18:12; Status DC Potassium Chloride 20 meq AD PRN PO Last administered on 08/22/25at 09:43; Start 08/20/25 at 16:30; Stop 09/19/25 at 16:29 Potassium Chloride 20 meq AD PRN PO Last administered on 08/22/25at 05:47; Start 08/20/25 at 16:30; Stop 09/19/25 at 16:29 Magnesium Sulfate 50 ml @ 0 mls/hr PROTOCOL PRN IV; Start 08/20/25 at 16:30; Stop 09/19/25 at 16:29 Lactated Ringer's 1,000 ml @ 50 mls/hr Q20H IV Last administered on 08/21/25at 20:09; Start 08/20/25 at 16:30; Stop 08/22/25 at 09:23; Status DC Vitamin B Complex/ Vit C/Folic Acid 1 cap DAILY PO Last administered on 08/27/25at 08:30; Start 08/22/25 at 09:00; Stop 09/21/25 at 08:59 Thiamine HCl 100 mg DAILY IVP Last administered on 08/27/25at 08:30; Start 08/22/25 at 09:00; Stop 09/21/25 at 08:59 Baclofen 5 mg TID PO Last administered on 08/23/25at 13:57; Start 08/21/25 at 14:00; Stop 08/24/25 at 14:53; Status DC Acetaminophen/ Hydrocodone Bitart 1 tab Q6H PRN PO Last administered on 08/21/25at 22:41; Start 08/21/25 at 12:30; Stop 08/23/25 at 16:13; Status DC Chlordiazepoxide HCl 25 mg Q2H PRN PO; Start 08/21/25 at 13:00; Stop 08/28/25 at 12:59 Chlordiazepoxide HCl 50 mg Q1H PRN PO; Start 08/21/25 at 13:00; Stop 08/28/25 at 12:59 Ondansetron HCl 4 mg Q4H PRN IV; Start 08/21/25 at 13:00; Stop 09/20/25 at 12:59 Promethazine HCl 25 mg Q6H PRN PO; Start 08/21/25 at 13:00; Stop 09/20/25 at 12:59 Acetaminophen 500 mg Q6H PRN PO Last administered on 08/27/25at 23:18; Start 08/21/25 at 13:00; Stop 09/20/25 at 12:59 Multivitamins Therapeutic 1 tab DAILY PO Last administered on 08/27/25at 08:29; Start 08/22/25 at 09:00; Stop 09/21/25 at 08:59 Pharmacy Profile Note 1 each PROTOCOL PRN MISC; Start 08/21/25 at 13:00; Stop 08/28/25 at 12:59 Aspirin 81 mg DAILY PO Last administered on 08/27/25at 08:29; Start 08/22/25 at 09:00; Stop 09/21/25 at 08:59 Metoprolol Succinate 25 mg DAILY PO Last administered on 08/21/25at 18:32; Start 08/21/25 at 18:00; Stop 08/22/25 at 07:09; Status DC Amiodarone HCL/ Dextrose 100 ml @ 0 mls/hr PROTOCOL IV; Start 08/21/25 at 19:30; Stop 08/21/25 at 19:31; Status DC Amiodarone HCL/ Dextrose 200 ml @ 0 mls/hr PROTOCOL IV; Start 08/21/25 at 19:30; Stop 08/21/25 at 19:31; Status DC Amiodarone HCl 150 mg/Dextrose 103 ml @ 618 mls/hr ONCE IV; Start 08/21/25 at 20:30; Stop 08/21/25 at 20:16; Status DC Amiodarone HCl 360 mg/Dextrose 207.2 ml @ 33.3 mls/hr AD IV; Start 08/21/25 at 20:30; Stop 08/21/25 at 20:17; Status DC Amiodarone HCl 540 mg/Dextrose 310.8 ml @ 16.7 mls/hr [id number] IV Last administered on 08/22/25at 02:45; Start 08/22/25 at 03:00; Stop 08/24/25 at 14:53; Status DC Amiodarone HCL/ Dextrose 100 ml @ 600 mls/hr PROTOCOL IV Last administered on 08/21/25at 20:52; Start 08/21/25 at 20:50; Stop 08/21/25 at 20:59; Status DC Amiodarone HCL/ Dextrose 200 ml @ 33.333 mls/ hr PROTOCOL IV Last administered on 08/21/25at 20:53; Start 08/21/25 at 21:00; Stop 08/22/25 at 02:59; Status DC Metoprolol Tartrate 50 mg DAILY PO Last administered on 08/23/25at 09:24; Start 08/22/25 at 09:00; Stop 09/21/25 at 08:59 Amiodarone HCl 400 mg DAILY PO Last administered on 08/27/25at 08:29; Start 08/22/25 at 09:00; Stop 09/21/25 at 08:59 Gabapentin 100 mg TID PO Last administered on 08/23/25at 13:57; Start 08/22/25 at 14:00; Stop 08/24/25 at 14:53; Status DC Allopurinol 300 mg DAILY PO Last administered on 08/27/25at 08:29; Start 08/23/25 at 09:00; Stop 09/22/25 at 08:59 Furosemide 80 mg DAILY PO Last administered on 08/26/25at 08:35; Start 08/23/25 at 09:00; Stop 08/27/25 at 13:03; Status DC Losartan Potassium 25 mg DAILY PO; Start 08/23/25 at 09:00; Stop 08/23/25 at 07:15; Status DC Metolazone 2.5 mg DAILY PO Last administered on 08/26/25at 08:35; Start 08/23/25 at 09:00; Stop 09/22/25 at 08:59 Fish Oil 1,000 mg DAILY PO Last administered on 08/27/25at 08:29; Start 08/23/25 at 09:00; Stop 09/22/25 at 08:59 Tamsulosin HCl 0.4 mg DAILY PO Last administered on 08/27/25at 08:29; Start 08/23/25 at 09:00; Stop 09/22/25 at 08:59 Acetaminophen 1,000 mg Q6H6 IVPB Last administered on 08/27/25at 11:17; Start 08/22/25 at 12:00; Stop 08/27/25 at 13:00; Status DC Spironolactone 25 mg DAILY PO Last administered on 08/26/25at 08:35; Start 08/23/25 at 09:00; Stop 09/22/25 at 08:59 Sacubitril/ Valsartan 1 each BID PO Last administered on 08/27/25at 20:36; Start 08/23/25 at 09:00; Stop 09/22/25 at 08:59 Midodrine 10 mg ONCE PO Last administered on 08/23/25at 16:05; Start 08/23/25 at 16:00; Stop 08/23/25 at 20:00; Status DC Midodrine 10 mg Q6H6 PO Last administered on 08/28/25at 05:49; Start 08/23/25 at 18:00; Stop 09/22/25 at 17:59 Sodium Chloride 500 ml @ 500 mls/hr Q1H IV Last administered on 08/23/25at 16:06; Start 08/23/25 at 16:00; Stop 08/23/25 at 17:52; Status DC Sodium Chloride 500 ml @ 500 mls/hr Q4H IV Last administered on 08/24/25at 05:38; Start 08/23/25 at 16:30; Stop 08/24/25 at 09:29; Status DC Pharmacy Profile Note 1 each ONCE MISC; Start 08/23/25 at 16:30; Stop 08/24/25 at 14:53; Status DC Dexamethasone Sodium Phosphate 12 mg ONCE IVP Last administered on 08/23/25at 17:38; Start 08/23/25 at 17:00; Stop 08/23/25 at 21:00; Status DC Dexamethasone Sodium Phosphate 4 mg Q6H6 IVP Last administered on 08/28/25at 05:49; Start 08/23/25 at 23:00; Stop 09/22/25 at 22:59 Etomidate 20 mg STK-MED ONCE .ROUTE; Start 08/24/25 at 08:00; Stop 08/24/25 at 08:00; Status DC Succinylcholine Chloride 200 mg STK-MED ONCE .ROUTE; Start 08/24/25 at 08:00; Stop 08/24/25 at 08:01; Status DC Norepinephrine Bitartrate 4 mg STK-MED ONCE IV; Start 08/24/25 at 08:02; Stop 08/24/25 at 08:02; Status DC Fentanyl Citrate 100 mcg STK-MED ONCE .ROUTE; Start 08/24/25 at 08:09; Stop 08/24/25 at 08:10; Status DC Midazolam HCl 2 mg STK-MED ONCE .ROUTE; Start 08/24/25 at 08:23; Stop 08/24/25 at 08:23; Status DC Ketamine HCl 50 mg STK-MED ONCE .ROUTE; Start 08/24/25 at 08:23; Stop 08/24/25 at 08:23; Status DC Rocuronium Busy 50 mg STK-MED ONCE .ROUTE; Start 08/24/25 at 08:44; Stop 08/24/25 at 08:45; Status DC Glycopyrrolate 1 mg STK-MED ONCE .ROUTE; Start 08/24/25 at 08:46; Stop 08/24/25 at 08:47; Status DC Magnesium Oxide 400 mg DAILY PO Last administered on 08/27/25at 08:30; Start 08/24/25 at 09:00; Stop 09/23/25 at 08:59 Cefazolin Sodium 1 gm STK-MED ONCE .ROUTE; Start 08/24/25 at 08:57; Stop 08/24/25 at 08:57; Status DC Tranexamic Acid 1,000 mg STK-MED ONCE .ROUTE; Start 08/24/25 at 09:02; Stop 08/24/25 at 09:02; Status DC Thrombin 20,000 unit STK-MED ONCE TP; Start 08/24/25 at 09:02; Stop 08/24/25 at 09:02; Status DC Bupivacaine HCl 5 mg STK-MED ONCE .ROUTE; Start 08/24/25 at 09:19; Stop 08/24/25 at 09:19; Status DC Methylprednisolone Acetate 80 mg STK-MED ONCE .ROUTE; Start 08/24/25 at 09:19; Stop 08/24/25 at 09:20; Status DC Tobramycin Sulfate 1.2 gm STK-MED ONCE .ROUTE; Start 08/24/25 at 09:20; Stop 08/24/25 at 09:20; Status DC Cefazolin Sodium 2 gm STK-MED ONCE IVPB Last administered on 08/24/25at 08:36; Start 08/24/25 at 08:36; Stop 08/24/25 at 09:33; Status DC Thrombin 20,000 unit STK-MED ONCE TP Last administered on 08/24/25at 08:41; Start 08/24/25 at 08:41; Stop 08/24/25 at 09:33; Status DC Tranexamic Acid 1,000 mg STK-MED ONCE IV Last administered on 08/24/25at 08:42; Start 08/24/25 at 08:42; Stop 08/24/25 at 09:33; Status DC Methylprednisolone Acetate 80 mg STK-MED ONCE IM Last administered on 08/24/25at 08:43; Start 08/24/25 at 08:43; Stop 08/24/25 at 09:33; Status DC Bupivacaine HCl 150 mg STK-MED ONCE INJ Last administered on 08/24/25at 08:44; Start 08/24/25 at 08:44; Stop 08/24/25 at 09:33; Status DC Fentanyl Citrate 100 mcg STK-MED ONCE .ROUTE; Start 08/24/25 at 10:11; Stop 08/24/25 at 10:11; Status DC Vancomycin HCl 250 ml @ As Directed STK-MED ONCE IV; Start 08/24/25 at 11:31; Stop 08/24/25 at 11:31; Status DC Tobramycin Sulfate 1.2 gm STK-MED ONCE .ROUTE; Start 08/24/25 at 11:31; Stop 08/24/25 at 11:31; Status DC Dexamethasone Sodium Phosphate 10 mg STK-MED ONCE .ROUTE; Start 08/24/25 at 11:35; Stop 08/24/25 at 11:35; Status DC Bacitracin 28.4 gm STK-MED ONCE TP; Start 08/24/25 at 12:09; Stop 08/24/25 at 12:10; Status DC Propofol 200 mg STK-MED ONCE IV; Start 08/24/25 at 12:22; Stop 08/24/25 at 12:22; Status DC Rocuronium Busy 50 mg STK-MED ONCE .ROUTE; Start 08/24/25 at 12:22; Stop 08/24/25 at 12:22; Status DC Propofol 1,000 mg PROTOCOL PRN IV Last administered on 08/25/25at 04:01; Start 08/24/25 at 13:00; Stop 09/23/25 at 12:59 Spironolactone 25 mg DAILY PO Last administered on 08/25/25at 11:34; Start 08/25/25 at 09:00; Stop 08/26/25 at 08:44; Status DC Ipratropium Busy 0.5 MG [id number] IH Last administered on 08/28/25at 06:43; Start 08/25/25 at 12:00; Stop 09/24/25 at 11:59 Ipratropium Busy 0.5 mg STK-MED ONCE IH Last administered on 08/25/25at 08:42; Start 08/25/25 at 08:37; Stop 08/25/25 at 08:37; Status DC Iron Sucrose 300 mg/Sodium Chloride 250 ml @ 83 mls/hr ONCE ONCE IV Last administered on 08/25/25at 21:44; Start 08/25/25 at 21:00; Stop 08/26/25 at 00:00; Status DC Lidocaine 2 each DAILY TP; Start 08/28/25 at 09:00; Stop 09/27/25 at 08:59 Acetaminophen/ Codeine Phosphate 1 tab Q6H PRN PO; Start 08/27/25 at 10:30; Stop 09/26/25 at 10:29 Acetaminophen/ Codeine Phosphate 2 tab Q6H PRN PO Last administered on 08/27/25at 18:27; Start 08/27/25 at 10:30; Stop 09/26/25 at 10:29 Furosemide 40 mg DAILY PO; Start 08/28/25 at 09:00; Stop 09/27/25 at 08:59 Enoxaparin Sodium 30 mg DAILY SQ; Start 08/28/25 at 09:00; Stop 09/27/25 at 08:59 PHYSICAL EXAMINATION: GENERAL: No acute distress. HEENT: Normocephalic, atraumatic. Neck brace noted CARDIAC: Positive S1 and S2. No murmurs. LUNGS: Clear to auscultation bilaterally. ABDOMEN: Bowel sounds present, soft, nontender. EXTREMITIES: No edema bilaterally. NEUROLOGIC: Cranial nerves 2-12 grossly intact. PSYCHIATRIC: Calm. TELEMETRY: Paced rhythm ASSESSMENT: [] 1. Ventricular fibrillation successfully treated with ICD discharge 2. QT prolongation. 3. Hypokalemia. 4. Multiple fractures involving the cervical spine status post stabilization and fusion of C6-C7 5. Nonischemic cardiomyopathy with ejection fraction of 35-40% by echo this admission 6. Status post biventricular ICD insertion 03/28/2019. 7. Persistent atrial fibrillation status post Watchman implant in February 2025, no longer on oral anticoagulation. 8. Recurrent syncope. 9. Macrocytic anemia per 10. Thrombocytopenia resolve PLAN: [] Patient is cardiac medications have been reinstituted. These will be continued to follow. No other changes at this time. Patient is stable from a heart standpoint to proceed with inpatient rehab. TAYLOR JETER MD Aug 28, 2025 06:59
[2025-08-28] MEDS: ENOXAPARIN SODIUM 30 MG/0.3 ML SQ SCH (08:00)
[2025-08-28] MEDS: LIDOCAINE 4% ADH..PATCH TP SCH (08:01)
--- NOTE | 2025-08-28 08:26 | PN ---
[facility] PROGRESS NOTE Date Patient Seen: Aug 28, 2025 Time of Visit: 08:24 Supervising Physician: Dr Bo Almanza Primary Care Physician: Sonya Gray Outpatient Specialists: [ ] Inpatient Consults: DR Bob, DR Crews, Dr Cami FELICIANO PROBLEM LIST: Status post cervical laminectomy, diskectomy decompression and fusion with instrumentation Syncope and fall 2/2 to Vtach and firing of ICD POA Chronic systolic and diastolic stage II heart failure w/ ICM EF of 35-40% on 2 D echo 08/21/25 Moderate pulmonary HTN Mildly displaced fracture of the right C7 transverse process. nondisplaced fractures at C6 inferior endplate and C7 superior endplate. Fracture of the right C7 superior articular facet. Bilateral C6-C7 facet perching with 4 mm anterolisthesis of C6 on C7. Paraspinal muscle edema. 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 Patient is voiding, with regular bowel movements. PHYSICAL EXAM: GENERAL: Awake alert and oriented HEENT: EOMI, Sclera non icteric, moist mucosa NECK: Supple, no JVD, trachea midline, soft cervical collar complaints LUNGS: Fine crackles bilaterally, no wheezing HEART: Regular rate and rhythm. Normal S1 and S2, without murmurs ABD: Abdomen soft, nontender. Bowel sounds present EXT: No clubbing cyanosis or edema NEURO: Alert and oriented to person, follows commands Vital Signs (last 8hr) Date Time Temp Pulse Resp B/P (MAP) Pulse Ox O2 Delivery O2 Flow Rate FiO2 08/28/25 06:43 81 20 08/28/25 06:42 81 20 N/Cannula Low lpm 2.0 28 08/28/25 04:00 97.0 83 14 112/56 99 CPAP LABS: Hematology Labs: Test 08/28/25 04:09 Range/Units White Blood Count 7.3 4.8-10.8 K/uL Red Blood Count 2.30 L 4.50-6.20 MIL/uL Hemoglobin 8.0 L 14.0-18.0 g/dL Hematocrit 24.1 L 42-54 % Mean Corpuscular Volume 104.8 H 79-99 fL Mean Corpuscular Hemoglobin 34.8 H 27.0-33.0 pg Mean Corpuscular Hemoglobin Concent 33.2 32.0-36.0 g/dL Red Cell Distribution Width 18.2 H 11.0-15.5 % Platelet Count 147 130-400 K/uL Mean Platelet Volume 10.3 7.5-10.5 fL Immature Granulocyte % (Auto) 1.9 H 0-1 % Neutrophils (%) (Auto) 84.4 H 40.0-77.0 % Lymphocytes (%) (Auto) 8.1 L 21.0-51.0 % Monocytes (%) (Auto) 5.5 3.0-13.0 % Eosinophils (%) (Auto) 0.0 0.0-8.0 % Basophils (%) (Auto) 0.1 0.0-5.0 % Neutrophils # (Auto) 6.2 1.8-7.7 K/uL Lymphocytes # (Auto) 0.6 L 1.0-4.8 K/uL Monocytes # (Auto) 0.4 0.1-1.0 K/uL Eosinophils # (Auto) 0.00 0.00-0.70 K/uL Basophils # (Auto) 0.01 0.00-0.20 K/uL Absolute Immature Granulocyte (auto 0.14 0-1 K/uL Nucleated Red Blood Cells 0.0 0.0-0.19 % Red Blood Cell Morphology See comments Chemistry Labs: Test 08/28/25 04:09 Range/Units Sodium Level 133 L 136-145 mmol/L Potassium Level 4.3 3.5-5.1 mmol/L Chloride Level 99 L 101-111 mmol/L Carbon Dioxide Level 24 21-32 mmol/L Blood Urea Nitrogen 57 H 7-18 mg/dL Creatinine 1.1 0.5-1.3 mg/dL Glomerular Filtration Rate Calc 66 >90 mL/min Random Glucose 138 H 70-105 mg/dL Total Calcium 8.4 L 8.5-10.1 mg/dL Total Bilirubin 0.5 0.2-1.0 mg/dL Aspartate Amino Transf (AST/SGOT) 50 H 10-37 U/L Alanine Aminotransferase (ALT/SGPT) 58 # 12-78 U/L Alkaline Phosphatase 88 50-136 U/L Total Protein 6.7 6.0-8.3 g/dL Albumin 2.8 L 3.5-5.0 g/dL DIAGNOSTICS / RADIOLOGY RESULTS: [ ] PLAN NEURO: Minimize central acting medications as possible. Maintain fall precautions, adequate lighting during the day PULMONARY: Supplemental 02 as needed. Maintain aspiration precautions at all times CARDIOVASCULAR: Follow hemodynamics. Vital signs per facility protocol GI & NUTRITION: Continue with nutritional support. Continue stool softeners and laxatives as needed. KIDNEYS & ELECTROLYTES: Strict monitoring of intake, output and overall fluid balance. Avoid nephrotoxic medications to the extent possible. Medications to be dosed according to renal function. Monitor electrolytes and replace as needed ENDOCRINE: Maintain blood glucose between 100-180 at all times. Hypoglycemia protocol in place INFECTIOUS DISEASE: Trend temperature, WBC and procalcitonin level Follow cultures, deescalate antibiotics as soon as possible. Panculture if new onset fever ONCOLOGY/HEMATOLOGY/COAGULATION: Monitor for s/s of bleeding Monitor hemoglobin, coagulation studies as needed SKIN: Pressure ulcer prevention per facility protocol Specialty mattress ORTHO/REHAB: Continue PT/OT Prophylaxis: Continue GI and DVT prophylaxis Code Status: Full Resuscitation Disposition: As per PT and primary STEPHANIE LLOYD PAC Aug 28, 2025 08:26
--- NOTE | 2025-08-28 10:21 | NUR ---
PATIENT REPORT GIVEN TO MARTI. PATIENT TRANSFERRED TO [facility]
--- NOTE | 2025-08-28 10:40 | NUR ---
TRANSFER PATIENT ARRIVED TO UNIT FROM ROOM 215. VITAL SIGNS STABLE, ON ROOM AIR, NO PAIN OR DISCOMFORT REPORTED. SOFT NECK BRACE NOTED, AND TOLERATED BY PATIENT.
--- NOTE | 2025-08-28 11:52 | PN ---
NEPHROLOGY NOTE SUBJECTIVE: This patient has been seen in ICU. This patient has renal dysfunction, anemia, or rhabdomyolysis in a patient who has electrolyte problems. The patient has a history of atrial fibrillation, CHF, coronary artery disease, UTI with prostatitis, and previous ICD placement. The patient has previous fall with rhabdomyolysis. The patient is followed by Neurosurgery. He has neck collar in place. No other associated findings. REVIEW OF SYSTEMS: No fevers, chills, or rigors. HEENT: With no headache or sore throat. Difficulty swallowing. RESPIRATORY: No cough expectoration, hemoptysis, or pleuritic pain. CARDIOVASCULAR: No orthopnea. GI: No nausea or vomiting. NEUROLOGICAL: No seizure. The patient has previous syncope. ENDOCRINE: No polydipsia or polyphagia. PHYSICAL EXAMINATION: GENERAL: Pale. No other distress. VITAL SIGNS: Blood pressure is around 129/53, pulse 80, respiratory rate is in the 20s. HEENT: Head is atraumatic, normocephalic. Pupils are round and reactive to light. Neck is in collar. External appearance of ear and nose is normal. Neck is without masses or bruising. Thyroid not palpable. Neck has no bruits. CHEST: Shows equal thoracic percussion, note being resonant in all areas. CARDIAC: Regular rhythm. No rub, no S3, S4. No parasternal heave. ABDOMEN: No guarding, tenderness. Bowel sounds present. No free fluid. BACK: No tenderness or back deformities. LABORATORY DATA: We have reviewed the labs. Hemoglobin is up to 8. Elevated BUN of 53. Creatinine is 0.9. Previously CK elevated. Low iron saturation and hemoglobin has been low. IMAGING STUDIES: Imaging studies are personally reviewed. Echocardiogram has been done. MRI has been done. Echo is only trivial pericardial effusion. The patient had a surgery done on the C-spine. At this time, no evidence of any root compression in the thoracic spine. Old records have been reviewed. PROBLEMS: Problems are multiple including: * Renal dysfunction initially with the patient having rhabdomyolysis, cervical laminectomy, diskectomy, decompression, fusion, syncope, fall in a patient who has pulmonary hypertension. * Right C7 transverse process displaced fracture. * Previous hypokalemia. * Underlying atrial fibrillation. * Heart failure. * Ejection fraction 20% to 25%. * Cardiomyopathy. * Underlying relatively low blood pressure PLAN: We will continue followup on renal function. Please avoid nonsteroidal drug and nephrotoxic, followed by Neurosurgery. The patient will avoid hypotension for the time being. IV Dilaudid and low dose can be used for pain, DVT, GI prophylaxis. The patient has received diuretics. We will follow up on all these issues. Please avoid nonsteroidal drug and nephrotoxic as far as possible. The patient is relatively low blood pressure. He has been on midodrine. Because of cardiomyopathy, he has received Entresto, dose to be adjusted as needed. He has been on spironolactone also, which can continue. The patient is on diuretics because of his cardiomyopathy, CHF. Will need followup Cordarone also and we will monitor on all these issues. Weight should be monitored. Urine output will be monitored. Overall condition is guarded in ICU. We will follow up closely. I will be monitoring. TID: [id number] RECEIPT: [id number]
--- NOTE | 2025-08-28 13:27 | PN ---
NEPHROLOGY PROGRESS NOTE Date/Time Patient Seen: Aug 28, 2025 SUBJECTIVE: This is an 84-year-old male with a past medical history of atrial fibrillation status post Watchman, arthritis, CHF, CAD, prostatitis, and ppm/ICD He presented to the ED for evaluation of fall from 3 ft stool. He presented to the ED with complaints of right arm pain, cervical pain and headache. He was noted to have elevated BUN/creatinine and rhabdomyolysis. Renal function and electrolytes are stable Vasopressors has been discontinued he has been transferred to the medical floor Continues to be followed by Cardiology He was seen in the medical floor, in no acute distress No family at the bedside Prognosis remains guarded REVIEW OF SYSTEMS: GENERAL: Negative for any nausea, vomiting, fevers, chills, or weight loss. NEUROLOGIC: Negative for any blurry vision, blind spots, double vision, facial asymmetry, dysphagia, dysarthria, hemiparesis, hemisensory deficits, vertigo, ataxia. HEENT: Negative for any head trauma, neck trauma, neck stiffness, photophobia, phonophobia, sinusitis, rhinitis. CARDIAC: Negative for any chest pain, dyspnea on exertion, paroxysmal nocturnal dyspnea, peripheral edema. PULMONARY: Negative for any shortness of breath, wheezing, COPD, or TB exposure. GASTROINTESTINAL: Negative for any abdominal pain, nausea, vomiting, bright red blood per rectum, melena. GENITOURINARY: Negative for any dysuria, hematuria, incontinence. INTEGUMENTARY: Negative for any rashes, cuts, insect bites. RHEUMATOLOGIC: Negative for any joint pains, photosensitive rashes, history of vasculitis or kidney problems. HEMATOLOGIC: Negative for any abnormal bruising, frequent infections or bleeding. Vital Signs (last 8hr) Date Time Temp Pulse Resp B/P (MAP) Pulse Ox O2 Delivery O2 Flow Rate FiO2 08/28/25 12:16 96.1 84 12 19/57 96 Room Air 08/28/25 11:05 75 18 N/A Room Air 21 08/28/25 11:00 78 20 08/28/25 09:00 80 20 100/44 100 Nasal Cannula 2.0 08/28/25 08:00 100 Nasal Cannula* 2 28 08/28/25 08:00 98.1 81 14 115/61 100 Nasal Cannula 2.0 08/28/25 07:00 86 13 118/54 100 Nasal Cannula 2.0 08/28/25 06:43 81 20 08/28/25 06:42 81 20 N/Cannula Low lpm 2.0 28 Intake and Output 08/28/25 07:00 Intake Total 100.0 ml Output Total 1900 ml Balance -1800.0 ml IV Total 100.0 ml Output Urine Total 1900 ml # Incontinent Bowel Movements 1 PHYSICAL EXAM: GENERAL: Alert and oriented x 3. No acute distress. Well-nourished. EYES: EOMI. Anicteric. HENT: Moist mucous membranes. No scleral icterus. No cervical lymphadenopathy. LUNGS: Clear to auscultation bilaterally. No accessory muscle use. CARDIOVASCULAR: Regular rate and rhythm. No murmur. No JVD. ABDOMEN: Soft, non-tender and non-distended. No palpable masses. EXTREMITIES: No edema. Non-tender. SKIN: No rashes or lesions. Warm. NEUROLOGIC: No focal neurological deficits. CN II-XII grossly intact, but not individually tested. PSYCHIATRIC: Cooperative. Appropriate mood and affect. Current Medications Medications (Trade) Dose Ordered Sig/Dann Route Start Time Stop Time Status Last Admin Dose Admin Acetaminophen (acetaMINOPHEN 1,000MG/100ML) 1,000 mg Q6H6 IVPB 08/22/25 12:00 08/27/25 13:00 DC 08/27/25 11:17 1,000 MG Allopurinol (ZYLOprim 300MG) 300 mg DAILY PO 08/23/25 09:00 09/22/25 08:59 08/28/25 07:59 300 MG Amiodarone HCl (pacERONE 200MG) 400 mg DAILY PO 08/22/25 09:00 09/21/25 08:59 08/28/25 08:00 400 MG Amiodarone HCl 150 mg/Dextrose 103 ml @ 618 mls/hr ONCE IV 08/21/25 20:30 08/21/25 20:16 DC Amiodarone HCl 360 mg/Dextrose 207.2 ml @ 33.3 mls/hr AD IV 08/21/25 20:30 08/21/25 20:17 DC Amiodarone HCl 540 mg/Dextrose 310.8 ml @ 16.7 mls/hr [id number] IV 08/22/25 03:00 08/24/25 14:53 DC 08/22/25 02:45 16.7 MLS/HR Amiodarone HCL/ Dextrose 100 ml @ 600 mls/hr PROTOCOL IV 08/21/25 20:50 08/21/25 20:59 DC 08/21/25 20:52 600 MLS/HR Amiodarone HCL/ Dextrose 100 ml @ 0 mls/hr PROTOCOL IV 08/21/25 19:30 08/21/25 19:31 DC Amiodarone HCL/ Dextrose 200 ml @ 33.333 mls/ hr PROTOCOL IV 08/21/25 21:00 08/22/25 02:59 DC 08/21/25 20:53 33.333 MLS/HR Amiodarone HCL/ Dextrose 200 ml @ 0 mls/hr PROTOCOL IV 08/21/25 19:30 08/21/25 19:31 DC Aspirin (Aspirin 81mg Chew Tab) 81 mg DAILY PO 08/22/25 09:00 09/21/25 08:59 08/28/25 07:59 81 MG Baclofen (Baclofen) 5 mg TID PO 08/21/25 14:00 08/24/25 14:53 DC 08/23/25 13:57 5 MG Dexamethasone Sodium Phosphate (dexaMETHasone 4MG/ML 1ML VIAL) 4 mg Q6H6 IVP 08/23/25 23:00 09/22/25 22:59 08/28/25 05:49 4 MG Dexamethasone Sodium Phosphate (dexaMETHasone 4MG/ML 1ML VIAL) 12 mg ONCE IVP 08/23/25 17:00 08/23/25 21:00 DC 08/23/25 17:38 12 MG Enoxaparin Sodium (Lovenox) 30 mg DAILY SQ 08/28/25 09:00 09/27/25 08:59 08/28/25 08:00 30 MG Enoxaparin Sodium (Lovenox) 40 mg DAILY SQ 08/21/25 09:00 08/26/25 08:44 DC 08/23/25 09:26 40 MG Famotidine (Pepcid 20mg Vial) 20 mg Q48H IV 08/20/25 21:00 09/19/25 20:59 08/26/25 20:35 20 MG Fish Oil (Fish Oil 1000 Mg/Cap) 1,000 mg DAILY PO 08/23/25 09:00 09/22/25 08:59 08/28/25 07:59 1,000 MG Folic Acid (FolVITE 5 MG/ML VIAL) 1 mg DAILY IV 08/21/25 09:00 09/20/25 08:59 08/28/25 09:10 1 MG Furosemide (LASix 40MG TAB) 40 mg DAILY PO 08/28/25 09:00 09/27/25 08:59 08/28/25 07:59 40 MG Furosemide (LASix 80MG TAB) 80 mg DAILY PO 08/23/25 09:00 08/27/25 13:03 DC 08/26/25 08:35 80 MG Gabapentin (NEURontin 100 mg CAP) 100 mg TID PO 08/22/25 14:00 08/24/25 14:53 DC 08/23/25 13:57 100 MG Ipratropium [place] (AtrovENT UD) 0.5 MG [id number] IH 08/25/25 12:00 09/24/25 11:59 08/28/25 11:00 0.5 MG Lactated Ringer's 1,000 ml @ 50 mls/hr Q20H IV 08/20/25 16:30 08/22/25 09:23 DC 08/21/25 20:09 50 MLS/HR Lidocaine (Lidocaine Patch 4%) 2 each DAILY TP 08/28/25 09:00 09/27/25 08:59 08/28/25 08:01 2 EACH Losartan Potassium (CozAAR 25MG TAB) 25 mg DAILY PO 08/23/25 09:00 08/23/25 07:15 DC Magnesium Oxide (Mag-Ox) 400 mg DAILY PO 08/24/25 09:00 09/23/25 08:59 08/28/25 08:00 400 MG Metolazone (zarOXOlyn) 2.5 mg DAILY PO 08/23/25 09:00 09/22/25 08:59 08/28/25 08:00 2.5 MG Metoprolol Succinate (TopROL XL) 25 mg DAILY PO 08/21/25 18:00 08/22/25 07:09 DC 08/21/25 18:32 25 MG Metoprolol Tartrate (loprESSOR) 50 mg DAILY PO 08/22/25 09:00 09/21/25 08:59 08/28/25 07:59 50 MG Midodrine (PROAMatine 5 MG TABLET) 10 mg ONCE PO 08/23/25 16:00 08/23/25 20:00 DC 08/23/25 16:05 10 MG Midodrine (PROAMatine 5 MG TABLET) 10 mg Q6H6 PO 08/23/25 18:00 09/22/25 17:59 08/28/25 05:49 10 MG Multivitamins Therapeutic (Multivitamin Tablet) 1 tab DAILY PO 08/22/25 09:00 09/21/25 08:59 08/28/25 07:59 1 TAB Pharmacy Profile Note (Pharmacy Communication) 1 each ONCE MISC 08/23/25 16:30 08/24/25 14:53 DC Sacubitril/ Valsartan (Entresto 24 Mg-26 Mg Tablet) 1 each BID PO 08/23/25 09:00 09/22/25 08:59 08/28/25 07:59 1 EACH Sodium Chloride 500 ml @ 500 mls/hr Q1H IV 08/23/25 16:00 08/23/25 17:52 DC 08/23/25 16:06 500 MLS/HR Sodium Chloride 500 ml @ 500 mls/hr Q4H IV 08/23/25 16:30 08/24/25 09:29 DC 08/24/25 05:38 500 MLS/HR Spironolactone (Aldactone 25mg) 25 mg DAILY PO 08/23/25 09:00 09/22/25 08:59 08/28/25 07:59 25 MG Spironolactone (Aldactone 25mg) 25 mg DAILY PO 08/25/25 09:00 08/26/25 08:44 DC 08/25/25 11:34 25 MG Tamsulosin HCl (FloMAX) 0.4 mg DAILY PO 08/23/25 09:00 09/22/25 08:59 08/28/25 07:59 0.4 MG Thiamine HCl (Vitamin B-1) 100 mg DAILY IVP 08/22/25 09:00 09/21/25 08:59 08/28/25 08:00 100 MG Thiamine HCl (Vitamin B-1) 300 mg Q24H IVP 08/20/25 16:30 08/21/25 09:55 DC 08/20/25 20:40 300 MG Vitamin B Complex/ Vit C/Folic Acid (Nephrovite Tablet) 1 cap DAILY PO 08/22/25 09:00 09/21/25 08:59 08/28/25 07:59 1 CAP LABORATORY: [ ] Hematology Labs: Test 08/28/25 04:09 Range/Units White Blood Count 7.3 4.8-10.8 K/uL Red Blood Count 2.30 L 4.50-6.20 MIL/uL Hemoglobin 8.0 L 14.0-18.0 g/dL Hematocrit 24.1 L 42-54 % Mean Corpuscular Volume 104.8 H 79-99 fL Mean Corpuscular Hemoglobin 34.8 H 27.0-33.0 pg Mean Corpuscular Hemoglobin Concent 33.2 32.0-36.0 g/dL Red Cell Distribution Width 18.2 H 11.0-15.5 % Platelet Count 147 130-400 K/uL Mean Platelet Volume 10.3 7.5-10.5 fL Immature Granulocyte % (Auto) 1.9 H 0-1 % Neutrophils (%) (Auto) 84.4 H 40.0-77.0 % Lymphocytes (%) (Auto) 8.1 L 21.0-51.0 % Monocytes (%) (Auto) 5.5 3.0-13.0 % Eosinophils (%) (Auto) 0.0 0.0-8.0 % Basophils (%) (Auto) 0.1 0.0-5.0 % Neutrophils # (Auto) 6.2 1.8-7.7 K/uL Lymphocytes # (Auto) 0.6 L 1.0-4.8 K/uL Monocytes # (Auto) 0.4 0.1-1.0 K/uL Eosinophils # (Auto) 0.00 0.00-0.70 K/uL Basophils # (Auto) 0.01 0.00-0.20 K/uL Absolute Immature Granulocyte (auto 0.14 0-1 K/uL Nucleated Red Blood Cells 0.0 0.0-0.19 % Red Blood Cell Morphology See comments Chemistry Labs: Test 08/28/25 04:09 Range/Units Sodium Level 133 L 136-145 mmol/L Potassium Level 4.3 3.5-5.1 mmol/L Chloride Level 99 L 101-111 mmol/L Carbon Dioxide Level 24 21-32 mmol/L Blood Urea Nitrogen 57 H 7-18 mg/dL Creatinine 1.1 0.5-1.3 mg/dL Glomerular Filtration Rate Calc 66 >90 mL/min Random Glucose 138 H 70-105 mg/dL Total Calcium 8.4 L 8.5-10.1 mg/dL Total Bilirubin 0.5 0.2-1.0 mg/dL Aspartate Amino Transf (AST/SGOT) 50 H 10-37 U/L Alanine Aminotransferase (ALT/SGPT) 58 # 12-78 U/L Alkaline Phosphatase 88 50-136 U/L Total Protein 6.7 6.0-8.3 g/dL Albumin 2.8 L 3.5-5.0 g/dL DIAGNOSTICS / RADIOLOGY: [address] [address] IMAGING REPORT Signed PATIENT: TAYLOR DUNCAN MR#: [id number] : 1940 SEX: M AGE: 84 LOCATION: 2CH ORDER 1302 STATUS: ADM IN REPORT#: [id number] SERVICE 1301 REASON: pericardial effusion ORDERING PHYSICIAN: STEPHANIE LLOYD PAC PROCEDURE: ECHO FU LD - ECHO 2-D F/U-LTD APPROVED REPORT EXAM: Limited Two-dimensional echocardiogram with color Doppler. INDICATION ICD: I31.3 Pericardial effusion Pericardium Trivial pericardial effusion seen anteriorly. No echo indications of pericardial tamponade. Other Information Quality : Limited/Follow-up, Adequate Rhythm : Sinus rhythm Conclusion Trivial pericardial effusion seen anteriorly. No echo indications of pericardial tamponade. DICTATED BY: BETTIE HARLEY MD DATE: 08/27/25 1358 ELECTRONICALLY SIGNED BY: BETTIE HARLEY MD DATE: 08/27/25 2036 PATIENT: TAYLOR DUNCAN MR#: [id number] : 1940 SEX: M AGE: 84 LOCATION: 2CH ORDER 1015 STATUS: ADM IN REPORT#: [id number] SERVICE 1014 REASON: PREV SX ORDERING PHYSICIAN: STEPHANIE LLOYD PAC PROCEDURE: CXR1VW - CHEST 1VW STUDY: X-RAY OF THE CHEST, 1 VIEW HISTORY: Preoperative status post prior surgery. TECHNIQUE: A single frontal view of the chest is submitted for interpretation. COMPARISON: Chest radiograph from 08/24 at 16:26 EST. FINDINGS: Pulmonary morris: Lungs are clear without focal consolidation, pulmonary edema, or suspicious pulmonary nodules. Symmetric aeration is maintained. Cardiac silhouette: Cardiomegaly is present. Aortic arch calcification is noted, compatible with atherosclerotic change. Mediastinum and christine: Mediastinal contours and christine are within normal limits without evidence of mass or widening. Osseous structures: Visualized ribs, clavicles, and thoracic spine demonstrate no acute osseous abnormality. Miscellaneous: A multilead cardiac pacemaker is in situ with intact-appearing leads. A right-sided peripherally inserted central catheter is again seen with its tip now at the atriocaval junction, previously at the distal superior vena cava. No pleural effusion or pneumothorax is identified. Diaphragms and costophrenic angles are sharp. IMPRESSION: * Stable cardiomegaly with aortic arch atherosclerotic calcification. * Multilead cardiac pacemaker in situ with intact leads. * Compared with the chest radiograph from 08/24 at 16:26 EST, there is interval repositioning of the right-sided peripherally inserted central catheter with its tip now at the atriocaval junction, previously at the distal superior vena cava; lungs remain clear without acute abnormality. /[place] DICTATED BY: PAM RIGGINS MD DATE: 08/27/252209 ELECTRONICALLY SIGNED BY: PAM RIGGINS MD DATE: 08/27/252209 PATIENT: TAYLOR DUNCAN MR#: [id number] : 1940 SEX: M AGE: 84 LOCATION: 2CH ORDER 2300 STATUS: [facility] REPORT#: [id number] SERVICE 0700 REASON: UNABLE TO MOVE LEGS ORDERING PHYSICIAN: DREA FARIA MD PROCEDURE: TH SPN WO - MR SPINAL CANAL, THORAC WO CON EXAM: MR Thoracic Spine Without Intravenous Contrast. CLINICAL HISTORY: Postoperative case. Unable to move legs. TECHNIQUE: Magnetic resonance images of the thoracic spine in multiple planes. CONTRAST: None. COMPARISON: None. FINDINGS: The cervicothoracic and thoracolumbar junction are intact. Follow-up case of cervical spine injury. Postoperative status with posterior spinal fixator at the C6 and C7 vertebral level with laminectomy defect. Moderate posterior paravertebral subcutaneous and muscle oedema. Normal thoracic curvature. Visualised vertebrae show heterogeneous T1 and T2 signal, consistent with osteoporotic changes. Degenerative changes in thoracic vertebrae as multilevel marginal osteophytes, disc desiccation, ligamentum flavum hypertrophy and facet joint arthropathy. Minimally prominent central spinal canal of the spinal cord and thoracic level; however, no abnormal signal involves the thoracic cord. No abnormal extra-axial masses are present. Lehry-je-ockat findings are as follows: C7-T1: 2 mm mild disc osteophyte bulge, indenting thecal sac and bilateral neural foramina. No significant bilateral foraminal stenosis. No significant exiting nerve root compression. T1-T2: 2 mm mild disc osteophyte bulge, indenting thecal sac and bilateral neural foramina. No significant bilateral foraminal stenosis. No significant exiting nerve root compression. Is T2-T3: No disc bulge or herniation. No neural foraminal, lateral recess or spinal canal stenosis. T3-T4: No disc bulge or herniation. No neural foraminal, lateral recess or spinal canal stenosis. T4-T5: No disc bulge or herniation. No neural foraminal, lateral recess or spinal canal stenosis. T5-T6: No disc bulge or herniation. No neural foraminal, lateral recess or spinal canal stenosis. T6-T7: No disc bulge or herniation. No neural foraminal, lateral recess or spinal canal stenosis. T7-T8: No disc bulge or herniation. No neural foraminal, lateral recess or spinal canal stenosis. T8-T9: No disc bulge or herniation. No neural foraminal, lateral recess or spinal canal stenosis. T9-T10: No disc bulge or herniation. No neural foraminal, lateral recess or spinal canal stenosis. T10-T11: No disc bulge or herniation. No neural foraminal, lateral recess or spinal canal stenosis. T11-T12: No disc bulge or herniation. No neural foraminal, lateral recess or spinal canal stenosis. T12-L1: No disc bulge or herniation. No neural foraminal, lateral recess or spinal canal stenosis. IMPRESSION: Follow up case of cervical spine injury with postoperative status. Moderate posterior paraspinal soft tissue oedema in the upper thoracic vertebral level. Moderate thoracic spondylosis changes. Minimally prominent central spinal canal of thoracic vertebrae; however, no cord compression or myelopathy changes. No significant exiting nerve root compression in thoracic intervertebral disc levels. /[place] DICTATED BY: SYLVESTER STRANGE Jr., MD DATE: 08/27/25804 ELECTRONICALLY SIGNED BY: SYLVESTER STRANGE Jr., MD DATE: 08/27/25804 PATIENT: TAYLOR DUNCAN MR#: [id number] : 1940 SEX: M AGE: 84 LOCATION: [facility] ORDER 230 STATUS: ADM IN REPORT#: [id number] SERVICE 0700 REASON: UNABLE TO MOVE LEGS ORDERING PHYSICIAN: DREA FARIA MD PROCEDURE: C SPN WO - MR SPINAL CANAL, CERV WO CON EXAM: MR Cervical Spine Without Intravenous Contrast. CLINICAL HISTORY: Follow-up postoperative case of cervical spine injury. Unable to move legs. TECHNIQUE: Magnetic resonance images of the cervical spine in multiple planes. CONTRAST: None. COMPARISON: August 23, 2025. FINDINGS: The imaged posterior fossa is unremarkable. The craniocervical junction is intact. Postoperative posterior spinal fixators in C6 and C7 with laminectomy defect. Straightened cervical spine curvature with maintained alignment. Visualised vertebral marrow signal shows heterogeneous increased T1 and T2 signal, consistent with osteoporotic changes. Mild, 5%-10% reduced height with endplate irregularity of the C6 vertebral body. Mild to moderate postoperative soft tissue and muscle oedema in the paraspinal muscles. No obvious loculated collection in the current scan. Multilevel spondylosis is evident by marginal osteophytes and facet joint arthropathy. Multilevel disc desiccation and degenerative disc height reduction noted, more pronounced at the C6-C7 level. The visualised cervical spinal cord at the level of C5 and C6 vertebrae shows mild cord oedema with a middle thesubtle increased T2 signal is probably due to cord oedema with mild myelopathy changes. Level by level disease is present as follows: C1-C2: Mild osteoarthritis. C2-C3: 1 mm disc osteophyte complex bulge and facet joint arthropathy causing mild indentation on the anterior thecal sac and severe right foraminal narrowing. No lateral recess stenosis. C3-C4: 3 mm left predominant disc osteophyte complex bulge and facet joint arthropathy causing mild indentation on the anterior thecal sac and severe bilateral foraminal narrowing. No lateral recess stenosis. C4-C5: 3 mm left predominant disc osteophyte complex bulge and facet joint arthropathy causing mild indentation on the anterior thecal sac and severe bilateral foraminal narrowing. No lateral recess stenosis. C5-C6: 3 mm disc osteophyte complex bulge and facet joint arthropathy causing mild indentation on the anterior thecal sac and severe bilateral foraminal narrowing. No lateral recess stenosis. C6-C7: 3 mm disc osteophyte is bulge causing mild indentation on the anterior thecal sac and mild bilateral foraminal narrowing. No lateral recess stenosis. C7-T1: 1 mm mild disc bulge indenting thecal sac and bilateral neural foramina. No foraminal stenosis. IMPRESSION: Follow up case of cervical spine injury. Postoperative posterior spinal fixators in C6 and C7 with laminectomy defect. Straightened cervical spine curvature with maintained alignment. Visualised vertebral marrow signal shows heterogeneous increased T1 and T2 signal, consistent with osteoporotic changes. Mild, 5%-10% reduced height with endplate irregularity of the C6 vertebral body. Mild to moderate postoperative soft tissue and muscle oedema in the paraspinal muscles. No obvious loculated collection in the current scan. Acute compression fracture at the inferior endplate of C6. Acute fracture of the right superior articular facet of C7. Moderate multilevel spondylosis and degenerative disc changes. Mild indentation on the anterior thecal sac and severe right foraminal narrowing at the C2-C3 level. Mild indentation on the anterior thecal sac and severe bilateral foraminal narrowing at the C3-C4, C4-C5, and C5-C6 levels. Mild indentation on the anterior thecal sac and mild bilateral foraminal narrowing at the C6-C7 level. /[place] DICTATED BY: SYLVESTER STRANGE Jr., MD DATE: 08/27/25803 ELECTRONICALLY SIGNED BY: SYLVESTER STRANGE Jr., MD DATE: 08/27/25803 PATIENT: TAYLOR DUNCAN MR#: [id number] : 1940 SEX: M AGE: 84 LOCATION: 2CH ORDER 1614 STATUS: ADM IN REPORT#: [id number] SERVICE 10 REASON: PICC placement ORDERING PHYSICIAN: CRISTAL FOX MD PROCEDURE: CXR1VW - CHEST 1VW EXAM: CR Chest, 2 View. CLINICAL HISTORY: PICC placement COMPARISON: Radiograph from earlier today Findings: AP view of the chest is submitted. Right PICC terminates overlying the distal SVC. No pneumothorax. Remainder of the examination is unchanged. IMPRESSION: 1. Right PICC line terminates appropriately in distal SVC; no pneumothorax. /[place] DICTATED BY: SYLVESTER STRANGE Jr., MD DATE: 08/24/251842 ELECTRONICALLY SIGNED BY: SYLVESTER STRANGE Jr., MD DATE: 08/24/251842 PATIENT: TAYLOR DUNCAN MR#: [id number] : 1940 SEX: M AGE: 84 LOCATION: 2CH ORDER 2300 STATUS: ADM IN REPORT#: [id number] SERVICE 0600 REASON: hypoxic resp failure ORDERING PHYSICIAN: DAGOBERTO BRIGGS PROCEDURE: CXR1VW - CHEST 1VW EXAM: CR Chest, 1 View. CLINICAL HISTORY: hypoxic resp failure COMPARISON: None provided. FINDINGS: LUNGS: The lungs show no infiltrate or other acute finding. PLEURAL SPACES: No evidence of pleural effusion or pneumothorax. MEDIASTINUM: Cardiac size appears enlarged with cephalization of superior pulmonary vein -s/o pulmonary hypertension. pacemaker in situ with adequately placed cardiac leads. BONES: No acute osseous abnormality. IMPRESSION: Features of cardiomegaly and pulmonary hypertension /[place] DICTATED BY: SYLVESTER STRANGE Jr., MD DATE: 08/23/251153 ELECTRONICALLY SIGNED BY: SYLVESTER STRANGE Jr., MD DATE: 08/23/251153 PATIENT: TAYLOR DUNCAN MR#: [id number] : 1940 SEX: M AGE: 84 LOCATION: 2CH ORDER 21 STATUS: ADM IN REPORT#: [id number] SERVICE 19 REASON: CERVICAL FRACTURE S/P FALL ORDERING PHYSICIAN: DREA FARIA MD PROCEDURE: C SPN WO - MR SPINAL CANAL, CERV WO CON EXAM: MR Cervical Spine Without Intravenous Contrast. CLINICAL HISTORY: Cervical fracture. S/p Fall. TECHNIQUE: Magnetic resonance images of the cervical spine in multiple planes. CONTRAST: None. COMPARISON: CT dated 08/20/25. FINDINGS: The imaged posterior fossa is unremarkable. The craniocervical junction is intact. Acute compression fracture at the inferior endplate of C6. Acute fracture of the right superior articular facet of C7. The bilateral inferior articular facets of C6 are perched upon the bilateral superior articular facets of C7 resulting in 0.4 cm anterior listhesis of C6 with respect to C7. There is widening of the interspinous space at the C6-C7 level with moderate edema suggestive of interspinous and supraspinous ligament tear. Moderate edema noted in the posterior paraspinal muscles of the neck. A collection measuring approximately 1.4 x 1.5 cm posterior to the left C7 lamina. A collection measuring approximately 2.6 x 5.3 cm posterior to the right C7 and T1 lamina. Multilevel spondylosis is evident by marginal osteophytes and facet joint arthropathy. Multilevel disc desiccation and degenerative disc height reduction noted, more pronounced at the C6-C7 level. Normal vertebral body heights. Normal marrow signal of the remaining vertebrae. The cervical cord is in an anatomic location. No abnormal signal involves the cord. No extra-axial masses. Level by level disease is present as follows: C1-C2: Mild osteoarthritis. C2-C3: 1 mm disc osteophyte complex bulge and facet joint arthropathy causing mild indentation on the anterior thecal sac and severe right foraminal narrowing. No lateral recess stenosis. C3-C4: 3 mm left predominant disc osteophyte complex bulge and facet joint arthropathy causing mild indentation on the anterior thecal sac and severe bilateral foraminal narrowing. No lateral recess stenosis. C4-C5: 3 mm left predominant disc osteophyte complex bulge and facet joint arthropathy causing mild indentation on the anterior thecal sac and severe bilateral foraminal narrowing. No lateral recess stenosis. C5-C6: 3 mm disc osteophyte complex bulge and facet joint arthropathy causing mild indentation on the anterior thecal sac and severe bilateral foraminal narrowing. No lateral recess stenosis. C6-C7: 3 mm disc osteophyte compress bulge causing mild indentation on the anterior thecal sac and mild bilateral foraminal narrowing. No lateral recess stenosis. C7-T1: No disc bulge or herniation. No neural foraminal, lateral recess or spinal canal stenosis. IMPRESSION: Acute compression fracture at the inferior endplate of C6. Acute fracture of the right superior articular facet of C7. The bilateral inferior articular facets of C6 are perched upon the bilateral superior articular facets of C7 resulting in 0.4 cm anterior listhesis of C6 with respect to C7. There is widening of the interspinous space at the C6-C7 level with moderate edema suggestive of interspinous and supraspinous ligament tear. Moderate edema in the posterior paraspinal muscles of the neck. A collection measuring approximately 1.4 x 1.5 cm posterior to the left C7 lamina. A collection measuring approximately 2.6 x 5.3 cm posterior to the right C7 and T1 lamina. Moderate multilevel spondylosis and degenerative disc changes. Mild indentation on the anterior thecal sac and severe right foraminal narrowing at the C2-C3 level. Mild indentation on the anterior thecal sac and severe bilateral foraminal narrowing at the C3-C4, C4-C5, and C5-C6 levels. Mild indentation on the anterior thecal sac and mild bilateral foraminal narrowing at the C6-C7 level. /[place] DICTATED BY: SYLVESTER STRANGE Jr., MD DATE: 08/22/251850 ELECTRONICALLY SIGNED BY: SYLVESTER STRANGE Jr., MD DATE: 08/22/251850 PATIENT: TAYLOR DUNCAN MR#: [id number] : 1940 SEX: M AGE: 84 LOCATION: [facility] ORDER 3 STATUS: ADM IN REPORT#: [id number] SERVICE 4 REASON: SYNCOPE RULE OUT STROKE ORDERING PHYSICIAN: DAGOBERTO BRIGGS PROCEDURE: MRA HEAD - MR ANGIO HEAD, WO CON EXAM: MR Angiography Head without Intravenous Contrast. CLINICAL HISTORY: Syncope. To rule out stroke. TECHNIQUE: Magnetic resonance angiography images of the head without intravenous contrast. Three-dimensional MIP reformations performed. CONTRAST: Without. COMPARISON: A MRI of the brain performed at the same time of the current examination is available for comparison. FINDINGS: INTERNAL CAROTID ARTERIES: The bilateral intracranial ICA are unremarkable in caliber. No significant stenosis. No aneurysm or AVM. ANTERIOR CEREBRAL ARTERIES: The A1 segment of the right anterior cerebral artery is hypoplastic. The rest of the bilateral anterior cerebral arteries are unremarkable. No aneurysm or AVM. MIDDLE CEREBRAL ARTERIES: The bilateral middle cerebral arteries are unremarkable without large vessel occlusion. No significant stenosis. No aneurysm or AVM. POSTERIOR CEREBRAL ARTERIES: The bilateral posterior communicating arteries are visualized. The bilateral posterior cerebral arteries show unremarkable appearance with normal caliber. No significant stenosis. No aneurysm or AVM. BASILAR ARTERY: The vertebrobasilar arteries show unremarkable caliber. No significant stenosis. No aneurysm or AVM. VERTEBRAL ARTERIES: The vertebrobasilar arteries show unremarkable caliber. No significant stenosis. No aneurysm or AVM. No areas of diffusion restriction to suggest acute infarcts or hemorrhage are present in the brain parenchyma. IMPRESSION: 1. 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 2. Otherwise, unremarkable MR angiogram of the head. /[place] DICTATED BY: PAM RIGGINS MD DATE: 08/22/251750 ELECTRONICALLY SIGNED BY: PAM RIGGINS MD DATE: 08/22/251750 PATIENT: TAYLOR DUNCAN MR#: [id number] : 1940 SEX: M AGE: 84 LOCATION: [facility] ORDER 3 [facility] REPORT#: [id number] SERVICE 4 REASON: SYNCOPE RULE OUT STROKE ORDERING PHYSICIAN: DAGOBERTO BRIGGS PROCEDURE: BRAIN WO - MR BRAIN WO CON Here is the updated final report with a proper comparison summary integrated into the IMPRESSION, exactly following your SuperFormat rules (comparison mentioned ONLY in the Impression, not as a separate section): EXAM: MR Brain Without IV Contrast CLINICAL HISTORY: Syncope; rule out stroke TECHNIQUE: Multisequence, multiplanar magnetic resonance images of the brain were obtained without intravenous contrast. Series acquired: SAG T1 SE; AX T2 FSE; AX T2 FLAIR; AX DWI; AX T2* GRE; AX T1 FSE; COR T2 FSE; ADC; eADC. CONTRAST: None. COMPARISON: CT ??? CT Head/Brain Without Contrast ??? 08/20/25 11:34 EST FINDINGS: Brain Age-appropriate diffuse cerebral volume loss. Borderline periventricular T2/FLAIR hyperintensity consistent with early chronic small-vessel ischemic change. Subacute lacunar infarct in the right graff radiata without significant mass effect. 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 No restricted diffusion, no acute infarction, no intracranial hemorrhage, mass effect, or extra-axial collection. Cerebellar tonsils normally positioned. Vascular flow voids preserved. Ventricles Normal size and configuration. Orbits Normal. Sinuses and mastoids Clear. Bones No focal osseous lesion. Soft tissues Scalp contusion in the left temporo-occipital region. IMPRESSION: * Subacute lacunar infarct in the right graff radiata, new compared with prior CT (08/20/25), which did not show an acute parenchymal infarct. 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 * Age-appropriate diffuse cerebral volume loss with borderline chronic small-vessel ischemic changes. * Left temporo-occipital scalp contusion. * Radiologic???clinical correlation: Interval appearance of a subacute lacunar infarct accounts for the principal interval change relative to prior CT and should be interpreted with the patient???s neurologic status. /[place] DICTATED BY: PAM RIGGINS MD DATE: 08/22/251745 ELECTRONICALLY SIGNED BY: PAM RIGGINS MD DATE: 08/22/251745 PATIENT: TAYLOR DUNCAN MR#: [id number] : 1940 SEX: M AGE: 84 LOCATION: [facility] ORDER 230 STATUS: ADM IN REPORT#: [id number] SERVICE 06 REASON: hypoxic resp failure ORDERING PHYSICIAN: DAGOBERTO BRIGGS PROCEDURE: CXR1VW - CHEST 1VW EXAM: CR Chest, 1 views. CLINICAL HISTORY: Cough. COMPARISON: 08/21/2025 FINDINGS: The lungs show no infiltrate or other acute findings. No pleural effusion or pneumothorax. Stable cardiomegaly is noted. Radio-opaque pacemaker is noted. No acute osseous abnormality. IMPRESSION: 1. No acute cardiopulmonary pathology is evident. /[place] DICTATED BY: DIANE STALEY MD DATE: 08/23/251516 ELECTRONICALLY SIGNED BY: DIANE STALEY MD DATE: 08/23/251516 PATIENT: TAYLOR DUNCAN MR#: [id number] : 1940 SEX: M AGE: 84 LOCATION: [facility] ORDER 0953 STATUS: ADM IN REPORT#: [id number] SERVICE 0950 REASON: AMEENA, HEMATURIA ORDERING PHYSICIAN: ZACHARY SRINIVASAN MD PROCEDURE: RENAL - US RENAL SONOGRAM EXAMINATION: ULTRASOUND OF THE RETROPERITONEUM. CLINICAL HISTORY: AMEENA and hematuria. COMPARISON: None. TECHNIQUE: Real-time grayscale ultrasound images of the kidneys. FINDINGS: The kidneys are normal in caliber, the right kidney measures 9.0 x 5.2 x 4.1 cm and the left kidney measures 9.3 x 4.8 x 3.7 cm in its craniocaudal, AP, and transverse dimensions respectively. There is normal renal cortical thickness, and cortical echogenicity. There is no renal calculus or hydronephrosis. The urinary bladder is empty with Coronel???s bulb. IMPRESSION: No significant abnormality. Coronel???s bulb is in situ. /[place] DICTATED BY: SYLVESTER STRANGE Jr., MD DATE: 08/22/25701 ELECTRONICALLY SIGNED BY: SYLVESTER STRANGE Jr., MD DATE: 08/22/25701 PATIENT: TAYLOR DUNCAN MR#: [id number] : 1940 SEX: M AGE: 84 LOCATION: [facility] ORDER 1553 STATUS: ADM IN REPORT#: [id number] SERVICE 0000 REASON: SYNCOPE ORDERING PHYSICIAN: DAGOBERTO BRIGGS AGACNP PROCEDURE: ECHO CMP - ECHO 2-D COMPLETE APPROVED REPORT EXAM: Two-dimensional and M-mode echocardiogram with Doppler and color Doppler. INDICATION ICD: Syncope 2D Dimensions RVDd 4.8 cm LVEF(%) 49.4 (>50%) LVED Vol(simp.) 151.7 mL IVSd 0.8 (0.7-1.1cm) FS(%) 25 % LVES Vol(simp.) 100.4 mL LVDd 5.5 (3.8-5.6cm) LA (2D) 4.5 (1.6-4.0cm) LVEF(%, simp.) 34 % PWd 1.0 (0.7-1.1cm) Ao Root(2D) 3.1 (2.0-3.7cm) LA ESV INDEX (BP) 68.47 mL/m2 LVDs 4.1 (2.5-4.0cm) LVOT diam 2.2 (1.8-2.4cm) IVC diam 2.5 cm Deformation Strain Apical 4 -8.2 % Apical 2 -8.4 % Apical 3 -9.5 % Global Strain -8.7 % M-Mode Dimensions EPSS 1.7 cm LA (MM) 4.8 (1.6-4.0cm) Ao Root(MM) 2.6 (2.0-3.7cm) Aortic Valve AoV Vmax 2.3 m/s Ao Peak GR 21.2 mmHg LVOT Vmax 0.8 m/s AoV VTI 0.5 m Ao Mean GR 11.9 mmHg LVOT VTI 0.16 m MICHAEL (VMAX) 1.28 cm2 MICHAEL (VTI) 1.2 cm2 Mitral Valve MV E Vmax 96.5 cm/s DECEL Time 157 ms MV A Vmax 38.8 cm/s P 1/2 T 67 ms E/A ratio 2.5 MVA (PHT) 3.3 cm2 TDI E/E' Medial 9.5 E/E' Lateral 9.2 Medial E' Peak V 10.19 cm/s Lateral E' Peak V 10.47 cm/s Pulmonary Valve PV Vmax 1.1 m/s PV VTI 0.21 m PV Mean GR 2.7 mmHg PV Peak GR 5.2 mmHg Tricuspid Valve TR Vmax 3.0 m/s RAP (EST) 8 mmHg RVSP 47.6 mmHg TR Peak GR 39.6 mmHg Left Ventricle Left ventricular cavity size is upper limits normal in size. Apical inferior se gment appears dyskinetic. Mid to distal septal wall is hypokinetic. There is normal left ventricular wall thickness. Left ventricular systolic function is moderately reduced. LVEF is 35-40%. Grade II diastolic dysfunction. Right Ventricle The right ventricle is moderately dilated. Right ventricular systolic function is mildly reduced. Device lead is present in the right ventricle. Atria The left atrium is severely dilated. The right atrium is severely dilated. Aortic Valve The aortic valve is trileaflet, calcified. No aortic regurgitation is present. There is mild valvular aortic stenosis. MG 11.9 mmHg. DVI 0.32. Mitral Valve The mitral valve is normal in structure and function. Mitral regurgitation is mild. There is no mitral valve stenosis. Tricuspid Valve The tricuspid valve is normal in structure. There is moderate to severe tricuspid valve regurgitation noted, RVSP 48mmHg. RVSP may be underestimated by doppler of TR jet. Pulmonic Valve The pulmonary valve is normal in structure and function. There is trace pulmonic valvular regurgitation. Great Vessels The aortic root is normal in size. IVC is dilated and collapses >50% with inspiration. Pericardium Trace pericardial effusion. No echo indications of pericardial tamponade. Other Information Quality : Good Rhythm : Pacemaker Conclusion Left ventricular cavity size is upper limits normal in size. Left ventricular systolic function is moderately reduced. LVEF is 35-40%. Apical inferior segment appears dyskinetic. Mid to distal septal wall is hypokinetic. Grade II diastolic dysfunction. The right ventricle is moderately dilated and mild reduction systolic function. Device lead is present in the right ventricle. Severe biatrial enlargement. Mild mitral regurgitation. Moderate to severe tricuspid valve regurgitation, with RVSP 48mmHg. DICTATED BY: LIVIA DURBIN DO DATE: 08/21/25922 ELECTRONICALLY SIGNED BY: LIVIA DURBIN DO DATE: 08/21/252006 PATIENT: TAYLOR DUNCAN MR#: [id number] : 1940 SEX: M AGE: 84 LOCATION: [facility] ORDER 1553 [facility]: [facility] REPORT#: [id number] SERVICE 1544 REASON: RULE OUT dvt ORDERING PHYSICIAN: DAGOBERTO BRIGGSJuan A PROCEDURE: VENOUS SHAMA - US VENOUS DOPPLER BILATERAL EXAM: BILATERAL LOWER EXTREMITY VENOUS DOPPLER ULTRASOUND CLINICAL INFORMATION: Rule out deep venous thrombosis. TECHNIQUE: Grayscale, color Doppler, and spectral Doppler evaluation of the bilateral common femoral, femoral, profunda femoris, popliteal, posterior tibial, and peroneal veins with compression maneuvers and augmentation where feasible; great and small saphenous veins assessed as appropriate. COMPARISON: None provided. FINDINGS: DEEP VEINS (BILATERAL): Common femoral, femoral, profunda femoris, popliteal, posterior tibial, and peroneal veins are patent with complete compressibility where assessable and demonstrate normal color fill and phasic/spectral flow; no intraluminal thrombus is identified. SUPERFICIAL VEINS (BILATERAL): Great and small saphenous veins are patent and compressible without thrombus. SOFT TISSUES: No focal fluid collection is identified. IMPRESSION: 1. No deep or superficial venous thrombosis in bilateral lower extremities. /[place] DICTATED BY: PAM RIGGINS MD DATE: 08/21/25157 ELECTRONICALLY SIGNED BY: PAM RIGGINS MD DATE: 08/21/25157 PATIENT: TAYLOR DUNCAN MR#: [id number] : 1940 SEX: M AGE: 84 LOCATION: ED ORDER 17 STATUS: REG ER REPORT#: [id number] SERVICE 16 REASON: PELVIC PAIN STATUS POST FALL. ORDERING PHYSICIAN: IGOR BOURNE FISH NET MAKER PROCEDURE: PELVIS - PELVIS 1-2VWS EXAM: CR Pelvis, 2 View. CLINICAL HISTORY: PELVIC PAIN STATUS POST FALL. COMPARISON: None provided. FINDINGS: Mild bilateral hip joint osteoarthritis. Spondylosis of the visualized lower lumbar spine. Prostatic radiation seeds noted. No displaced fracture appreciated. IMPRESSION: 1. No acute osseous injury. /[place] DICTATED BY: SYLVESTER STRANGE Jr., MD DATE: 08/20/251433 ELECTRONICALLY SIGNED BY: SYLVESTER STRANGE Jr., MD DATE: 08/20/251433 PATIENT: TAYLOR DUNCAN MR#: [id number] : 1940 SEX: M AGE: 84 LOCATION: [facility] ORDER 1045 STATUS: REG ER [facility] REPORT#: [id number] SERVICE 1042 REASON: SYNCOPAL EPISODE FELL WITH RIGHT UPPER ARM PAIN ORDERING PHYSICIAN: IGOR BOURNE FISH NET MAKER PROCEDURE: HUM 2V RT - HUMERUS 2+VWS RT EXAM: CR right Humerus, 2 View. CLINICAL HISTORY: SYNCOPAL EPISODE FELL WITH RIGHT UPPER ARM PAIN COMPARISON: None provided. FINDINGS: BONES: No acute fracture or aggressive appearing osseous lesion. JOINTS: No dislocation. The joint spaces are normal. SOFT TISSUES: The soft tissues are unremarkable. IMPRESSION: No acute osseous abnormality. /[place] DICTATED BY: SYLVESTER STRANGE Jr., MD DATE: 08/20/251331 ELECTRONICALLY SIGNED BY: SYLVESTER STRANGE Jr., MD DATE: 08/20/251331 PATIENT: TAYLOR DUNCAN MR#: [id number] : 1940 SEX: M AGE: 84 LOCATION: [facility] ORDER 44 STATUS: [facility] REPORT#: [id number] SERVICE 41 REASON: SYNCOPAL EPISODE FELL BACK AND HIT OCCIPUT. CONFUSED ORDERING PHYSICIAN: IGOR BOURNE FISH NET MAKER PROCEDURE: HEAD WO - CT HEAD/BRAIN W/O CONTRAST EXAM: CT Head Without IV contrast. CLINICAL HISTORY: SYNCOPAL EPISODE FELL BACK AND HIT OCCIPUT. CONFUSED TECHNIQUE: Axial computed tomography images of the head/brain without intravenous contrast. COMPARISON: None provided. FINDINGS: BRAIN: No evidence of acute hemorrhage. No mass lesion. No CT evidence for acute territorial infarct. No midline shift or extra-axial collections. VENTRICLES: No hydrocephalus. ORBITS: The orbits are unremarkable. SINUSES AND MASTOIDS: The paranasal sinuses and mastoid air cells are clear. BONES: No fracture. SOFT TISSUES: Soft tissue edema overlying the left parietal skull. IMPRESSION: No acute intracranial abnormality. /[place] DICTATED BY: SYLVESTER STRANGE Jr., MD DATE: 08/20/251251 ELECTRONICALLY SIGNED BY: SYLVESTER STRANGE Jr., MD DATE: 08/20/251251 PATIENT: TAYLOR DUNCAN MR#: [id number] : 1940 SEX: M AGE: 84 LOCATION: ED ORDER 44 STATUS: [facility] ER [facility] REPORT#: [id number] SERVICE 104 REASON: FOR A PAIN STATUS POST SYNCOPAL EPISODE AND FALL ORDERING PHYSICIAN: IGOR BOURNE FISH NET MAKER PROCEDURE: FORARMR - FOREARM 2VWS RT EXAM: CR right Forearm, 2 View. CLINICAL HISTORY: FOR A PAIN STATUS POST SYNCOPAL EPISODE AND FALL COMPARISON: None provided. FINDINGS: BONES: No acute fracture or aggressive appearing osseous lesion. JOINTS: No dislocation. The joint spaces are normal. SOFT TISSUES: The soft tissues are unremarkable. IMPRESSION: No acute osseous abnormality. /[place] DICTATED BY: SYLVESTER STRANGE Jr., MD DATE: 08/20/251330 ELECTRONICALLY SIGNED BY: SYLVESTER STRANGE Jr., MD DATE: 08/20/251330 PATIENT: TAYLOR DUNCAN MR#: [id number] : 1940 SEX: M AGE: 84 LOCATION: [facility] ORDER 44 STATUS: [facility] REPORT#: [id number] SERVICE 104 REASON: FOR A PAIN STATUS POST SYNCOPAL EPISODE AND FALL ORDERING PHYSICIAN: IGOR BOURNE FISH NET MAKER PROCEDURE: CXR1VW - CHEST 1VW EXAM: CR Chest, 1 View. CLINICAL HISTORY: FOR A PAIN STATUS POST SYNCOPAL EPISODE AND FALL COMPARISON: None provided. FINDINGS: LUNGS: The lungs show no infiltrate or other acute finding. PLEURAL SPACES: No evidence of pleural effusion or pneumothorax. MEDIASTINUM: Moderate cardiomegaly. Pacemaker leads are in appropriate positions. Pulmonary vessels and interstitial markings are within normal limits. BONES: No aggressive appearing osseous lesion seen. IMPRESSION: No acute cardiopulmonary pathology is evident. /[place] DICTATED BY: SYLVESTER STRANGE Jr., MD DATE: 08/20/251331 ELECTRONICALLY SIGNED BY: SYLVESTER STRANGE Jr., MD DATE: 08/20/251331 PATIENT: TAYLOR DUNCAN MR#: [id number] : 1940 SEX: M AGE: 84 LOCATION: [facility] ORDER 1045 STATUS: [facility] REPORT#: [id number] SERVICE 1042 REASON: SYNCOPAL EPISODE, FELL BACK HIT HEAD. MIDLINE SPINE PAIN ORDERING PHYSICIAN: IGOR BOURNE FISH NET MAKER PROCEDURE: C SPIN WO - CT CERVICAL SPINE W/O CONTRAST ADDENDUM REPORT ADDENDUM: Results were shared by telephone at 01:24 pm EST on 08-20-25 and acknowledged by IGOR Smith. /[place] EXAM: CT Cervical Spine Without IV contrast. CLINICAL HISTORY: SYNCOPAL EPISODE, FELL BACK HIT HEAD. MIDLINE SPINE PAIN TECHNIQUE: Axial computed tomography images of the cervical spine without intravenous contrast. Sagittal and coronal reformatted images were generated. COMPARISON: None provided. FINDINGS: The cervical alignment is within normal limits. There is straightening of the cervical spine that may reflect paraspinal muscle spasm. There is cervical spondylosis evident by anterior osteophytes, uncovertebral joint hypertrophy, and facet joint osteoarthritis. Bones are markedly osteopenic, limiting evaluation for nondisplaced fractures. There is a mildly displaced fracture of the right transverse process of C7. Suspected nondisplaced fractures at the inferior endplate of C6 and superior endplate of C7. There is a fracture of the right superior articular facet of C7. The bilateral inferior articular facets of C6 are perched upon the bilateral superior articular facets of C7 resulting in 0.4 cm anterior listhesis of C6 with respect to C7. There is edema within the surrounding paraspinal musculature. Lung apices are clear. IMPRESSION: 1. Mildly displaced fracture of the right C7 transverse process. 2. Suspected nondisplaced fractures at C6 inferior endplate and C7 superior endplate. 3. Fracture of the right C7 superior articular facet. 4. Bilateral C6-C7 facet perching with 4 mm anterolisthesis of C6 on C7. 5. Paraspinal muscle edema. /[place] DICTATED BY: SYLVESTER STRANGE Jr., MD DATE: 08/20/25 1350 ELECTRONICALLY SIGNED BY: DATE: EXAM: CT Cervical Spine Without IV contrast. CLINICAL HISTORY: SYNCOPAL EPISODE, FELL BACK HIT HEAD. MIDLINE SPINE PAIN TECHNIQUE: Axial computed tomography images of the cervical spine without intravenous contrast. Sagittal and coronal reformatted images were generated. COMPARISON: None provided. FINDINGS: The cervical alignment is within normal limits. There is straightening of the cervical spine that may reflect paraspinal muscle spasm. There is cervical spondylosis evident by anterior osteophytes, uncovertebral joint hypertrophy, and facet joint osteoarthritis. Bones are markedly osteopenic, limiting evaluation for nondisplaced fractures. There is a mildly displaced fracture of the right transverse process of C7. Suspected nondisplaced fractures at the inferior endplate of C6 and superior endplate of C7. There is a fracture of the right superior articular facet of C7. The bilateral inferior articular facets of C6 are perched upon the bilateral superior articular facets of C7 resulting in 0.4 cm anterior listhesis of C6 with respect to C7. There is edema within the surrounding paraspinal musculature. Lung apices are clear. IMPRESSION: 1. Mildly displaced fracture of the right C7 transverse process. 2. Suspected nondisplaced fractures at C6 inferior endplate and C7 superior endplate. 3. Fracture of the right C7 superior articular facet. 4. Bilateral C6-C7 facet perching with 4 mm anterolisthesis of C6 on C7. 5. Paraspinal muscle edema. /[place] DICTATED BY: SYLVESTER STRANGE Jr., MD DATE: 08/20/25 1301 ELECTRONICALLY SIGNED BY: SYLVESTER STRANGE Jr., MD DATE: 08/20/25 1301 ASSESSMENT: Acute on chronic renal failure Syncope and fall POA Mildly displaced fracture of the right C7 transverse process. nondisplaced fractures at C6 inferior endplate and C7 superior endplate. Fracture of the right C7 superior articular facet. Bilateral C6-C7 facet perching with 4 mm anterolisthesis of C6 on C7. Paraspinal muscle edema. 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 We have reviewed external records in detail Require close monitoring of renal function and electrolytes Order CBC, CMP, electrolytes in am BiPAP as necessary, for respiratory distress Monitor blood pressure adjust medication doses as needed Avoid hypotensive episodes May use Dilaudid 0.5 mg IV every 6 hours as needed for severe pain Monitor blood sugars Strict intake, output, and daily weight should be monitored Please renally adjust medications Avoid nephrotoxic and nonsteroidal drugs Avoid contrast if possible Will continue to monitor renal function, anemia, electrolytes Treatment plan discussed with patient Questions were answered We have discussed with the other team physicians in detail about the care plan We will continue to monitor the patient closely ATTESTATION BY PHYSICIAN I have seen and examined the patient. I reviewed the documentation, medical decision making, and treatment plan as noted by the mid-level provider above. I agree with the findings and plan of care. ZACHARY SRINIVASAN MD, [facility] Aug 28, 2025 13:27
[2025-08-29] VITALS (9 sets, daily range): BP systolic 100–114; BP diastolic 55–64; PULSE 74–84; RESP 18–20; TEMP 97.6–98.5; O2SAT 95–98
[2025-08-29 03:56] LABS: IMMATURE GRANULOCYTE ABSOLUTE 0.32 K/uL (0-1); NUCLEATED RED BLOOD CELLS 0.0 % (0.0-0.19); PLATELET COUNT (AUTO) 175 K/uL (130-400); RED BLOOD CELL COUNT(AUTO) 2.51 MIL/uL (4.50-6.20); RED CELL DISTRIBUTION WIDTH 18.0 % (11.0-15.5); WHITE BLOOD COUNT (AUTO) 7.6 K/uL (4.8-10.8)
[2025-08-29 04:22] LABS: ASPARTATE AMINOTRANSFERASE 40.0 U/L (10-37); CREATININE 1.2 mg/dL (0.5-1.3); GLOMERULAR FILTR. RATE CALC 59.0 mL/min (>90); GLUCOSE,RANDOM 149.0 mg/dL (70-105); SODIUM SERUM 131.0 mmol/L (136-145); TOTAL PROTEIN, SERUM 6.7 g/dL (6.0-8.3); UREA NITROGEN, BLOOD 60.0 mg/dL (7-18)
--- NOTE | 2025-08-29 12:37 | PN ---
NEPHROLOGY PROGRESS NOTE Date/Time Patient Seen: Aug 29, 2025 SUBJECTIVE: This is an 84-year-old male with a past medical history of atrial fibrillation status post Watchman, arthritis, CHF, CAD, prostatitis, and ppm/ICD He presented to the ED for evaluation of fall from 3 ft stool. He presented to the ED with complaints of right arm pain, cervical pain and headache. He was noted to have elevated BUN/creatinine and rhabdomyolysis. Renal function and electrolytes are stable Continues to be followed by Cardiology He was seen in the medical floor, in no acute distress Pending discharge disposition later today REVIEW OF SYSTEMS: GENERAL: Negative for any nausea, vomiting, fevers, chills, or weight loss. NEUROLOGIC: Negative for any blurry vision, blind spots, double vision, facial asymmetry, dysphagia, dysarthria, hemiparesis, hemisensory deficits, vertigo, ataxia. HEENT: Negative for any head trauma, neck trauma, neck stiffness, photophobia, phonophobia, sinusitis, rhinitis. CARDIAC: Negative for any chest pain, dyspnea on exertion, paroxysmal nocturnal dyspnea, peripheral edema. PULMONARY: Negative for any shortness of breath, wheezing, COPD, or TB exposure. GASTROINTESTINAL: Negative for any abdominal pain, nausea, vomiting, bright red blood per rectum, melena. GENITOURINARY: Negative for any dysuria, hematuria, incontinence. INTEGUMENTARY: Negative for any rashes, cuts, insect bites. RHEUMATOLOGIC: Negative for any joint pains, photosensitive rashes, history of vasculitis or kidney problems. HEMATOLOGIC: Negative for any abnormal bruising, frequent infections or bleeding . Vital Signs (last 8hr) Date Time Temp Pulse Resp B/P (MAP) Pulse Ox O2 Delivery O2 Flow Rate FiO2 08/28/25 12:16 96.1 84 12 19/57 96 Room Air 08/28/25 11:05 75 18 N/A Room Air 21 08/28/25 11:00 78 20 08/28/25 09:00 80 20 100/44 100 Nasal Cannula 2.0 08/28/25 08:00 100 Nasal Cannula* 2 28 08/28/25 08:00 98.1 81 14 115/61 100 Nasal Cannula 2.0 08/28/25 07:00 86 13 118/54 100 Nasal Cannula 2.0 08/28/25 06:43 81 20 08/28/25 06:42 81 20 N/Cannula Low lpm 2.0 28 Intake and Output 08/28/25 07:00 Intake Total 100.0 ml Output Total 1900 ml Balance -1800.0 ml IV Total 100.0 ml Output Urine Total 1900 ml # Incontinent Bowel Movements 1 PHYSICAL EXAM: GENERAL: Alert and oriented x 3. No acute distress. Well-nourished. EYES: EOMI. Anicteric. HENT: Moist mucous membranes. No scleral icterus. No cervical lymphadenopathy. LUNGS: Clear to auscultation bilaterally. No accessory muscle use. CARDIOVASCULAR: Regular rate and rhythm. No murmur. No JVD. ABDOMEN: Soft, non-tender and non-distended. No palpable masses. EXTREMITIES: No edema. Non-tender. SKIN: No rashes or lesions. Warm. NEUROLOGIC: No focal neurological deficits. CN II-XII grossly intact, but not individually tested. PSYCHIATRIC: Cooperative. Appropriate mood and affect. Current Medications Medications (Trade) Dose Ordered Sig/Dann Route Start Time Stop Time Status Last Admin Dose Admin Acetaminophen (acetaMINOPHEN 1,000MG/100ML) 1,000 mg Q6H6 IVPB 08/22/25 12:00 08/27/25 13:00 DC 08/27/25 11:17 1,000 MG Allopurinol (ZYLOprim 300MG) 300 mg DAILY PO 08/23/25 09:00 09/22/25 08:59 08/28/25 07:59 300 MG Amiodarone HCl (pacERONE 200MG) 400 mg DAILY PO 08/22/25 09:00 09/21/25 08:59 08/28/25 08:00 400 MG Amiodarone HCl 150 mg/Dextrose 103 ml @ 618 mls/hr ONCE IV 08/21/25 20:30 08/21/25 20:16 DC Amiodarone HCl 360 mg/Dextrose 207.2 ml @ 33.3 mls/hr AD IV 08/21/25 20:30 08/21/25 20:17 DC Amiodarone HCl 540 mg/Dextrose 310.8 ml @ 16.7 mls/hr [id number] IV 08/22/25 03:00 08/24/25 14:53 DC 08/22/25 02:45 16.7 MLS/HR Amiodarone HCL/ Dextrose 100 ml @ 600 mls/hr PROTOCOL IV 08/21/25 20:50 08/21/25 20:59 DC 08/21/25 20:52 600 MLS/HR Amiodarone HCL/ Dextrose 100 ml @ 0 mls/hr PROTOCOL IV 08/21/25 19:30 08/21/25 19:31 DC Amiodarone HCL/ Dextrose 200 ml @ 33.333 mls/ hr PROTOCOL IV 08/21/25 21:00 08/22/25 02:59 DC 08/21/25 20:53 33.333 MLS/HR Amiodarone HCL/ Dextrose 200 ml @ 0 mls/hr PROTOCOL IV 08/21/25 19:30 08/21/25 19:31 DC Aspirin (Aspirin 81mg Chew Tab) 81 mg DAILY PO 08/22/25 09:00 09/21/25 08:59 08/28/25 07:59 81 MG Baclofen (Baclofen) 5 mg TID PO 08/21/25 14:00 08/24/25 14:53 DC 08/23/25 13:57 5 MG Dexamethasone Sodium Phosphate (dexaMETHasone 4MG/ML 1ML VIAL) 4 mg Q6H6 IVP 08/23/25 23:00 09/22/25 22:59 08/28/25 05:49 4 MG Dexamethasone Sodium Phosphate (dexaMETHasone 4MG/ML 1ML VIAL) 12 mg ONCE IVP 08/23/25 17:00 08/23/25 21:00 DC 08/23/25 17:38 12 MG Enoxaparin Sodium (Lovenox) 30 mg DAILY SQ 08/28/25 09:00 09/27/25 08:59 08/28/25 08:00 30 MG Enoxaparin Sodium (Lovenox) 40 mg DAILY SQ 08/21/25 09:00 08/26/25 08:44 DC 08/23/25 09:26 40 MG Famotidine (Pepcid 20mg Vial) 20 mg Q48H IV 08/20/25 21:00 09/19/25 20:59 08/26/25 20:35 20 MG Fish Oil (Fish Oil 1000 Mg/Cap) 1,000 mg DAILY PO 08/23/25 09:00 09/22/25 08:59 08/28/25 07:59 1,000 MG Folic Acid (FolVITE 5 MG/ML VIAL) 1 mg DAILY IV 08/21/25 09:00 09/20/25 08:59 08/28/25 09:10 1 MG Furosemide (LASix 40MG TAB) 40 mg DAILY PO 08/28/25 09:00 09/27/25 08:59 08/28/25 07:59 40 MG Furosemide (LASix 80MG TAB) 80 mg DAILY PO 08/23/25 09:00 08/27/25 13:03 DC 08/26/25 08:35 80 MG Gabapentin (NEURontin 100 mg CAP) 100 mg TID PO 08/22/25 14:00 08/24/25 14:53 DC 08/23/25 13:57 100 MG Ipratropium [place] (AtrovENT UD) 0.5 MG [id number] IH 08/25/25 12:00 09/24/25 11:59 08/28/25 11:00 0.5 MG Lactated Ringer's 1,000 ml @ 50 mls/hr Q20H IV 08/20/25 16:30 08/22/25 09:23 DC 08/21/25 20:09 50 MLS/HR Lidocaine (Lidocaine Patch 4%) 2 each DAILY TP 08/28/25 09:00 09/27/25 08:59 08/28/25 08:01 2 EACH Losartan Potassium (CozAAR 25MG TAB) 25 mg DAILY PO 08/23/25 09:00 08/23/25 07:15 DC Magnesium Oxide (Mag-Ox) 400 mg DAILY PO 08/24/25 09:00 09/23/25 08:59 08/28/25 08:00 400 MG Metolazone (zarOXOlyn) 2.5 mg DAILY PO 08/23/25 09:00 09/22/25 08:59 08/28/25 08:00 2.5 MG Metoprolol Succinate (TopROL XL) 25 mg DAILY PO 08/21/25 18:00 08/22/25 07:09 DC 08/21/25 18:32 25 MG Metoprolol Tartrate (loprESSOR) 50 mg DAILY PO 08/22/25 09:00 09/21/25 08:59 08/28/25 07:59 50 MG Midodrine (PROAMatine 5 MG TABLET) 10 mg ONCE PO 08/23/25 16:00 08/23/25 20:00 DC 08/23/25 16:05 10 MG Midodrine (PROAMatine 5 MG TABLET) 10 mg Q6H6 PO 08/23/25 18:00 09/22/25 17:59 08/28/25 05:49 10 MG Multivitamins Therapeutic (Multivitamin Tablet) 1 tab DAILY PO 08/22/25 09:00 09/21/25 08:59 08/28/25 07:59 1 TAB Pharmacy Profile Note (Pharmacy Communication) 1 each ONCE MISC 08/23/25 16:30 08/24/25 14:53 DC Sacubitril/ Valsartan (Entresto 24 Mg-26 Mg Tablet) 1 each BID PO 08/23/25 09:00 09/22/25 08:59 08/28/25 07:59 1 EACH Sodium Chloride 500 ml @ 500 mls/hr Q1H IV 08/23/25 16:00 08/23/25 17:52 DC 08/23/25 16:06 500 MLS/HR Sodium Chloride 500 ml @ 500 mls/hr Q4H IV 08/23/25 16:30 08/24/25 09:29 DC 08/24/25 05:38 500 MLS/HR Spironolactone (Aldactone 25mg) 25 mg DAILY PO 08/23/25 09:00 09/22/25 08:59 08/28/25 07:59 25 MG Spironolactone (Aldactone 25mg) 25 mg DAILY PO 08/25/25 09:00 08/26/25 08:44 DC 08/25/25 11:34 25 MG Tamsulosin HCl (FloMAX) 0.4 mg DAILY PO 08/23/25 09:00 09/22/25 08:59 08/28/25 07:59 0.4 MG Thiamine HCl (Vitamin B-1) 100 mg DAILY IVP 08/22/25 09:00 09/21/25 08:59 08/28/25 08:00 100 MG Thiamine HCl (Vitamin B-1) 300 mg Q24H IVP 08/20/25 16:30 08/21/25 09:55 DC 08/20/25 20:40 300 MG Vitamin B Complex/ Vit C/Folic Acid (Nephrovite Tablet) 1 cap DAILY PO 08/22/25 09:00 12/13/25 08:59 08/28/25 07:59 1 CAP LABORATORY: [ ] Hematology Labs: Test 08/29/25 03:39 08/28/25 04:09 Range/Units White Blood Count 7.6 4.8-10.8 K/uL Red Blood Count 2.51 L 4.50-6.20 MIL/uL Hemoglobin 8.7 L 14.0-18.0 g/dL Hematocrit 25.7 L 42-54 % Mean Corpuscular Volume 102.4 H 79-99 fL Mean Corpuscular Hemoglobin 34.7 H 27.0-33.0 pg Mean Corpuscular Hemoglobin Concent 33.9 32.0-36.0 g/dL Red Cell Distribution Width 18.0 H 11.0-15.5 % Platelet Count 175 130-400 K/uL Mean Platelet Volume 10.2 7.5-10.5 fL Immature Granulocyte % (Auto) 4.2 H 0-1 % Neutrophils (%) (Auto) 83.8 H 40.0-77.0 % Lymphocytes (%) (Auto) 7.6 L 21.0-51.0 % Monocytes (%) (Auto) 4.3 3.0-13.0 % Eosinophils (%) (Auto) 0.0 0.0-8.0 % Basophils (%) (Auto) 0.1 0.0-5.0 % Neutrophils # (Auto) 6.4 1.8-7.7 K/uL Lymphocytes # (Auto) 0.6 L 1.0-4.8 K/uL Monocytes # (Auto) 0.3 0.1-1.0 K/uL Eosinophils # (Auto) 0.00 0.00-0.70 K/uL Basophils # (Auto) 0.01 0.00-0.20 K/uL Absolute Immature Granulocyte (auto 0.32 0-1 K/uL Nucleated Red Blood Cells 0.0 0.0-0.19 % Red Blood Cell Morphology See comments Chemistry Labs: Test 08/29/25 03:39 Range/Units Sodium Level 131 L 136-145 mmol/L Potassium Level 4.6 3.5-5.1 mmol/L Chloride Level 96 L 101-111 mmol/L Carbon Dioxide Level 25 21-32 mmol/L Blood Urea Nitrogen 60 H 7-18 mg/dL Creatinine 1.2 0.5-1.3 mg/dL Glomerular Filtration Rate Calc 59 >90 mL/min Random Glucose 149 H 70-105 mg/dL Total Calcium 8.4 L 8.5-10.1 mg/dL Total Bilirubin 0.5 0.2-1.0 mg/dL Aspartate Amino Transf (AST/SGOT) 40 H 10-37 U/L Alanine Aminotransferase (ALT/SGPT) 61 12-78 U/L Alkaline Phosphatase 94 50-136 U/L Total Protein 6.7 6.0-8.3 g/dL Albumin 2.8 L 3.5-5.0 g/dL DIAGNOSTICS / RADIOLOGY: [address] [address] IMAGING REPORT Signed PATIENT: TAYLOR DUNCAN MR#: [id number] : 1940 SEX: M AGE: 84 LOCATION: 2CH ORDER 1302 STATUS: ADM IN REPORT#: [id number] SERVICE 1301 REASON: pericardial effusion ORDERING PHYSICIAN: STEPHANIE LLOYD PAC PROCEDURE: ECHO FU LD - ECHO 2-D F/U-LTD APPROVED REPORT EXAM: Limited Two-dimensional echocardiogram with color Doppler. INDICATION ICD: I31.3 Pericardial effusion Pericardium Trivial pericardial effusion seen anteriorly. No echo indications of pericardial tamponade. Other Information Quality : Limited/Follow-up, Adequate Rhythm : Sinus rhythm Conclusion Trivial pericardial effusion seen anteriorly. No echo indications of pericardial tamponade. DICTATED BY: BETTIE HARLEY MD DATE: 08/27/25 1358 ELECTRONICALLY SIGNED BY: BETTIE HARLEY MD DATE: 08/27/25 0308 PATIENT: TAYLOR DUNCAN MR#: [id number] : 1940 SEX: M AGE: 84 LOCATION: 2CH ORDER 1015 STATUS: ADM IN REPORT#: [id number] SERVICE 1014 REASON: PREV SX ORDERING PHYSICIAN: STEPHANIE LLOYD PROCEDURE: CXR1VW - CHEST 1VW STUDY: X-RAY OF THE CHEST, 1 VIEW HISTORY: Preoperative status post prior surgery. TECHNIQUE: A single frontal view of the chest is submitted for interpretation. COMPARISON: Chest radiograph from 08/24 at 16:26 EST. FINDINGS: Pulmonary morris: Lungs are clear without focal consolidation, pulmonary edema, or suspicious pulmonary nodules. Symmetric aeration is maintained. Cardiac silhouette: Cardiomegaly is present. Aortic arch calcification is noted, compatible with atherosclerotic change. Mediastinum and christine: Mediastinal contours and christine are within normal limits without evidence of mass or widening. Osseous structures: Visualized ribs, clavicles, and thoracic spine demonstrate no acute osseous abnormality. Miscellaneous: A multilead cardiac pacemaker is in situ with intact-appearing leads. A right-sided peripherally inserted central catheter is again seen with its tip now at the atriocaval junction, previously at the distal superior vena cava. No pleural effusion or pneumothorax is identified. Diaphragms and costophrenic angles are sharp. IMPRESSION: * Stable cardiomegaly with aortic arch atherosclerotic calcification. * Multilead cardiac pacemaker in situ with intact leads. * Compared with the chest radiograph from 08/24 at 16:26 EST, there is interval repositioning of the right-sided peripherally inserted central catheter with its tip now at the atriocaval junction, previously at the distal superior vena cava; lungs remain clear without acute abnormality. /[place] DICTATED BY: PAM RIGGINS MD DATE: 08/27/252209 ELECTRONICALLY SIGNED BY: PAM RIGGINS MD DATE: 08/27/252209 PATIENT: TAYLOR DUNCAN MR#: [id number] : 1940 SEX: M AGE: 84 LOCATION: 2CH ORDER 99 STATUS: [facility]M [facility] REPORT#: [id number] SERVICE 0700 REASON: UNABLE TO MOVE LEGS ORDERING PHYSICIAN: DREA FARIA MD PROCEDURE: TH SPN WO - MR SPINAL CANAL, THORAC WO CON EXAM: MR Thoracic Spine Without Intravenous Contrast. CLINICAL HISTORY: Postoperative case. Unable to move legs. TECHNIQUE: Magnetic resonance images of the thoracic spine in multiple planes. CONTRAST: None. COMPARISON: None. FINDINGS: The cervicothoracic and thoracolumbar junction are intact. Follow-up case of cervical spine injury. Postoperative status with posterior spinal fixator at the C6 and C7 vertebral level with laminectomy defect. Moderate posterior paravertebral subcutaneous and muscle oedema. Normal thoracic curvature. Visualised vertebrae show heterogeneous T1 and T2 signal, consistent with osteoporotic changes. Degenerative changes in thoracic vertebrae as multilevel marginal osteophytes, disc desiccation, ligamentum flavum hypertrophy and facet joint arthropathy. Minimally prominent central spinal canal of the spinal cord and thoracic level; however, no abnormal signal involves the thoracic cord. No abnormal extra-axial masses are present. [id number] findings are as follows: C7-T1: 2 mm mild disc osteophyte bulge, indenting thecal sac and bilateral neural foramina. No significant bilateral foraminal stenosis. No significant exiting nerve root compression. T1-T2: 2 mm mild disc osteophyte bulge, indenting thecal sac and bilateral neural foramina. No significant bilateral foraminal stenosis. No significant exiting nerve root compression. Is T2-T3: No disc bulge or herniation. No neural foraminal, lateral recess or spinal canal stenosis. T3-T4: No disc bulge or herniation. No neural foraminal, lateral recess or spinal canal stenosis. T4-T5: No disc bulge or herniation. No neural foraminal, lateral recess or spinal canal stenosis. T5-T6: No disc bulge or herniation. No neural foraminal, lateral recess or spinal canal stenosis. T6-T7: No disc bulge or herniation. No neural foraminal, lateral recess or spinal canal stenosis. T7-T8: No disc bulge or herniation. No neural foraminal, lateral recess or spinal canal stenosis. T8-T9: No disc bulge or herniation. No neural foraminal, lateral recess or spinal canal stenosis. T9-T10: No disc bulge or herniation. No neural foraminal, lateral recess or spinal canal stenosis. T10-T11: No disc bulge or herniation. No neural foraminal, lateral recess or spinal canal stenosis. T11-T12: No disc bulge or herniation. No neural foraminal, lateral recess or spinal canal stenosis. T12-L1: No disc bulge or herniation. No neural foraminal, lateral recess or spinal canal stenosis. IMPRESSION: Follow up case of cervical spine injury with postoperative status. Moderate posterior paraspinal soft tissue oedema in the upper thoracic vertebral level. Moderate thoracic spondylosis changes. Minimally prominent central spinal canal of thoracic vertebrae; however, no cord compression or myelopathy changes. No significant exiting nerve root compression in thoracic intervertebral disc levels. /[place] DICTATED BY: SYLVESTER STRANGE Jr., MD DATE: 08/27/25804 ELECTRONICALLY SIGNED BY: SYLVESTER STRANGE Jr., MD DATE: 08/27/25804 PATIENT: TAYLOR DUNCAN MR#: [id number] : 1940 SEX: M AGE: 84 LOCATION: [facility] ORDER 2300 STATUS: ADM IN REPORT#: [id number] SERVICE 0700 REASON: UNABLE TO MOVE LEGS ORDERING PHYSICIAN: DREA FARIA MD PROCEDURE: C SPN WO - MR SPINAL CANAL, CERV WO CON EXAM: MR Cervical Spine Without Intravenous Contrast. CLINICAL HISTORY: Follow-up postoperative case of cervical spine injury. Unable to move legs. TECHNIQUE: Magnetic resonance images of the cervical spine in multiple planes. CONTRAST: None. COMPARISON: August 23, 2025. FINDINGS: The imaged posterior fossa is unremarkable. The craniocervical junction is intact. Postoperative posterior spinal fixators in C6 and C7 with laminectomy defect. Straightened cervical spine curvature with maintained alignment. Visualised vertebral marrow signal shows heterogeneous increased T1 and T2 signal, consistent with osteoporotic changes. Mild, 5%-10% reduced height with endplate irregularity of the C6 vertebral body. Mild to moderate postoperative soft tissue and muscle oedema in the paraspinal muscles. No obvious loculated collection in the current scan. Multilevel spondylosis is evident by marginal osteophytes and facet joint arthropathy. Multilevel disc desiccation and degenerative disc height reduction noted, more pronounced at the C6-C7 level. The visualised cervical spinal cord at the level of C5 and C6 vertebrae shows mild cord oedema with a middle thesubtle increased T2 signal is probably due to cord oedema with mild myelopathy changes. Level by level disease is present as follows: C1-C2: Mild osteoarthritis. C2-C3: 1 mm disc osteophyte complex bulge and facet joint arthropathy causing mild indentation on the anterior thecal sac and severe right foraminal narrowing. No lateral recess stenosis. C3-C4: 3 mm left predominant disc osteophyte complex bulge and facet joint arthropathy causing mild indentation on the anterior thecal sac and severe bilateral foraminal narrowing. No lateral recess stenosis. C4-C5: 3 mm left predominant disc osteophyte complex bulge and facet joint arthropathy causing mild indentation on the anterior thecal sac and severe bilateral foraminal narrowing. No lateral recess stenosis. C5-C6: 3 mm disc osteophyte complex bulge and facet joint arthropathy causing mild indentation on the anterior thecal sac and severe bilateral foraminal narrowing. No lateral recess stenosis. C6-C7: 3 mm disc osteophyte is bulge causing mild indentation on the anterior thecal sac and mild bilateral foraminal narrowing. No lateral recess stenosis. C7-T1: 1 mm mild disc bulge indenting thecal sac and bilateral neural foramina. No foraminal stenosis. IMPRESSION: Follow up case of cervical spine injury. Postoperative posterior spinal fixators in C6 and C7 with laminectomy defect. Straightened cervical spine curvature with maintained alignment. Visualised vertebral marrow signal shows heterogeneous increased T1 and T2 signal, consistent with osteoporotic changes. Mild, 5%-10% reduced height with endplate irregularity of the C6 vertebral body. Mild to moderate postoperative soft tissue and muscle oedema in the paraspinal muscles. No obvious loculated collection in the current scan. Acute compression fracture at the inferior endplate of C6. Acute fracture of the right superior articular facet of C7. Moderate multilevel spondylosis and degenerative disc changes. Mild indentation on the anterior thecal sac and severe right foraminal narrowing at the C2-C3 level. Mild indentation on the anterior thecal sac and severe bilateral foraminal narrowing at the C3-C4, C4-C5, and C5-C6 levels. Mild indentation on the anterior thecal sac and mild bilateral foraminal narrowing at the C6-C7 level. /[place] DICTATED BY: SYLVSETER STRANGE Jr., MD DATE: 08/27/25803 ELECTRONICALLY SIGNED BY: SYLVESTER STRANGE Jr., MD DATE: 08/27/25803 PATIENT: TAYLOR DUNCAN MR#: [id number] : 1940 SEX: M AGE: 84 LOCATION: 2CH ORDER 1614 STATUS: ADM IN REPORT#: [id number] SERVICE 161 REASON: PICC placement ORDERING PHYSICIAN: CRISTAL FOX MD PROCEDURE: CXR1VW - CHEST 1VW EXAM: CR Chest, 2 View. CLINICAL HISTORY: PICC placement COMPARISON: Radiograph from earlier today Findings: AP view of the chest is submitted. Right PICC terminates overlying the distal SVC. No pneumothorax. Remainder of the examination is unchanged. IMPRESSION: 1. Right PICC line terminates appropriately in distal SVC; no pneumothorax. /[place] DICTATED BY: SYLVESTER STRANGE Jr., MD DATE: 08/24/251842 ELECTRONICALLY SIGNED BY: SYLVESTER STRANGE Jr., MD DATE: 08/24/251842 PATIENT: TAYLOR DUNCAN MR#: [id number] : 1940 SEX: M AGE: 84 LOCATION: 2CH ORDER 2300 STATUS: ADM IN REPORT#: [id number] SERVICE 06 REASON: hypoxic resp failure ORDERING PHYSICIAN: DAGOBERTO BRIGGS PROCEDURE: CXR1VW - CHEST 1VW EXAM: CR Chest, 1 View. CLINICAL HISTORY: hypoxic resp failure COMPARISON: None provided. FINDINGS: LUNGS: The lungs show no infiltrate or other acute finding. PLEURAL SPACES: No evidence of pleural effusion or pneumothorax. MEDIASTINUM: Cardiac size appears enlarged with cephalization of superior pulmonary vein -s/o pulmonary hypertension. pacemaker in situ with adequately placed cardiac leads. BONES: No acute osseous abnormality. IMPRESSION: Features of cardiomegaly and pulmonary hypertension /[place] DICTATED BY: SYLVESTER STRANGE Jr., MD DATE: 08/23/251153 ELECTRONICALLY SIGNED BY: SYLVESTER STRANGE Jr., MD DATE: 08/23/251153 PATIENT: TAYLOR DUNCAN MR#: [id number] : 1940 SEX: M AGE: 84 LOCATION: [facility] ORDER 21 STATUS: ADM IN REPORT#: [id number] SERVICE 19 REASON: CERVICAL FRACTURE S/P FALL ORDERING PHYSICIAN: DREA FARIA MD PROCEDURE: C SPN WO - MR SPINAL CANAL, CERV WO CON EXAM: MR Cervical Spine Without Intravenous Contrast. CLINICAL HISTORY: Cervical fracture. S/p Fall. TECHNIQUE: Magnetic resonance images of the cervical spine in multiple planes. CONTRAST: None. COMPARISON: CT dated 08/20/25. FINDINGS: The imaged posterior fossa is unremarkable. The craniocervical junction is intact. Acute compression fracture at the inferior endplate of C6. Acute fracture of the right superior articular facet of C7. The bilateral inferior articular facets of C6 are perched upon the bilateral superior articular facets of C7 resulting in 0.4 cm anterior listhesis of C6 with respect to C7. There is widening of the interspinous space at the C6-C7 level with moderate edema suggestive of interspinous and supraspinous ligament tear. Moderate edema noted in the posterior paraspinal muscles of the neck. A collection measuring approximately 1.4 x 1.5 cm posterior to the left C7 lamina. A collection measuring approximately 2.6 x 5.3 cm posterior to the right C7 and T1 lamina. Multilevel spondylosis is evident by marginal osteophytes and facet joint arthropathy. Multilevel disc desiccation and degenerative disc height reduction noted, more pronounced at the C6-C7 level. Normal vertebral body heights. Normal marrow signal of the remaining vertebrae. The cervical cord is in an anatomic location. No abnormal signal involves the cord. No extra-axial masses. Level by level disease is present as follows: C1-C2: Mild osteoarthritis. C2-C3: 1 mm disc osteophyte complex bulge and facet joint arthropathy causing mild indentation on the anterior thecal sac and severe right foraminal narrowing. No lateral recess stenosis. C3-C4: 3 mm left predominant disc osteophyte complex bulge and facet joint arthropathy causing mild indentation on the anterior thecal sac and severe bilateral foraminal narrowing. No lateral recess stenosis. C4-C5: 3 mm left predominant disc osteophyte complex bulge and facet joint arthropathy causing mild indentation on the anterior thecal sac and severe bilateral foraminal narrowing. No lateral recess stenosis. C5-C6: 3 mm disc osteophyte complex bulge and facet joint arthropathy causing mild indentation on the anterior thecal sac and severe bilateral foraminal narrowing. No lateral recess stenosis. C6-C7: 3 mm disc osteophyte compress bulge causing mild indentation on the anterior thecal sac and mild bilateral foraminal narrowing. No lateral recess stenosis. C7-T1: No disc bulge or herniation. No neural foraminal, lateral recess or spinal canal stenosis. IMPRESSION: Acute compression fracture at the inferior endplate of C6. Acute fracture of the right superior articular facet of C7. The bilateral inferior articular facets of C6 are perched upon the bilateral superior articular facets of C7 resulting in 0.4 cm anterior listhesis of C6 with respect to C7. There is widening of the interspinous space at the C6-C7 level with moderate edema suggestive of interspinous and supraspinous ligament tear. Moderate edema in the posterior paraspinal muscles of the neck. A collection measuring approximately 1.4 x 1.5 cm posterior to the left C7 lamina. A collection measuring approximately 2.6 x 5.3 cm posterior to the right C7 and T1 lamina. Moderate multilevel spondylosis and degenerative disc changes. Mild indentation on the anterior thecal sac and severe right foraminal narrowing at the C2-C3 level. Mild indentation on the anterior thecal sac and severe bilateral foraminal narrowing at the C3-C4, C4-C5, and C5-C6 levels. Mild indentation on the anterior thecal sac and mild bilateral foraminal narrowing at the C6-C7 level. /Maynard DICTATED BY: SYLVESTER STRANGE Jr., MD DATE: 08/22/251850 ELECTRONICALLY SIGNED BY: SYLVESTER STRANGE Jr., MD DATE: 08/22/251850 PATIENT: TAYLOR DUNCAN MR#: [id number] : 1940 SEX: M AGE: 84 LOCATION: [facility] ORDER 3 STATUS: ADM IN REPORT#: [id number] SERVICE 4 REASON: SYNCOPE RULE OUT STROKE ORDERING PHYSICIAN: DAGOBERTO BRIGGS PROCEDURE: MRA HEAD - MR ANGIO HEAD, WO CON EXAM: MR Angiography Head without Intravenous Contrast. CLINICAL HISTORY: Syncope. To rule out stroke. TECHNIQUE: Magnetic resonance angiography images of the head without intravenous contrast. Three-dimensional MIP reformations performed. CONTRAST: Without. COMPARISON: A MRI of the brain performed at the same time of the current examination is available for comparison. FINDINGS: INTERNAL CAROTID ARTERIES: The bilateral intracranial ICA are unremarkable in caliber. No significant stenosis. No aneurysm or AVM. ANTERIOR CEREBRAL ARTERIES: The A1 segment of the right anterior cerebral artery is hypoplastic. The rest of the bilateral anterior cerebral arteries are unremarkable. No aneurysm or AVM. MIDDLE CEREBRAL ARTERIES: The bilateral middle cerebral arteries are unremarkable without large vessel occlusion. No significant stenosis. No aneurysm or AVM. POSTERIOR CEREBRAL ARTERIES: The bilateral posterior communicating arteries are visualized. The bilateral posterior cerebral arteries show unremarkable appearance with normal caliber. No significant stenosis. No aneurysm or AVM. BASILAR ARTERY: The vertebrobasilar arteries show unremarkable caliber. No significant stenosis. No aneurysm or AVM. VERTEBRAL ARTERIES: The vertebrobasilar arteries show unremarkable caliber. No significant stenosis. No aneurysm or AVM. No areas of diffusion restriction to suggest acute infarcts or hemorrhage are present in the brain parenchyma. IMPRESSION: 1. 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 2. Otherwise, unremarkable MR angiogram of the head. /Maynard DICTATED BY: PAM RIGGINS MD DATE: 08/22/251750 ELECTRONICALLY SIGNED BY: PAM RIGGINS MD DATE: 08/22/251750 PATIENT: TAYLOR DUNCAN MR#: [id number] : 1940 SEX: M AGE: 84 LOCATION: [facility] ORDER 3 [facility]: [facility] REPORT#: [id number] SERVICE 4 REASON: SYNCOPE RULE OUT STROKE ORDERING PHYSICIAN: DAGOBERTO BRIGGS PROCEDURE: BRAIN WO - MR BRAIN WO CON Here is the updated final report with a proper comparison summary integrated into the IMPRESSION, exactly following your SuperFormat rules (comparison mentioned ONLY in the Impression, not as a separate section): EXAM: MR Brain Without IV Contrast CLINICAL HISTORY: Syncope; rule out stroke TECHNIQUE: Multisequence, multiplanar magnetic resonance images of the brain were obtained without intravenous contrast. Series acquired: SAG T1 SE; AX T2 FSE; AX T2 FLAIR; AX DWI; AX T2* GRE; AX T1 FSE; COR T2 FSE; ADC; eADC. CONTRAST: None. COMPARISON: CT ??? CT Head/Brain Without Contrast ??? 08/20/25 11:34 EST FINDINGS: Brain Age-appropriate diffuse cerebral volume loss. Borderline periventricular T2/FLAIR hyperintensity consistent with early chronic small-vessel ischemic change. Subacute lacunar infarct in the right graff radiata without significant mass effect. 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 No restricted diffusion, no acute infarction, no intracranial hemorrhage, mass effect, or extra-axial collection. Cerebellar tonsils normally positioned. Vascular flow voids preserved. Ventricles Normal size and configuration. Orbits Normal. Sinuses and mastoids Clear. Bones No focal osseous lesion. Soft tissues Scalp contusion in the left temporo-occipital region. IMPRESSION: * Subacute lacunar infarct in the right graff radiata, new compared with prior CT (08/20/25), which did not show an acute parenchymal infarct. 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 * Age-appropriate diffuse cerebral volume loss with borderline chronic small-vessel ischemic changes. * Left temporo-occipital scalp contusion. * Radiologic???clinical correlation: Interval appearance of a subacute lacunar infarct accounts for the principal interval change relative to prior CT and should be interpreted with the patient???s neurologic status. /[place] DICTATED BY: PAM RIGGINS MD DATE: 08/22/251745 ELECTRONICALLY SIGNED BY: PAM RIGGINS MD DATE: 08/22/251745 PATIENT: TAYLOR DUNCAN MR#: [id number] : 1940 SEX: M AGE: 84 LOCATION: [facility] ORDER 230 STATUS: ADM IN REPORT#: [id number] SERVICE 0600 REASON: hypoxic resp failure ORDERING PHYSICIAN: DAGOBERTO BRIGGS PROCEDURE: CXR1VW - CHEST 1VW EXAM: CR Chest, 1 views. CLINICAL HISTORY: Cough. COMPARISON: 08/21/2025 FINDINGS: The lungs show no infiltrate or other acute findings. No pleural effusion or pneumothorax. Stable cardiomegaly is noted. Radio-opaque pacemaker is noted. No acute osseous abnormality. IMPRESSION: 1. No acute cardiopulmonary pathology is evident. /[place] DICTATED BY: DIANE STALEY MD DATE: 08/23/251516 ELECTRONICALLY SIGNED BY: DIANE STALEY MD DATE: 08/23/251516 PATIENT: TAYLOR DUNCAN MR#: [id number] : 1940 SEX: M AGE: 84 LOCATION: [facility] ORDER 0953 STATUS: ADM IN REPORT#: [id number] SERVICE 0950 REASON: AMEENA, HEMATURIA ORDERING PHYSICIAN: ZACHARY SRINIVASAN MD PROCEDURE: RENAL - US RENAL SONOGRAM EXAMINATION: ULTRASOUND OF THE RETROPERITONEUM. CLINICAL HISTORY: AMEENA and hematuria. COMPARISON: None. TECHNIQUE: Real-time grayscale ultrasound images of the kidneys. FINDINGS: The kidneys are normal in caliber, the right kidney measures 9.0 x 5.2 x 4.1 cm and the left kidney measures 9.3 x 4.8 x 3.7 cm in its craniocaudal, AP, and transverse dimensions respectively. There is normal renal cortical thickness, and cortical echogenicity. There is no renal calculus or hydronephrosis. The urinary bladder is empty with Coronel???s bulb. IMPRESSION: No significant abnormality. Coronel???s bulb is in situ. /Maynard DICTATED BY: SYLVESTER STRANGE Jr., MD DATE: 08/22/25701 ELECTRONICALLY SIGNED BY: SYLVESTER STRANGE Jr., MD DATE: 08/22/25701 PATIENT: TAYLOR DUNCAN MR#: [id number] : 1940 SEX: M AGE: 84 LOCATION: [facility] ORDER 1553 STATUS: ADM IN REPORT#: [id number] SERVICE 0000 REASON: SYNCOPE ORDERING PH[facility]IC[facility] PROCEDURE: ECHO CMP - ECHO 2-D COMPLETE APPROVED REPORT EXAM: Two-dimensional and M-mode echocardiogram with Doppler and color Doppler. INDICATION ICD: Syncope 2D Dimensions RVDd 4.8 cm LVEF(%) 49.4 (>50%) LVED Vol(simp.) 151.7 mL IVSd 0.8 (0.7-1.1cm) FS(%) 25 % LVES Vol(simp.) 100.4 mL LVDd 5.5 (3.8-5.6cm) LA (2D) 4.5 (1.6-4.0cm) LVEF(%, simp.) 34 % PWd 1.0 (0.7-1.1cm) Ao Root(2D) 3.1 (2.0-3.7cm) LA ESV INDEX (BP) 68.47 mL/m2 LVDs 4.1 (2.5-4.0cm) LVOT diam 2.2 (1.8-2.4cm) IVC diam 2.5 cm Deformation Strain Apical 4 -8.2 % Apical 2 -8.4 % Apical 3 -9.5 % Global Strain -8.7 % M-Mode Dimensions EPSS 1.7 cm LA (MM) 4.8 (1.6-4.0cm) Ao Root(MM) 2.6 (2.0-3.7cm) Aortic Valve AoV Vmax 2.3 m/s Ao Peak GR 21.2 mmHg LVOT Vmax 0.8 m/s AoV VTI 0.5 m Ao Mean GR 11.9 mmHg LVOT VTI 0.16 m MICHAEL (VMAX) 1.28 cm2 MICHAEL (VTI) 1.2 cm2 Mitral Valve MV E Vmax 96.5 cm/s DECEL Time 157 ms MV A Vmax 38.8 cm/s P 1/2 T 67 ms E/A ratio 2.5 MVA (PHT) 3.3 cm2 TDI E/E' Medial 9.5 E/E' Lateral 9.2 Medial E' Peak V 10.19 cm/s Lateral E' Peak V 10.47 cm/s Pulmonary Valve PV Vmax 1.1 m/s PV VTI 0.21 m PV Mean GR 2.7 mmHg PV Peak GR 5.2 mmHg Tricuspid Valve TR Vmax 3.0 m/s RAP (EST) 8 mmHg RVSP 47.6 mmHg TR Peak GR 39.6 mmHg Left Ventricle Left ventricular cavity size is upper limits normal in size. Apical inferior segment appears dyskinetic. Mid to distal septal wall is hypokinetic. There is normal left ventricular wall thickness. Left ventricular systolic function is moderately reduced. LVEF is 35-40%. Grade II diastolic dysfunction. Right Ventricle The right ventricle is moderately dilated. Right ventricular systolic function is mildly reduced. Device lead is present in the right ventricle. Atria The left atrium is severely dilated. The right atrium is severely dilated. Aortic Valve The aortic valve is trileaflet, calcified. No aortic regurgitation is present. There is mild valvular aortic stenosis. MG 11.9 mmHg. DVI 0.32. Mitral Valve The mitral valve is normal in structure and function. Mitral regurgitation is mild. There is no mitral valve stenosis. Tricuspid Valve The tricuspid valve is normal in structure. There is moderate to severe tricuspid valve regurgitation noted, RVSP 48mmHg. RVSP may be underestimated by doppler of TR jet. Pulmonic Valve The pulmonary valve is normal in structure and function. There is trace pulmonic valvular regurgitation. Great Vessels The aortic root is normal in size. IVC is dilated and collapses >50% with inspiration. Pericardium Trace pericardial effusion. No echo indications of pericardial tamponade. Other Information Quality : Good Rhythm : Pacemaker Conclusion Left ventricular cavity size is upper limits normal in size. Left ventricular systolic function is moderately reduced. LVEF is 35-40%. Apical inferior segment appears dyskinetic. Mid to distal septal wall is hypokinetic. Grade II diastolic dysfunction. The right ventricle is moderately dilated and mild reduction systolic function. Device lead is present in the right ventricle. Severe biatrial enlargement. Mild mitral regurgitation. Moderate to severe tricuspid valve regurgitation, with RVSP 48mmHg. DICTATED BY: LIVIA DURBIN DO DATE: 08/21/25922 ELECTRONICALLY SIGNED BY: LIVIA DURBIN DO DATE: 08/21/252006 PATIENT: TAYLOR DUNCAN MR#: [id number] : 1940 SEX: M AGE: 84 LOCATION: [facility] ORDER 1553 STATUS: [facility] REPORT#: [id number] SERVICE 1544 REASON: RULE OUT dvt ORDERING PHYSICIAN: DAGOBERTO BRIGGS [facility] PROCEDURE: VENOUS SHAMA - US VENOUS DOPPLER BILATERAL EXAM: BILATERAL LOWER EXTREMITY VENOUS DOPPLER ULTRASOUND CLINICAL INFORMATION: Rule out deep venous thrombosis. TECHNIQUE: Grayscale, color Doppler, and spectral Doppler evaluation of the bilateral common femoral, femoral, profunda femoris, popliteal, posterior tibial, and peroneal veins with compression maneuvers and augmentation where feasible; great and small saphenous veins assessed as appropriate. COMPARISON: None provided. FINDINGS: DEEP VEINS (BILATERAL): Common femoral, femoral, profunda femoris, popliteal, posterior tibial, and peroneal veins are patent with complete compressibility where assessable and demonstrate normal color fill and phasic/spectral flow; no intraluminal thrombus is identified. SUPERFICIAL VEINS (BILATERAL): Great and small saphenous veins are patent and compressible without thrombus. SOFT TISSUES: No focal fluid collection is identified. IMPRESSION: 1. No deep or superficial venous thrombosis in bilateral lower extremities. /[place]nard DICTATED BY: PAM RIGGINS MD DATE: 08/21/25157 ELECTRONICALLY SIGNED BY: PAM RIGGINS MD DATE: 08/21/25157 PATIENT: TAYLOR DUNCAN MR#: [id number] : 1940 SEX: M AGE: 84 LOCATION: ED ORDER 17 STATUS: REG ER REPORT#: [id number] SERVICE 16 REASON: PELVIC PAIN STATUS POST FALL. ORDERING PHYSICIAN: IGOR BOURNE [employer] REPAIRER HELPER PROCEDURE: PELVIS - PELVIS 1-2VWS EXAM: CR Pelvis, 2 View. CLINICAL HISTORY: PELVIC PAIN STATUS POST FALL. COMPARISON: None provided. FINDINGS: Mild bilateral hip joint osteoarthritis. Spondylosis of the visualized lower lumbar spine. Prostatic radiation seeds noted. No displaced fracture appreciated. IMPRESSION: 1. No acute osseous injury. /Maynard DICTATED BY: SYLVESTER STRANGE Jr., MD DATE: 08/20/251433 ELECTRONICALLY SIGNED BY: SYLVESTER STRANGE Jr., MD DATE: 08/20/251433 PATIENT: TAYLOR DUNCAN MR#: [id number] : 1940 SEX: M AGE: 84 LOCATION: ED ORDER 44 STATUS: REG [facility] REPORT#: [id number] SERVICE 1042 REASON: SYNCOPAL EPISODE FELL WITH RIGHT UPPER ARM PAIN ORDERING PHYSICIAN: IGOR BOURNE [employer] REG[employer]PAIRER HELPER PROCEDURE: HUM 2V RT - HUMERUS 2+VWS RT EXAM: CR right Humerus, 2 View. CLINICAL HISTORY: SYNCOPAL EPISODE FELL WITH RIGHT UPPER ARM PAIN COMPARISON: None provided. FINDINGS: BONES: No acute fracture or aggressive appearing osseous lesion. JOINTS: No dislocation. The joint spaces are normal. SOFT TISSUES: The soft tissues are unremarkable. IMPRESSION: No acute osseous abnormality. /[place] DICTATED BY: SYLVESTER STRANGE Jr., MD DATE: 08/20/251331 ELECTRONICALLY SIGNED BY: SYLVESTER STRANGE Jr., MD DATE: 08/20/251331 PATIENT: TAYLOR DUNCAN MR#: [id number] : 1940 SEX: M AGE: 84 LOCATION: [facility] [address] ORDER 44 STATUS: REG REPORT#: [id number] SERVICE 41 REASON: SYNCOPAL EPISODE FELL BACK AND HIT OCCIPUT. CONFUSED ORDERING PHYSICIAN: IGOR BOURNE PROCEDURE: HEAD WO - CT HEAD/BRAIN W/O CONTRAST EXAM: CT Head Without IV contrast. CLINICAL HISTORY: SYNCOPAL EPISODE FELL BACK AND HIT OCCIPUT. CONFUSED TECHNIQUE: Axial computed tomography images of the head/brain without intravenous contrast. COMPARISON: None provided. FINDINGS: BRAIN: No evidence of acute hemorrhage. No mass lesion. No CT evidence for acute territorial infarct. No midline shift or extra-axial collections. VENTRICLES: No hydrocephalus. ORBITS: The orbits are unremarkable. SINUSES AND MASTOIDS: The paranasal sinuses and mastoid air cells are clear. BONES: No fracture. SOFT TISSUES: Soft tissue edema overlying the left parietal skull. IMPRESSION: No acute intracranial abnormality. /[place] DICTATED BY: SYLVESTER STRANGE Jr., MD DATE: 08/20/251251 ELECTRONICALLY SIGNED BY: SYLVESTER STRANGE Jr., MD DATE: 08/20/251251 PATIENT: TAYLOR DUNCAN MR#: [id number] : 1940 SEX: M AGE: 84 LOCATION: [facility] ORDER 44 STATUS: REG [facility] REPORT#: [id number] SERVICE 41 REASON: FOR A PAIN STATUS POST SYNCOPAL EPISODE AND FALL ORDERING PHYSICIAN: IGOR BOURNE G[employer] REGULATOR REPAIRER HELPER PROCEDURE: FORARMR - FOREARM 2VWS RT EXAM: CR right Forearm, 2 View. CLINICAL HISTORY: FOR A PAIN STATUS POST SYNCOPAL EPISODE AND FALL COMPARISON: None provided. FINDINGS: BONES: No acute fracture or aggressive appearing osseous lesion. JOINTS: No dislocation. The joint spaces are normal. SOFT TISSUES: The soft tissues are unremarkable. IMPRESSION: No acute osseous abnormality. /[place]astern DICTATED BY: SYLVESTER STRANGE Jr., MD DATE: 08/20/251330 ELECTRONICALLY SIGNED BY: SYLVESTER STRANGE Jr., MD DATE: 08/20/251330 PATIENT: TAYLOR DUNCAN MR#: [id number] : 1940 SEX: M AGE: 84 LOCATION: ED ORDER 44 STATUS: [facility] REPORT#: [id number] SERVICE 41 REASON: FOR A PAIN STATUS POST SYNCOPAL EPISODE AND FALL ORDERING PHYSICIAN: IGOR BOURNE GAS REGULATOR REPAIRER HELPER PROCEDURE: CXR1VW - CHEST 1VW EXAM: CR Chest, 1 View. CLINICAL HISTORY: FOR A PAIN STATUS POST SYNCOPAL EPISODE AND FALL COMPARISON: None provided. FINDINGS: LUNGS: The lungs show no infiltrate or other acute finding. PLEURAL SPACES: No evidence of pleural effusion or pneumothorax. MEDIASTINUM: Moderate cardiomegaly. Pacemaker leads are in appropriate positions. Pulmonary vessels and interstitial markings are within normal limits. BONES: No aggressive appearing osseous lesion seen. IMPRESSION: No acute cardiopulmonary pathology is evident. /[place] DICTATED BY: SYLVESTER STRANGE Jr., MD DATE: 08/20/251331 ELECTRONICALLY SIGNED BY: SYLVESTER STRANGE Jr., MD DATE: 08/20/251331 PATIENT: TAYLOR DUNCAN MR#: [id number] : 1940 SEX: M AGE: 84 LOCATION: [facility] ORDER 44 STATUS: REG [facility] REPORT#: [id number] SERVICE 104 REASON: SYNCOPAL EPISODE, FELL BACK HIT HEAD. MIDLINE SPINE PAIN ORDERING PHYSICIAN: IGOR BOURNE GAS REGULATOR REPAIRER HELPER PROCEDURE: C SPIN WO - CT CERVICAL SPINE W/O CONTRAST ADDENDUM REPORT ADDENDUM: Results were shared by telephone at 01:24 pm EST on 08-20-25 and acknowledged by IGOR Smith. /Maynard EXAM: CT Cervical Spine Without IV contrast. CLINICAL HISTORY: SYNCOPAL EPISODE, FELL BACK HIT HEAD. MIDLINE SPINE PAIN TECHNIQUE: Axial computed tomography images of the cervical spine without intravenous contrast. Sagittal and coronal reformatted images were generated. COMPARISON: None provided. FINDINGS: The cervical alignment is within normal limits. There is straightening of the cervical spine that may reflect paraspinal muscle spasm. There is cervical spondylosis evident by anterior osteophytes, uncovertebral joint hypertrophy, and facet joint osteoarthritis. Bones are markedly osteopenic, limiting evaluation for nondisplaced fractures. There is a mildly displaced fracture of the right transverse process of C7. Suspected nondisplaced fractures at the inferior endplate of C6 and superior endplate of C7. There is a fracture of the right superior articular facet of C7. The bilateral inferior articular facets of C6 are perched upon the bilateral superior articular facets of C7 resulting in 0.4 cm anterior listhesis of C6 with respect to C7. There is edema within the surrounding paraspinal musculature. Lung apices are clear. IMPRESSION: 1. Mildly displaced fracture of the right C7 transverse process. 2. Suspected nondisplaced fractures at C6 inferior endplate and C7 superior endplate. 3. Fracture of the right C7 superior articular facet. 4. Bilateral C6-C7 facet perching with 4 mm anterolisthesis of C6 on C7. 5. Paraspinal muscle edema. /Maynard DICTATED BY: SYLVESTER STRANGE Jr., MD DATE: 08/20/25 1350 ELECTRONICALLY SIGNED BY: DATE: EXAM: CT Cervical Spine Without IV contrast. CLINICAL HISTORY: SYNCOPAL EPISODE, FELL BACK HIT HEAD. MIDLINE SPINE PAIN TECHNIQUE: Axial computed tomography images of the cervical spine without intravenous contrast. Sagittal and coronal reformatted images were generated. COMPARISON: None provided. FINDINGS: The cervical alignment is within normal limits. There is straightening of the cervical spine that may reflect paraspinal muscle spasm. There is cervical spondylosis evident by anterior osteophytes, uncovertebral joint hypertrophy, and facet joint osteoarthritis. Bones are markedly osteopenic, limiting evaluation for nondisplaced fractures. There is a mildly displaced fracture of the right transverse process of C7. Suspected nondisplaced fractures at the inferior endplate of C6 and superior endplate of C7. There is a fracture of the right superior articular facet of C7. The bilateral inferior articular facets of C6 are perched upon the bilateral superior articular facets of C7 resulting in 0.4 cm anterior listhesis of C6 with respect to C7. There is edema within the surrounding paraspinal musculature. Lung apices are clear. IMPRESSION: 1. Mildly displaced fracture of the right C7 transverse process. 2. Suspected nondisplaced fractures at C6 inferior endplate and C7 superior endplate. 3. Fracture of the right C7 superior articular facet. 4. Bilateral C6-C7 facet perching with 4 mm anterolisthesis of C6 on C7. 5. Paraspinal muscle edema. /[place]nard DICTATED BY: SYLVESTER STRANGE Jr., MD DATE: 08/20/25 1301 ELECTRONICALLY SIGNED BY: SYLVESTER STRANGE Jr., MD DATE: 08/20/25 1301 ASSESSMENT: Acute on chronic renal failure Syncope and fall POA Mildly displaced fracture of the right C7 transverse process. nondisplaced fractures at C6 inferior endplate and C7 superior endplate. Fracture of the right C7 superior articular facet. Bilateral C6-C7 facet perching with 4 mm anterolisthesis of C6 on C7. Paraspinal muscle edema. 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 We have reviewed external records in detail Pending discharge disposition later today Require close monitoring of renal function and electrolytes Order CBC, CMP, electrolytes in am BiPAP as necessary, for respiratory distress Monitor blood pressure adjust medication doses as needed Avoid hypotensive episodes May use Dilaudid 0.5 mg IV every 6 hours as needed for severe pain Monitor blood sugars Strict intake, output, and daily weight should be monitored Please renally adjust medications Avoid nephrotoxic and nonsteroidal drugs Avoid contrast if possible Will continue to monitor renal function, anemia, electrolytes Treatment plan discussed with patient Questions were answered We have discussed with the other team physicians in detail about the care plan We will continue to monitor the patient closely ATTESTATION BY PHYSICIAN I have seen and examined the patient. I reviewed the documentation, medical decision making, and treatment plan as noted by the mid-level provider above. I agree with the findings and plan of care. ZACHARY SRINIVASAN MD, [facility] Aug 29, 2025 12:37
--- NOTE | 2025-08-29 13:31 | NUR ---
WOUND CARE PER DR FARIA, PERFORMED WOUND CARE. REMOVED DRESSING AND APPLIED BETADINE. COVERED WOUND WITH NON-ADHESIVE GAUZE AND SECURED WITH TEGADERM.
--- NOTE | 2025-08-29 14:02 | NUR ---
[facility] CALLED FOR TRANSPORTATION. VERBALIZED UNDERSTANDING PATIENT NEEDS TO BE THERE BEFORE 3PM.
--- NOTE | 2025-08-29 14:15 | NUR ---
REPORT GAVE REPORT TO NAHEED LUO AT [facility] REGARDING PATIENT TRANSFER TO FACILITY.
--- NOTE | 2025-08-29 14:43 | DS ---
[facility] DISCHARGE SUMMARY Date Patient Seen: Aug 29, 2025 Time of Visit: 1255 Supervising Physician: Dr. 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 nondisplaced fractures at C6 inferior endplate and C7 superior endplate. Fracture of the right C7 superior articular facet. Bilateral C6-C7 facet perching with 4 mm anterolisthesis of C6 on C7. Paraspinal muscle edema. 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 Patient reports he was and a 3 ft stool and passed out. He reports a similar episode 3-4 months ago at [place]. Patient reports he fell backwards and struck his head. He denies any blood thinners at this time patient reports he has stopped anticoagulation medications once Watchman was placed for his AFib, week ago. He presented to the ED with complaints of right arm pain, cervical pain and headache. Patient denied chest pain or back pain. No other deformities noted. Further ED evaluation on CT cervical spine without contrast there was findings of mildly displaced fracture of the right C7 transverse process, suspected nondisplaced fracture at C6, inferior endplate NC seven to PRN plate. Fracture of the right C7, superior articular facet bilateral C6-C7 pauses per team with 4 mm anterolisthesis of C6 on C7. Paraspinal muscle edema. Chest x-ray showed no acute pulmonary edema pathology is evident. Right forearm x-ray shows no acute osseous abnormality. Head CT shows no acute intracranial abnormality. Right humerus x-ray shows no acute osseous abnormality. Pelvis x-ray shows no acute osseous injury. Laboratory findings show hemoglobin of 10 hematocrit of 29.5 MCV of 109.7, MCH of 37.2. Chemistries shows potassium of 3.4 chloride 99 BUN of 46 creatinine 1.5 GFR of 45 glucose of 208 mg/dL and BNP of 203. Per ED MD Neurosurgeon was consulted DR Bob which accepted the pt in this facility. Dr Crews was also consulted for trauma. Patient was seen and examined by bedside with family present. Patient is at time of visit has no specific complaints. The patient denies any chest pain or shortness of breadth. Denies any nausea vomiting or abdominal pain. Has remained hemodynamically stable. Patient's labs this morning unremarkable. Patient has been accepted to IRU to continue with rehab, and patient has been cleared by neurosurgery and Cardiology for discharge. Instructed both patient and patient's family the patient will be getting discharged today and will need to follow up with PCP within 3-5 days upon discharge, along with following up with Neurosurgery within 3-5 days upon discharge. Both voiced understanding agrees with plan have no questions at this time. 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 Folic acid1 mg daily Thiamine 100 mg daily Multivitamin one tab daily [id number] mg daily Metoprolol 50 mg daily Amiodarone 400 mg daily A Edna 300 mg daily Metolazone 2.5 mg daily Fish oil 1000 mg daily Flomax 0.4 mg daily [id number] mg daily Magnesium oxide 400 mg daily Lasix 40 mg daily Lovenox 30 mg daily Pt hemodynamically stable and afebrile at time of discharge. PCP notified of patients admission, hospital course and discharge. PHYSICAL EXAM: GENERAL: Awake alert and oriented HEENT: EOMI, Sclera non icteric, moist mucosa NECK: Supple, no JVD, trachea midline, soft cervical collar complaints LUNGS: Fine crackles bilaterally, no wheezing HEART: Regular rate and rhythm. Normal S1 and S2, without murmurs ABD: Abdomen soft, nontender. Bowel sounds present EXT: No clubbing cyanosis or edema NEURO: Alert and oriented to person, follows commands FOLLOW-UP: Follow-up with PCP in 2-3 days Follow up with neurosurgery within 3-5 days upon discharge Follow up with Cardiology within 3-5 days upon discharge RECOMMENDATIONS: See Discharge Instructions This case was seen and discussed with my supervising physician. 35 minutes spent on discharge process, including evaluation of the patient, discussion with nursing staff, medication reconciliation and follow-up appointments MARKUS WOLFEP Aug 29, 2025 14:43
--- NOTE | 2025-08-29 15:00 | NUR ---
DISCHARGE PATIENT DISCHARGE TO [facility] VIA EMS. RIGHT UPPER PICC LINE IN PLACE, TELEMETRY PACK REMOVED. EDUCATED PRIMARY CAREGIVER, DAUGHTER, OVER MEDICATIONS TO BE CONTINUED AND DISCONTINUED. FAMILY VERBALIZED UNDERSTANDING. ALL QUESTIONS ANSWERED.
== END 2025-08-29 14:45 | DRG 471 ==
LOC: EDH 10:40 → EDHIP 14:47 → 2CH 17:14 → 4BH 08-28 10:15
PROVIDERS: ADMIT Internal Medicine Critical Care Medicine; ATTEND Internal Medicine Critical Care Medicine
PROC: 30243N1 Transfusion of Nonautologous Red Blood Cells into Central Vein, Percutaneous Approach (ICD-10-PCS; 2025-08-24)
PROC: 0BH17EZ Insertion of Endotracheal Airway into Trachea, Via Natural or Artificial Opening (ICD-10-PCS; 2025-08-24)
PROC: 5A1935Z Respiratory Ventilation, Less than 24 Consecutive Hours (ICD-10-PCS; 2025-08-24)
PROC: 0RG10K1 Fusion of Cervical Vertebral Joint with Nonautologous Tissue Substitute, Posterior Approach, Posterior Column, Open Approach (ICD-10-PCS; principal; 2025-08-25)
PROC: 00NW0ZZ Release Cervical Spinal Cord, Open Approach (ICD-10-PCS; 2025-08-25)
PROC: 5A09357 Assistance with Respiratory Ventilation, Less than 24 Consecutive Hours, Continuous Positive Airway Pressure (ICD-10-PCS; 2025-08-26)
PROC: 5A09357 Assistance with Respiratory Ventilation, Less than 24 Consecutive Hours, Continuous Positive Airway Pressure (ICD-10-PCS; 2025-08-27)
PROC: 5A09357 Assistance with Respiratory Ventilation, Less than 24 Consecutive Hours, Continuous Positive Airway Pressure (ICD-10-PCS; 2025-08-28)
PROC: 5A09357 Assistance with Respiratory Ventilation, Less than 24 Consecutive Hours, Continuous Positive Airway Pressure (ICD-10-PCS; 2025-08-29)
DX: S12.590A Other displaced fracture of sixth cervical vertebra, initial encounter for closed fracture (principal); G82.50 Quadriplegia, unspecified; I49.01 Ventricular fibrillation; E87.20 Acidosis, unspecified; I42.0 Dilated cardiomyopathy; D63.1 Anemia in chronic kidney disease; D69.6 Thrombocytopenia, unspecified; N17.9 Acute kidney failure, unspecified; N39.0 Urinary tract infection, site not specified; S12.490A Other displaced fracture of fifth cervical vertebra, initial encounter for closed fracture; S12.600A Unspecified displaced fracture of seventh cervical vertebra, initial encounter for closed fracture; S14.155A Other incomplete lesion at C5 level of cervical spinal cord, initial encounter; I13.0 Hypertensive heart and chronic kidney disease with heart failure and stage 1 through stage 4 chronic kidney disease, or unspecified chronic kidney disease; E11.22 Type 2 diabetes mellitus with diabetic chronic kidney disease; I07.1 Rheumatic tricuspid insufficiency; N18.32 Chronic kidney disease, stage 3b; I27.20 Pulmonary hypertension, unspecified; I48.19 Other persistent atrial fibrillation; I50.22 Chronic systolic (congestive) heart failure; D53.9 Nutritional anemia, unspecified; E87.6 Hypokalemia; I49.3 Ventricular premature depolarization; E11.65 Type 2 diabetes mellitus with hyperglycemia; E78.5 Hyperlipidemia, unspecified; I25.10 Atherosclerotic heart disease of native coronary artery without angina pectoris; K21.9 Gastro-esophageal reflux disease without esophagitis; M43.12 Spondylolisthesis, cervical region; M47.814 Spondylosis without myelopathy or radiculopathy, thoracic region; M81.0 Age-related osteoporosis without current pathological fracture; N40.0 Benign prostatic hyperplasia without lower urinary tract symptoms; S00.03XA Contusion of scalp, initial encounter; S40.021A Contusion of right upper arm, initial encounter; Z74.01 Bed confinement status; Z95.810 Presence of automatic (implantable) cardiac defibrillator; Z98.1 Arthrodesis status; Z79.899 Other long term (current) drug therapy; W08.XXXA Fall from other furniture, initial encounter; Y93.89 Activity, other specified; Y92.89 Other specified places as the place of occurrence of the external cause; Y99.8 Other external cause status
CPT/HCPCS: 36415; 36556; 36600; 70450; 70544; 70551; 71045; 72040; 72125; 72141; 72146; 72170; 73060; 73090; 76770; 80048; 80053; 80305; 81001; 82435; 82533; 82550; 82803; 82947; 83036; 83540; 83550; 83605; 83735; 83880; 84100; 84132; 84145; 84295; 84443; 84484; 84550; 85018; 85025; 85027; 85378; 85610; 85730; 86850; 86900; 86901; 86923; 87086; 88304; 93005; 93306; 93308; 93356; 93970; 94002; 94003; 94150; 94640; 94664; 96374; 96375; 97161; 99285; C1713; C1894; G0378; J0282; J0330; J0690; J1010; J1100; J1171; J1650; J1756; J2250; J2270; J2405; J2704; J3010; J3260; J3373; J3411; J3480; J3490; J7050; J7060; P9016; A4649; A6254; A9900; C1750; C1776; J0283; J0665; J1308